=== PATIENT | female | born 1960 | race Caucasian/White ===

== ENCOUNTER 2017-01-10 14:33 | Inpatient (IN) | payer MEDICARE, MEDICAID ==
[~2017-01-10] VITALS: Ht 162.6 cm; Wt 60.3 kg
[~2017-01-10 14:33] MED LIST: ALBU18HF2 INH; DICL100G3 TOP; DIPH25CA84 PO; DOCU-132 PO; GABA-354 PO; IPRA4AER PO; OXYC10TA PO; OXYC15TA50 PO; PANT40TA27 PO; SERT-77 PO; SUCR1TAB PO; TRAM50TA4 PO; TRAZ300T2 PO; [UNRECOGNIZED DRUG - CODE] PO
--- OUTSIDE RECORDS SUMMARY | 2017-01-10 14:36 | XMS REPORT | Continuity of Care Document ---
Author Author [facility] Organization [facility] Address Unknown Phone Unavailable Support Name Relationship Address Phone TRIXIE ROMERO Next Of Kin [address] [address] Unavailable Insurance Providers Payer Name Policy Number Subscriber Name Relationship Medicaid [id number] Dulce Maria Romero 16 Self Medicare [id number] Dulce Maria Romero 16 Self Problems No Known Problems or Medical conditions. Family History History Response Recorded Date/Time HX of Orthopedic Surgeries Y RT BOBBI 2009; RT CTR 12/12/12 7:55am Hx Abdominal Surgery Y LAP APPY 12/12/12 7:55am HX Cerebrovascular Accident N 12/12/12 7:55am Hx Seizures N 12/12/12 7:55am Hx Angina N 12/12/12 7:55am Hx Congestive Heart Failure N 12/12/12 7:55am Hx Heart Attack N 12/12/12 7:55am Hx Hypertension Y 12/12/12 7:55am Hx Rheumatic Fever N 08/12/12 3:15pm Hx Chronic Obstructive Pulmonary Disease (COPD) N 12/12/12 7:55am Hx Diabetes N 12/12/12 7:55am Hx Clotting Problems N 12/12/12 7:55am Hx Cancer N 12/12/12 7:55am Hx MRSA N 12/12/12 7:55am HX of Cardiac Surgeries N 12/12/12 7:55am HX of Reproductive Surgeries Y tubal ligation 12/12/12 7:55am HX of Endocrine Surgeries N 12/12/12 7:55am HX of Throat Surgery N 12/12/12 7:55am HX of Neurological Surgeries N 12/12/12 7:55am HX of Genitourinary Surgeries N 12/12/12 7:55am Social History History Response Recorded Date/Time Smoking Status Current every day smoker 05/08/13 6:43am Chewing Tobacco Status N 12/12/12 7:55am Hx Substance Use N 12/12/12 7:55am Hx Alcohol Use Y 2 GLASSES 4X WK 12/12/12 7:55am Has the pt used tobacco in the last 12 months Y 05/08/13 6:43am Allergies, Adverse Reactions, Alerts Allergen Type Severity Reaction Last Updated NSAIDS (Non-Steroidal Anti-Inflamma Adverse Reaction Mild NAUSEA 09/09/12 LACTOSE INTOLERANT Allergy Unknown 03/08/10 Medications Medication Dose Units Route Sig Qty Days Diclofenac Sodium (Voltaren 1% Gel) 50 Applic TOP PRN Ropinirole Hcl 0.5 Mg PO HS Cyclobenzaprine Hcl 10 Mg PO PC Lansoprazole 30 Mg PO DAILY Folic Acid 0.4 Mg PO DAILY Diphenhydramine Hcl (Benadryl) 25 Mg PO PRN Trazodone Hcl 25 Mg PO HS Tramadol Hcl 1 Tab PO BID Oxycodone Hcl 5 Mg PO BID Propylene Glycol/Peg 400 (Systane Ultra 0.4-0.3% Eye Drp) 1 Drop BOTH EYES DAILY Metoprolol Succinate 50 Mg PO DAILY Lisinopril 20 Mg PO DAILY Ascorbic Acid (Vitamin C) 500 Mg PO DAILY Oxycodone Hcl/Acetaminophen (Oxycodone-Apap 10-325 Mg Tab) 1 Tab PO PRN Cholecalciferol (Vitamin D) 1000 Unit PO DAILY Sertraline Hcl (Zoloft) 100 Mg PO DAILY Lisinopril 20 Mg PO DAILY Docusate Sodium (Colace) 100 Mg PO PRN Cyclobenzaprine Hcl (Flexeril) 10 Mg PO PRN Immunizations Name Given Type Hx Influenza Vaccination N H Hx Pneumococcal Vaccination N H Hx Tetanus, Diptheria, Pertussis N UNK LAST H Response Recorded Date/Time Status not known Unknown Results Test Date Result Interp. Ref. Range Acid Fast Bacilli Culture (LAB) April 03, 2011 2:05pm Ref lab rpt scanned - Alanine Aminotransferase (ALT/SGPT) May 05, 2013 11:33am 53 U/L H 9-52 Albumin May 05, 2013 11:33am 4.3 G/DL N 3.5-5.0 Albumin/Globulin Ratio May 05, 2013 11:33am 1.3 RATIO N 1.1-2.2 Alkaline Phosphatase May 05, 2013 11:33am 113 U/L N 38-126 Mczji-3-Basshxxhsty December 04, 2011 11:40am Ref lab rpt scanned - Amylase Level February 11, 2013 8:05am 36 U/L N 30-110 Angiotensin Converting Enzyme June 15, 2011 10:25am Ref lab rpt scanned - Anion Gap May 08, 2013 8:15am 15 MEQ/L N 5-15 Anisocytosis September 02, 2010 12:04pm 1+ - Anti-Cardiolipin Antibodies (T) January 17, 2011 10:53am Ref lab rpt scanned - Anti-Double Strand DNA Antibody January 17, 2011 10:53am Ref lab rpt scanned - Anti-Mitochondrial Antibody December 04, 2011 11:40am Ref lab rpt scanned - Anti-Smooth Muscle Antibody December 04, 2011 11:40am Ref lab rpt scanned - Aspartate Amino Transf (AST/SGOT) May 05, 2013 11:33am 75 U/L H 14-36 B-Type Natriuretic Peptide January 09, 2009 1:30am 21 PG/ML N 15-100 BUN/Creatinine Ratio May 08, 2013 8:15am 6 RATIO N 6-26 Band Neutrophils # February 14, 2011 12:44pm 0.1 T/MM3 - Band Neutrophils % February 14, 2011 12:44pm 1.0 % N 0-6 Basophils # (Auto) May 08, 2013 8:15am 0.0 T/MM3 N 0-0.2 Basophils # (Manual) September 02, 2010 12:04pm 0.1 T/MM3 N 0-0.2 Basophils % (Manual) September 02, 2010 12:04pm 1.0 % N 0-2 Basophils (%) (Auto) May 08, 2013 8:15am 0.7 % N 0-2 Blood Smear Pathologist Review September 06, 2010 11:01am Sent for review - Blood Urea Nitrogen May 08, 2013 8:15am 3.0 MG/DL L 7-17 C-Reactive Protein February 11, 2013 8:05am 8.9 MG/L N 0-9 Calcium Level May 08, 2013 8:15am 8.7 MG/DL N 8.4-10.2 Calculated Osmolality May 08, 2013 8:15am 268 MOSM/KG N 261-280 Carbon Dioxide Level May 08, 2013 8:15am 23 MEQ/L N 22-30 Ceruloplasmin December 04, 2011 11:40am Ref lab rpt scanned - Chloride Level May 08, 2013 8:15am 103 MEQ/L N 98-107 Cholesterol Level September 27, 2010 11:50am 434 MG/DL 132-199 Cholesterol/HDL Ratio September 27, 2010 11:50am 5.9 RATIO H 0-4.0 Conjugated Bilirubin May 07, 2012 2:12pm 0.00 MG/DL N 0.00-0.30 Creatine Kinase MB August 13, 2012 4:00am 0.6 NG/ML N 0-3.4 Creatinine May 08, 2013 8:15am 0.5 MG/DL L 0.7-1.2 Differential Total Cells Counted February 14, 2011 12:44pm 100 % - Eosinophils # (Auto) May 08, 2013 8:15am 0.7 T/MM3 H 0-0.5 Eosinophils # (Manual) February 14, 2011 12:44pm 0.2 T/MM3 N 0-0.5 Eosinophils % (Manual) February 14, 2011 12:44pm 2.0 % N 0-4 Eosinophils (%) (Auto) May 08, 2013 8:15am 16.3 % H 0-4 Erythrocyte Sedimentation Rate February 11, 2013 8:05am 1 MM/HR N 0-20 Ferritin December 04, 2011 11:40am 247 NG/ML N 11-264 Folate September 06, 2010 11:01am 13.1 NG/ML N 2.76-20 Free Thyroxine February 11, 2013 8:05am 0.72 NG/DL L 0.78-2.19 Globulin May 05, 2013 11:33am 3.2 G/DL N 2.4-3.6 Glucose Level May 08, 2013 8:15am 93 MG/DL N 65-110 Hematocrit May 08, 2013 8:15am 38.0 % N 36-46 Hemoglobin May 08, 2013 8:15am 13.3 GM/DL N 12-16 Hepatitis A IgM Antibody December 04, 2011 11:40am Negative - Hepatitis B Core IgM Antibody December 04, 2011 11:40am Negative - Hepatitis B Surface Antigen December 04, 2011 11:40am Negative - Hepatitis C Antibody December 04, 2011 11:40am Negative - Homocysteine September 27, 2010 11:50am Ref lab rpt scanned - Immunoglobulin A December 04, 2011 11:40am 400.60 MG/DL H 70-400 Immunoglobulin G December 04, 2011 11:40am 1049.91 MG/DL N 700-1600 Immunoglobulin M December 04, 2011 11:40am 86.15 MG/DL N 40-230 Influenza Virus Types A,B Antigen January 09, 2009 2:20am Negative - Iron Level December 04, 2011 11:40am 143 UG/DL N 37-170 LDL Cholesterol, Calculated September 27, 2010 11:50am 280.2 H 66-159 Lactate Dehydrogenase September 02, 2010 12:04pm 492 U/L N 313-618 Lipase February 11, 2013 8:05am 108 U/L N 23-300 Lymphocytes # (Auto) May 08, 2013 8:15am 1.9 T/MM3 N 1-4.8 Lymphocytes # (Manual) February 14, 2011 12:44pm 3.1 T/MM3 N 1-4.8 Lymphocytes % (Manual) February 14, 2011 12:44pm 37.0 % N 23-45 Lymphocytes (%) (Auto) May 08, 2013 8:15am 41.5 % N 23-45 Macrocytosis September 02, 2010 12:04pm 1+ - Mean Corpuscular Hemoglobin May 08, 2013 8:15am 36.7 UUG H 26-34 Mean Corpuscular Hemoglobin Concent May 08, 2013 8:15am 35.0 GM/DL N 31- 37 Mean Corpuscular Volume May 08, 2013 8:15am 105.0 UM3 H 80-100 Mean Platelet Volume May 08, 2013 8:15am 10.7 UM3 N 9.4-12.4 Methylmalonic Acid September 27, 2010 11:50am Ref lab rpt scanned - Miscellaneous Cytology April 03, 2011 2:05pm Send out - Monocytes # (Auto) May 08, 2013 8:15am 0.4 T/MM3 N 0-0.8 Monocytes # (Manual) February 14, 2011 12:44pm 0.2 T/MM3 N 0-0.8 Monocytes % (Manual) February 14, 2011 12:44pm 3.0 % N 0-9.0 Monocytes (%) (Auto) May 08, 2013 8:15am 8.6 % N 0-9.0 Neutrophils # (Auto) May 08, 2013 8:15am 1.5 T/MM3 L 1.8-7.7 Neutrophils # (Manual) February 14, 2011 12:44pm 4.7 T/MM3 N 1.8-7.7 Neutrophils % (Manual) February 14, 2011 12:44pm 57.0 % N 33-66 Neutrophils (%) (Auto) May 08, 2013 8:15am 32.9 % L 33-66 Nucleated Red Blood Cells February 14, 2011 12:44pm 1 - Parathyroid Hormone (Intact) January 03, 2010 10:55am 15.0 PG/ML N 8.2-83.5 Percent Iron Saturation December 04, 2011 11:40am 46 % N 9-55 Platelet Count May 08, 2013 8:15am 132 T/MM3 N 130-400 Potassium Level May 08, 2013 8:15am 3.3 MEQ/L L 3.6-5 RDW Standard Deviation May 08, 2013 8:15am 53.5 FL H 36.9-50.2 BUTTER WRAPPER Antibody January 17, 2011 10:53am Ref lab rpt scanned - Red Blood Cell Folate February 28, 2013 2:38pm 114 ng/mL L - Red Blood Cell Folate Hematocrit February 28, 2013 2:38pm 48.4 % H - Red Blood Count May 08, 2013 8:15am 3.62 M/MM3 L 4.00-5.20 Rheumatoid Factor January 17, 2011 10:53am < 9 IU/ML 0-11 SS-A/Ro Antibody January 17, 2011 10:53am Ref lab rpt scanned - Serum Immunofixation March 24, 2011 12:34pm Ref lab rpt scanned - Sm (Martinez) IgG Antibody, Quant January 17, 2011 10:53am Ref lab rpt scanned - Sodium Level May 08, 2013 8:15am 141 MEQ/L N 134-144 Thyroid Stimulating Hormone (TSH) February 11, 2013 8:05am 1.68 MIU/L N 0.47- 4.68 Thyroxine (T4) February 11, 2013 8:05am 3.0 UG/DL L 5.5-11 Total Bilirubin May 05, 2013 11:33am 0.70 MG/DL N 0.20-1.30 Total Creatine Kinase August 13, 2012 4:00am 34 U/L N 30-135 Total Iron Binding Capacity December 04, 2011 11:40am 309 UG/DL N 261-497 Total Protein May 05, 2013 11:33am 7.5 G/DL N 6.3-8.2 Triglycerides Level September 27, 2010 11:50am 404 MG/DL H 35-135 Troponin I August 13, 2012 4:00am < 0.012 ng/ml 0-0.12 Unconjugated Bilirubin May 07, 2012 2:12pm 0.00 MG/DL N 0.00-1.10 Urine Bacteria February 11, 2013 8:05am 3+ H - Urine Bilirubin May 05, 2013 11:33am Negative - Urine Blood May 05, 2013 11:33am Negative - Urine Collection Type May 05, 2013 11:33am Voided-not cc-midstr - Urine Color May 05, 2013 11:33am Yellow - Urine Culture Indicated February 11, 2013 8:05am Cult reflexed &setup - Urine Drug Screen (T) May 03, 2009 3:10pm Sent out - Urine Glucose (UA) May 05, 2013 11:33am Negative - Urine Immunofixation 24 Hour September 06, 2010 12:00pm Ref lab rpt scanned - Urine Ketones May 05, 2013 11:33am Negative - Urine Leukocyte Esterase May 05, 2013 11:33am Negative - Urine Nitrite May 05, 2013 11:33am Negative - Urine Protein May 05, 2013 11:33am Negative - Urine RBC February 11, 2013 8:05am None seen /HPF - Urine Specific Lynn May 05, 2013 11:33am 1.010 L - Urine Squamous Epithelial Cells February 11, 2013 8:05am Moderate - Urine Turbidity May 05, 2013 11:33am Clear - Urine Urobilinogen May 05, 2013 11:33am Normal EU/DL - Urine WBC February 11, 2013 8:05am 10-20 /HPF H - Urine pH May 05, 2013 11:33am 7.0 - VLDL Cholesterol September 27, 2010 11:50am 80.8 MG/DL H 0-28 Vitamin B12 Level February 28, 2013 2:38pm 604 PG/ML N 239-931 Vitamin D 25-Hydroxy May 20, 2012 2:06pm Ref lab rpt scanned - White Blood Count May 08, 2013 8:15am 4.6 T/MM3 N 4.5-11.0 Cyclic Citrullinated Peptide August 02, 2010 11:57am Ref lab rpt scanned - Urinalysis Comment May 05, 2013 11:33am Microscopic not ind. - RBC Folate Hemolysate February 28, 2013 2:38pm 55.3 ng/mL - EKG January 09, 2009 1:35am Complete - HDL Cholesterol Direct September 27, 2010 11:50am 73 MG/DL H 40-60 Methicillin-Resist S.aureus DNA PCR February 21, 2010 9:40am Negative - HIV (1&2) Antibody Rapid January 20, 2010 10:51am Negative - Anti-Nuclear Antibody (LAB) December 04, 2011 11:40am Ref lab rpt scanned - Glomerular Filtration Rate Calc May 08, 2013 8:15am 128 - Hemoglobin Electrophoresis Screen June 15, 2011 10:25am Ref lab rpt scanned - Immature Granulocyte # (Auto) May 08, 2013 8:15am 0.00 T/MM3 N 0.00-0.03 Immature Granulocyte % (Auto) May 08, 2013 8:15am 0.0 % N 0.0-0.5 25-Hydroxy Vitamin D Total February 28, 2013 2:38pm 18 ng/mL L - 25-Hydroxy Vitamin D2 February 28, 2013 2:38pm <7 ng/mL - 25-Hydroxy Vitamin D3 February 28, 2013 2:38pm 18 ng/mL - Venous Blood Lactate April 24, 2013 10:49am 1.1 MMOL/L N 0.6-2.2 MRSA Specimen Source February 21, 2010 9:40am Nasal - Urine Microscopic Not Indicated December 27, 2010 11:12am Not indicated - Procedures Procedure Code Date TOTAL HIP REPLACEMENT 81.51 03/08/10 CARPAL TUNNEL SURGERY 91321 07/19/10 DRAIN/INJECT JOINT/BURSA 98211 12/29/10 DX BRONCHOSCOPE/WASH 57028 04/03/11 MEDIASTINOSCOPY INCL BIOPSY 74974 04/17/11 INTMD RPR S/A/T/EXT 12.6-20 43925 09/08/12 KNEE ARTHROSCOPY/SURGERY 10098 12/12/12 PARTIAL REMOVAL OF TIBIA 47856 05/08/13 Blood Culture 12/27/10 Gram Stain 12/29/10 Fungal Culture 04/03/11 Urine Culture 02/11/13 Gram Stain 11/20/11 Gram Stain 03/08/10 Encounters Encounter Location Date/Time Departed Emergency Room [facility] 09/08/12 7:55pm Discharged Inpatient [facility] 08/12/12 3:10pm
--- OUTSIDE RECORDS SUMMARY | 2017-01-10 14:36 | XMS REPORT | Continuity of Care Document ---
Author Author [facility] Organization [facility] Address Unknown Phone Unavailable Care Team Providers Care Information Technology Architect Name Role Phone Parish Ferrari Primary Care Physician [phone] Source Comments Some departments are not documenting in the electronic medical record. If you do not see the information that you expected, contact Release of Information in the Health Information Management department at [phone] for further assistance in locating additional records.[facility] Active Allergies and Adverse Reactions Not on File Current Medications Not on file Active Problems Not on file Social History Tobacco Use Types Packs/Day Years Used Date Never Assessed Plan of Care Health Maintenance Due Date Last Done Comments Physical (Comprehensive) 1965 Exam Pertussis Vaccine 1969 Tetanus Vaccine 1975 Cervical Cancer Screening 1979 Breast Cancer Screening 1998 Colorectal Cancer 2008 Screening Influenza Vaccine 06/29/2016 Results from Last 3 Months Not on file
--- OUTSIDE RECORDS SUMMARY | 2017-01-10 14:36 | XMS REPORT | Continuity of Care Document ---
Author Author [facility] Organization [facility] Address Unknown Phone Unavailable Support Name Relationship Address Phone JACQUELINE LAU MD Caregiver [address] [place] [address] Unavailable JOSEPH GALLOWAY MD Caregiver [address] [place] [address] [address] [place] [address] BURT CRAWFORD MD Caregiver [address] [place] [address] [place] [phone] TRIXIE ROMERO Next Of Kin [address] [place] [address] Insurance Providers Payer Name Policy Number Subscriber Name Relationship Medicare [id number] Dulce Maria Romero 16 Self Advance Directives Directive Response Recorded Date/Time Advanced Directives Type None 07/01/14 4:34am Ordered Resuscitation Status Full Code, unverified 02/16/14 2:48pm Problems Medical Problems Problem Onset Date Status Alcohol intoxication Unknown Active 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 Alcohol intoxication Unknown Active Medications Medication Dose Route Sig Days/Qty Instructions Order Date Discontinued Date Status Buspirone Hcl 10 Mg PO THREE TIMES A DAY 03/08/10 07/01/10 Discontinued Citalopram Hydrobromide 40 Mg PO DAILY 03/08/10 07/01/10 Discontinued Isomethept/Acetaminop/Dichlphn 1 Cap PO NEEDED 01/09/09 03/08/10 Discontinued Hydrocodone Bit/Acetaminophen 1 Tab PO NEEDED 01/09/09 03/07/10 Discontinued Lorazepam 1 Mg PO NEEDED 01/09/09 03/07/10 Discontinued Lorazepam 2 Mg PO TWICE A DAY 03/08/10 07/01/10 Discontinued Hydrocodone Bit/Acetaminophen 1 Tab PO NEEDED 03/08/10 07/01/10 Discontinued Nortriptyline Hcl 50 Mg PO THREE TIMES A DAY 03/08/10 07/01/10 Discontinued Lisinopril 10 Mg PO DAILY 07/19/10 12/28/10 Discontinued Ergocalciferol 50,000 Unit PO DAILY 03/08/10 07/01/10 Discontinued Calcium Carbonate 1 Tab PO DAILY 07/19/10 12/28/10 Discontinued Ferrous Sulfate 1 Tab PO DAILY 07/19/10 12/28/10 Discontinued Citalopram Hydrobromide 20 Mg PO DAILY 2 Qty 03/08/10 07/01/10 Discontinued Losartan Potassium 100 Mg PO DAILY 12/28/10 02/07/12 Discontinued Sertraline Hcl 100 Mg PO DAILY 12/28/10 Active Hydrocodone Bit/Acetaminophen 1 Tab PO NEEDED 12/28/10 03/31/11 Discontinued Hydrocodone Bit/Acetaminophen 2 Udtab PO every 4 hrs 03/31/11 Discontinued Oxycodone Hcl 15 Mg PO BEDTIME 03/31/11 02/07/12 Discontinued Cholecalciferol 1,000 Unit PO DAILY 04/14/11 Active Lisinopril 20 Mg PO DAILY 02/07/12 12/11/12 Discontinued Cyclobenzaprine Hcl 10 Mg PO NEEDED 1 TAB EVERY 8 HOURS 08/12/12 Discontinued Docusate Sodium 100 Mg PO NEEDED 08/12/12 09/09/12 Discontinued Ascorbic Acid 500 Mg PO DAILY 09/09/12 Active Lisinopril 20 Mg PO DAILY 12/09/12 Active Metoprolol Succinate 50 Mg PO DAILY 12/09/12 Active Propylene Glycol/Peg 400 1 Drop BOTH EYES DAILY 12/09/12 Active Oxycodone Hcl 5 Mg PO THREE TIMES A DAY 05/06/13 Active Tramadol Hcl 1 Tab PO THREE TIMES A DAY 05/06/13 Active Trazodone Hcl 75 Mg PO BEDTIME 05/06/13 Active Diphenhydramine Hcl 25 Mg PO NEEDED 05/06/13 Active Folic Acid 0.4 Mg PO DAILY 05/08/13 Active Lansoprazole 30 Mg PO NEEDED 05/08/13 Active Ropinirole Hcl 0.5 Mg PO BEDTIME 05/08/13 Active Diclofenac Sodium 50 Applic TOP NEEDED 05/08/13 Active Sucralfate 1 Gm PO BEFORE MEALS AND AT BEDTIME 40 Qty Take 1 tablet, by mouth, 4 times a day (Before meals and at 07/01/14 Active Lansoprazole 1 Cap PO BEDTIME 30 Qty 07/01/14 Active Social History Social History Problem Response Recorded Date/Time Smoking Status Heavy Smoker 02/17/2014 10:01am Chewing Tobacco Status No 02/16/2014 1:03pm Hx Substance Use No 07/01/2014 6:51am Hx Alcohol Use No 07/01/2014 6:51am Has the pt used tobacco in the last 12 months Yes 02/17/2014 10:01am Query Response Start Date Stop Date Smoking Status Current some day smoker Hospital Discharge Instructions No hospital discharge instructions. Plan of Care No plan of care. Functional Status Query Response Date Recorded Physical Hygiene Self July 01, 2014 6:51am Disabilities None July 01, 2014 6:51am Devices Used None July 01, 2014 6:51am Dressing Self July 01, 2014 6:51am Ambulation Self July 01, 2014 6:51am Diet Self July 01, 2014 6:51am Mental Status Alert Oriented July 01, 2014 7:49am Disabilities None July 01, 2014 6:51am Devices Used None July 01, 2014 6:51am Physical Hygiene Self July 01, 2014 6:51am Dressing Self July 01, 2014 6:51am Ambulation Self July 01, 2014 6:51am Diet Self July 01, 2014 6:51am Allergies, Adverse Reactions, Alerts Allergen Type Severity Reaction Status Last Updated NSAIDS (Non-Steroidal Anti-Inflamma Adverse Reaction Mild NAUSEA Active Acetaminophen Adverse Reaction Unknown PREVIOUS HX OF LIVER FAILURE Active 07/01/14 LACTOSE INTOLERANT Allergy Unknown Active 03/08/10 Immunizations Name Given Type Hx Influenza Vaccination No Historical Hx Pneumococcal Vaccination No Historical Hx Tetanus, Diptheria, Pertussis N UNK LAST Historical Hx Influenza Vaccination No Historical Hx Tetanus Diptheria Y 09/09 Historical Hx Tetanus, Diptheria, Pertussis N UNK LAST Historical Vital Signs Acute Vital Signs Vital Response Date/Time Temperature (Fahrenheit) 96.8 deg F (96.8 - 99.1) Temperature (Calculated Celsius) 36.19311 degrees C (36.0 - 37.3) Pulse Rate (adult) 81 bpm (60 - 100) Respiratory Rate 16 breaths/min (10 - 20) O2 Sat by Pulse Oximetry 91 % (90 - 100) Oxygen Flow Rate 1.00 L/min Blood Pressure 98/58 mm Hg Height 5 ft 4 in Weight 143 lb Body Mass Index 24.0 kg/m^2 Results Test Source Date Result Interp. Ref. Range Comments Acid Fast Bacilli Culture (LAB) April 03, 2011 2:05pm Ref lab rpt scanned - --- 05/23/11 1106 ---CUAFB previously reported as: SENT OUT Activated Partial Thromboplast Time February 17, 2014 9:25am 31.4 SEC N 24- 36 Alanine Aminotransferase (ALT/SGPT) July 01, 2014 5:12am 17 U/L N 9 -52 Albumin July 01, 2014 5:12am 4.4 G/DL N 3.5-5.0 Albumin/Globulin Ratio July 01, 2014 5:12am 1.2 RATIO N 1.1-2.2 Alcohol, Quantitative July 01, 2014 5:12am 209 MG/DL - Alkaline Phosphatase July 01, 2014 5:12am 103 U/L N 38-126 Edczp-4-Usvpznyysam December 04, 2011 11:40am Ref lab rpt scanned - - -- 12/06/11 1525 ---ALPHA previously reported as: SENT OUT Amylase Level July 28, 2013 5:05am < 30 U/L L 30-110 Angiotensin Converting Enzyme June 15, 2011 10:25am Ref lab rpt scanned - --- 06/18/11 1036 ---ANGIO previously reported as: SENT OUT Anion Gap July 01, 2014 5:12am 18 MEQ/L H 5-15 Anisocytosis September 02, 2010 12:04pm 1+ - Anti-Cardiolipin Antibodies (T) January 17, 2011 10:53am Ref lab rpt scanned - --- 01/20/11 1558 ---ANTICA previously reported as: SENT OUT Anti-Double Strand DNA Antibody January 17, 2011 10:53am Ref lab rpt scanned - --- 01/19/11 1103 ---ANTIDS previously reported as: SENT OUT Anti-Mitochondrial Antibody December 04, 2011 11:40am Ref lab rpt scanned - --- 12/07/11 1640 ---ANTIMIT previously reported as: SENT OUT Anti-Smooth Muscle Antibody December 04, 2011 11:40am Ref lab rpt scanned - --- 12/07/11 0811 ---SMAB previously reported as: SEND OUT Aspartate Amino Transf (AST/SGOT) July 01, 2014 5:12am 24 U/L N 14- 36 B-Type Natriuretic Peptide January 09, 2009 1:30am 21 PG/ML N 15-100 BUN/Creatinine Ratio July 01, 2014 5:12am 9 RATIO N 6-26 Band Neutrophils # February 14, 2011 12:44pm 0.1 T/MM3 - Band Neutrophils % February 14, 2011 12:44pm 1.0 % N 0-6 Basophils # (Auto) July 01, 2014 5:12am 0.1 T/MM3 N 0-0.2 Basophils # (Manual) September 02, 2010 12:04pm 0.1 T/MM3 N 0-0.2 Basophils % (Manual) September 02, 2010 12:04pm 1.0 % N 0-2 Basophils (%) (Auto) July 01, 2014 5:12am 0.8 % N 0-2 Blood Smear Pathologist Review September 06, 2010 11:01am Sent for review - Blood Urea Nitrogen July 01, 2014 5:12am 8.0 MG/DL N 7-17 C-Reactive Protein July 26, 2013 4:50am 14.3 MG/L H 0-9 Calcium Level July 01, 2014 5:12am 9.3 MG/DL N 8.4-10.2 Calculated Osmolality July 01, 2014 5:12am 273 MOSM/KG N 261-280 Carbon Dioxide Level July 01, 2014 5:12am 25 MEQ/L N 22-30 Ceruloplasmin December 04, 2011 11:40am Ref lab rpt scanned - --- 1525 ---CERU previously reported as: SENT OUT Chloride Level July 01, 2014 5:12am 100 MEQ/L N 98-107 Cholesterol Level July 24, 2013 4:00am 182 MG/DL N 132-199 COMMENT FASTING Cholesterol/HDL Ratio July 24, 2013 4:00am 3.0 RATIO N 0-4.0 COMMENT FASTING Conjugated Bilirubin May 07, 2012 2:12pm 0.00 MG/DL N 0.00-0.30 Creatine Kinase MB February 19, 2014 11:00pm 1.6 NG/ML N 0-3.4 Creatinine July 01, 2014 5:12am 0.9 MG/DL N 0.7-1.2 Differential Total Cells Counted February 14, 2011 12:44pm 100 % - Eosinophils # (Auto) July 01, 2014 5:12am 0.2 T/MM3 N 0-0.5 Eosinophils # (Manual) February 14, 2011 12:44pm 0.2 T/MM3 N 0-0.5 Eosinophils % (Manual) February 14, 2011 12:44pm 2.0 % N 0-4 Eosinophils (%) (Auto) July 01, 2014 5:12am 2.5 % N 0-4 Erythrocyte Sedimentation Rate July 26, 2013 4:50am 33 MM/HR H 0- 20 Ferritin December 04, 2011 11:40am 247 NG/ML N 11-264 Folate September 06, 2010 11:01am 13.1 NG/ML N 2.76-20 NORMAL ADULT RANGE: 2.76->20 ng/mL Free Thyroxine February 11, 2013 8:05am 0.72 NG/DL L 0.78-2.19 Globulin July 01, 2014 5:12am 3.6 G/DL N 2.4-3.6 Glucose Level July 01, 2014 5:12am 102 MG/DL N 65-110 Hematocrit July 01, 2014 5:12am 45.4 % N 36-46 Hemoglobin July 01, 2014 5:12am 14.8 GM/DL N 12-16 Hepatitis A IgM Antibody December 04, 2011 11:40am Negative - Hepatitis B Core IgM Antibody December 04, 2011 11:40am Negative - Hepatitis B Surface Antigen December 04, 2011 11:40am Negative - Hepatitis C Antibody December 04, 2011 11:40am Negative - Homocysteine September 27, 2010 11:50am Ref lab rpt scanned - --- 04/07 1050 ---HOMOC previously reported as: SENT OUT Immunoglobulin A December 04, 2011 11:40am 400.60 MG/DL H 70-400 Immunoglobulin G December 04, 2011 11:40am 1049.91 MG/DL N 700-1600 Immunoglobulin M December 04, 2011 11:40am 86.15 MG/DL N 40-230 Influenza Virus Types A,B Antigen January 09, 2009 2:20am Negative - Iron Level December 04, 2011 11:40am 143 UG/DL N 37-170 LDL Cholesterol, Calculated July 24, 2013 4:00am 72.6 N 66-159 COMMENT FASTING Lactate Dehydrogenase September 02, 2010 12:04pm 492 U/L N 313-618 Lipase July 01, 2014 5:12am 90 U/L N 23-300 Lymphocytes # (Auto) July 01, 2014 5:12am 4.3 T/MM3 N 1-4.8 Lymphocytes # (Manual) February 14, 2011 12:44pm 3.1 T/MM3 N 1-4.8 Lymphocytes % (Manual) February 14, 2011 12:44pm 37.0 % N 23-45 Lymphocytes (%) (Auto) July 01, 2014 5:12am 48.6 % H 23-45 Macrocytosis September 02, 2010 12:04pm 1+ - Magnesium Level February 20, 2014 4:50am 1.9 MG/DL N 1.6-2.3 Mean Corpuscular Hemoglobin July 01, 2014 5:12am 31.0 UUG N 26-34 Mean Corpuscular Hemoglobin Concent July 01, 2014 5:12am 32.6 GM/DL N 31-37 Mean Corpuscular Volume July 01, 2014 5:12am 95.0 UM3 N 80-100 Mean Platelet Volume July 01, 2014 5:12am 10.8 UM3 N 9.4-12.4 Methylmalonic Acid September 27, 2010 11:50am Ref lab rpt scanned - -- - 10/03/10 1050 ---METHY previously reported as: SEND OUT Miscellaneous Cytology April 03, 2011 2:05pm Send out - Monocytes # (Auto) July 01, 2014 5:12am 0.5 T/MM3 N 0-0.8 Monocytes # (Manual) February 14, 2011 12:44pm 0.2 T/MM3 N 0-0.8 Monocytes % (Manual) February 14, 2011 12:44pm 3.0 % N 0-9.0 Monocytes (%) (Auto) July 01, 2014 5:12am 6.0 % N 0-9.0 Neutrophils # (Auto) July 01, 2014 5:12am 3.7 T/MM3 N 1.8-7.7 Neutrophils # (Manual) February 14, 2011 12:44pm 4.7 T/MM3 N 1.8-7.7 Neutrophils % (Manual) February 14, 2011 12:44pm 57.0 % N 33-66 Neutrophils (%) (Auto) July 01, 2014 5:12am 42.0 % N 33-66 Nucleated Red Blood Cells February 14, 2011 12:44pm 1 - Parathyroid Hormone (Intact) January 03, 2010 10:55am 15.0 PG/ML N 8.2- 83.5 Percent Iron Saturation December 04, 2011 11:40am 46 % N 9-55 Platelet Count July 01, 2014 5:12am 201 T/MM3 N 130-400 Potassium Level July 01, 2014 5:12am 3.9 MEQ/L N 3.6-5 Prothromb Time International Ratio February 17, 2014 9:25am 1.01 N 0.86- 1.10 THERAPUTIC RANGE=2.00-3.00 FOR ANTI-THROMBOSIS THERAPUTIC RANGE=2.50- 3.50 FOR IMPLANTED VALVE RDW Standard Deviation July 01, 2014 5:12am 46.7 FL N 36.9-50.2 DOG WARDEN Antibody January 17, 2011 10:53am Ref lab rpt scanned - --- 1103 ---ANTIRNP previously reported as: SENT OUT Red Blood Cell Folate February 28, 2013 2:38pm 114 ng/mL L - RBC, Folate performed at [facility], [address] [place], [place] [address]Medical Director Mackenzie Trevino MD Red Blood Cell Folate Hematocrit February 28, 2013 2:38pm 48.4 % H - RBC, Folate performed at [facility], [address] [place], [place] [address]Medical Director Mackenzie Trevino MD Red Blood Count July 01, 2014 5:12am 4.78 M/MM3 N 4.00-5.20 Rheumatoid Factor January 17, 2011 10:53am < 9 IU/ML 0-11 SS-A/Ro Antibody January 17, 2011 10:53am Ref lab rpt scanned - --- 1103 ---ANTISSA previously reported as: SENT OUT Serum Immunofixation March 24, 2011 12:34pm Ref lab rpt scanned - --- 03/28/11 1538 ---IMMSWO previously reported as: SEND OUT Sm (Martinez) IgG Antibody, Quant January 17, 2011 10:53am Ref lab rpt scanned - --- 01/20/11 1558 ---ANTISM previously reported as: SENT OUT Sodium Level July 01, 2014 5:12am 143 MEQ/L N 134-144 Thyroid Stimulating Hormone (TSH) February 11, 2013 8:05am 1.68 MIU/L N 0.47-4.68 Thyroxine (T4) February 11, 2013 8:05am 3.0 UG/DL L 5.5-11 Total Bilirubin July 01, 2014 5:12am 0.40 MG/DL N 0.20-1.30 Total Creatine Kinase February 19, 2014 11:00pm 124 U/L N 30-135 Total Iron Binding Capacity December 04, 2011 11:40am 309 UG/DL N 261- 497 Total Protein July 01, 2014 5:12am 8.0 G/DL N 6.3-8.2 Triglycerides Level July 24, 2013 4:00am 247 MG/DL H 35-135 COMMENT FASTING Troponin I July 01, 2014 5:12am < 0.012 ng/ml 0-0.12 Unconjugated Bilirubin May 07, 2012 2:12pm 0.00 MG/DL N 0.00-1.10 Urine Bacteria July 22, 2013 11:47am Trace H - Urine Bilirubin July 01, 2014 4:50am Negative - Has specimen been collected/obtained? Y Urine Blood July 01, 2014 4:50am Negative - Has specimen been collected/obtained? Y Urine Collection Type July 01, 2014 4:50am Cleancatch-midstream - Has specimen been collected/obtained? Y Urine Color July 01, 2014 4:50am Yellow - Has specimen been collected/obtained? Y Urine Culture Indicated July 22, 2013 11:47am Cult reflexed &setup - Urine Drug Screen (T) May 03, 2009 3:10pm Sent out - Urine Glucose (UA) July 01, 2014 4:50am Negative - Has specimen been collected/obtained? Y Urine Immunofixation 24 Hour September 06, 2010 12:00pm Ref lab rpt scanned - --- 09/09/10 1546 ---IMMUR previously reported as: SEND OUT Urine Ketones July 01, 2014 4:50am Negative - Has specimen been collected/obtained? Y Urine Leukocyte Esterase July 01, 2014 4:50am Negative - Has specimen been collected/obtained? Y Urine Nitrite July 01, 2014 4:50am Negative - Has specimen been collected/obtained? Y Urine Protein July 01, 2014 4:50am Negative - Has specimen been collected/obtained? Y Urine RBC July 22, 2013 11:47am 0-1 /HPF - Urine Specific Gray July 01, 2014 4:50am 1.010 L - Has specimen been collected/obtained? Y Urine Squamous Epithelial Cells July 22, 2013 11:47am >50 - Urine Turbidity July 01, 2014 4:50am Clear - Has specimen been collected/obtained? Y Urine Urobilinogen July 01, 2014 4:50am 0.2 EU/DL - Has specimen been collected/obtained? Y Urine WBC July 22, 2013 11:47am 5-10 /HPF H - Urine pH July 01, 2014 4:50am 6.5 - Has specimen been collected/ obtained? Y VLDL Cholesterol July 24, 2013 4:00am 49.4 MG/DL H 0-28 COMMENT FASTING Vitamin B12 Level February 28, 2013 2:38pm 604 PG/ML N 239-931 Vitamin D 25-Hydroxy May 20, 2012 2:06pm Ref lab rpt scanned - --- 05/21/12 1624 ---VIT25 previously reported as: SEND OUT White Blood Count July 01, 2014 5:12am 8.8 T/MM3 N 4.5-11.0 Chemistry Specimen Hemolysis July 01, 2014 5:12am < 15 0-25 0-25 : No Hemolysis.26-70: Slight Hemolysis - can falsely elevate K and Urine Protein. 71-285: Moderate Hemolysis - can falsely elevate K, Troponin I, CA 19-9, PTH, CSF GLucose, and Urine Protein, and can falsely decrease Phenytoin. 286-999: Gross Hemolysis - can falsely elevate K, Troponin I, CA 19-9, PTH, CSF Glucose, and Urine Protine, and can falsely decrease Phenytoin. Recommend specimen recollection. Cyclic Citrullinated Peptide August 02, 2010 11:57am Ref lab rpt scanned - --- 08/05/10 0908 ---CCP previously reported as: SENT OUT Urinalysis Comment July 01, 2014 4:50am Microscopic not ind. - Has specimen been collected/obtained? Y RBC Folate Hemolysate February 28, 2013 2:38pm 55.3 ng/mL - Lab Scanned Report January 19, 2014 6:38pm LAB TEST FORM REQUEST [id number] - EKG January 09, 2009 1:35am Complete - HDL Cholesterol Direct July 24, 2013 4:00am 60 MG/DL N 40-60 COMMENT FASTING Methicillin-Resist S.aureus DNA PCR February 21, 2010 9:40am Negative - HIV (1&2) Antibody Rapid January 20, 2010 10:51am Negative - Anti-Nuclear Antibody (LAB) December 04, 2011 11:40am Ref lab rpt scanned - --- 12/05/11 0856 ---IVAN previously reported as: SENT OUT Turbidity July 01, 2014 5:12am < 20 0-20 Glomerular Filtration Rate Calc July 01, 2014 5:12am 65 - Hemoglobin Electrophoresis Screen June 15, 2011 10:25am Ref lab rpt scanned - --- 06/20/11 0839 ---HBGEL previously reported as: SENT OUT Immature Granulocyte # (Auto) July 01, 2014 5:12am 0.01 T/MM3 N 0.00-0.03 Immature Granulocyte % (Auto) July 01, 2014 5:12am 0.1 % N 0.0-0.5 25-Hydroxy Vitamin D Total February 28, 2013 2:38pm 18 ng/mL L - The desirable level of 25-Hydroxy Vitamin D Total(D2 + D3) is 30-74 ng/mL.A level consistently >200 is potentially toxic. Vitamin D, 25-Hydroxy performed at [facility], [address] [place] [address] Fiberglass Product Tester Mackenzie Trevino MD 25-Hydroxy Vitamin D2 February 28, 2013 2:38pm <7 ng/mL - 25-Hydroxy Vitamin D3 February 28, 2013 2:38pm 18 ng/mL - Venous Blood Lactate April 24, 2013 10:49am 1.1 MMOL/L N 0.6-2.2 Icterus Index July 01, 2014 5:12am < 2 0-7 MRSA Specimen Source February 21, 2010 9:40am Nasal - UW-Fmf-B-Type Natriuretic Peptide February 19, 2014 11:00pm 2590 PG/ML H 0- 175 Rule in cut points: <50 years old=450; 50-75 years old=900; >75 years old=1800; When utilizing ProBNP rule-in cut points, adjustment for impaired renal function is typically not required. Urine Microscopic Not Indicated December 27, 2010 11:12am Not indicated - NO CPCINDICATED Blood Culture Blood December 27, 2010 12:40pm NO GROWTH AFTER 5 DAYS Gram Stain Synovial Fluid-Right Hip December 29, 2010 1:58pm Fungal Culture Respiratory-Bronchial Washings April 03, 2011 2:05pm Urine Culture Urine, Clean Catch-Midstream July 22, 2013 12:45pm Mixed Kathie Prob. Contaminants Gram Stain Leg-Left Lower November 20, 2011 12:00am Gram Stain Hip, Intraoperative Site-Right March 08, 2010 8:22am Name: HEATHERDULCE MARIA Elijah Unit #: [id number] : [id number] Sex: F Loc / Svc: ED DOS: 07/01/14 Signed Report #: [id number] DIAGNOSTIC IMAGING REPORT TYPE OF EXAM: CT ABD/PELVIS W/CONTRAST ONLY Dictated By: LE PRATT MD INDICATION: ITS.REASON: EPIGASTRIC AND UPPER ABD PAIN CT ABD/PELVIS W/CONTRAST ONLY: Comparison: July 23, 2013 Technique: Axial CT images were performed through the abdomen and pelvis after the administration of intravenous contrast. Contrast: Omnipaque 300 89 mL Findings: Emphysema with fibrosis in the lung bases, right greater than left. Liver is unremarkable. Gallbladder appears normal. The spleen, pancreas and adrenal glands are normal. Kidneys are normal. No abdominal or pelvic lymphadenopathy. Metallic artifact from a right hip prosthesis. Visualized bladder is grossly normal. Uterus and ovaries are unremarkable. Small and large bowel show no significant abnormality. Appendix is absent. Impression: No acute disease process seen in the abdomen or pelvis. There is a preliminary report by [employer]. . Procedures No known history of procedures. Encounters Encounter Location Date/Time Departed Emergency Room [facility] 07/01/14 4:34am Recent Diagnosis
[2017-01-10] MEDS ORDERED: OXYC15TA50 PO (15:02)
--- OUTSIDE RECORDS SUMMARY | 2017-01-10 15:06 | XMS REPORT | Continuity of Care Document ---
Author Author [facility] Organization [facility] Address Unknown Phone Unavailable Care Team Providers Care Chief Of Police Name Role Phone Parish Ferrari Primary Care Physician [phone] Source Comments Some departments are not documenting in the electronic medical record. If you do not see the information that you expected, contact Release of Information in the Health Information Management department at [phone] for further assistance in locating additional records.[facility] Active Allergies and Adverse Reactions Not on [...]
--- OUTSIDE RECORDS SUMMARY | 2017-01-10 15:06 | XMS REPORT | Continuity of Care Document ---
Author Author [facility] Organization [facility] Address Unknown Phone Unavailable Support Name Relationship Address Phone JACQUELINE LAU MD Caregiver [address] [place] [address] Unavailable JOSEPH GALLOWAY MD Caregiver [address] [place] [address] [address] [place] [address] BURT CRAWFORD MD Caregiver [address] [place] [address] [place] [phone] TRIXIE ROMERO Next Of Kin [address] [place] [address] Insurance Providers Payer Name Policy Number Subscriber Name Relationship Medicare [id number] Dulce Maria Romero 16 Self Advance Directives [...] F (96.8 - 99.1) Temperature (Calculated Celsius) 36.20881 degrees C (36.0 - 37.3) Pulse Rate [...] 01, 2014 5:12am 103 U/L N 38-126 Jdwum-0-Shxigtzvygg December 04, 2011 11:40am Ref lab rpt [...] 01, 2014 5:12am 46.7 FL N 36.9-50.2 FISHER SWORDFISH Antibody January 17, 2011 10:53am Ref lab rpt scanned - --- 1103 ---ANTIRNP previously reported as: SENT OUT Red Blood Cell Folate February 28, 2013 2:38pm 114 ng/mL L - RBC, Folate performed at [facility], [address] [place], [place] [address]Medical Director Mackenzie Trevino MD Red Blood Cell Folate Hematocrit February 28, 2013 2:38pm 48.4 % H - RBC, Folate performed at [facility], [address] [place], [place] [address]Medical Director Mackenzie Trevino MD Red Blood Count [...] 2013 11:47am 0-1 /HPF - Urine Specific Maxwell July 01, 2014 4:50am 1.010 L - [...] 19, 2014 6:38pm LAB TEST FORM REQUEST [id number] - EKG January 09, 2009 1:35am Complete [...] potentially toxic. Vitamin D, 25-Hydroxy performed at [facility], [address] [place] [address] Sports Commentator Mackenzie Trevino MD 25-Hydroxy Vitamin D2 February 28, 2013 2:38pm <7 ng/mL - 25-Hydroxy Vitamin D3 February 28, 2013 2:38pm 18 ng/mL - Venous Blood Lactate April 24, 2013 10:49am 1.1 MMOL/L N 0.6-2.2 Icterus Index July 01, 2014 5:12am < 2 0-7 MRSA Specimen Source February 21, 2010 9:40am Nasal - JD-Kkm-X-Type Natriuretic Peptide February 19, 2014 11:00pm 2590 [...] 8:22am Name: HEATHERDULCE MARIA Elijah Unit #: [id number] : 1960 Sex: F Loc / Svc: ED DOS: 07/01/14 Signed Report #: [id number] DIAGNOSTIC IMAGING REPORT TYPE OF EXAM: CT [...] pelvis. There is a preliminary report by [employer]. . Procedures No known history of procedures. Encounters Encounter Location Date/Time Departed Emergency Room [facility] 07/01/14 4:34am Recent Diagnosis
--- OUTSIDE RECORDS SUMMARY | 2017-01-10 15:07 | XMS REPORT | Continuity of Care Document ---
Author Author [facility] Organization [facility] Address Unknown Phone Unavailable Support Name Relationship Address Phone TRIXIE ROMERO Next Of Kin [address] [place] [address] Unavailable Insurance Providers Payer Name Policy Number Subscriber Name Relationship Medicaid [id number] Dulce Maria Romero 16 Self Medicare [id number] Dulce Maria Romero 16 Self Problems No [...] 05, 2013 11:33am 113 U/L N 38-126 [id number] December 04, 2011 11:40am Ref lab rpt [...] 08, 2013 8:15am 53.5 FL H 36.9-50.2 PRODUCT SAFETY CONSULTANT Antibody January 17, 2011 10:53am Ref lab [...] 8:05am None seen /HPF - Urine Specific [place] May 05, 2013 11:33am 1.010 L - [...] HIP REPLACEMENT 81.51 03/08/10 CARPAL TUNNEL SURGERY 62145 07/19/10 DRAIN/INJECT JOINT/BURSA 58148 12/29/10 DX BRONCHOSCOPE/WASH 29706 04/03/11 MEDIASTINOSCOPY INCL BIOPSY 74473 04/17/11 INTMD RPR S/A/T/EXT 12.6-20 56988 09/08/12 KNEE ARTHROSCOPY/SURGERY 49261 12/12/12 PARTIAL REMOVAL OF TIBIA 03506 05/08/13 Blood Culture 12/27/10 Gram Stain 12/29/10 Fungal Culture 04/03/11 Urine Culture 02/11/13 Gram Stain 11/20/11 Gram Stain 03/08/10 Encounters Encounter Location Date/Time Departed Emergency Room [facility] 09/08/12 7:55pm Discharged Inpatient [facility] 08/12/12 3:10pm
[2017-01-10] MEDS ORDERED: NORMAL SALINE 1,000 ML IV ONE (15:15)
[2017-01-10] MEDS ORDERED: ONDANSETRON 4mg/2ml INJECTION IV ONE (15:15)
[2017-01-10] MEDS ORDERED: FENTANYL 100mcg/2ml INJECTION IV ONE (15:15)
[2017-01-10 15:22] LABS: ALBUMIN 4.2 G/DL (3.5-5.0); ALBUMIN/GLOBULIN RATIO 0.9 RATIO (1.1-2.2); ALKALINE PHOSPHATASE 99 U/L (38-126); ALT (SGPT) 15 U/L (9-52); ANION GAP 14 MEQ/L (5-15); AST (SGOT) 19 U/L (14-36); BUN/CREATININE RATIO 20 RATIO (6-26); CALCIUM 9.5 MG/DL (8.4-10.2); CHLORIDE 100 MEQ/L (98-107); CO2 - CARBON DIOXIDE 26 MEQ/L (22-30); CREATININE 0.5 MG/DL (0.7-1.2); GLOMERULAR FILTRATION RATE 127; GLUCOSE 125 MG/DL (65-110); POTASSIUM 4.3 MEQ/L (3.6-5); SODIUM 140 MEQ/L (134-144); TOTAL PROTEIN 9.1 G/DL (6.3-8.2)
[2017-01-10 15:26] LABS: BLOOD, URINE NEGATIVE (NEGATIVE); COLOR,URINE YELLOW (YELLOW); LEUKOCYTE ESTERASE ,URINE NEGATIVE (NEGATIVE); NITRITE,URINE NEGATIVE (NEGATIVE); UROBILINOGEN,URINE 0.2 EU/DL (NORMAL)
[2017-01-10 15:29] LABS: BASOPHILS % (AUTO) 0.1 % (0-2); EOSINOPHILS # (AUTO) 0.1 T/MM3 (0-0.5); EOSINOPHILS % (AUTO) 0.4 % (0-4); HCT - HEMATOCRIT 45.9 % (36-46); IMMATURE GRANULOCYTE # (AUTO) 0.01 T/MM3 (0.00-0.03); IMMATURE GRANULOCYTE % (AUTO) 0.1 % (0.0-0.5); LYMPHOCYTES # (AUTO) 2.2 T/MM3 (1-4.8); LYMPHOCYTES % (AUTO) 16.1 % (23-45); MEAN CORPUSCULAR HGB 29.6 UUG (26-34); MEAN CORPUSCULAR HGB CONC(MCHC 32.7 GM/DL (31-37); MEAN CORPUSCULAR VOLUME 90.7 UM3 (80-100); MEAN PLATELET VOLUME 10.5 UM3 (9.4-12.4); MONOCYTES # (AUTO) 0.9 T/MM3 (0-0.8); MONOCYTES % (AUTO) 6.2 % (0-9.0); NEUTROPHILS #(AUTO)-ABSOLUTE 10.5 T/MM3 (1.8-7.7); NEUTROPHILS % (AUTO) 77.1 % (33-66); RED BLOOD COUNT 5.06 M/MM3 (4.00-5.20); WBC - WHITE BLOOD COUNT 13.7 T/MM3 (4.5-11.0)
[2017-01-10 15:34] LABS: BACTERIA,URINE TRACE (NEGATIVE); MUCUS,URINE PRESENT; RBC,URINE 0-1 /HPF (0-3); SQUAMOUS EPITHELIAL CELL,UR 20-50
[2017-01-10] MEDS ORDERED: NORMAL SALINE 100 ML ONE (15:39)
[2017-01-10] MEDS ORDERED: IOHEXOL 300 MG/ML 75ml INJECTION ONE (15:39)
[2017-01-10] MEDS ORDERED: SALINE FLUSH 10ml SYRINGE ONE (15:39)
--- NOTE | 2017-01-10 16:14 | DI ---
Indication: Abdominal pain, chills, weakness, nausea, vomiting, diarrhea, history of appendectomy and tubal ligation Procedure: CT ABD/PELVIS W/CONTRAST ONLY: Encounter: Initial Comparison: Abdominal MRI/MRCP 12/12/2016, abdominal CT 12/12/2016, gallbladder ultrasound 12/11/2016, abdominal CT 12/08/2016 Technique: Axial CT images were performed through the abdomen and pelvis after the administration of intravenous contrast. Coronal and sagittal reformatted images were also obtained. Automated Exposure Control and Iterative Reconstruction dose reducing techniques were utilized. Contrast: Omnipaque 300 100 mL Findings: Lower lungs: Right greater than left basilar atelectasis. The visualized heart is normal in size without pericardial effusion. Abdomen: The liver enhances homogeneously without focal mass. The gallbladder is distended and appears normal. No biliary ductal dilatation. Interval increased peripancreatic inflammatory fatty stranding of the central mesentery and mild free fluid extending inferiorly. The pancreatic parenchyma maintains normal enhancement without evidence of necrosis. No discrete pseudocyst. The spleen is normal in size and enhancement. The adrenal glands are within normal limits. The kidneys enhance symmetrically and appear normal. The ureters are normal in course and caliber. The abdominal aorta is normal in course and caliber with aortoiliac atherosclerotic calcifications noted. The mesenteric arterial and venous structures appear patent. The stomach is partially distended and appears normal. Mildly prominent wall thickening and distention of the duodenum. Small bowel loops are otherwise normal in caliber without evidence of obstruction. The colon appears normal. The appendix is surgically absent by report. No intra-abdominal free air, free fluid, focal fluid collections, or lymphadenopathy. Pelvis: The bladder is distended and appears normal. The uterus and ovaries appear grossly normal. Mild pelvic free fluid. No lymphadenopathy. Osseous structures and soft tissues: No acute osseous abnormality. Postoperative changes of right total hip arthroplasty. Impression: 1. Interval increased peripancreatic inflammatory fatty stranding of the central mesentery with mild free fluid extending inferiorly again likely related to acute pancreatitis. The pancreatic parenchyma itself maintains normal enhancement without evidence of significant necrosis. No discrete pseudocyst seen. 2. Mildly thickened and prominent duodenum traversing the pancreas likely due to reactive inflammation from the adjacent pancreatitis. .
--- NOTE | 2017-01-10 16:54 | NUR ---
DR HARRIS IN WITH PT
[2017-01-10] MEDS ORDERED: HYDROMORPHONE 2mg/ml INJECTION IV ONE (17:00)
--- NOTE | 2017-01-10 17:08 | NUR ---
ADMIT CALLED FOR ROOM ASSIGNMENT. STATES THAT NURSE WOULD CALL ER BACK
--- NOTE | 2017-01-10 17:10 | NUR ---
ROOM ASSIGNMENT ROOM 145 ASSIGNED TO PT BY JACOB CABRERA. MARY ELLEN CABRERA NURSE
--- NOTE | 2017-01-10 17:28 | NUR ---
REPORT GIVEN TO MARY ELLEN CABRERA ON MEDICAL
--- NOTE | 2017-01-10 17:32 | NUR ---
ADMIT PT ADMITTED TO ROOM 155 VIA WHEELCHAIR. TRANSFERRED TO BED WITH A STANDBY ASSIST. PT REPORTS PAIN 08/07.
[2017-01-10 17:38] VITALS: RESP 24
[2017-01-10 17:41] VITALS: BP 148/81; PULSE 99; RESP 20; TEMP 97.2; O2SAT 93
--- OUTSIDE RECORDS SUMMARY | 2017-01-10 17:41 | XMS REPORT | Continuity of Care Document ---
Author Author [facility] Organization [facility] Address Unknown Phone Unavailable Care Team Providers Care Qa Specialist Name Role Phone Parish Ferrari Primary Care Physician [phone] Source Comments Some departments are not documenting in the electronic medical record. If you do not see the information that you expected, contact Release of Information in the Health Information Management department at [phone] for further assistance in locating additional records.[facility] Active Allergies and Adverse Reactions Not on [...]
--- OUTSIDE RECORDS SUMMARY | 2017-01-10 17:41 | XMS REPORT | Continuity of Care Document ---
Author Author [facility] Organization [facility] Address Unknown Phone Unavailable Support Name Relationship Address Phone JACQUELINE LAU MD Caregiver [address] [place] [address] Unavailable JOSEPH GALLOWAY MD Caregiver [address] [place] [address] [address] [place] [address] BURT CRAWFORD MD Caregiver [address] [place] [address] [place] [phone] TRIXIE ROMERO Next Of Kin [address] [place] [address] Insurance Providers Payer Name Policy Number Subscriber Name Relationship Medicare [id number] Dulce Maria Romero 16 Self Advance Directives [...] F (96.8 - 99.1) Temperature (Calculated Celsius) 36.32399 degrees C (36.0 - 37.3) Pulse Rate [...] 01, 2014 5:12am 103 U/L N 38-126 [id number] December 04, 2011 11:40am Ref lab rpt [...] 01, 2014 5:12am 46.7 FL N 36.9-50.2 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 January 17, 2011 10:53am Ref lab rpt scanned - --- 1103 ---ANTIRNP previously reported as: SENT OUT Red Blood Cell Folate February 28, 2013 2:38pm 114 ng/mL L - RBC, Folate performed at [facility], [address] [place], [place] [address]Medical Director Mackenzie Trevino MD Red Blood Cell Folate Hematocrit February 28, 2013 2:38pm 48.4 % H - RBC, Folate performed at [facility], [address] [place], [place] [address]Medical Director Mackenzie Trevino MD Red Blood Count [...] 2013 11:47am 0-1 /HPF - Urine Specific [place] July 01, 2014 4:50am 1.010 L - [...] 19, 2014 6:38pm LAB TEST FORM REQUEST [id number] - EKG January 09, 2009 1:35am Complete [...] potentially toxic. Vitamin D, 25-Hydroxy performed at [facility], [address] [place] [address] Varitype Operator Mackenzie Trevino MD 25-Hydroxy Vitamin D2 February 28, 2013 2:38pm <7 ng/mL - 25-Hydroxy Vitamin D3 February 28, 2013 2:38pm 18 ng/mL - Venous Blood Lactate April 24, 2013 10:49am 1.1 MMOL/L N 0.6-2.2 Icterus Index July 01, 2014 5:12am < 2 0-7 MRSA Specimen Source February 21, 2010 9:40am Nasal - CM-Ksd-H-Type Natriuretic Peptide February 19, 2014 11:00pm 2590 [...] 8:22am Name: HEATHERDULCE MARIA Elijah Unit #: [id number] : [id number] Sex: F Loc / Svc: ED DOS: 07/01/14 Signed Report #: [id number] DIAGNOSTIC IMAGING REPORT TYPE OF EXAM: CT ABD/PELVIS W/CONTRAST ONLY Dictated By: EL PRATT MD INDICATION: ITS.REASON: EPIGASTRIC AND UPPER [...] pelvis. There is a preliminary report by [employer]. . Procedures No known history of procedures. Encounters Encounter Location Date/Time Departed Emergency Room [facility] 07/01/14 4:34am Recent Diagnosis
--- OUTSIDE RECORDS SUMMARY | 2017-01-10 17:41 | XMS REPORT | Continuity of Care Document ---
Author Author [facility] Organization [facility] Address Unknown Phone Unavailable Support Name Relationship Address Phone TRIXIE ROMERO Next Of Kin [address] [place] [address] Unavailable Insurance Providers Payer Name Policy Number Subscriber Name Relationship Medicaid [id number] Dulce Maria Romero 16 Self Medicare [id number] Dulce Maria Romero 16 Self Problems No [...] 05, 2013 11:33am 113 U/L N 38-126 [id number] December 04, 2011 11:40am Ref lab rpt [...] 08, 2013 8:15am 53.5 FL H 36.9-50.2 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 January 17, 2011 10:53am Ref lab [...] 8:05am None seen /HPF - Urine Specific [place] May 05, 2013 11:33am 1.010 L - [...] HIP REPLACEMENT 81.51 03/08/10 CARPAL TUNNEL SURGERY 29455 07/19/10 DRAIN/INJECT JOINT/BURSA 66369 12/29/10 DX BRONCHOSCOPE/WASH 20610 04/03/11 MEDIASTINOSCOPY INCL BIOPSY 33442 04/17/11 INTMD RPR S/A/T/EXT 12.6-20 96637 09/08/12 KNEE ARTHROSCOPY/SURGERY 54261 12/12/12 PARTIAL REMOVAL OF TIBIA 97690 05/08/13 Blood Culture 12/27/10 Gram Stain 12/29/10 Fungal Culture 04/03/11 Urine Culture 02/11/13 Gram Stain 11/20/11 Gram Stain 03/08/10 Encounters Encounter Location Date/Time Departed Emergency Room [facility] 09/08/12 7:55pm Discharged Inpatient [facility] 08/12/12 3:10pm
[2017-01-10 17:43] VITALS: Ht 162.6 cm; Wt 60.3 kg
--- NOTE | 2017-01-10 18:37 | NUR ---
PAIN DR. CAMPOS NOTIFIED OF PT'S ADMIT AND PAIN, HE WILL SEE PATIENT SOON.
[2017-01-10] MEDS ORDERED: DiphenhydrAMINE 25 MG CAPSULE PO PRN (19:00)
[2017-01-10] MEDS ORDERED: DOCUSATE SODIUM 100 MG CAPSULE PO PRN (19:00)
[2017-01-10] MEDS ORDERED: G.I. COCKTAIL 30ml PO ONE (19:30)
--- NOTE | 2017-01-10 19:36 | ERPDOC ---
Departure Disposition Decision Date: Jan 10, 2017 Disposition Decision Time: 16:55 Disposition: 02 TO [facility] Impression Impression Impression: Primary Impression: Recurrent pancreatitis Severity: Moderate Condition: Improved Seen By: Physician only Referrals: PENG DE LOS SANTOS (Family) Problems/Meds/Labs Reviewed?: Yes Medications reviewed and manag: Yes Follow up care ordered?: Yes Mental Status: Alert, Oriented HPI - Abdominal Pain General Chief Complaint: Abdominal Pain Stated Complaint: ACUTE PANCREATITIS Time Seen by Provider: 14:53 Source: patient History/Exam Limitations: no limitations HPI - Abdominal Pain Initial Comments 56-year-old female presents to the emergency department with a chief complaint of abdominal discomfort. Patient noted onset of symptoms earlier today. Patient denies any trauma, travel, poorly prepared food, or recent antibiotic use. Patient denies any recent alcohol consumption. Patient states that she has a history of similar symptoms in the past with exacerbation of pancreatitis. Patient describes her pain as generalized in the upper abdomen. Pain is sharp. Pain is severe. There is no radiation of pain. Pain is improved with analgesia which was given from EMS in the form of 100 g of fentanyl intravenously times one. Patient denies any nausea or vomiting. Patient denies any other complaints or associated symptoms. Patient was at home when her symptoms began. Symptoms have been persistent in nature since onset. Patient's symptoms have had a gradual progression. Occurred At: home Onset: Gradual Allergies: Coded Allergies: NSAIDS (Non-Steroidal Anti-Inflamma (Verified Adverse Reaction, Mild, NAUSEA, 01/10/17) IF PT TAKES IBUPROFEN OR NAPROXEN, PT HAS NAUEASE AND "HEARTBURN" FEELINGS. DENIES SOA, HIVES, RASH OR OTHER ALLERGIC TYPE REACTION TO NSAIDS acetaminophen (Unverified Adverse Reaction, Unknown, PREVIOUS HX OF LIVER FAILURE, 01/10/17) Uncoded Allergies: LACTOSE INTOLERANT (Allergy, Unknown, 03/08/10) Past History Past Medical History Metabolic: hypertension Respiratory: COPD GI: GERD, other, pancreatitis Neurological: migraines Musculoskeletal: osteoarthritis, other Psychological: alcohol abuse, anxiety, depression Surgical History General: appendix Joint: hip, knee Family History Family History: Negative Vaccines Hx Influenza Vaccination: Yes (OCT 2016) Hx Pneumococcal Vaccination: No Hx Tetanus Diptheria: Yes (09/09) Hx Tetanus, Diptheria, Pertuss: No (UNK LAST) Social History Smoking Status: Current every day smoker Does patient use chewing tobac: No # of Packs/Tins per Day: 1 # of Years: 30 Second Hand Exposure: No Substance Use Type: does not use Alcohol Intake: none Advance Directives: Yes Full Code, No DPOA for Healthcare Only Review of Systems Constitutional Constitutional: DENIES: chills, fever Eyes General: DENIES: erythema, exudate Lids/Accessories: DENIES: erythema, swelling Vision: DENIES: acuity, blurring ENMT Ears: DENIES: drainage, erythema Hearing: DENIES: hearing loss Balance: DENIES: ataxia, falling to one side Sinuses: DENIES: congestion, pain Nose: DENIES: nosebleeds, pain Mouth/Throat: DENIES: painful swallowing, sore throat Teeth: DENIES: pain Jaw: DENIES: pain Cardiovascular Cardiac: DENIES: chest pain, dyspnea on exertion Rhythm/Rate: DENIES: irregular beat, palpitations Vascular: DENIES: pedal edema, unilateral swelling Pulmonary Respiratory: DENIES: cough, dyspnea, pleuritic chest pain, sputum GI Upper Abdomen: nausea, pain, DENIES: vomiting Lower Abdomen: DENIES: diarrhea, pain General: DENIES: dysuria, pain Musculoskeletal General: DENIES: pain, tenderness Integumentary Skin: DENIES: itching, rash Neurological General: DENIES: headache, numbness, weakness Psychiatric Psychiatric: DENIES: emotional instability, suicidal ideation/attempt Endocrine Endocrine: DENIES: polydipsia, polyphagia Hematologic/Lymphatic Hematologic/Lymphatic: DENIES: frequent nosebleeds, lymphadenopathy Allergic/Immunological Allergic/Immunoligical: DENIES: frequent infections, hives Physical Exam General General Nourishment: well nourished, well developed, appears stated age, no acute distress, adult General Body Habitus: well groomed Vitals and Pain First Documented Vital Signs Date Time Temp Pulse Resp B/P Pulse Ox O2 Delivery O2 Flow Rate FiO2 01/10/17 14:35 98.4 100 20 122/80 91 Room Air Weight: Kilograms: 59.600 Height (feet): 5 Height (inches): 4.00 Triage Pain Scale: RN VS reviewed by Provider: Yes Normal Exams: Head: Normocephalic w/o trauma Eyes: Pupils are PERRLA w/ EOMI, No scleral icterus, irritation, or foreign bodies noted ENMT: No facial trauma, nasal exudates, pharyngeal erythema, or exudates are noted Dental: No fractured, loose, or missing teeth noted Neck: Full range of motion, without adenopathy, JVD, bruits or thyromegaly Chest/Resp: Clear all ambrocio, with good airflow, and symmetry bilaterally CV: Regular rate and rhythm, without murmur or gallop, Pulses 2+ all extremities, capillary refill, <2 seconds all ext., no pedal edema noted Abdomen: Bowel sounds positive, non-distended, no hepatosplenomegaly, masses or bruits noted Lymphatic: No lymphadenopathy, or lymphedema noted Musculoskeletal: No tenderness, or deformity noted, good range of motion, all extremities Integumentary: No rashes, hives, or bruising noted, hair and nails, without abnormality Neurologic: Patient is alert, and oriented, cranial nerves, motor/sensory/ cerebellar, exams w/o gross deficits, to observation Psychiatric: Patient exhibits, appropriate attention, emotion and affect Abdomen (brief) Abdominal Brief: FOUND: soft Comments Tender to palpation diffusely in the upper abdomen. No peritoneal signs. No rebound or guarding. No CVA tenderness. Differential Diagnoses Considering: Bowel Obstruction, Constipation, Hernia, IBS, Ileus, Pancreatitis Progress Results/Orders Orders Procedure Category Date Status Time Cbc W/Auto LAB 01/10/17 Complete Diff-Reflex Manual Cmp - Comprehensive LAB 01/10/17 In Process Metabolic Lipase LAB 01/10/17 In Process Normal Saline (Normal PHA 01/10/17 Complete Saline Iv) 15:15 Fentanyl (Fentanyl) PHA 01/10/17 Complete 15:15 Ondansetron Inj PHA 01/10/17 Complete (Zofran) 15:15 EKG EKG 01/10/[address] Abd/Pelvis CT 01/10/17 Resulted W/Contrast Only 15:25 UA, LAB 01/10/17 Complete Dip&Micro(Complete) & 15:19 Iohexol (Omnipaque) PHA 01/10/17 Complete 15:39 Normal Saline (Ns) PHA 01/10/17 Complete 15:39 Saline Flush (Iv PHA 01/10/17 Complete Flush) 15:39 LAB 01/10/17 In Process Qualitative, Serum 14:50 Hydromorphone PHA 01/10/17 Complete (Dilaudid) 17:00 Ggt - Ams LAB 01/10/[address] In [address] 16:57 [address] In Facility: ED ADM 01/10/17 Transmitted 16:57 Ethanol LAB 01/10/17 Complete Cbc W/Auto LAB 01/11/17 Verified Diff-Reflex Manual 04:00 Lipase LAB 01/11/17 Verified 04:00 LDH LAB 01/11/17 Verified 04:00 Comp & Hepatic LAB 01/11/17 Verified Metabolic 04:00 Ggt - Ams LAB 01/11/17 Verified 04:00 Triglycerides - Batch LAB 01/11/17 Verified 04:00 Fentanyl 25 Mcg Patch PHA 01/10/17 Logged (Duragesic 25 Mcg) 19:00 Npo: Except For DIET 01/11/17 Transmitted Medications Breakfast Npo: Ice Chips Only DIET 01/11/17 Transmitted Breakfast Albuterol (Ventolin PHA 01/11/17 Logged Hfa) 09:00 Diclofenac Top Gel PHA 01/10/17 Logged (Voltaren 1% Gel) 19:00 Diphenhydramine PHA 01/10/17 Logged (Benadryl) 19:00 Docusate Sodium PHA 01/10/17 Logged (Colace) 19:00 Gabapentin (Neurontin) PHA 01/10/17 Logged 21:00 Ipratropium/Albuterol PHA 01/10/17 Logged 20/100 (Combivent 21:00 Pantoprazole PHA 01/11/17 Complete (Protonix) 06:30 Sertraline (Zoloft) PHA 01/11/17 Logged 09:00 Sucralfate (Carafate) PHA 01/10/17 Logged 22:00 Tramadol (Ultram) PHA 01/10/17 Logged 21:00 (Nf) Trazodone Hcl PHA 01/10/17 Pending 22:00 Pantoprazole PHA 01/10/17 Logged (Protonix Iv) 21:00 G.I. Cocktail PHA 01/10/17 Logged (/Maalox/Lidocaine 19:30 Lab Results Laboratory Tests Test 01/10/17 14:50 01/10/17 15:19 01/10/17 15:22 Turbidity < 20 Sodium Level 140MEQ/L Potassium Level 4.3MEQ/L Chloride Level 100MEQ/L Carbon Dioxide Level 26MEQ/L Anion Gap 14MEQ/L Blood Urea Nitrogen 10.0MG/DL Creatinine 0.5MG/DL Glomerular Filtration Rate Calc 127 BUN/Creatinine Ratio 20RATIO Glucose Level 125MG/DL Calculated Osmolality 269MOSM/KG Calcium Level 9.5MG/DL Total Bilirubin 1.10MG/DL Icterus Index < 2 Aspartate Amino Transf (AST/SGOT) 19U/L Alanine Aminotransferase (ALT/SGPT) 15U/L Alkaline Phosphatase 99U/L Total Protein 9.1G/DL Albumin 4.2G/DL Globulin 4.9G/DL Albumin/Globulin Ratio 0.9RATIO Lipase Pending Human Chorionic Gonadotropin, Qual Negative Chemistry Specimen Hemolysis 18 Alcohol, Quantitative <10MG/DL Urine Collection Type Cleancatch-midstream Urine Color Yellow Urine Turbidity Clear Urine pH 7.5 Urine Specific [place] 1.015 Urine Protein 1+ Urine Glucose (UA) Negative Urine Ketones Trace Urine Blood Negative Urine Nitrite Negative Urine Bilirubin 1+ Urine Urobilinogen 0.2EU/DL Urine Leukocyte Esterase Negative Urine RBC 0-1/HPF Urine WBC 1-3/HPF Urine Squamous Epithelial Cells 20-50 Urine Bacteria Trace Urine Mucus Present Urine Culture Indicated Cult not indicated Gamma Glutamyl Transpeptidase Pending White Blood Count 13.7T/MM3 Red Blood Count 5.06M/MM3 Hemoglobin 15.0GM/DL Hematocrit 45.9% Mean Corpuscular Volume 90.7UM3 Mean Corpuscular Hemoglobin 29.6UUG Mean Corpuscular Hemoglobin Concent 32.7GM/DL RDW Standard Deviation 50.8FL Platelet Count 252T/MM3 Mean Platelet Volume 10.5UM3 Immature Granulocyte % (Auto) 0.1% Neutrophils (%) (Auto) 77.1% Lymphocytes (%) (Auto) 16.1% Monocytes (%) (Auto) 6.2% Eosinophils (%) (Auto) 0.4% Basophils (%) (Auto) 0.1% Absolute Immature Granulocyte (auto 0.01T/MM3 Absolute Neutrophils (auto) 10.5T/MM3 Absolute Lymphocytes (auto) 2.2T/MM3 Absolute Monocytes (auto) 0.9T/MM3 Absolute Eosinophils (auto) 0.1T/MM3 Absolute Basophils (auto) 0.0T/MM3 Medications Current ED Medications Sodium Chloride (Normal Saline IV) 1,000 ml @ 999 mls/hr Q1H1M ONCE IV Last administered on 01/10/17t 15:31; Start 01/10/17 at 15:15; Stop 01/10/17 at 16:15 ; Status DC Fentanyl (Fentanyl) 50 mcg O ONCE IV Last administered on 01/10/17 15:33; Start 01/10/17 at 15:15; Stop 01/10/17 at 15:16; Status DC Ondansetron HCl (Zofran) 4 mg O ONCE IV Last administered on 01/10/17 15:30; Start 01/10/17 at 15:15; Stop 01/10/17 at 15:16; Status DC Iohexol 1 bottle 1 bottle STK-MED ONCE .ROUTE ; Start 01/10/17 at 15:39; Stop at 15:40; Status DC Sodium Chloride (NS) 100 ml @ As Directed STK-MED ONCE .ROUTE ; Start 01/10/17 at 15:39; Stop 01/10/17 at 15:40; Status DC Sodium Chloride (Iv Flush) 10 ml STK-MED ONCE .ROUTE ; Start 01/10/17 at 15:39; Stop 01/10/17 at 15:40; Status DC Progress Progress Labs/imaging were discussed in detail with the patient and questions are answered. Patient is given IV hydration. Patient is given parental narcotic and antiemetic medications intravenously during her stay in the emergency department. Patient is demanding and rude during her stay in the emergency department. Patient multiple times loudly and obnoxiously demands narcotic pain medication. Patient's pain is treated appropriately. Patient does have findings of acute pancreatitis on her CT scan and will be admitted to the service of Dr. Frances for further evaluation and treatment of acute pancreatitis. Patient will also be admitted for intractable pain. Patient is in agreement with the current plan of management. Patient is admitted to the hospital in improved condition. No further orders from accepting physician who is in agreement with the current plan of management. EKG EKG : Rate: 60-100 Rhythm: sinus [place]: normal QRS: normal Intervals: normal ST/T: normal Interpreted by: signing physician CT CT : CT: Abd/Pelvis IV contrast Interpretation: Abnormal, Reviewed Written Report (findings consistent with acute pancreatitis otherwise no acute processes.) SHANE HARRIS DO Jan 10, 2017 19:36
--- NOTE | 2017-01-10 19:38 | HPPDOC ---
HPI - Adult Date DATE: 01/10/17 TIME: 19:27 General Chief Complaint: abdominal pain and nausea History of Present Illness M is a 56-year-old white female with recurrent pancreatitis. She states that she has become progressively worse over the last 2 weeks especially the last 3 days. She's not able to take her oral medications without them coming back up. She states she has significant epigastric pain along with abdominal pain most noted on the left and right sides. She's not been able to eat much at a time and is not on pancreatic enzymes with her meals. She was recently hospitalized for pancreatitis with an elevated GGT; she denies alcohol use. 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 Hypertension. GERD. History of duodenal ulcer. Osteoarthritis. Migraine headaches. Tobacco dependency. Glaucoma. Anxiety/depression. History of pancreatitis. History of vitamin D deficiency. Lactose intolerance. History of alcoholism. Surgical History Patient's Surgical History: History of right hip replacement. 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 History of right carpal tunnel release. History of appendectomy. EGD Current Medications Home Meds Active Scripts Pantoprazole Sodium (Pantoprazole Sodium) 40 Mg Tablet.dr, 40 MG PO ACBID for 30 Days, #60 TAB 3 Refills Take 1 tablet, by mouth, 2 times a day, before breakfast and dinner. Prov:JACQUELINE CAMPOS DO 12/15/16 Reported Medications Oxycodone HCl (Oxycodone HCl) 15 Mg Tablet, 15 MG PO HS, TAB 01/10/17 Trazodone HCl (Trazodone HCl) 300 Mg Tablet, 300 MG PO HS 12/08/16 Oxycodone HCl (Oxycodone HCl) 15 Mg Tablet, 7.5 MG PO DAILY Take 1/2 tab q am 12/08/16 Aspirin/Sod Bicarb/Citric Acid ([place] Es Tab Eff) 1 Each Tablet.eff, 2 TAB PO PRN 06/10/16 Gabapentin (Gabapentin) 400 Mg Capsule, 400 MG PO QID 06/10/16 Docusate Sodium (Dulcolax Stool Softener) 100 Mg Capsule, 1 CAP PO DAILY Y for CONSTIPATION 06/10/16 Sucralfate (Sucralfate) 1 Gm Tablet, 1 GM PO ACHS 06/10/16 Albuterol Sulfate (Ventolin HFA 90 mcg/actuation) 18 Gm Hfa.aer.ad, 2 PUFF INH DAILY 02/16/15 Ipratropium/Albuterol Sulfate (Combivent Respimat Inhal [place]) 120 Puff/4 Gm Inha, 2 PUFF PO QID, INHALER 02/16/15 Diclofenac Sodium (Voltaren 1% Gel) 50 Applic/100 G Gel, 50 APPLIC TOP PRN 05/08/13 Diphenhydramine Hcl (Benadryl) 25 Mg Capsule, 25 MG PO PRN 05/06/13 Tramadol Hcl (Tramadol Hcl) 50 Mg Tablet, 50 MG PO TID 05/06/13 Sertraline Hcl (Zoloft) 100 Mg Tablet, 100 MG PO DAILY 12/28/10 Allergies: Coded Allergies: NSAIDS (Non-Steroidal Anti-Inflamma (Verified Adverse Reaction, Mild, NAUSEA, 01/10/17) IF PT TAKES IBUPROFEN OR NAPROXEN, PT HAS NAUEASE AND "HEARTBURN" FEELINGS. DENIES SOA, HIVES, RASH OR OTHER ALLERGIC TYPE REACTION TO NSAIDS acetaminophen (Unverified Adverse Reaction, Unknown, PREVIOUS HX OF LIVER FAILURE, 01/10/17) Uncoded Allergies: LACTOSE INTOLERANT (Allergy, Unknown, 03/08/10) Family History Family History: Significant for brothers having developed coronary arteries in their 40s. Mother has diabetes and hyperlipidemia. Social History Smoking Status: Current every day smoker Does patient use chewing tobac: No # of Packs/Tins per Day: 1 # of Years: 30 Second Hand Exposure: No Substance Use Type: does not use Alcohol Intake: none Marital Status: Single Advance Directives: Yes Full Code, No DPOA for Healthcare Only Review of Systems Constitutional: REPORTS: appetite decrease, fatigue, weakness, DENIES: chills, fever, weight gain, weight loss Cardiovascular DENIES: chest pain, dyspnea on exertion, orthopnea, paroxysmal nocturnal dysp Pulmonary Respiratory: cough, DENIES: dyspnea, pleuritic chest pain, sputum, tachypnea GI Upper Abdomen: food intolerances, heartburn/indigestion, nausea, pain, vomiting Lower Abdomen: DENIES: blood in stool, constipation, diarrhea, melena General: DENIES: burning, dysuria, frequency, urgency Musculoskeletal General: weakness, DENIES: cramps, pain Integumentary Skin: DENIES: color change, itching, rash Neurological General: weakness, DENIES: ataxia, fainting, tremor Psychiatric Psychiatric: DENIES: depression, emotional instability, nervousness Endocrine DENIES: heat/cold intolerance, polydipsia, polyphagia Hematologic/Lymphatic DENIES: anemia, bleeding gums, easy bruising, frequent nosebleeds Allergic/Immunological DENIES: frequent infections, hives, sneezing All Other Systems All Other Systems: Reviewed (remainder of 10-point ROS Neg.) Physical Exam General General Nourishment: cachectic, adult General Body Habitus: disheveled Vital Signs Vital Signs Date Time Temp Pulse Resp B/P Pulse Ox O2 Delivery O2 Flow Rate FiO2 01/10/17 17:41 97.2 99 20 148/81 93 Room Air Height (Feet): 5 Height (Inches): 4.00 Eyes Brief: FOUND: EOMI, PERRL, NOT FOUND: scleral icterus Neck Brief: NOT FOUND: JVD, adenopathy, carotid bruits, thyromegaly Respiratory Brief: FOUND: clear all ambrocio, equal bilaterally, NOT FOUND: rales , wheezes Cardiovascular (brief) Cardiac Brief: FOUND: regular rate, regular rhythm, NOT FOUND: gallop, murmur, pedal edema Abdomen (brief) Abdominal Brief: FOUND: BS normo active x4, soft, tender, NOT FOUND: distended , hepatosplenomegaly Lymphatic (brief) Lymphatic Brief: NOT FOUND: adenopathy, lymphedema Musculoskeletal (brief) Musculoskeletal Brief: NOT FOUND: deformity, loss of motion, spasm, tenderness Integumentary (brief) Integumentary Brief: FOUND: dry, pink, warm, NOT FOUND: rash Neurologic (brief) Neurological Brief: FOUND: cranial 2-12 intact, motor, sensory, NOT FOUND: facial droop, ptosis Neurologic RN Documented GCS Eye Opening: Verbal: Motor: Total: Psychiatric (brief) FOUND: alert, attentive, oriented, NOT FOUND: normal affect Laboratory Laboratory Tests Test 01/10/17 14:50 01/10/17 15:19 01/10/17 15:22 Turbidity < 20 Sodium Level 140MEQ/L Potassium Level 4.3MEQ/L Chloride Level 100MEQ/L Carbon Dioxide Level 26MEQ/L Anion Gap 14MEQ/L Blood Urea Nitrogen 10.0MG/DL Creatinine 0.5MG/DL Glomerular Filtration Rate Calc 127 BUN/Creatinine Ratio 20RATIO Glucose Level 125MG/DL Calculated Osmolality 269MOSM/KG Calcium Level 9.5MG/DL Total Bilirubin 1.10MG/DL Icterus Index < 2 Aspartate Amino Transf (AST/SGOT) 19U/L Alanine Aminotransferase (ALT/SGPT) 15U/L Alkaline Phosphatase 99U/L Total Protein 9.1G/DL Albumin 4.2G/DL Globulin 4.9G/DL Albumin/Globulin Ratio 0.9RATIO Human Chorionic Gonadotropin, Qual Negative Chemistry Specimen Hemolysis 18 Alcohol, Quantitative <10MG/DL Urine Collection Type Cleancatch-midstream Urine Color Yellow Urine Turbidity Clear Urine pH 7.5 Urine Specific [place] 1.015 Urine Protein 1+ Urine Glucose (UA) Negative Urine Ketones Trace Urine Blood Negative Urine Nitrite Negative Urine Bilirubin 1+ Urine Urobilinogen 0.2EU/DL Urine Leukocyte Esterase Negative Urine RBC 0-1/HPF Urine WBC 1-3/HPF Urine Squamous Epithelial Cells 20-50 Urine Bacteria Trace Urine Mucus Present Urine Culture Indicated Cult not indicated White Blood Count 13.7T/MM3 Red Blood Count 5.06M/MM3 Hemoglobin 15.0GM/DL Hematocrit 45.9% Mean Corpuscular Volume 90.7UM3 Mean Corpuscular Hemoglobin 29.6UUG Mean Corpuscular Hemoglobin Concent 32.7GM/DL RDW Standard Deviation 50.8FL Platelet Count 252T/MM3 Mean Platelet Volume 10.5UM3 Immature Granulocyte % (Auto) 0.1% Neutrophils (%) (Auto) 77.1% Lymphocytes (%) (Auto) 16.1% Monocytes (%) (Auto) 6.2% Eosinophils (%) (Auto) 0.4% Basophils (%) (Auto) 0.1% Absolute Immature Granulocyte (auto 0.01T/MM3 Absolute Neutrophils (auto) 10.5T/MM3 Absolute Lymphocytes (auto) 2.2T/MM3 Absolute Monocytes (auto) 0.9T/MM3 Absolute Eosinophils (auto) 0.1T/MM3 Absolute Basophils (auto) 0.0T/MM3 Assessment & Plan Problems: (1) Epigastric pain Status: Acute (2) Recurrent pancreatitis Status: Acute (3) History of alcohol abuse Status: Chronic Code Status Full Code Hospital Course Summary Disclaimer The hospital course summary below is not to be considered part of the above Progress Note. Hospital Course Summary Patient was admitted for acute abdominal pain. She describes this as epigastric as well as left and right sides. She has nausea and vomits her pills as well as any food that she eats. This is been worse over the last 3 days. She has a history of recurrent pancreatitis. She states she no longer drinks alcohol. Alcohol level is pending. At this time will provide IV fluids nausea medications proton pump inhibitors pain medication and follow her lab. JACQUELINE CAMPOS DO Jan 10, 2017 19:31
[2017-01-10] MEDS ORDERED: PRN ORDERS MC (19:45)
[2017-01-10] MEDS ORDERED: ONDANSETRON 4mg/2ml INJECTION IM PRN (19:45)
[2017-01-10] MEDS: FENTANYL 25MCG/HR PATCH TOP SCH (19:45)
--- NOTE | 2017-01-10 19:45 | NUR ---
comfort Duragesic patch applied per order, pt. requests Ultram also
[2017-01-10] MEDS: PANTOPRAZOLE 40mg INJECTION IV SCH (19:54)
[2017-01-10] MEDS: TRAMADOL 50 MG TABLET PO SCH (19:54)
[2017-01-10 20:02] LABS: LIPASE 1932 U/L (23-300)
--- NOTE | 2017-01-10 21:55 | NUR ---
[facility] Vee called, advised that Trazodone 300mg can be changed to smaller doses equal to 300. Order changed to 3 100mg pills. Combivent inhaler not available louie pollock. denies need for med. Will follow up in a.m. to provide med
[2017-01-10] MEDS ORDERED: TRAZODONE HCL 300 MG PO SCH (22:00)
[2017-01-10] MEDS: GABAPENTIN 400 MG CAPSULE PO SCH (22:20)
[2017-01-10] MEDS: TRAZODONE 100 MG TABLET PO SCH (22:20)
--- NOTE | 2017-01-10 22:30 | NUR ---
comfort dozes off and on. Able to take PO meds without emesis. States nausea persists. Zofran given
[2017-01-11] MEDS: SUCRALFATE 1 G TABLET PO SCH ×5 (00:19→23:33)
[2017-01-11 00:20] VITALS: BP 124/85; PULSE 110; RESP 20; TEMP 98.5; O2SAT 92
[2017-01-11 05:25] LABS: BASOPHILS % (AUTO) 0.2 % (0-2); EOSINOPHILS # (AUTO) 0.2 T/MM3 (0-0.5); HCT - HEMATOCRIT 41.4 % (36-46); HGB - HEMOGLOBIN 13.2 GM/DL (12-16); IMMATURE GRANULOCYTE # (AUTO) 0.01 T/MM3 (0.00-0.03); IMMATURE GRANULOCYTE % (AUTO) 0.1 % (0.0-0.5); LYMPHOCYTES # (AUTO) 2.6 T/MM3 (1-4.8); LYMPHOCYTES % (AUTO) 28.7 % (23-45); MEAN CORPUSCULAR HGB 29.3 UUG (26-34); MEAN CORPUSCULAR HGB CONC(MCHC 31.9 GM/DL (31-37); MEAN PLATELET VOLUME 10.8 UM3 (9.4-12.4); MONOCYTES # (AUTO) 0.7 T/MM3 (0-0.8); MONOCYTES % (AUTO) 7.9 % (0-9.0); NEUTROPHILS #(AUTO)-ABSOLUTE 5.5 T/MM3 (1.8-7.7); NEUTROPHILS % (AUTO) 61.1 % (33-66); WBC - WHITE BLOOD COUNT 9.1 T/MM3 (4.5-11.0)
--- NOTE | 2017-01-11 05:37 | NUR ---
rest sleeps off and on, resp. unlabored
[2017-01-11 05:38] LABS: ALBUMIN 3.6 G/DL (3.5-5.0); ALBUMIN/GLOBULIN RATIO 0.9 RATIO (1.1-2.2); ALKALINE PHOSPHATASE 77 U/L (38-126); ALT (SGPT) 20 U/L (9-52); ANION GAP 13 MEQ/L (5-15); AST (SGOT) 15 U/L (14-36); BUN/CREATININE RATIO 18 RATIO (6-26); CALCIUM 8.7 MG/DL (8.4-10.2); CHLORIDE 102 MEQ/L (98-107); CO2 - CARBON DIOXIDE 26 MEQ/L (22-30); CREATININE 0.6 MG/DL (0.7-1.2); GLOMERULAR FILTRATION RATE 103; GLUCOSE 92 MG/DL (65-110); LDH 446 U/L (313-618); LIPASE 666 U/L (23-300); POTASSIUM 3.7 MEQ/L (3.6-5); SODIUM 141 MEQ/L (134-144); TOTAL PROTEIN 7.6 G/DL (6.3-8.2)
[2017-01-11] MEDS ORDERED: PANTOPRAZOLE 40 MG TABLET PO SCH (06:30)
[2017-01-11 07:35] VITALS: BP 93/65; PULSE 98; RESP 16; TEMP 97.5; O2SAT 91
[2017-01-11] MEDS: TRAMADOL 50 MG TABLET PO SCH ×3 (08:22→21:22)
[2017-01-11] MEDS: SERTRALINE 100 MG TABLET PO SCH (08:22)
[2017-01-11] MEDS: GABAPENTIN 400 MG CAPSULE PO SCH ×4 (08:22→21:22)
[2017-01-11] MEDS: PANTOPRAZOLE 40mg INJECTION IV SCH ×2 (08:23→21:23)
[2017-01-11] MEDS: ALBUTEROL/IPRATROPIUM INHAL. 2.5mg-0.5mg/3ml Neb. AEROSOL SCH ×3 (08:27→21:11)
[2017-01-11] MEDS: ALBUTEROL INH.SOLN. 2.5mg/3ml (0.083%) Neb. AEROSOL SCH (09:00)
--- NOTE | 2017-01-11 10:01 | NUR ---
CM CM IN TO VISIT PATIENT, SHE IS A&O. NO FAMILY IS PRESENT IN ROOM. PATIENT PLANS TO DISCHARGE HOME WHERE SHE DOES LIVE WITH SOMEONE SHE INDICATED COULD BE OF ASSISTANCE. PATIENT DENIES ANY DISCHARGE NEEDS AT THIS TIME. CM CONTACT INFORMATION PROVIDED. Addendum: 01/11/17 at 1002 by MERRICK JOHNSON RN Amended: Links added.
[2017-01-11 10:05] VITALS: O2SAT 92
[2017-01-11 15:49] VITALS: O2SAT 93
[2017-01-11 16:00] VITALS: BP 90/66; PULSE 88; RESP 18; TEMP 96.9; O2SAT 90
--- NOTE | 2017-01-11 18:42 | NUR ---
status Pt A/O x3, V/S stable on RA with SBP 90-100. Pt ambulating well in room, denies dizziness or SOA while up. Pt stating passing gas has been painful. Pt rating pain 7/10, PRN and sched pain meds given, states headache has not gone away all day, stated she had it before she came to [facility] [place]. Keeping room dark and quiet to help with headache. Pt NPO with ice chips and sips to take meds. No N/V this shift.
--- NOTE | 2017-01-11 19:00 | PNPDOC ---
Subjective Date DATE: 01/11/17 TIME: 18:50 Subjective Patient was seen and examined in her room. She is still unable to stand up straight secondary to the abdominal pain. I have only R have sips and chips and her nausea is better controlled. Her lipase level has come down her alcohol level was 0. Triglycerides were also normal and she has no gallbladder. This is her third admission for pancreatitis in the past year. Her first admission was [address] Shen in [place] secondary to alcohol abuse. She states she's not had any alcohol since then. Her alcohol level again on this admission is 0. At this point I'm not sure what the etiology is for her recurrent pancreatitis. I will check for autoimmune pancreatitis. Additionally I'm going to start her on enzymes as we begin to feed her. She is also suffering nicotine withdrawal and has severe headache. Location: abdomen Severity: severe Duration: several days Associated Symptoms: nausea/vomiting, abdominal pain, headache Objective Vital Signs Vital signs Vital Signs 01/11/17 01/11/17 01/11/17 01/11/17 07:35 10:05 10:05 10:16 Temp 97.5 Pulse 98 98 96 Resp 16 15 B/P 93/65 Pulse Ox 91 92 O2 Delivery Room Air 01/11/17 01/11/17 15:49 16:00 Temp 96.9 Pulse 88 Resp 14 18 B/P 90/66 Pulse Ox 93 90 O2 Delivery Room Air Telemetry Rhythm: Sinus Rhythm Height (Feet): 5 Height (Inches): 4.00 Weight (Kilograms): 58.500 General General Appearance: Orientated x 3, Malnourished, Cooperative, Mild Distress Eyes (Brief) Eyes: FOUND: EOMI, PERRL, NOT FOUND: scleral icterus Neck (Brief) Neck Brief: NOT FOUND: JVD, adenopathy, carotid bruits, thyromegaly Respiratory (Brief) Respiratory Brief: FOUND: clear all ambrocio, equal bilaterally, NOT FOUND: rales , wheezes Comments Diminished bilaterally Cardiovascular (Brief) Cardiac: FOUND: regular rate, regular rhythm, NOT FOUND: gallop, murmur, pedal edema Abdomen (Brief) Abdominal: FOUND: BS normo active x4, soft, tender (epigastric, left side, right side), NOT FOUND: distended, hepatosplenomegaly Extremities (Brief) Extremity : Extremity Finding: NOT FOUND: edema Lymphatic (Brief) Lymphatic Brief: NOT FOUND: adenopathy, lymphedema Musculoskeletal (Brief) Musculoskeletal Brief: NOT FOUND: deformity, loss of motion, spasm, tenderness Integumentary (Brief) Integumentary: FOUND: dry, pink, warm, NOT FOUND: rash Neurologic (Brief) Neurologic: FOUND: cerebellar, cranial 2-12 intact, motor, sensory, NOT FOUND: facial droop, ptosis Psychiatric (Brief) Psychiatric: FOUND: attentive (she appears very tired and lethargic), oriented Laboratory Laboratory Laboratory Tests 01/11/17 04:54 Laboratory Tests 01/11/17 04:54 Assessment & Plan Problems: (1) Recurrent pancreatitis Status: Acute (2) Epigastric pain Status: Acute (3) History of alcohol abuse Status: Chronic (4) Abdominal pain Qualifiers: Abdominal location: generalized Qualified Codes: R10.84 - Generalized abdominal pain (5) Nausea and vomiting Status: Acute Qualifiers: Vomiting type: bilious vomiting Qualified Codes: R11.14 - Bilious vomiting Code Status Full Code Hospital Course Summary Disclaimer The hospital course summary below is not to be considered part of the above Progress Note. Hospital Course Summary Patient was admitted for acute abdominal pain. She describes this as epigastric as well as left and right sides. She has nausea and vomits her pills as well as any food that she eats. This is been worse over the last 3 days. She has a history of recurrent pancreatitis. She states she no longer drinks alcohol. Alcohol level is pending. At this time will provide IV fluids nausea medications proton pump inhibitors pain medication and follow her lab. 01/11/17: She continues to have significant abdominal pain even to the point of not being able to stand erect. Her serum alcohol level is 0, triglycerides are within normal limits, she has no gallbladder. She has recurrent pancreatitis of unknown etiology. I will check for autoimmune pancreatitis. Additionally, I will start her on clear liquids in the morning and start pancreatic enzymes with meals when she advances that far JACQUELINE CAMPOS DO Jan 11, 2017 18:54
[2017-01-11] MEDS: ONDANSETRON 4mg/2ml INJECTION IV PRN (19:57)
--- NOTE | 2017-01-11 20:00 | NUR ---
nausea states slight nausea persists. Zofran given prior to evening meds
[2017-01-11 21:11] VITALS: O2SAT 91
[2017-01-11] MEDS: TRAZODONE 100 MG TABLET PO SCH (21:22)
[2017-01-12] VITALS (7 sets, daily range): BP systolic 78–103; BP diastolic 52–65; PULSE 70–85; RESP 16; TEMP 96.6–98.3; O2SAT 90–91
--- NOTE | 2017-01-12 04:51 | NUR ---
shift status Rests quietly during noc. States h.a. and abdominal discomfort continue. Takes ice chips without emesis
[2017-01-12] MEDS: SUCRALFATE 1 G TABLET PO SCH ×4 (06:29→22:41)
[2017-01-12] MEDS: ALBUTEROL/IPRATROPIUM INHAL. 2.5mg-0.5mg/3ml Neb. AEROSOL SCH ×4 (07:00→19:00)
[2017-01-12] MEDS: TRAMADOL 50 MG TABLET PO SCH ×3 (09:06→22:41)
[2017-01-12] MEDS: PANTOPRAZOLE 40mg INJECTION IV SCH ×2 (09:06→22:41)
[2017-01-12] MEDS: GABAPENTIN 400 MG CAPSULE PO SCH ×4 (09:07→22:42)
[2017-01-12] MEDS: SERTRALINE 100 MG TABLET PO SCH (09:07)
[2017-01-12] MEDS: ALBUTEROL INH.SOLN. 2.5mg/3ml (0.083%) Neb. AEROSOL SCH (09:17)
[2017-01-12] MEDS: ONDANSETRON 4mg/2ml INJECTION IV PRN ×2 (09:32→15:56)
[2017-01-12] MEDS ORDERED: SODIUM CHLORIDE 5% BOTH EYES PRN (09:45)
[2017-01-12] MEDS ORDERED: EYE BOTH EYES PRN (09:45)
[2017-01-12] MEDS: REFRESH CLASSIC Eye Drops 0.4ml Dropperette BOTH EYES PRN ×2 (09:50→15:56)
[2017-01-12] MEDS: NICOTINE 14 MG PATCH TD SCH (09:50)
[2017-01-12] MEDS: DICLOFENAC 1% TOPICAL GEL 100 G TUBE TOP PRN ×2 (10:35→14:32)
--- NOTE | 2017-01-12 10:48 | NUR ---
DAVID CM VISITED PT. CM EXPLAINED ROLE AND PROVIDED CONTACT INFORMATION. PT PLANS TO RETURN HOME POST HOSPITAL STAY. PT DENIES NEEDS. PT IS AWARE TO CONTACT CM IF NEEDS ARISE.
--- NOTE | 2017-01-12 10:58 | NUR ---
BP/ meds Called dr Frances with SBP, pain and nicotine patch need. Change diet to cl. liq, N.O. for nicotine patch and applied.
--- NOTE | 2017-01-12 11:00 | NUR ---
pain Pt still have increased pain. Have given warm towel to apply, PRN voltern gel applied. Pt resting at this time.
--- NOTE | 2017-01-12 18:25 | PNPDOC ---
Subjective Date DATE: 01/12/17 TIME: 18:12 Subjective Patient seen and examined in her room. We discussed how well she tolerated a clear liquid diet today. She states that the warm T has been the best thing while the Kramer caused abdominal pain and made her feel sick. I did review her history with her again. She denies alcohol use and indeed her serum alcohol level is 0. Her triglyceride level is within normal limits. There are no gallstones noted on her CT scan however she does have a distended gallbladder. The ducts are not dilated. She has right upper quadrant and epigastric pain that extends down her right lower abdomen as well as into the right scapula. At this point highest on my differential is gallstone pancreatitis or some disease process affecting the gallbladder as well as the pancreas. Some form of malignancy has to be part of our differential diagnosis including gallbladder and pancreas. She is sitting in bed with the heating pad over her right abdomen. Location: abdomen Severity: severe Duration: several days Associated Symptoms: nausea/vomiting, abdominal pain, headache Objective Vital Signs Vital signs Vital Signs 01/12/17 01/12/17 01/12/17 01/12/17 07:30 07:33 09:00 09:20 Temp 98.3 Pulse 71 70 77 74 Resp 16 16 B/P 78/56 83/52 97/63 Pulse Ox 91 O2 Delivery Room Air Room Air 01/12/17 01/12/17 01/12/17 09:20 09:26 15:49 Temp 96.9 Pulse 78 83 Resp 16 16 B/P 103/65 Pulse Ox 91 90 O2 Delivery Room Air Telemetry Rhythm: Sinus Rhythm Height (Feet): 5 Height (Inches): 4.00 Weight (Kilograms): 59.700 Eyes (Brief) Eyes: FOUND: EOMI, PERRL, NOT FOUND: scleral icterus Neck (Brief) Neck Brief: NOT FOUND: JVD, adenopathy, carotid bruits, thyromegaly Respiratory (Brief) Comments Diminished bilaterally Cardiovascular (Brief) Cardiac: FOUND: regular rate, regular rhythm, NOT FOUND: gallop, murmur, pedal edema Abdomen (Brief) Abdominal: FOUND: BS normo active x4, distended, soft, tender, NOT FOUND: hepatosplenomegaly Extremities (Brief) Extremity : Extremity Finding: NOT FOUND: edema Lymphatic (Brief) Lymphatic Brief: NOT FOUND: adenopathy, lymphedema Musculoskeletal (Brief) Musculoskeletal Brief: NOT FOUND: deformity, loss of motion, spasm, tenderness Integumentary (Brief) Integumentary: FOUND: dry, warm, NOT FOUND: rash Neurologic (Brief) Neurologic: FOUND: cranial 2-12 intact, motor, sensory Psychiatric (Brief) Psychiatric: FOUND: alert, attentive, oriented Laboratory Laboratory Laboratory Tests Test 01/12/17 04:48 Lipase 340U/L Immunoglobulin G Total Pending Immunoglobulin G1 Pending Immunoglobulin G2 Pending Immunoglobulin G3 Pending Immunoglobulin G4 Pending Assessment & Plan Problems: (1) Recurrent pancreatitis Status: Acute (2) Epigastric pain Status: Acute (3) History of alcohol abuse Status: Chronic (4) Abdominal pain Qualifiers: Abdominal location: generalized Qualified Codes: R10.84 - Generalized abdominal pain (5) Nausea and vomiting Status: Acute Qualifiers: Vomiting type: bilious vomiting Qualified Codes: R11.14 - Bilious vomiting Code Status Full Code Hospital Course Summary Disclaimer The hospital course summary below is not to be considered part of the above Progress Note. Hospital Course Summary Patient was admitted for acute abdominal pain. She describes this as epigastric as well as left and right sides. She has nausea and vomits her pills as well as any food that she eats. This is been worse over the last 3 days. She has a history of recurrent pancreatitis. She states she no longer drinks alcohol. Alcohol level is pending. At this time will provide IV fluids nausea medications proton pump inhibitors pain medication and follow her lab. 01/11/17: She continues to have significant abdominal pain even to the point of not being able to stand erect. Her serum alcohol level is 0, triglycerides are within normal limits, she has no gallbladder stones. She has recurrent pancreatitis of unknown etiology. I will check for autoimmune pancreatitis. Additionally, I will start her on clear liquids in the morning and start pancreatic enzymes with meals when she advances that far 01/12/17: I reviewed her history with her again today. As well as reviewing labs. Tests for autoimmune pancreatitis is pending but not high on my differential diagnosis. She still has a gallbladder although there were no stones or dilated ducts. She is complaining of right upper quadrant pain radiating down her right side as well as into her back by herself right scapula. I will have Dr. Urena reassess her and see if he will consider cholecystectomy. JACQUELINE CAMPOS DO Jan 12, 2017 18:20
--- NOTE | 2017-01-12 18:27 | NUR ---
status Pt A/O x3, V/S stable on RA. Pt ambulating well up at [place]ana in room, denies any dizziness or SOA while ambulating. Pain still bothering her all day, have been keeping up with hot towel/ packs to back and Rt flank. Helping some between sched pain meds. Diet changed to cl liq and tolerating well, did use PRN zofran but was requested when pain elevated not after food. Using PRN voltern gel and eye drops, pt stated helps some.
[2017-01-12] MEDS ORDERED: G.I. COCKTAIL 30ml PO ONE (18:30)
--- NOTE | 2017-01-12 19:01 | NUR ---
consult Was alerted by that dr Urena not on and dr Donnelly on and will get consult.
[2017-01-12] MEDS: TRAZODONE 100 MG TABLET PO SCH (22:40)
[2017-01-13] VITALS: BP 108/62; PULSE 86; RESP 18; TEMP 97; O2SAT 92
[2017-01-13] MEDS: ONDANSETRON 4mg/2ml INJECTION IV PRN ×2 (03:47→13:25)
--- NOTE | 2017-01-13 03:56 | NUR ---
STATUS PT ASKED FOR HER PACKS TO BE WARMED UP. SKIN WAS ASSESS AT 0300, NOTED THE SKIN WAS DARK RED AND AREAS ARE RAISED. PT DENIES PAIN AT THE AREAS. CHARGE NURSE GÓMEZ ASKED TO LOOK AT THE AREAS. PLAN OF CARE REVIEWED TO WAIT ONE HOUR AND RE-ASSESS THE AREAS. PT STATES I DIDN'T THINK YOU COULD BURN YOUR SKIN THAT WAY. PT ASKED FOR A SEA BREEZE PAD.
[2017-01-13 06:20] LABS: BASOPHILS % (AUTO) 0.3 % (0-2); EOSINOPHILS # (AUTO) 0.3 T/MM3 (0-0.5); EOSINOPHILS % (AUTO) 4.2 % (0-4); HCT - HEMATOCRIT 37.2 % (36-46); HGB - HEMOGLOBIN 12.1 GM/DL (12-16); IMMATURE GRANULOCYTE # (AUTO) 0.01 T/MM3 (0.00-0.03); IMMATURE GRANULOCYTE % (AUTO) 0.1 % (0.0-0.5); LYMPHOCYTES # (AUTO) 2.4 T/MM3 (1-4.8); LYMPHOCYTES % (AUTO) 33.1 % (23-45); MEAN CORPUSCULAR HGB 29.9 UUG (26-34); MEAN CORPUSCULAR HGB CONC(MCHC 32.5 GM/DL (31-37); MEAN CORPUSCULAR VOLUME 91.9 UM3 (80-100); MEAN PLATELET VOLUME 10.6 UM3 (9.4-12.4); MONOCYTES # (AUTO) 0.8 T/MM3 (0-0.8); MONOCYTES % (AUTO) 10.7 % (0-9.0); NEUTROPHILS #(AUTO)-ABSOLUTE 3.7 T/MM3 (1.8-7.7); NEUTROPHILS % (AUTO) 51.6 % (33-66); RED BLOOD COUNT 4.05 M/MM3 (4.00-5.20); WBC - WHITE BLOOD COUNT 7.1 T/MM3 (4.5-11.0)
[2017-01-13] MEDS: GABAPENTIN 400 MG CAPSULE PO SCH ×4 (06:20→21:00)
[2017-01-13] MEDS: TRAMADOL 50 MG TABLET PO SCH ×3 (06:20→21:00)
[2017-01-13] MEDS: SUCRALFATE 1 G TABLET PO SCH ×4 (06:22→22:00)
--- NOTE | 2017-01-13 06:23 | NUR ---
STATUS PT CONTINUE TO HAVE PAIN. DR SMITH OK TO GIVE SCHEDULE TRAMADOL 50 MG NOW.
[2017-01-13 06:33] LABS: ALBUMIN 3.6 G/DL (3.5-5.0); ALBUMIN/GLOBULIN RATIO 0.9 RATIO (1.1-2.2); ALKALINE PHOSPHATASE 73 U/L (38-126); ALT (SGPT) 21 U/L (9-52); ANION GAP 9 MEQ/L (5-15); AST (SGOT) 13 U/L (14-36); BUN/CREATININE RATIO 16 RATIO (6-26); CALCIUM 8.7 MG/DL (8.4-10.2); CHLORIDE 96 MEQ/L (98-107); CO2 - CARBON DIOXIDE 27 MEQ/L (22-30); CREATININE 0.7 MG/DL (0.7-1.2); GLOMERULAR FILTRATION RATE 86; GLUCOSE 108 MG/DL (65-110); POTASSIUM 3.6 MEQ/L (3.6-5); SODIUM 132 MEQ/L (134-144); TOTAL PROTEIN 7.6 G/DL (6.3-8.2)
[2017-01-13 07:00] VITALS: BP 115/75; PULSE 85; RESP 20; TEMP 98.2; O2SAT 91
[2017-01-13 07:59] LABS: INR 1.19 (0.76-1.04)
[2017-01-13 08:00] VITALS: PULSE 85; RESP 20
--- NOTE | 2017-01-13 08:46 | NUR ---
SHIFT SUMMARY PT A/O X 3. UP AT [facility], CALLS WITH NEEDS. PT STATES SHE WAS HAVING ABD, BACK AND RIGHT SIDE PAIN. SHE RATES IT 7-8, AND STATES IT IS THE SAME BEFORE. PT WAS USING WARM PACKS, SHE WAS ASKING FOR THEM TO BE WARMED UP EVERY HOUR. SHE WOULD REQUEST THEM TO BE HOT. NOTED PT'S SKIN HAD INCREASED REDNESS WITH RAISED AREAS. ORDER RECEIVED TO USE HEATING PAD. PT WOULD FALL TO SLEEP AND NOTED SHE DIDN'T AWAKEN WHEN SAYING HER NAME AT [facility]. PT ASKED FOR PAIN MEDICATION, REVIEWED WITH HER THERE WAS A LIMIT TO WHAT PRN MED'S SHE COULD HAVE. DR SMITH OK TO GIVE HER 0900 SCHEDULE TRAMADOL 50 MG AND NEURONTIN 400 MG EARLY. CALL LIGHT WITHIN REACH. PT IS UP AT [facility].
[2017-01-13] MEDS: PANTOPRAZOLE 40mg INJECTION IV SCH ×2 (08:58→21:00)
[2017-01-13] MEDS: NICOTINE 14 MG PATCH TD SCH (08:59)
[2017-01-13] MEDS: SERTRALINE 100 MG TABLET PO SCH (09:00)
[2017-01-13] MEDS: NICOTINE PATCH REMOVAL TD SCH (09:02)
[2017-01-13] MEDS: ALBUTEROL INH.SOLN. 2.5mg/3ml (0.083%) Neb. AEROSOL SCH (09:30)
[2017-01-13] MEDS: ALBUTEROL/IPRATROPIUM INHAL. 2.5mg-0.5mg/3ml Neb. AEROSOL SCH ×4 (09:30→19:00)
[2017-01-13 09:59] VITALS: PULSE 85; RESP 20
[2017-01-13] MEDS: MORPHINE SULFATE 4 MG SYRINGE IV PRN ×2 (15:33→23:46)
[2017-01-13] MEDS: LR 1,000 ML IV SCH (15:33)
--- NOTE | 2017-01-13 15:51 | PNPDOC ---
Subjective Date DATE: 01/13/17 TIME: 15:34 Subjective Mrs. Moore complains of headache and generalized abdominal pain. Pain is moderately severe and accompanied by abdominal distention. Patient reports her abdomen is "hard as a rock". Nothing is working to control the pain and patient reports that she usually takes oxycodone at home twice a day for pain but hasn' t received it since she was in the hospital. She's had nausea but no vomiting and reports ongoing heartburn and constipation. She reports urinary frequency but no dysuria and that she's tolerated nothing beyond ice chips this morning. Pain is causing her to feel short of breath but she has not been hypoxic. She denied fevers or chills. Objective Vital Signs Vital signs Vital Signs Date Time Temp Pulse Resp B/P Pulse Ox O2 Delivery O2 Flow Rate FiO2 01/13/17 15:33 20 01/13/17 09:59 85 01/13/17 07:00 98.2 115/75 91 Room Air I/O 935 mL oral intake yesterday, 970 mL oral intake reported today EXAM General-uncomfortable, drowsy female; speech fluent HEENT-oral membranes dry, eyes closed throughout interview Lungs-respirations nonlabored, decreased airflow, anterior lung ambrocio clear Cardiac-regular rhythm, S1-S2 Abd-abdomen firm and diffusely tender with mild rebound tenderness throughout the abdomen. Breath sounds are diminished. Ext-without edema Skin-without rash Neuro-moves all 4 extremities spontaneously Psych-flat affect Telemetry Rhythm: Sinus Rhythm Height (Feet): 5 Height (Inches): 4.00 Weight (Kilograms): 61.300 Laboratory Laboratory Laboratory Tests 01/13/17 05:40 Laboratory Tests 01/13/17 05:40 Liver enzymes within normal limits, lipase 340, GGT [address] abdomen/pelvis reviewed demonstrating artifact related to right hip prosthesis, pancreatic edema/inflammation without pseudocyst formation. No clear gallbladder wall thickening or ductal dilatation. Recent MRCP report reviewed-no ductal abnormalities reported Assessment & Plan Problems: (1) Recurrent pancreatitis Status: Acute (2) Epigastric pain Status: Acute (3) History of alcohol abuse Status: Chronic (4) Abdominal pain Qualifiers: Abdominal location: generalized Qualified Codes: R10.84 - Generalized abdominal pain (5) Nausea and vomiting Status: Acute Qualifiers: Vomiting type: bilious vomiting Qualified Codes: R11.14 - Bilious vomiting (6) Hyponatremia Status: Acute (7) COPD (chronic obstructive pulmonary disease) Status: Chronic (8) Hypertension Status: Chronic Assessment Recurrent pancreatitis, uncontrolled with oral pain medications and low dose fentanyl patch. Tramadol dose increased to 50-100 mg 4 times a day when necessary. Morphine added 2-4 mg every 4 hours when necessary for uncontrolled pain. IV fluids resumed in light of limited oral intake and dropping sodium. Lactated Ringer at 100 mL per hour. Discussed with Dr. Clark, no indication of acute biliary disease and with recent MRCP surgical intervention was not recommended currently but patient may benefit from ERCP. Zofran as needed for nausea-required this morning. Continue breathing treatments for COPD, no acute respiratory symptoms/signs present. Blood pressure stable. Plan/Intensity of Service CT abdomen/pelvis reviewed by myself, discussed with Dr. Clark, laboratory data reviewed, discussed with nursing. High-risk medications in use. DVT Prophylaxis: SCD'S Code Status Full Code Hospital Course Summary Disclaimer The hospital course summary below is not to be considered part of the above Progress Note. Hospital Course Summary Patient was admitted for acute abdominal pain. She describes this as epigastric as well as left and right sides. She has nausea and vomits her pills as well as any food that she eats. This is been worse over the last 3 days. She has a history of recurrent pancreatitis. She states she no longer drinks alcohol. Alcohol level is pending. At this time will provide IV fluids nausea medications proton pump inhibitors pain medication and follow her lab. 01/11/17: She continues to have significant abdominal pain even to the point of not being able to stand erect. Her serum alcohol level is 0, triglycerides are within normal limits, she has no gallbladder stones. She has recurrent pancreatitis of unknown etiology. I will check for autoimmune pancreatitis. Additionally, I will start her on clear liquids in the morning and start pancreatic enzymes with meals when she advances that far 01/12/17: I reviewed her history with her again today. As well as reviewing labs. Tests for autoimmune pancreatitis is pending but not high on my differential diagnosis. She still has a gallbladder although there were no stones or dilated ducts. She is complaining of right upper quadrant pain radiating down her right side as well as into her back by herself right scapula. I will have Dr. Bogner reassess her and see if he will consider cholecystectomy. 01/13/17 Recurrent pancreatitis, uncontrolled with oral pain medications and low dose fentanyl patch. Tramadol dose increased and IV morphine added for uncontrolled pain. Resume IV fluids due to poor oral intake and low sodium. Seen by Dr. Clark, no indication of acute biliary disease and with recent MRCP surgical intervention was not recommended currently but patient may benefit from ERCP. NELL BRYANT MD Jan 13, 2017 15:41
[2017-01-13 16:00] VITALS: BP 89/67; PULSE 90; RESP 20; TEMP 98.6; O2SAT 96
--- NOTE | 2017-01-13 17:36 | NUR ---
SHIFT SUMMARY PT A&O X3, UP AD [facility], NO ASSISTIVE DEVICES. PT COMPLAINED OF PAIN IN ABDOMEN AND BACK THROUGHOUT THE DAY, REPORTED PAIN LEVEL AT 10. DR BRYANT WAS NOTIFIED AND MORPHINE 4MG PRN/Q4 WAS GIVEN. TRAMADOL ALSO ORDERED AND WAS GIVEN ON SCHEDULE. FENTANYL PATCH DUE TO BE CHANGED TONIGHT AT 1900. PT IS UNABLE TO TAKE NSAIDS (TYLENOL) BECAUSE SHE REPORTED IT MAKES HER STOMACH UPSET AND MAYO. PT HAS IV IN LEFT FOREARM WITH LR RUNNING AT 75MLS/HR. PT STATED THAT SPRITE ALSO HELPS RELIEVE SOME ABDOMEN PAIN. HAS ROCHELLE HEATING PAD ON ABD/BACK. CALL LIGHT WITHIN REACH.
--- NOTE | 2017-01-13 17:59 | NUR ---
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
[2017-01-13] MEDS: FENTANYL 25MCG/HR PATCH TOP SCH (19:46)
[2017-01-13] MEDS: FENTANYL PATCH REMOVAL TD SCH (19:48)
[2017-01-13 20:00] VITALS: PULSE 72; RESP 16
[2017-01-13] MEDS: TRAZODONE 100 MG TABLET PO SCH (22:00)
[2017-01-14 00:50] VITALS: BP 92/58; PULSE 88; RESP 12; TEMP 96.6; O2SAT 90
[2017-01-14] MEDS: LR 1,000 ML IV SCH ×2 (05:00→20:40)
[2017-01-14] MEDS: SUCRALFATE 1 G TABLET PO SCH ×4 (05:37→20:38)
[2017-01-14 06:24] LABS: BASOPHILS % (AUTO) 0.4 % (0-2); EOSINOPHILS # (AUTO) 0.3 T/MM3 (0-0.5); EOSINOPHILS % (AUTO) 5.5 % (0-4); HCT - HEMATOCRIT 33.4 % (36-46); HGB - HEMOGLOBIN 10.7 GM/DL (12-16); LYMPHOCYTES # (AUTO) 2.6 T/MM3 (1-4.8); LYMPHOCYTES % (AUTO) 48.2 % (23-45); MEAN CORPUSCULAR HGB 29.7 UUG (26-34); MEAN CORPUSCULAR VOLUME 92.8 UM3 (80-100); MEAN PLATELET VOLUME 11.3 UM3 (9.4-12.4); MONOCYTES # (AUTO) 0.7 T/MM3 (0-0.8); MONOCYTES % (AUTO) 13.4 % (0-9.0); NEUTROPHILS #(AUTO)-ABSOLUTE 1.7 T/MM3 (1.8-7.7); NEUTROPHILS % (AUTO) 32.5 % (33-66); WBC - WHITE BLOOD COUNT 5.3 T/MM3 (4.5-11.0)
[2017-01-14 06:33] LABS: ANION GAP 8 MEQ/L (5-15); BUN/CREATININE RATIO 7 RATIO (6-26); CALCIUM 8.4 MG/DL (8.4-10.2); CHLORIDE 103 MEQ/L (98-107); CO2 - CARBON DIOXIDE 27 MEQ/L (22-30); CREATININE 0.6 MG/DL (0.7-1.2); GLOMERULAR FILTRATION RATE 103; GLUCOSE 95 MG/DL (65-110); MAGNESIUM 2.4 MG/DL (1.6-2.3); POTASSIUM 3.6 MEQ/L (3.6-5); SODIUM 138 MEQ/L (134-144)
[2017-01-14] MEDS: ALBUTEROL/IPRATROPIUM INHAL. 2.5mg-0.5mg/3ml Neb. AEROSOL SCH ×4 (07:00→19:00)
[2017-01-14 07:50] VITALS: BP 92/61; PULSE 74; RESP 18; TEMP 97.2; O2SAT 91
[2017-01-14 08:00] VITALS: PULSE 78; RESP 18
[2017-01-14] MEDS: ALBUTEROL INH.SOLN. 2.5mg/3ml (0.083%) Neb. AEROSOL SCH (08:07)
[2017-01-14 08:09] LABS: PHOSPHORUS 3.9 MG/DL (2.5-4.5)
[2017-01-14] MEDS: SERTRALINE 100 MG TABLET PO SCH (08:34)
[2017-01-14] MEDS: GABAPENTIN 400 MG CAPSULE PO SCH ×4 (08:34→20:38)
[2017-01-14] MEDS: NICOTINE PATCH REMOVAL TD SCH (08:34)
[2017-01-14] MEDS: TRAMADOL 50 MG TABLET PO SCH ×4 (08:34→20:38)
[2017-01-14] MEDS: NICOTINE 14 MG PATCH TD SCH (08:34)
[2017-01-14] MEDS: PANTOPRAZOLE 40mg INJECTION IV SCH ×2 (08:34→20:38)
--- NOTE | 2017-01-14 08:37 | NUR ---
STATUS PT A/O X 3. UP AT [facility], ENCOURAGED TO WALK IN THE [facility]. PT STATES I WILL AFTER I TAKE MY PAIN MEDICATION. IV IN LEFT FOREARM INFUSING WITHOUT DIFFICULT. PT CONTINUES TO USE THE ja[facility] HEATING PAD. PAIN IS TO HER BACK AND ABD. PT CONTINUES TO ASK WHEN SHE WAS GOING TO [facility]. REVIEWED WITH PT PLAN OF CARE. AT THIS TIME THE PLAN WAS FOR HER TO GO HOME FIRST. ENCOURAGED PT TO ASK HER DR WHAT HIS PLAN IS. CALL LIGHT WITHIN REACH.
--- NOTE | 2017-01-14 12:55 | PNPDOC ---
ROSY REED V MAIL CARRIER 01/14/17 1249: Subjective Date DATE: 01/14/17 TIME: 12:42 Subjective Amanda is seen this morning while resting in bed. She does arouse during examination. She reports she continues to have mild pain in the upper abdomen. Denies nausea/vomiting and is tolerating liquid diet. Denies feeling short of breath. BP is noted to be borderline low however this has been somewhat normal for her since admission. Objective Vital Signs Vital signs Vital Signs Date Time Temp Pulse Resp B/P Pulse Ox O2 Delivery O2 Flow Rate FiO2 01/14/17 08:00 78 18 01/14/17 07:50 97.2 92/61 91 Room Air Telemetry Rhythm: Sinus Rhythm Height (Feet): 5 Height (Inches): 4.00 Weight (Kilograms): 59.100 General General Appearance: Alert, Orientated x 3, Cooperative, No Acute Distress Eyes (Brief) Eyes: FOUND: EOMI ENMT (Brief) ENMT: FOUND: mucosa moist, normal dentition, NOT FOUND: pharnyx erythema Neck (Brief) Neck: FOUND: midline, NOT FOUND: adenopathy, carotid bruits, tracheal deviation Respiratory (Brief) Respiratory: FOUND: clear all ambrocio, equal bilaterally, NOT FOUND: wheezes Cardiovascular (Brief) Cardiac: FOUND: regular rate, regular rhythm, NOT FOUND: murmur, pedal edema Capillary Refill: <2 sec Abdomen (Brief) Abdominal: FOUND: soft, tender (upper abdomen), NOT FOUND: BS normo active x4 ( hypotensive), distended Lymphatic (Brief) Lymphatic: NOT FOUND: adenopathy Musculoskeletal (Brief) Musculoskeletal: NOT FOUND: tenderness Integumentary (Brief) Integumentary: FOUND: dry, pink, warm Neurologic (Brief) Neurological: FOUND: cranial 2-12 intact Psychiatric (Brief) Psychiatric: FOUND: alert, attentive, normal affect, oriented Laboratory Laboratory Laboratory Tests 01/13/17 05:40 01/14/17 05:11 Laboratory Tests 01/13/17 05:40 01/14/17 05:11 Assessment & Plan Problems: (1) Recurrent pancreatitis Status: Acute (2) Epigastric pain Status: Acute (3) History of alcohol abuse Status: Chronic (4) Abdominal pain Qualifiers: Abdominal location: generalized Qualified Codes: R10.84 - Generalized abdominal pain (5) Nausea and vomiting Status: Acute Qualifiers: Vomiting type: bilious vomiting Qualified Codes: R11.14 - Bilious vomiting (6) Hyponatremia Status: Acute (7) COPD (chronic obstructive pulmonary disease) Status: Chronic (8) Hypertension Status: Chronic Plan/Intensity of Service 01/14/17 Continue with current pain regimen as she is having good pain control. Ultram, Fenanyl Patch and MS as needed. Is tolerating clear liquids well without nausea. Scheduled Duoneb and albuterol due to chronic COPD. Nicotine patch and encourage smoking cessation Hyponatremia normalized. CBC unremarkable. Appreciate consultation by Dr Kelsey Will turn care back to Dr Frances tomorrow morning 01/15 Code Status Full Code Hospital Course Summary Disclaimer The hospital course summary below is not to be considered part of the above Progress Note. Hospital Course Summary Patient was admitted for acute abdominal pain. She describes this as epigastric as well as left and right sides. She has nausea and vomits her pills as well as any food that she eats. This is been worse over the last 3 days. She has a history of recurrent pancreatitis. She states she no longer drinks alcohol. Alcohol level is pending. At this time will provide IV fluids nausea medications proton pump inhibitors pain medication and follow her lab. 01/11/17: She continues to have significant abdominal pain even to the point of not being able to stand erect. Her serum alcohol level is 0, triglycerides are within normal limits, she has no gallbladder stones. She has recurrent pancreatitis of unknown etiology. I will check for autoimmune pancreatitis. Additionally, I will start her on clear liquids in the morning and start pancreatic enzymes with meals when she advances that far 01/12/17: I reviewed her history with her again today. As well as reviewing labs. Tests for autoimmune pancreatitis is pending but not high on my differential diagnosis. She still has a gallbladder although there were no stones or dilated ducts. She is complaining of right upper quadrant pain radiating down her right side as well as into her back by herself right scapula. I will have Dr. Urena reassess her and see if he will consider cholecystectomy. 01/13/17 Recurrent pancreatitis, uncontrolled with oral pain medications and low dose fentanyl patch. Tramadol dose increased and IV morphine added for uncontrolled pain. Resume IV fluids due to poor oral intake and low sodium. Seen by Dr. McConeghey, no indication of acute biliary disease and with recent MRCP surgical intervention was not recommended currently but patient may benefit from ERCP. 01/14/17 Continue with current pain regimen as she is having good pain control. Ultram, Fenanyl Patch and MS as needed. Is tolerating clear liquids well without nausea. Scheduled Duoneb and albuterol due to chronic COPD. Nicotine patch and encourage smoking cessation Hyponatremia normalized. CBC unremarkable. Appreciate consultation by Dr Kelsey Will turn care back to Dr Frances tomorrow morning 01/15 NELL BRYANT MD 01/14/17 1615: Assessment & Plan Assessment I have independently evaluated and examined this patient. I reviewed the chart, the patient's history, and the MAIL CARRIER's documented findings as above. We discussed and formulated the assessment and plan as above with additions as below: Dulce Maria complains of headache which comes and goes in addition to ongoing epigastric and right upper quadrant pain. She's having small amounts of stool and passing gas. She is interested in trying some toast or other bland foods. She complains of some discomfort in her eyes and reports she generally uses a prescription eyedrop for dryness/itching at home but doesn't know what it is. There is tenderness to palpation across the right trapezius muscle and generalized abdominal tenderness with minimal distention. Bowel sounds are active. Conjunctiva are clear. Hemoglobin down slightly with hydration. Chemistry stable. Reassess liver enzymes and lipase tomorrow. Patient asked about timing of transfer to [place] for ERCP which I will defer to Dr. Frances as I don't believe it's urgent at this time. Continue present management, advance to soft/bland diet. Patient seen in cross coverage for Dr. Frances. ROSY REED APRN Jan 14, 2017 12:49 NELL BRYANT MD Jan 14, 2017 16:15
--- NOTE | 2017-01-14 13:08 | CONSF ---
DATE OF CONSULTATION 01/13/2017 CONSULTING PHYSICIAN Tk Clark M.D. (covering for Dr. Urena) REQUESTING PHYSICIAN Dr. Frances. REASON FOR CONSULTATION Consider cholecystectomy. IMPRESSION 1. Acute on chronic pancreatitis which is likely from her heavy alcohol use that triggered her first episode in approximately May 2016. 2. Normal gallbladder - all imaging including MRCP last month and gallbladder sonogram last month has failed to reveal any gallstones or abnormalities of the gallbladder. 3. History of severe alcohol abuse - no current alcohol use. 4. Chronic pain issues related to orthopedic disease. RECOMMENDATIONS 1. I do not feel that cholecystectomy is indicated given the lack of any abnormality of the gallbladder. There has not been any evidence of gallstones leading to gallstone pancreatitis. I think that her etiology of her pancreatitis was originally alcohol. She was drinking about seven liters of vodka a week when she first developed pancreatitis. I think ongoing difficulties of the pancreas are related to chronic inflammation leading to swelling and obstruction of the pancreatic duct. 2. Further workup of potential sources for obstruction or exclusion of malignancy are needed but I think that ERCP would be a much less invasive route of workup to assess of the bile duct. This will also allow evaluation of the pancreatic duct. Endoscopic ultrasound would also be an option. All of these techniques are available via gastroenterology and she does have an established relationship with Dr. Burgos since 2011. 3. Continue management of pancreatitis episode per the hospitalist over the weekend. 4. Since there does not appear to be any need of surgical intervention I will sign off of Amanda's case. HISTORY OF PRESENT ILLNESS Amanda is a 56-year-old female who is known to my partner, Dr. Urena, from a consultation in November 2016. She has a history of heavy alcoholism and was drinking about 7 liters of vodka a week back in May 2016 as she recollects. She was diagnosed with her first episode of pancreatitis and she did stop drinking after her pancreatitis developed. She has a long history of alcohol abuse with alcoholism off and on for the last 20 to 25 years. She has also seen Dr. Alfonso Burgos of gastroenterology since at least 2011 with original evaluation for abdominal pain and elevated liver function tests. Dr. Burgos is also involved in her care in 2016 and has done an EGD last year. The patient had recurrent episode of pancreatitis in November [address] Urena consulted on the patient on 12/10/2016. This led to an EGD which showed some duodenitis that was deemed to be reactive to the surrounding pancreatitis. This episode of pancreatitis developed about six days ago. The patient was hospitalized three days ago under the care of Dr. Frances. He was following the pancreatitis and completing workup. He consulted surgery late last evening but Dr. Urena was unavailable given the weekend schedule so I was notified of the consultation. The patient had been having epigastric pain that she says radiates down both sides of the abdomen. She describes the pain "like someone is in there scraping the meat off the inside of my stomach." Her pain also radiates to her back between her shoulder blades. She says the pain is constant. She rates it 10 out of 10 in severity. The pain medications that she has been receiving held briefly. PAST MEDICAL HISTORY 1. Alcoholic pancreatitis - 06/17/16. 2. Recurrent pancreatitis - 12/18/16. 3. Prior history of alcohol abuse. 4. COPD. 5. Hypertension. 6. Gastroesophageal reflux disease. 7. Avascular necrosis. 8. Chronic pain. 9. Osteoarthritis. 10. Migraine headaches. 11 Tobaccoism. 12. Glaucoma. 13. Anxiety/depression. 14. Lactose intolerance. PAST SURGICAL HISTORY 1. Laparoscopic bilateral tubal ligation - age 19. 2. Laparoscopic appendectomy - 2006 at [facility]. 3. Esophagogastroduodenoscopy with biopsies - 02/20/[address] Frances at [facility]. The procedure showed reflux esophagitis and antral gastritis but the duodenum was normal. 4. Esophagogastroduodenoscopy - [address] Burgos at . The patient had felt that she had some kind of peptic ulcer disease found at the procedure. 5. Right hip replacement. 6. Knee surgeries x two on the right knee. 7. Esophagogastroduodenoscopy - 12/11/[address] Urena. Endoscopy revealed some duodenitis of the second portion of the duodenum just beyond the duodenal bulb but no ulcerations. The stomach and distal esophagus were normal. It was felt that the duodenitis was related to surrounding pancreatitis of the pancreatic head. ALLERGIES Lactose, Tylenol, NSAIDS. MEDICATIONS The patient's current hospital medications were reviewed. See the hospital MAR. SOCIAL HISTORY The patient is a current smoker and smokes over half a pack a day. She denies illicit drug use. She has a history of alcohol abuse but says that she has not had any alcohol since approximately May 2016. She is single. She is on Social Security/disability. FAMILY HISTORY Father - of unknown cancer. Mother - diabetes, thyroid problems. REVIEW OF SYSTEMS Ten point review od systems was negative except for history of present illness and the following. GENERAL: She reports feeling hot and cold but has not had any definite fever. NEUROLOGIC: She did have a headache prior to hospital admission and continues to complain of headache. RESPIRATORY: She has had cough and trouble breathing due to her pain. MUSCULOSKELETAL: She reports lower back pain, knee pain, right hip pain. She has had numbness of the right leg after her surgeries. LABORATORY DATA Lipase on 01/10/17 was 1932. This decreased to 666 on 01/11/17 and was 340 on 01/12/17. White count is normal. IMAGING 1. MRCP from 12/12/16 was reviewed by report. It showed no stones within the gallbladder and no abnormalities of the gallbladder or common hepatic duct, common bile duct. 2. Gallbladder sonogram from showed a normal gallbladder with no wall thickening, pericholecystic fluid or cholelithiasis. The extrahepatic common duct was mildly dilated at 7 mm. There were no stones seen in the duct. The pancreatic duct was also mildly dilated at 4 mm. Radiology had recommended ERCP. 3. CT scan of the abdomen and pelvis from 01/10/17 was reviewed by report as well as personally reviewed by me. There was inflammation around the pancreas and the central mesentery with some free fluid. There was no evidence of necrosis or pseudocyst. The radiologist saw some mild thickening and prominence of the duodenum traversing the pancreas that was thought to be reactive in nature. PHYSICAL EXAMINATION VITAL SIGNS: Temperature 98.2, pulse 85, blood pressure 115/75, respiratory rate 20, oxygen saturation 91% on room air. GENERAL: The patient is awake and alert in no acute distress. HEENT: Sclerae clear. Extraocular is intact. NECK: Supple with a midline trachea. No lymphadenopathy or thyromegaly are noted. HEART: Regular rate and rhythm. LUNGS: Mild expiratory wheezes bilaterally. ABDOMEN: Soft, diffusely tender but more so in the upper abdomen. No masses, fluid or organomegaly are noted. The abdomen is thin. EXTREMITIES: No clubbing, cyanosis or edema. NEURO: Cranial nerves II-XII are grossly intact. PSYCHIATRIC: normal mood and affect. PATIENT EDUCATION I did explain to the patient that I did not feel that the gallbladder was abnormal and warranted surgical removal. I did explain that further workup would best be performed with the resources that Dr. Burgos has at his disposal. [facility] CAMPUSBrinana
[2017-01-14] MEDS: ONDANSETRON 4mg/2ml INJECTION IV PRN ×2 (13:13→22:56)
[2017-01-14] MEDS: DICLOFENAC 1% TOPICAL GEL 100 G TUBE TOP PRN (14:21)
[2017-01-14] MEDS: MORPHINE SULFATE 4 MG SYRINGE IV PRN (14:22)
[2017-01-14 15:12] VITALS: BP 91/63; PULSE 73; RESP 16; TEMP 97.1; O2SAT 95
[2017-01-14] MEDS ORDERED: CYCLOBENZAPRINE 5 MG TABLET PO PRN (16:15)
--- NOTE | 2017-01-14 18:24 | NUR ---
Status Patient has been in bed all day. Gets up to use bathroom. Patient states pain in abdomen most of shift. PRN medications given. Patient reports pain is better than yesterday. Patient also complains of nausea off and on. PRN zofran given this afternoon. Diet advanced to soft foods this evening. Patient ate 100% of supper ordered and reported to staff she threw up but there was no evidence of that. Currently resting quietly in bed. Call light within reach.
--- NOTE | 2017-01-14 19:30 | NUR ---
Report received pt care assumed. Pt is alert and oriented x3, c/o mild pain in the abdomen, pain meds are scheduled. Pt is here with pancreatitis. Fluids are infusing continuously through a PIV. Care plan reviewed. Fall precautions are in place. Call light is in reach. Continuing to monitor.
[2017-01-14 20:00] VITALS: PULSE 70; RESP 16
[2017-01-14] MEDS: TRAZODONE 100 MG TABLET PO SCH (20:37)
[2017-01-15 00:05] VITALS: BP 83/59; PULSE 63; RESP 18; TEMP 97.6; O2SAT 95
--- NOTE | 2017-01-15 02:40 | NUR ---
Pt is resting with eyes closed. Chest rise is visualized. Fluids are infusing continuously. Continuing to monitor.
[2017-01-15] MEDS: SUCRALFATE 1 G TABLET PO SCH ×3 (05:38→17:05)
[2017-01-15 05:55] LABS: BASOPHILS % (AUTO) 0.7 % (0-2); EOSINOPHILS # (AUTO) 0.3 T/MM3 (0-0.5); EOSINOPHILS % (AUTO) 6.7 % (0-4); HCT - HEMATOCRIT 32.9 % (36-46); HGB - HEMOGLOBIN 10.4 GM/DL (12-16); LYMPHOCYTES # (AUTO) 2.6 T/MM3 (1-4.8); LYMPHOCYTES % (AUTO) 55.7 % (23-45); MEAN CORPUSCULAR HGB 29.6 UUG (26-34); MEAN CORPUSCULAR HGB CONC(MCHC 31.6 GM/DL (31-37); MEAN CORPUSCULAR VOLUME 93.7 UM3 (80-100); MEAN PLATELET VOLUME 10.9 UM3 (9.4-12.4); MONOCYTES # (AUTO) 0.4 T/MM3 (0-0.8); MONOCYTES % (AUTO) 9.5 % (0-9.0); NEUTROPHILS #(AUTO)-ABSOLUTE 1.3 T/MM3 (1.8-7.7); NEUTROPHILS % (AUTO) 27.4 % (33-66); RED BLOOD COUNT 3.51 M/MM3 (4.00-5.20); WBC - WHITE BLOOD COUNT 4.6 T/MM3 (4.5-11.0)
[2017-01-15 06:06] LABS: ALBUMIN 2.7 G/DL (3.5-5.0); ALBUMIN/GLOBULIN RATIO 0.8 RATIO (1.1-2.2); ALKALINE PHOSPHATASE 61 U/L (38-126); ALT (SGPT) 18 U/L (9-52); ANION GAP 10 MEQ/L (5-15); AST (SGOT) 11 U/L (14-36); BLOOD UREA NITROGEN < 2.0 MG/DL (7-17); CALCIUM 8.4 MG/DL (8.4-10.2); CHLORIDE 105 MEQ/L (98-107); CO2 - CARBON DIOXIDE 27 MEQ/L (22-30); CREATININE 0.5 MG/DL (0.7-1.2); GLOMERULAR FILTRATION RATE 127; GLUCOSE 106 MG/DL (65-110); LIPASE 193 U/L (23-300); POTASSIUM 3.8 MEQ/L (3.6-5); SODIUM 142 MEQ/L (134-144); TOTAL PROTEIN 6.3 G/DL (6.3-8.2)
--- NOTE | 2017-01-15 07:14 | NUR ---
Report given to oncoming RN, Care surrendered.
[2017-01-15 07:20] VITALS: BP 101/64; PULSE 78; RESP 16; TEMP 97.1; O2SAT 92
[2017-01-15 07:22] VITALS: PULSE 78; RESP 16
[2017-01-15] MEDS: ALBUTEROL/IPRATROPIUM INHAL. 2.5mg-0.5mg/3ml Neb. AEROSOL SCH ×3 (08:00→15:00)
[2017-01-15] MEDS: NICOTINE PATCH REMOVAL TD SCH (08:20)
[2017-01-15] MEDS: NICOTINE 14 MG PATCH TD SCH (08:20)
[2017-01-15] MEDS: TRAMADOL 50 MG TABLET PO SCH ×3 (08:21→17:05)
[2017-01-15] MEDS: GABAPENTIN 400 MG CAPSULE PO SCH ×3 (08:21→17:05)
[2017-01-15] MEDS: PANTOPRAZOLE 40mg INJECTION IV SCH (08:21)
[2017-01-15] MEDS: SERTRALINE 100 MG TABLET PO SCH (08:21)
[2017-01-15] MEDS: ALBUTEROL INH.SOLN. 2.5mg/3ml (0.083%) Neb. AEROSOL SCH (09:00)
[2017-01-15] MEDS: LR 1,000 ML IV SCH (10:23)
[2017-01-15] MEDS: ONDANSETRON 4mg/2ml INJECTION IV PRN (12:25)
--- NOTE | 2017-01-15 12:27 | NUR ---
AMBULATION PATIENT AMBULATED IN HALLWAY WITH SBA FROM RM 155 TO SITTING AREA AT END OF "[facility] [address]" AND BACK. PATIENT REPORTING MINIMAL NAUSEA BUT TOLERATED WALK WELL.
[2017-01-15] MEDS ORDERED: MILK OF MAGNESIA 30 ML SUSP PO PRN (13:45)
[2017-01-15] MEDS: MORPHINE SULFATE 4 MG SYRINGE IV PRN ×2 (14:36→16:33)
[2017-01-15 15:11] VITALS: BP 118/77; PULSE 67; RESP 18; TEMP 97.5; O2SAT 96
[2017-01-15 17:44] VITALS: RESP 18
--- NOTE | 2017-01-15 18:01 | NUR ---
SHIFT SUMMARY VSS. RA. PATIENT CONTINUES TO REPORT ABDOMINAL PAIN 8-07/08. SCHEDULED ULTRAM AND PRN MORPHINE GIVEN TODAY, THIS HAS NOT HELPED MUCH ACCORDING TO PATIENT. PATIENT HAS A DECENT APPETITE AND INTAKE. PATIENT REPORTED TO THIS RN THAT SHE VOMITED A SMALL AMOUNT OF BROWN EMESIS INTO SINK THIS EVENING, RN DID NOT VISUALIZE. LR CONTINUES TO INFUSE AT 75CC/HR. PATIENT AMBULATED IN HALLWAY ONCE TODAY, DID VERY WELL. PATIENT REPORTS FEELING SOME DISCOMFORT FROM NOT HAVING A GOOD BM. COLACE AND MOM GIVEN BY THIS RN.
--- NOTE | 2017-01-15 18:06 | DSPDOC ---
Discharge Diagnoses Discharge Diagnoses (1) Recurrent pancreatitis (2) Epigastric pain (3) Abdominal pain (4) Nausea and vomiting (5) History of alcohol abuse (6) Hyponatremia (7) COPD (chronic obstructive pulmonary disease) (8) Hypertension Hospital Course Patient was admitted for acute abdominal pain. She describes this as epigastric as well as left and right sides. She has nausea and vomits her pills as well as any food that she eats. This is been worse over the last 3 days. She has a history of recurrent pancreatitis. She states she no longer drinks alcohol. Alcohol level is pending. At this time will provide IV fluids nausea medications proton pump inhibitors pain medication and follow her lab. 01/11/17: She continues to have significant abdominal pain even to the point of not being able to stand erect. Her serum alcohol level is 0, triglycerides are within normal limits, she has no gallbladder stones. She has recurrent pancreatitis of unknown etiology. I will check for autoimmune pancreatitis. Additionally, I will start her on clear liquids in the morning and start pancreatic enzymes with meals when she advances that far 01/12/17: I reviewed her history with her again today. As well as reviewing labs. Tests for autoimmune pancreatitis is pending but not high on my differential diagnosis. She still has a gallbladder although there were no stones or dilated ducts. She is complaining of right upper quadrant pain radiating down her right side as well as into her back by herself right scapula. I will have Dr. Urena reassess her and see if he will consider cholecystectomy. 01/13/17 Recurrent pancreatitis, uncontrolled with oral pain medications and low dose fentanyl patch. Tramadol dose increased and IV morphine added for uncontrolled pain. Resume IV fluids due to poor oral intake and low sodium. Seen by Dr. Clark, no indication of acute biliary disease and with recent MRCP surgical intervention was not recommended currently but patient may benefit from ERCP. 01/14/17 Continue with current pain regimen as she is having good pain control. Ultram, Fenanyl Patch and MS as needed. Is tolerating clear liquids well without nausea. Scheduled Duoneb and albuterol due to chronic COPD. Nicotine patch and encourage smoking cessation Hyponatremia normalized. CBC unremarkable. Appreciate consultation by Dr Kelsey Will turn care back to Dr Campos tomorrow morning 01/1501/15/17: Lab chart radiographs reviewed consultation also reviewed from surgery. I will discharge her to home with clinic follow-up with Dr. Burgos of gastroenterology tomorrow. She will need outpatient ERCP most likely with brushings of the pancreatic ducts as well as common bile duct. She is stable for discharge at this time Home Meds Active Scripts Pantoprazole Sodium (Pantoprazole Sodium) 40 Mg Tablet.dr, 40 MG PO ACBID for 30 Days, #60 TAB 3 Refills Take 1 tablet, by mouth, 2 times a day, before breakfast and dinner. Prov:ANDRESJACQUELINE Belinda BENITEZ 12/15/16 Reported Medications Oxycodone HCl (Oxycodone HCl) 15 Mg Tablet, 15 MG PO HS, TAB 01/10/17 Trazodone HCl (Trazodone HCl) 300 Mg Tablet, 300 MG PO HS 12/08/16 Oxycodone HCl (Oxycodone HCl) 15 Mg Tablet, 7.5 MG PO DAILY Take 1/2 tab q am 12/08/16 Aspirin/Sod Bicarb/Citric Acid ([place] Es Tab Eff) 1 Each Tablet.eff, 2 TAB PO PRN 06/10/16 Gabapentin (Gabapentin) 400 Mg Capsule, 400 MG PO QID 06/10/16 Docusate Sodium (Dulcolax Stool Softener) 100 Mg Capsule, 1 CAP PO DAILY Y for CONSTIPATION 06/10/16 Sucralfate (Sucralfate) 1 Gm Tablet, 1 GM PO ACHS 06/10/16 Albuterol Sulfate (Ventolin HFA 90 mcg/actuation) 18 Gm Hfa.aer.ad, 2 PUFF INH DAILY 02/16/15 Ipratropium/Albuterol Sulfate (Combivent Respimat Inhal [place]) 120 Puff/4 Gm Inha, 2 PUFF PO QID, INHALER 02/16/15 Diclofenac Sodium (Voltaren 1% Gel) 50 Applic/100 G Gel, 50 APPLIC TOP PRN 05/08/13 Diphenhydramine Hcl (Benadryl) 25 Mg Capsule, 25 MG PO PRN 05/06/13 Tramadol Hcl (Tramadol Hcl) 50 Mg Tablet, 50 MG PO TID 05/06/13 Sertraline Hcl (Zoloft) 100 Mg Tablet, 100 MG PO DAILY 12/28/10 Discharge Disposition Discharge to home with GI appointment tomorrow with Dr. Burgos Copies To 1: JACQUELINE CAMPOS DO Follow up Condition at time of discharge: Fair Follow up She has a appointment with Dr. Burgos in [place] tomorrow at 2 PM. Follow-up appointment with Andres at [facility] in 2 weeks JACQUELINE CAMPOS DO Jan 15, 2017 18:04
[2017-01-15] MEDS: FENTANYL PATCH REMOVAL TD SCH (18:46)
--- NOTE | 2017-01-15 19:16 | NUR ---
DISMISSAL TO HOME VSS. RA. CONTINUES TO REPORT ABDOMINAL PAIN, DR CAMPOS AWARE. PATIENT CONCERNED ABOUT AVAILABILITY OF OXYCODONE AT [facility] TO REFILL PRESCRIPTION TONIGHT BECAUSE SHE IS OUT. JUNIE AT [facility] CONFIRMED THAT THEY DO HAVE OXYCODONE IN STOCK. PATIENT TAKEN TO FRONT ENTRANCE VIA WHEELCHAIR. TAKEN HOME BY FAMILY IN PRIVATE VEHICLE. FENTANYL AND NICOTINE PATCHES REMOVED PRIOR TO DISCHARGE.
== END 2017-01-15 19:21 | disposition home or self-care (01) | DRG 439 ==
LOC: ED 14:33 → MED 16:57 → OBSVTOIN 01-11 18:52
PROVIDERS: ADMIT Internal Medicine; ATTEND Internal Medicine
DX: K86.1 Other chronic pancreatitis (principal); E87.1 Hypo-osmolality and hyponatremia; F17.203 Nicotine dependence unspecified, with withdrawal; R11.14 Bilious vomiting; F10.21 Alcohol dependence, in remission; J44.9 Chronic obstructive pulmonary disease, unspecified; I10 Essential (primary) hypertension; G43.909 Migraine, unspecified, not intractable, without status migrainosus; F32.9 Major depressive disorder, single episode, unspecified; F41.9 Anxiety disorder, unspecified; E73.9 Lactose intolerance, unspecified; K21.9 Gastro-esophageal reflux disease without esophagitis; H40.9 Unspecified glaucoma; M19.91 Primary osteoarthritis, unspecified site; G89.29 Other chronic pain
CPT/HCPCS: 36415; 80053; 80069; 80307; 81001; 82248; 82784; 82787; 82977; 83615; 83690; 83735; 84478; 84703; 85025; 85610; 93005; 94640; 96361; 96372; 96374; 96375; 99218

== ENCOUNTER 2017-01-19 15:23 | Emergency (ER) | payer MEDICARE, MEDICAID ==
[~2017-01-19] VITALS: Ht 162.6 cm; Wt 60.0 kg
[~2017-01-19 15:23] MED LIST changes: -OXYC10TA PO
[2017-01-19 15:25] VITALS: Ht 162.6 cm; Wt 60.0 kg
--- OUTSIDE RECORDS SUMMARY | 2017-01-19 15:26 | XMS REPORT | Continuity of Care Document ---
Author Author [facility] Organization [facility] Address Unknown Phone Unavailable Care Team Providers Care Mental Health Clinician Name Role Phone Parish Ferrari Primary Care Physician [phone] Source Comments Some departments are not documenting in the electronic medical record. If you do not see the information that you expected, contact Release of Information in the Health Information Management department at [phone] for further assistance in locating additional records.[facility] Active Allergies and Adverse Reactions Not [...]
--- OUTSIDE RECORDS SUMMARY | 2017-01-19 15:27 | XMS REPORT ---
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 Name Role Phone Alfonso Burgos Unavailable [phone] PROBLEMS Type Condition ICD9-CM Code XNC21-AS Code Onset Dates Condition Status SNOMED Code Problem Nonspecific elevation of levels of transaminase or lactic acid dehydrogenase (LDH) 790.4 Inactive 999883286 Problem Anorexia 783.0 Inactive 09247009 Problem Loss of weight 783.21 Inactive 664500535 Problem Epigastric pain R10.13 Active 35083881 Problem Other specified counseling V65.49 Inactive 891444702 Problem Benign neoplasm of colon 211.3 Inactive 77059016 Problem Abdominal pain, unspecified site 789.00 Inactive 36186987 Problem Special screening for malignant neoplasms, colon V76.51 Inactive 582510258 Problem Other abnormal blood chemistry 790.6 Inactive 503928206 Assessment Epigastric pain R10.13 Dec, Active 05197155 Problem Benign neoplasm of unspecified site 229.9 Inactive 21709544 Problem Blood in stool 578.1 Inactive 414735753 Problem Nausea with vomiting 787.01 Inactive 71832935 Problem Unspecified constipation 564.00 Inactive 26347812 Problem Abdominal pain, epigastric 789.06 Inactive 76000570 Problem Other and unspecified alcohol dependence, unspecified drunkenness 303.90 Inactive 681020387 ALLERGIES Unknown Allergies SOCIAL HISTORY No smoking Hx information available PLAN OF CARE VITAL SIGNS Height 64.5 in 2017-01-16 Weight 138.4 lbs 2017-01-16 Heart Rate 82 /min 2017-01-16 Respiratory Rate 18 /min 2017-01-16 BMI 23.39 kg/m2 2017-01-16 Blood pressure systolic 114 mm Hg 2017-01-16 Blood pressure diastolic 76 mm Hg 2017-01-16 MEDICATIONS Medication Instructions Dosage Frequency Start Date End Date Duration Status Sertraline HCl Active Pantoprazole Sodium Active Trazodone HCl Active Gabapentin Active Oxycodone HCl Active Tramadol HCl Active RESULTS No Results PROCEDURES Procedure Date Ordered Related Diagnosis Body Site Office Visit, New Pt., Level 4 January 16, 2017 IMMUNIZATIONS No Known Immunizations
--- OUTSIDE RECORDS SUMMARY | 2017-01-19 15:27 | XMS REPORT | Continuity of Care Document ---
Author Author [facility] Organization [facility] Address Unknown Phone Unavailable Support Name Relationship Address Phone PENG DE LOS SANTOS Caregiver [address] [place] [address] Unavailable SHANE HARRIS DO Caregiver [address] [place] [address] Unavailable JACQUELINE CAMPOS DO Caregiver [address] [place] [address] Unavailable JACQUELINE CAMPOS DO Caregiver [address] [place] [address] Unavailable CUONG MELISSA Next Of Kin Unknown [phone] Insurance Providers Guarantor Dulce Maria Romero Address [address] [place] [address] CP Email DENIED 12-08-16 Payer Medicaid Policy Number [id number] Subscriber's Name Dulce Maria Romero Relationship 18 Self Effective Date 16 Expiration Date 17 Payer Medicare Policy Number [id number] Subscriber's Name Dulce Maria Romero Relationship 18 Self Advance Directives Directive Response Recorded Date/Time Advanced Directives Type None 01/10/17 2:35pm Ordered Resuscitation Status Full Code, unverified 02/16/14 2:48pm Resuscitation Documents on File No 01/10/17 5:44pm DPOA for Healthcare Only No 01/10/17 7:38pm Living Will No 01/10/17 5:44pm Chief Complaint and Reason for Visit Chief Complaint ACUTE PANCREATITIS Reason for Visit Epigastric pain GERD (gastroesophageal reflux disease) Glaucoma History of alcohol abuse History of vitamin D deficiency Hx of duodenal ulcer Hypertension Problems Active Problems Medical Problem Onset Date Status Abdominal pain Unknown Alcohol intoxication Unknown Acute Alcohol intoxication Unknown Acute Anxiety and depression Unknown Chronic COPD (chronic obstructive pulmonary disease) Unknown Chronic Duodenitis Unknown Acute Elevated liver enzymes Unknown Acute Epigastric pain Unknown Acute GERD (gastroesophageal reflux disease) Unknown Chronic 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 Unknown Acute Glaucoma Unknown Chronic History of alcohol abuse Unknown Chronic History of vitamin D deficiency Unknown Chronic Hx of acute pancreatitis Unknown Chronic Hx of duodenal ulcer Unknown Chronic Hypertension Unknown Chronic Hyponatremia Unknown Acute Lactose intolerance Unknown Chronic Migraine headache Unknown Chronic Nausea and vomiting Unknown Acute OA (osteoarthritis) Unknown Chronic Recurrent pancreatitis Unknown Acute Past Problems Medical Problem Onset Date Acute hemorrhagic pancreatitis Unknown Dehydration Unknown Pancreatitis Unknown Medications Current Home Medications Medication Dose Units Route Directions Days Qty Instructions Start Date Albuterol Sulfate (Ventolin Hfa 90 Mcg/Actuation) 18 Gm Hfa.aer.ad 2 Puff Inhalation Daily 02/16/15 Albuterol/Ipratropium (Combivent Respimat Inhal [place]) 120 Puff/4 Gm Inha 2 Puff Oral Four Times Daily 02/16/15 Aspirin/Sod Bicarb/Citric Acid (Rosangela-[place] Es Tab Eff) 1 Each Tablet.eff 2 Tab Oral As Needed 06/10/16 Diclofenac Sodium (Voltaren 1% Gel) 50 Applic/100 G Gel 50 Applic Topically As Needed 05/08/13 Diphenhydramine Hcl (Benadryl) 25 Mg Capsule 25 Mg Oral As Needed 05/06/13 Docusate Sodium (Dulcolax Stool Softener) 100 Mg Capsule 1 Cap Oral Daily as needed for Constipation 06/10/16 Gabapentin 400 Mg Capsule 400 Mg Oral Four Times Daily 06/10/16 Oxycodone Hcl 15 Mg Tablet 7.5 Mg Oral Daily Take 1/2 tab q am 08/14 Oxycodone Hcl 15 Mg Tablet 15 Mg Oral Bedtime 01/10/17 Pantoprazole Sodium 40 Mg Tablet.dr 40 Mg Oral Before Meals Twice A Day 30 Days 60 Tablet Take 1 tablet, by mouth, 2 times a day, before breakfast and dinner. 12/15/16 Sertraline Hcl (Zoloft) 100 Mg Tablet 100 Mg Oral Daily 12/28/10 Sucralfate 1 Gm Tablet 1 Gm Oral Before Meals And At Bedtime Tramadol Hcl 50 Mg Tablet 50 Mg Oral Three Times A Day 05/06/13 Trazodone Hcl 300 Mg Tablet 300 Mg Oral Bedtime 12/08/16 Past Home Medications Medication Directions Ordered Status Buspirone Hcl (Buspar) 10 Mg Tablet, 10 Mg Oral Three Times A Day 03/08/10 Discontinued Calcium Carbonate (Calcium 500) 1 Tab Tablet, 1 Tab Oral Daily 07/19/10 Discontinued Citalopram Hydrobromide (Celexa) 40 Mg Tablet, 40 Mg Oral Daily 03/08/10 Discontinued Citalopram Hydrobromide (Celexa) 20 Mg Tablet, 20 Mg Oral Daily 03/08/10 Discontinued Cyclobenzaprine Hcl (Flexeril) 10 Mg Tablet, 10 Mg Oral As Needed 08/12/12 Discontinued Docusate Sodium (Colace) 100 Mg Capsule, 100 Mg Oral As Needed 08/12/12 Discontinued Ergocalciferol (Vitamin D) 50,000 Unit Capsule, 51714 Unit Oral Daily Discontinued Ferrous Sulfate (Iron) 1 Tab Tablet, 1 Tab Oral Daily 07/19/10 Discontinued Hydrocodone Bit/Acetaminophen (Lortab 10) 1 Udtab Tablet, 2 Udtab Oral Every 4 Hrs 03/31/11 Discontinued Hydrocodone Bit/Acetaminophen (Lortab 7.5-500 Tablet) 1 Tab Tablet, 1 Tab Oral As Needed 12/28/10 Discontinued Hydrocodone Bit/Acetaminophen (Lortab 10-500 Tablet) 1 Tab Tablet, 1 Tab Oral As Needed 03/08/10 Discontinued Hydrocodone Bit/Acetaminophen (Lortab 5) 1 Tab Tablet, 1 Tab Oral As Needed 01/09/09 Discontinued Isomethept/Acetaminop/Dichlphn (Isometh/D-Chloralphenz/Apap) 1 Cap Capsule, 1 Cap Oral As Needed 01/09/09 Discontinued Lisinopril 10 Mg Tablet, 20 Mg Oral Daily 02/07/12 Discontinued Lisinopril 10 Mg Tablet, 10 Mg Oral Daily 07/19/10 Discontinued Lorazepam 2 Mg Tablet, 2 Mg Oral Twice A Day 03/08/10 Discontinued Lorazepam (Ativan) 1 Mg Tablet, 1 Mg Oral As Needed 01/09/09 Discontinued Losartan Potassium (Cozaar) 100 Mg Tablet, 100 Mg Oral Daily 12/28/10 Discontinued Nortriptyline Hcl 50 Mg Capsule, 50 Mg Oral Three Times A Day 03/08/10 Discontinued Omeprazole 20 Mg Capsule.dr, 20 Mg Oral Daily 06/10/16 Discontinued Oxycodone Hcl 15 Mg Tablet, 15 Mg Oral Bedtime 03/31/11 Discontinued Social History Social History Problem Response Recorded Date/Time Onset Date Status Tobacco dependency 01/15/2017 12:33pm Unknown Active Reason for Hospitalization PANCREATITIS 01/15/2017 6:37pm Not Applicable Not Applicable Chewing Tobacco Status No 02/16/2014 1:03pm Not Applicable Not Applicable Hx Substance Use No 01/10/2017 2:44pm Not Applicable Not Applicable Hx Alcohol Use Yes 01/10/2017 2:44pm Not Applicable Not Applicable Has the pt used tobacco in the last 12 months Yes 01/10/2017 5:46pm Not Applicable Not Applicable Tobacco Usage smoke 07/01/2014 5:37am Not Applicable Not Applicable Query Response Start Date Stop Date Smoking Status Heavy Smoker Hospital Discharge Instructions Instructions: Care Instructions: Reason for Hospitalization: PANCREATITIS Discharge Diet: TOLERATED Discharge Activity: TOLERATED Follow Up Appointments: FOLLOW UP WITH DR. VELÁZQUEZ ON 01/16/17 AT 2:20 PM. Pending Lab / Results: No Pending Lab Wound/Incision Care: NA Pain Management/Treatment: PREVIOUSLY TAKEN AT HOME Expected Signs/Symptoms: NA Notify Physician If: NA During Business Hours:: Please call the physician's office. After Business Hours:: Please call [phone] and have the grit removal operator page the physician. Condition at time of discharge: Good Plan of Care Discharge Date 01/15/17 7:21pm Disposition 01 DISCHARGED HOME, SELF-CARE Instructions/Education Provided Pancreatitis (GEN) Prescriptions See Medication Section Care Plan and Goals See Discharge Instructions Section Functional Status Query Response Date Recorded Mobility Status Ambulatory January 15, 2017 6:37pm Assistive Devices None January 15, 2017 6:37pm Activity Limitations Pain January 15, 2017 6:37pm Feeding Ability Independent January 15, 2017 6:37pm Toileting Ability Independent January 15, 2017 6:37pm Grooming Ability Independent January 15, 2017 6:37pm Dressing Ability Independent January 15, 2017 6:37pm Driving Ability Independent January 15, 2017 6:37pm Housework Ability Independent January 15, 2017 6:37pm Meal Preparation Ability Independent January 15, 2017 6:37pm Stair Climbing Ability Independent January 15, 2017 6:37pm Ability to complete ADL's impeded by No change January 15, 2017 6:37pm Cognitive/Perceptual Impairments None January 15, 2017 6:37pm Allergies, Adverse Reactions, Alerts Allergen Type Severity Reaction Status Last Updated NSAIDS (Non-Steroidal Anti-Inflamma Adverse Reaction Mild NAUSEA Active Acetaminophen Adverse Reaction Unknown PREVIOUS HX OF LIVER FAILURE Active 01/10/17 LACTOSE INTOLERANT Allergy Unknown Active 03/08/10 Immunizations Immunization Event Date Type Not Given Reason Dose Number Lot Number Green Coffee Blender VIS Given Influenza, seasonal, injectable 12/09/16 Administered 1 [id number] [employer] 06/04/15 Query Response on File Recorded Date/Time Hx Influenza Vaccination Y OCT 2016 01/10/17 5:46pm Hx Pneumococcal Vaccination No 01/10/17 5:46pm Hx Tetanus, Diptheria, Pertussis N UNK LAST 07/01/14 6:51am Hx Influenza Vaccination Y OCT 2016 01/10/17 5:46pm Hx Tetanus Diptheria Y 09/0907/01/14 6:51am Hx Tetanus, Diptheria, Pertussis N UNK LAST 07/01/14 6:51am Influenza Vaccine Hx 01/12/17 01/12/17 3:44pm Vital Signs Acute Vital Signs Vital Response Date/Time Temperature (Fahrenheit) 97.5 deg F (96.8 - 99.1) 01/15/2017 3:11pm Temperature (Calculated Celsius) 36.02639 degrees C (36.0 - 37.3) 01/15/2017 3:11pm Temperature Source Oral 12/12/2016 7:59am Pulse Rate (adult) 67 bpm (60 - 100) 01/15/2017 3:11pm Respiratory Rate 18 breaths/min (10 - 20) 01/15/2017 5:44pm O2 Sat by Pulse Oximetry 96 % (90 - 100) 01/15/2017 3:11pm Oxygen Delivery Method Room Air 12/12/2016 7:59am Oxygen Delivery Method Room Air 01/15/2017 3:11pm Oxygen Flow Rate 6.00 L/min 12/11/2016 4:15pm Blood Pressure 118/77 mm Hg 01/15/2017 3:11pm Blood Pressure Source Automatic Cuff 01/15/2017 3:11pm Height (Feet) 5 feet 01/14/2017 12:55pm Height (Inches) 4.00 inches 01/14/2017 12:55pm Weight (Kilograms) 60.300 kg 01/15/2017 7:25am Body Mass Index (BMI) 22.6 01/10/2017 5:43pm Results Laboratory Results Test Name Result Units Flags Reference Collection Date/Time Result Date/ Time Comments Neutrophils % (Manual) 26.0 % L 33-66 12/13/2016 5:16am 12/13/2016 7: 02am Band Neutrophils % 2.0 % 0-6 12/13/2016 5:1612/13/2016 7:02am Lymphocytes % (Manual) 63.0 % H 23-45 12/13/2016 5:1612/13/2016 7: 02am Monocytes % (Manual) 5.0 % 0-9.0 12/13/2016 5:1612/13/2016 7:02am Eosinophils % (Manual) 4.0 % 0-4 12/13/2016 5:1612/13/2016 7:02am Band Neutrophils # 0.1 T/MM3 12/13/2016 5:12/13/2016 7:02am Absolute Neutrophils (Manual) 1.5 T/MM3 L 1.8-7.7 12/13/2016 5: 7:02am Lymphocytes # (Manual) 3.5 T/MM3 1-4.8 12/13/2016 5:12/13/2016 7: 02am Monocytes # (Manual) 0.3 T/MM3 0-0.8 12/13/2016 5:12/13/2016 7: 02am Eosinophils # (Manual) 0.2 T/MM3 0-0.5 12/13/2016 5:12/13/2016 7: 02am Red Cell Morphology Comment NORMAL 12/13/2016 5:12/13/2016 7: 02am Cholesterol Level 203 MG/DL H 132-199 12/12/2016 5:3612/12/2016 6: 10am HDL Cholesterol Direct 25 MG/DL L 40-60 12/12/2016 5:3612/12/2016 6: 10am LDL Cholesterol, Calculated 127.2 66-159 12/12/2016 5:362016 6:10am VLDL Cholesterol 50.8 MG/DL H 0-28 12/12/2016 5:3612/12/2016 6:10am Cholesterol/HDL Ratio 8.1 RATIO H 0-4.0 12/12/2016 5:3612/12/2016 6: 10am Urinalysis Comment MICROSCOPIC NOT IND. 12/08/2016 4:38pm 2016 4:42pm White Blood Count 4.6 T/MM3 4.5-11.0 01/15/2017 5:1401/15/2017 5: 55am Red Blood Count 3.51 M/MM3 L 4.00-5.20 01/15/2017 5:14am 01/15/2017 5: 55am Hemoglobin 10.4 GM/DL L 12-16 01/15/2017 5:14am 01/15/2017 5:55am Hematocrit 32.9 % L 36-46 01/15/2017 5:14am 01/15/2017 5:55am Mean Corpuscular Volume 93.7 UM3 80-100 01/15/2017 5:14am 01/15/2017 5: 55am Mean Corpuscular Hemoglobin 29.6 UUG 26-34 01/15/2017 5:142016 5:55am Mean Corpuscular Hemoglobin Concent 31.6 GM/DL 31-37 01/15/2017 5:1401/15/2017 5:55am RDW Standard Deviation 49.7 FL 36.9-50.2 01/15/2017 5:01/15/2017 5 :55am Platelet Count 177 T/MM3 130-400 01/15/2017 5:1401/15/2017 5:55am Mean Platelet Volume 10.9 UM3 9.4-12.4 01/15/2017 5:01/15/2017 5: 55am Neutrophils (%) (Auto) 27.4 % L 33-66 01/15/2017 5:01/15/2017 5: 55am Lymphocytes (%) (Auto) 55.7 % H 23-45 01/15/2017 5:01/15/2017 5: 55am Monocytes (%) (Auto) 9.5 % H 0-9.0 01/15/2017 5:1401/15/2017 5:55am Eosinophils (%) (Auto) 6.7 % H 0-4 01/15/2017 5:1401/15/2017 5:55am Basophils (%) (Auto) 0.7 % 0-2 01/15/2017 5:1401/15/2017 5:55am Immature Granulocyte % (Auto) 0.0 % 0.0-0.5 01/15/2017 5:2016 5:55am Absolute Neutrophils (auto) 1.3 T/MM3 L 1.8-7.7 01/15/2017 5:14am 2016 5:55am Absolute Lymphocytes (auto) 2.6 T/MM3 1-4.8 01/15/2017 5:14am 2016 5:55am Absolute Monocytes (auto) 0.4 T/MM3 0-0.8 01/15/2017 5:14am 01/15/2017 5:55am Absolute Eosinophils (auto) 0.3 T/MM3 0-0.5 01/15/2017 5:142016 5:55am Absolute Basophils (auto) 0.0 T/MM3 0-0.2 01/15/2017 5:14am 01/15/2017 5:55am Absolute Immature Granulocyte (auto 0.00 T/MM3 0.00-0.03 01/15/2017 5: 14am 01/15/2017 5:55am Prothromb Time International Ratio 1.19 H 0.76-1.04 01/13/2017 5:40am 01/13/2017 7:59am THERAPUTIC RANGE=2.00-3.00 FOR ANTI-THROMBOSIS THERAPUTIC RANGE=2.50-3.50 FOR IMPLANTED VALVE Icterus Index < 2 0-7 01/15/2017 5:1401/15/2017 6:06am Chemistry Specimen Hemolysis < 15 0-25 01/15/2017 5:1401/15/2017 6 :06am 0-25: Specimen Exhibited No Hemolysis. Turbidity < 20 0-20 01/15/2017 5:1401/15/2017 6:06am Sodium Level 142 MEQ/L 134-144 01/15/2017 5:1401/15/2017 6:06am Potassium Level 3.8 MEQ/L 3.6-5 01/15/2017 5:1401/15/2017 6:06am Chloride Level 105 MEQ/L 98-107 01/15/2017 5:1401/15/2017 6:06am Carbon Dioxide Level 27 MEQ/L 22-30 01/15/2017 5:1401/15/2017 6: 06am Anion Gap 10 MEQ/L 5-15 01/15/2017 5:1401/15/2017 6:06am Blood Urea Nitrogen < 2.0 MG/DL D L 7-17 01/15/2017 5:1401/15/2017 6: 19am Creatinine 0.5 MG/DL L 0.7-1.2 01/15/2017 5:1401/15/2017 6:06am BUN/Creatinine Ratio 7 RATIO 6-26 01/14/2017 5:11a01/14/2017 6:33am Glomerular Filtration Rate Calc 127 01/15/2017 5:1401/15/2017 6: 06am Glucose Level 106 MG/DL 65-110 01/15/2017 5:1401/15/2017 6:06am Calculated Osmolality 263 MOSM/KG 261-280 01/14/2017 5:11a01/14/2017 6:33am Calcium Level 8.4 MG/DL 8.4-10.2 01/15/2017 5:1401/15/2017 6:06am Phosphorus Level 3.9 MG/DL 2.5-4.5 01/14/2017 5:11a01/14/2017 8:09am Total Bilirubin 0.30 MG/DL 0.20-1.30 01/15/2017 5:1401/15/2017 6: 06am Unconjugated Bilirubin 0.00 MG/DL 0.00-1.10 01/13/2017 5:40am 2016 6:33am Conjugated Bilirubin 0.00 MG/DL 0.00-0.30 01/13/2017 5:40am 01/13/2017 6:33am Alkaline Phosphatase 61 U/L 38-126 01/15/2017 5:01/15/2017 6:06am Total Protein 6.3 G/DL 6.3-8.2 01/15/2017 5:1401/15/2017 6:06am Albumin 2.7 G/DL L 3.5-5.0 01/15/2017 5:01/15/2017 6:06am Globulin 3.6 G/DL 2.4-3.6 01/15/2017 5:1401/15/2017 6:06am Albumin/Globulin Ratio 0.8 RATIO L 1.1-2.2 01/15/2017 5:1401/15/2017 6:06am Aspartate Amino Transf (AST/SGOT) 11 U/L L 14-36 01/15/2017 5:14am 01/15 6:06am Alanine Aminotransferase (ALT/SGPT) 18 U/L 9-52 01/15/2017 5:14am 01/15 6:06am Triglycerides Level 114 MG/DL 35-135 01/11/2017 4:54am 01/11/2017 5: 41am Lactate Dehydrogenase 446 U/L 313-618 01/11/2017 4:54am 01/11/2017 5: 38am Lipase 193 U/L 23-300 01/15/2017 5:14am 01/15/2017 6:06am Magnesium Level 2.4 MG/DL H 1.6-2.3 01/14/2017 5:11am 01/14/2017 6:33am Alcohol, Quantitative <10 MG/DL <10 01/10/2017 2:50pm 01/10/2017 7: 20pm Urine Collection Type CLEANCATCH-MIDSTREAM 01/10/2017 3:pm 2016 3:26pm Urine Color YELLOW YELLOW 01/10/2017 3:pm 01/10/2017 3:26pm Urine Turbidity CLEAR CLEAR 01/10/2017 3:pm 01/10/2017 3:26pm Urine Specific [place] 1.015 1.015-1.025 01/10/2017 3:2016 3:26pm Urine pH 7.5 5.0-8.0 01/10/2017 3:pm 01/10/2017 3:26pm Urine Leukocyte Esterase NEGATIVE NEGATIVE 01/10/2017 3:2016 3:26pm Urine Nitrite NEGATIVE NEGATIVE 01/10/2017 3:01/10/2017 3:26pm Urine Protein 1+ A NEGATIVE 01/10/2017 3:01/10/2017 3:26pm Urine Glucose (UA) NEGATIVE NEGATIVE 01/10/2017 3:pm 01/10/2017 3: 26pm Urine Ketones TRACE A NEGATIVE 01/10/2017 3:pm 01/10/2017 3:26pm Urine Urobilinogen 0.2 EU/DL NORMAL 01/10/2017 3:pm 01/10/2017 3: 26pm Urine Bilirubin 1+ A NEGATIVE 01/10/2017 3:01/10/2017 3:26pm Urine Blood NEGATIVE NEGATIVE 01/10/2017 3:19pm 01/10/2017 3:26pm Urine WBC 1-3 /HPF 0-5 01/10/2017 3:19pm 01/10/2017 3:34pm Urine RBC 0-1 /HPF 0-3 01/10/2017 3:19pm 01/10/2017 3:34pm Urine Squamous Epithelial Cells 20-50 01/10/2017 3:19pm 01/10/2017 3:34pm Urine Bacteria TRACE H NEGATIVE 01/10/2017 3:19pm 01/10/2017 3:34pm Urine Mucus PRESENT 01/10/2017 3:19pm 01/10/2017 3:34pm Urine Culture Indicated CULT NOT INDICATED 01/10/2017 3:19pm 2016 3:34pm Gamma Glutamyl Transpeptidase 12 U/L 3-36 01/13/2017 5:40am 01/13/2017 3:17pm GGT performed at [facility] Reference Lab, [address] [place] [id number] [employer] Adelaida Carter DO Immunoglobulin G Total 1530 mg/dL () 01/12/2017 4:48am 01/13/2017 4: 14pm Reference Range: 767 - 1590 Test Performed by: [address] [address] IgG Subclasses performed at [facility], [address] [place] [id number] [employer] Terrie Henriquez MD Reference Range: 767 - 1590 --- 01/13/17 1614 --- IGGTOT previously reported as: 1530 mg/dL Reference Range: 767 - 1590 Test Performed by: [facility] [address] [place] [address] IgG Subclasses performed at [facility], [address] [place] [address] [employer] Trim Terrie Henriquez MD Immunoglobulin G1 898 mg/dL H 01/12/2017 4:48am 01/13/2017 4:14pm Reference Range: 341 - 894 Immunoglobulin G2 193 mg/dL 01/12/2017 4:48am 01/13/2017 4:14pm Reference Range: 171 - 632 Immunoglobulin G3 104.0 mg/dL 01/12/2017 4:48am 01/13/2017 4:14pm Reference Range: 18.4 - 106.0 Immunoglobulin G4 51.0 mg/dL 01/12/2017 4:48am 01/13/2017 4:14pm Reference Range: 2.4 - 121.0 Test Performed by: [facility] [address] [place] [address] IgG Subclasses performed at [facility], [address] [place] [address] 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 She describes this as epigastric as well as left and right sides. She has nausea and vomits her pills as well as any food that she eats. This is been worse over the last 3 days. She has a history of recurrent pancreatitis. She states she no longer drinks alcohol. Alcohol level is pending. At this time will provide IV fluids nausea medications proton pump inhibitors pain medication and follow her lab. 01/11/17: She continues to have significant abdominal pain even to the point of not being able to stand erect. Her serum alcohol level is 0, triglycerides are within normal limits, she has no gallbladder stones. She has recurrent pancreatitis of unknown etiology. I will check for autoimmune pancreatitis. Additionally, I will start her on clear liquids in the morning and start pancreatic enzymes with meals when she advances that far 01/12/17: I reviewed her history with her again today. As well as reviewing labs. Tests for autoimmune pancreatitis is pending but not high on my differential diagnosis. She still has a gallbladder although there were no stones or dilated ducts. She is complaining of right upper quadrant pain radiating down her right side as well as into her back by herself right scapula. I will have Dr. Barrett reassess her and see if he will consider cholecystectomy. 01/13/17 Recurrent pancreatitis, uncontrolled with oral pain medications and low dose fentanyl patch. Tramadol dose increased and IV morphine added for uncontrolled pain. Resume IV fluids due to poor oral intake and low sodium. Seen by Dr. Clark, no indication of acute biliary disease and with recent MRCP surgical intervention was not recommended currently but patient may benefit from ERCP. 01/14/17 Continue with current pain regimen as she is having good pain control. Ultram, Fenanyl Patch and MS as needed. Is tolerating clear liquids well without nausea. Scheduled Duoneb and albuterol due to chronic COPD. Nicotine patch and encourage smoking cessation Hyponatremia normalized. CBC unremarkable. Appreciate consultation by Dr Kelsey Will turn care back to Dr Campos tomorrow morning 01/1501/15/17: Lab chart radiographs reviewed consultation also reviewed from surgery. I will discharge her to home with clinic follow-up with Dr. Velázquez of gastroenterology tomorrow. She will need outpatient ERCP most likely with brushings of the pancreatic ducts as well as common bile duct. She is stable for discharge at this time Home Meds Active Scripts Pantoprazole Sodium (Pantoprazole Sodium) 40 Mg Tablet.dr, 40 MG PO ACBID for 30 Days, #60 TAB 3 Refills Take 1 tablet, by mouth, 2 times a day, before breakfast and dinner. Prov:JACQUELINE CAMPOS DO 12/15/16 Reported Medications Oxycodone HCl (Oxycodone HCl) 15 Mg Tablet, 15 MG PO HS, TAB 01/10/17 Trazodone HCl (Trazodone HCl) 300 Mg Tablet, 300 MG PO HS 12/08/16 Oxycodone HCl (Oxycodone HCl) 15 Mg Tablet, 7.5 MG PO DAILY Take 1/2 tab q am 12/08/16 Aspirin/Sod Bicarb/Citric Acid (Rosangela-[place] Es Tab Eff) 1 Each Tablet.eff, 2 TAB PO PRN 06/10/16 Gabapentin (Gabapentin) 400 Mg Capsule, 400 MG PO QID 06/10/16 Docusate Sodium (Dulcolax Stool Softener) 100 Mg Capsule, 1 CAP PO DAILY Y for CONSTIPATION 06/10/16 Sucralfate (Sucralfate) 1 Gm Tablet, 1 GM PO ACHS 06/10/16 Albuterol Sulfate (Ventolin HFA 90 mcg/actuation) 18 Gm Hfa.aer.ad, 2 PUFF INH DAILY 02/16/15 Ipratropium/Albuterol Sulfate (Combivent Respimat Inhal [place]) 120 Puff/4 Gm Inha, 2 PUFF PO QID, INHALER 02/16/15 Diclofenac Sodium (Voltaren 1% Gel) 50 Applic/100 G Gel, 50 APPLIC TOP PRN 05/08/13 Diphenhydramine Hcl (Benadryl) 25 Mg Capsule, 25 MG PO PRN 05/06/13 Tramadol Hcl (Tramadol Hcl) 50 Mg Tablet, 50 MG PO TID 05/06/13 Sertraline Hcl (Zoloft) 100 Mg Tablet, 100 MG PO DAILY 12/28/10 Discharge Disposition Discharge to home with GI appointment tomorrow with Dr. Velázquez Copies To 1: JACQUELINE CAMPOS DO Follow up Condition at time of discharge: Fair Follow up She has a appointment with Dr. Velázquez in [place] tomorrow at 2 PM. Follow-up appointment with Juan Daniel at [facility] in 2 weeks JACQUELINE CAMPOS DO Jan 15, 2017 18:04 Procedures Procedure Status Date Provider(s) Egd biopsy single/multiple Completed 12/08/16 KELLY BARRETT MD EXCISION OF STOMACH, ENDO, DIAGN Completed 12/11/16 KELLY BARRETT MD Encounters Encounter Location Arrival/Admit Date Discharge/Depart Date Attending Provider Discharged Inpatient [facility] 01/11/17 6:52pm 01/15/17 7:21pm JACQUELINE CAMPOS DO Discharged Inpatient [facility] 12/08/16 6:45pm 12/15/16 4:19pm JACQUELINE CAMPOS DO Recent Diagnosis Epigastric pain GERD (gastroesophageal reflux disease) Glaucoma History of alcohol abuse History of vitamin D deficiency Hx of duodenal ulcer Hypertension
--- OUTSIDE RECORDS SUMMARY | 2017-01-19 15:27 | XMS REPORT | Continuity of Care Document ---
Author Author [facility] Organization [facility] Address Unknown Phone Unavailable Support Name Relationship Address Phone JACQUELINE LAU MD Caregiver [address] [place] [address] Unavailable JOSEPH GALLOWAY MD Caregiver [address] [place] [address] [address] [place] [address] BURT CRAWFORD MD Caregiver [address] [place] [address] [place] [phone] TRIXIE ROMERO Next Of Kin [address] [place] [address] Insurance Providers Payer Name Policy Number Subscriber Name Relationship Medicare [id number] Dulce Maria Romero 16 Self Advance Directives [...] F (96.8 - 99.1) Temperature (Calculated Celsius) 36.57816 degrees C (36.0 - 37.3) Pulse Rate [...] 01, 2014 5:12am 103 U/L N 38-126 [id number] December 04, 2011 11:40am Ref lab rpt [...] 01, 2014 5:12am 46.7 FL N 36.9-50.2 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 January 17, 2011 10:53am Ref lab rpt scanned - --- 1103 ---ANTIRNP previously reported as: SENT OUT Red Blood Cell Folate February 28, 2013 2:38pm 114 ng/mL L - RBC, Folate performed at [facility] Reference Lab, [address] [place], [place] [address]Medical Director Mackenzie Trevino MD Red Blood Cell Folate Hematocrit February 28, 2013 2:38pm 48.4 % H - RBC, Folate performed at [facility] Reference Lab, [address] [place], [place] [address]Medical Director Mackenzie Trevino MD Red Blood Count [...] 2013 11:47am 0-1 /HPF - Urine Specific [place] July 01, 2014 4:50am 1.010 L - [...] 19, 2014 6:38pm LAB TEST FORM REQUEST [id number] - EKG January 09, 2009 1:35am Complete [...] potentially toxic. Vitamin D, 25-Hydroxy performed at [facility] Reference Lab, [address] [place] [address] Client Advocate Mackenzie Trevino MD 25-Hydroxy Vitamin D2 February 28, 2013 2:38pm <7 ng/mL - 25-Hydroxy Vitamin D3 February 28, 2013 2:38pm 18 ng/mL - Venous Blood Lactate April 24, 2013 10:49am 1.1 MMOL/L N 0.6-2.2 Icterus Index July 01, 2014 5:12am < 2 0-7 MRSA Specimen Source February 21, 2010 9:40am Nasal - FG-Pcq-Z-Type Natriuretic Peptide February 19, 2014 11:00pm 2590 [...] 8:22am Name: HEATHERDULCE MARIA Elijah Unit #: [id number] : 1960 Sex: F Loc / Svc: ED DOS: 07/01/14 Signed Report #: [id number] DIAGNOSTIC IMAGING REPORT TYPE OF EXAM: CT [...] pelvis. There is a preliminary report by [employer]. . Procedures No known history of procedures. Encounters Encounter Location Date/Time Departed Emergency Room [facility] 07/01/14 4:34am Recent Diagnosis
--- OUTSIDE RECORDS SUMMARY | 2017-01-19 15:28 | XMS REPORT | Continuity of Care Document ---
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 January 17, 2011 10:53am Ref lab [...] 8:05am None seen /HPF - Urine Specific [place] May 05, 2013 11:33am 1.010 L - [...] HIP REPLACEMENT 81.51 03/08/10 CARPAL TUNNEL SURGERY 29353 07/19/10 DRAIN/INJECT JOINT/BURSA 65719 12/29/10 DX BRONCHOSCOPE/WASH 84542 04/03/11 MEDIASTINOSCOPY INCL BIOPSY 26558 04/17/11 INTMD RPR S/A/T/EXT 12.6-20 63772 09/08/12 KNEE ARTHROSCOPY/SURGERY 91400 12/12/12 PARTIAL REMOVAL OF TIBIA 12880 05/08/13 Blood Culture 12/27/10 Gram Stain 12/29/10 Fungal Culture 04/03/11 Urine Culture 02/11/13 Gram Stain 11/20/11 Gram Stain 03/08/10 Encounters Encounter Location Date/Time Departed Emergency Room [facility] 09/08/12 7:55pm Discharged Inpatient [facility] 08/12/12 3:10pm
--- NOTE | 2017-01-19 15:35 | NUR ---
STATUS CALLED DR HOANG'S OFFICE. THEY REPORT SHE WAS SEEN 01/16/17 FOR A CONSULT ONLY AND NO PROCEDURE WAS SCHEDULED
--- OUTSIDE RECORDS SUMMARY | 2017-01-19 15:42 | XMS REPORT | Continuity of Care Document ---
Author Author [facility] Organization [facility] Address Unknown Phone Unavailable Support Name Relationship Address Phone JACQUELINE LAU MD Caregiver [address] [place] [address] Unavailable JOSEPH GALLOWAY MD Caregiver [address] [place] [address] [address] [place] [address] BURT CRAWFORD MD Caregiver [address] [place] [address] [place] [phone] TRIXIE ROMERO Next Of Kin [address] [place] [address] Insurance Providers Payer Name Policy Number Subscriber Name Relationship Medicare [id number] Dulce Maria Romero 16 Self Advance Directives [...] F (96.8 - 99.1) Temperature (Calculated Celsius) 36.70689 degrees C (36.0 - 37.3) Pulse Rate [...] 01, 2014 5:12am 103 U/L N 38-126 [id number] December 04, 2011 11:40am Ref lab rpt [...] 01, 2014 5:12am 46.7 FL N 36.9-50.2 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 January 17, 2011 10:53am Ref lab rpt scanned - --- 1103 ---ANTIRNP previously reported as: SENT OUT Red Blood Cell Folate February 28, 2013 2:38pm 114 ng/mL L - RBC, Folate performed at [facility] Reference Lab, [address] [place], [place] [address]Medical Director Mackenzie Trevino MD Red Blood Cell Folate Hematocrit February 28, 2013 2:38pm 48.4 % H - RBC, Folate performed at [facility] Reference Lab, [address] [place], [place] [address]Medical Director Mackenzie Trevino MD Red Blood Count [...] 2013 11:47am 0-1 /HPF - Urine Specific [place] July 01, 2014 4:50am 1.010 L - [...] 19, 2014 6:38pm LAB TEST FORM REQUEST [id number] - EKG January 09, 2009 1:35am Complete [...] potentially toxic. Vitamin D, 25-Hydroxy performed at [facility] Reference Lab, [address] [place] [address] Research Laboratory Manager Mackenzie Trevino MD 25-Hydroxy Vitamin D2 February 28, 2013 2:38pm <7 ng/mL - 25-Hydroxy Vitamin D3 February 28, 2013 2:38pm 18 ng/mL - Venous Blood Lactate April 24, 2013 10:49am 1.1 MMOL/L N 0.6-2.2 Icterus Index July 01, 2014 5:12am < 2 0-7 MRSA Specimen Source February 21, 2010 9:40am Nasal - DA-Zxc-C-Type Natriuretic Peptide February 19, 2014 11:00pm 2590 [...] 8:22am Name: HEATHERDULCE MARIA Elijah Unit #: [id number] : 1960 Sex: F Loc / Svc: ED DOS: 07/01/14 Signed Report #: [id number] DIAGNOSTIC IMAGING REPORT TYPE OF EXAM: CT [...] pelvis. There is a preliminary report by [employer]. . Procedures No known history of procedures. Encounters Encounter Location Date/Time Departed Emergency Room [facility] 07/01/14 4:34am Recent Diagnosis
--- OUTSIDE RECORDS SUMMARY | 2017-01-19 15:42 | XMS REPORT | Continuity of Care Document ---
Author Author [facility] Organization [facility] Address Unknown Phone Unavailable Care Team Providers Care Donor Services Manager Name Role Phone Parish Ferrari Primary Care Physician [phone] Source Comments Some departments are not documenting in the electronic medical record. If you do not see the information that you expected, contact Release of Information in the Health Information Management department at [phone] for further assistance in locating additional records.[facility] Active Allergies and Adverse Reactions Not [...]
--- OUTSIDE RECORDS SUMMARY | 2017-01-19 15:43 | XMS REPORT | Continuity of Care Document ---
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 January 17, 2011 10:53am Ref lab [...] 8:05am None seen /HPF - Urine Specific [place] May 05, 2013 11:33am 1.010 L - [...] HIP REPLACEMENT 81.51 03/08/10 CARPAL TUNNEL SURGERY 44460 07/19/10 DRAIN/INJECT JOINT/BURSA 88035 12/29/10 DX BRONCHOSCOPE/WASH 38483 04/03/11 MEDIASTINOSCOPY INCL BIOPSY 08457 04/17/11 INTMD RPR S/A/T/EXT 12.6-20 78021 09/08/12 KNEE ARTHROSCOPY/SURGERY 80517 12/12/12 PARTIAL REMOVAL OF TIBIA 56675 05/08/13 Blood Culture 12/27/10 Gram Stain 12/29/10 Fungal Culture 04/03/11 Urine Culture 02/11/13 Gram Stain 11/20/11 Gram Stain 03/08/10 Encounters Encounter Location Date/Time Departed Emergency Room [facility] 09/08/12 7:55pm Discharged Inpatient [facility] 08/12/12 3:10pm
[2017-01-19] MEDS ORDERED: NORMAL SALINE 1,000 ML IV ONE (15:45)
[2017-01-19] MEDS ORDERED: HYDROMORPHONE 2mg/ml INJECTION IV ONE (15:45)
[2017-01-19] MEDS ORDERED: PROCHLORPERAZINE 10mg/2ml INJECTION IV ONE (15:45)
--- NOTE | 2017-01-19 15:55 | ERPDOC ---
Departure Disposition Decision Date: Jan 19, 2017 Disposition Decision Time: 16:28 Disposition: 01 DISCHARGED HOME, SELF-CARE Impression Impression Impression: Primary Impression: Abdominal pain Abdominal location: generalized Qualified Codes: R10.84 - Generalized abdominal pain Additional Impression: Nausea and vomiting Vomiting type: unspecified Vomiting Intractability: non-intractable Qualified Codes: R11.2 - Nausea with vomiting, unspecified Severity: Moderate Condition: Stable Seen By: Mid-level only Referrals: PENG DE LOS SANTOS (Family) Patient Instructions: Abdominal Pain (ED) Problems/Meds/Labs Reviewed?: Yes Medications reviewed and manag: Yes Additional Instructions: It is important that you follow up with Dr Burgos for the procedure that he is going to do. I did speak with Dr Frances and he would like for you to follow up with Dr Burgos as soon as possible. Your labs today are normal. Use the promethazine as needed for nausea and the Oxycodone and Tramadol that you have for pain. Return to ER with any new or worsening symptoms. Follow up care ordered?: Yes Mental Status: Alert Scripts Promethazine HCl (Promethazine HCl) 12.5 Mg Tablet 1 TAB PO Q6H, #20 TAB 0 Refills Prov: JOSIE PANTOJA MEAT TRIMMER 01/19/17 HPI - Abdominal Pain General Chief Complaint: Abdominal Pain Stated Complaint: ABD PAIN Time Seen by Provider: 15:32 Source: patient History/Exam Limitations: no limitations HPI - Abdominal Pain Initial Comments She arrives to ER per EMS for c/o abdominal pain. Has a history of recurrent pancreatitis and had been admitted on 01/11/17 for this. Was set up for evaluation the day after discharge with GI. She did go to that appointment but before they could do the procedure she c/o right arm numbness and so was sent to [place] [facility] for evaluation. She states that she has had continued pain in the abdomen since her dismissal. Is vomiting and has not been able to keep fluids down. She denies any fever or diarrhea. Has not follow up with Dr Frances since her admission. Occurred At: home Onset: Gradual Duration: 1 week Quality: sharpness Location: RUQ, LUQ, epigastric Activities at Onset: none Associated Symptoms: nausea/vomiting, DENIES: back pain, chest pain, diaphoresis, fatigue, fever/chills, headache, heartburn, rash, shortness of breath, swelling/mass in abdomen, syncope, weakness Hx of Similar Symptoms: No Allergies: Coded Allergies: NSAIDS (Non-Steroidal Anti-Inflamma (Verified Adverse Reaction, Mild, NAUSEA, 01/19/17) IF PT TAKES IBUPROFEN OR NAPROXEN, PT HAS NAUEASE AND "HEARTBURN" FEELINGS. DENIES SOA, HIVES, RASH OR OTHER ALLERGIC TYPE REACTION TO NSAIDS acetaminophen (Verified Adverse Reaction, Unknown, PREVIOUS HX OF LIVER FAILURE, 01/19/17) Uncoded Allergies: LACTOSE INTOLERANT (Allergy, Unknown, 03/08/10) Past History Patient Surgical History History of right hip replacement. 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 History of right carpal tunnel release. History of appendectomy. EGD Past Medical History Metabolic: hypertension Respiratory: COPD GI: GERD, other, pancreatitis Neurological: migraines Musculoskeletal: osteoarthritis, other Psychological: alcohol abuse, anxiety, depression Surgical History General: appendix Joint: hip, knee Vaccines Hx Influenza Vaccination: Yes (OCT 2016) Hx Pneumococcal Vaccination: No Hx Tetanus Diptheria: Yes (09/09) Hx Tetanus, Diptheria, Pertuss: No (UNK LAST) Social History Does patient use chewing tobac: No # of Packs/Tins per Day: 1 # of Years: 30 Second Hand Exposure: No Substance Use Type: does not use Alcohol Intake: none Marital Status: Single Advance Directives: Yes Full Code Review of Systems Constitutional Constitutional: DENIES: chills, dizziness, fatigue, fever, weakness Cardiovascular Cardiac: DENIES: chest pain, orthopnea Rhythm/Rate: DENIES: irregular beat, palpitations Vascular: DENIES: pedal edema, unilateral swelling Pulmonary Respiratory: DENIES: cough, dyspnea, sputum, tachypnea GI Upper Abdomen: nausea, pain, vomiting Lower Abdomen: DENIES: constipation, diarrhea, pain General: DENIES: dysuria, frequency, urgency Integumentary Skin: DENIES: rash Neurological General: DENIES: headache, numbness, tingling, weakness Physical Exam General General Nourishment: well nourished, well developed, appears stated age, no acute distress, adult General Body Habitus: well groomed Vitals and Pain First Documented Vital Signs Date Time Temp Pulse Resp B/P Pulse Ox O2 Delivery O2 Flow Rate FiO2 01/19/17 15:25 97.7 92 28 146/86 94 Room Air 01/19/17 16:03 4.00 Weight: Kilograms: 60.000 Height (feet): 5 Height (inches): 4.00 Triage Pain Scale: RN VS reviewed by Provider: Yes Normal Exams: ENMT: No facial trauma, nasal exudates, pharyngeal erythema, or exudates are noted Neck: Full range of motion, without adenopathy, JVD, bruits or thyromegaly Chest/Resp: Clear all ambrocio, with good airflow, and symmetry bilaterally CV: Regular rate and rhythm, without murmur or gallop, Pulses 2+ all extremities, capillary refill, <2 seconds all ext., no pedal edema noted Abdomen: Bowel sounds positive, soft, non-tender, non-distended, no hepatosplenomegaly, masses or bruits noted Lymphatic: No lymphadenopathy, or lymphedema noted Integumentary: No rashes, hives, or bruising noted Neurologic: Patient is alert, and oriented Psychiatric: Patient exhibits, appropriate attention, emotion and affect Differential Diagnoses Considering: Gastroenteritis, GERD, Hepatitis, Pancreatitis, UTI, Other ( dehydration) Progress Results/Orders Orders Procedure Category Date Status Time Cbc W/Auto LAB 01/19/17 Complete Diff-Reflex Manual Cmp - Comprehensive LAB 01/19/17 Complete Metabolic Lipase LAB 01/19/17 Complete Iv Lock (Ed Only) EDM 01/19/17 Transmitted 15:45 Normal Saline (Normal PHA 01/19/17 Complete Saline Iv) 15:45 Hydromorphone PHA 01/19/17 Complete (Dilaudid) 15:45 Prochlorperazine PHA 01/19/17 Complete (Compazine) 15:45 Lab Results Laboratory Tests Test 01/19/17 15:52 White Blood Count 14.1T/MM3 Red Blood Count 5.38M/MM3 Hemoglobin 15.8GM/DL Hematocrit 47.2% Mean Corpuscular Volume 87.7UM3 Mean Corpuscular Hemoglobin 29.4UUG Mean Corpuscular Hemoglobin Concent 33.5GM/DL RDW Standard Deviation 49.3FL Platelet Count 508T/MM3 Mean Platelet Volume 10.7UM3 Immature Granulocyte % (Auto) 0.4% Neutrophils (%) (Auto) 62.1% Lymphocytes (%) (Auto) 27.4% Monocytes (%) (Auto) 9.5% Eosinophils (%) (Auto) 0.4% Basophils (%) (Auto) 0.2% Absolute Immature Granulocyte (auto 0.06T/MM3 Absolute Neutrophils (auto) 8.8T/MM3 Absolute Lymphocytes (auto) 3.9T/MM3 Absolute Monocytes (auto) 1.4T/MM3 Absolute Eosinophils (auto) 0.1T/MM3 Absolute Basophils (auto) 0.0T/MM3 Turbidity < 20 Sodium Level 138MEQ/L Potassium Level 3.5MEQ/L Chloride Level 92MEQ/L Carbon Dioxide Level 29MEQ/L Anion Gap 17MEQ/L Blood Urea Nitrogen 17.0MG/DL Creatinine 0.8MG/DL Glomerular Filtration Rate Calc 74 BUN/Creatinine Ratio 21RATIO Glucose Level 109MG/DL Calculated Osmolality 269MOSM/KG Calcium Level 9.2MG/DL Total Bilirubin 1.30MG/DL Icterus Index < 2 Aspartate Amino Transf (AST/SGOT) 25U/L Alanine Aminotransferase (ALT/SGPT) 17U/L Alkaline Phosphatase 102U/L Total Protein 8.5G/DL Albumin 4.1G/DL Globulin 4.4G/DL Albumin/Globulin Ratio 0.9RATIO Lipase 256U/L Chemistry Specimen Hemolysis 64 Medications Current ED Medications Sodium Chloride (Normal Saline IV) 1,000 ml @ 1,000 mls/hr Q1H ONCE IV Last administered on 01/19/17 15:56; Start 01/19/17 at 15:45; Stop 01/19/17 at 16:44 ; Status DC Hydromorphone HCl (Dilaudid) 1 mg O ONCE IV Last administered on 01/19/17 16: 09; Start 01/19/17 at 15:45; Stop 01/19/17 at 15:47; Status DC Prochlorperazine Edisylate (Compazine) 10 mg O ONCE IV Last administered on 15:59; Start 01/19/17 at 15:45; Stop 01/19/17 at 15:47; Status DC Progress Progress WBC is 14.1 with 62.1 neutrophils. CMP is essentially normal, lipase is 256. Vitals have been stable. IVF infused. Did discuss findings with Dr Frances. He recommends that Dulce Maria follow up with her GI specialist Dr Burgos as soon as she can to have the ERCP done. Will go ahead and send her home with Rx for Promethazine for nausea. Discussed instructions with patient and she does verbalize understanding of these instructions. JOSIE PANTOJA APRN Jan 19, 2017 15:55
[2017-01-19 15:56] LABS: BASOPHILS % (AUTO) 0.2 % (0-2); EOSINOPHILS # (AUTO) 0.1 T/MM3 (0-0.5); EOSINOPHILS % (AUTO) 0.4 % (0-4); HCT - HEMATOCRIT 47.2 % (36-46); HGB - HEMOGLOBIN 15.8 GM/DL (12-16); IMMATURE GRANULOCYTE # (AUTO) 0.06 T/MM3 (0.00-0.03); IMMATURE GRANULOCYTE % (AUTO) 0.4 % (0.0-0.5); LYMPHOCYTES # (AUTO) 3.9 T/MM3 (1-4.8); LYMPHOCYTES % (AUTO) 27.4 % (23-45); MEAN CORPUSCULAR HGB 29.4 UUG (26-34); MEAN CORPUSCULAR HGB CONC(MCHC 33.5 GM/DL (31-37); MEAN CORPUSCULAR VOLUME 87.7 UM3 (80-100); MEAN PLATELET VOLUME 10.7 UM3 (9.4-12.4); MONOCYTES # (AUTO) 1.4 T/MM3 (0-0.8); MONOCYTES % (AUTO) 9.5 % (0-9.0); NEUTROPHILS #(AUTO)-ABSOLUTE 8.8 T/MM3 (1.8-7.7); NEUTROPHILS % (AUTO) 62.1 % (33-66); RED BLOOD COUNT 5.38 M/MM3 (4.00-5.20); WBC - WHITE BLOOD COUNT 14.1 T/MM3 (4.5-11.0)
--- NOTE | 2017-01-19 15:56 | NUR ---
IVF/MEDS INSTRUCTED PT REGARDING NS, COMPAZINE AND DILUADID. UNDERSTANDING VERBALIZED.
[2017-01-19 16:12] LABS: ALBUMIN 4.1 G/DL (3.5-5.0); ALBUMIN/GLOBULIN RATIO 0.9 RATIO (1.1-2.2); ALKALINE PHOSPHATASE 102 U/L (38-126); ALT (SGPT) 17 U/L (9-52); ANION GAP 17 MEQ/L (5-15); AST (SGOT) 25 U/L (14-36); BUN/CREATININE RATIO 21 RATIO (6-26); CALCIUM 9.2 MG/DL (8.4-10.2); CHLORIDE 92 MEQ/L (98-107); CO2 - CARBON DIOXIDE 29 MEQ/L (22-30); CREATININE 0.8 MG/DL (0.7-1.2); GLOMERULAR FILTRATION RATE 74; GLUCOSE 109 MG/DL (65-110); LIPASE 256 U/L (23-300); POTASSIUM 3.5 MEQ/L (3.6-5); SODIUM 138 MEQ/L (134-144); TOTAL PROTEIN 8.5 G/DL (6.3-8.2)
--- NOTE | 2017-01-19 16:20 | NUR ---
STATUS PT APPEARS TO BE RESTING COMFORTABLY IN CART. REPORTS DECREASE IN PAIN TO 8.5/10 AFTER MEDICATION ADM. DENIES FURTHER NEEDS AT THIS TIME. CALL LIGHT WITHIN REACH. VS STABLE, WILL CONTINUE TO MONITOR.
[2017-01-19] MEDS ORDERED: PROM12.510 PO (16:30)
--- NOTE | 2017-01-19 17:42 | NUR ---
COMMUNICATION PT ABLE TO CONTACT BROTHER VIA TELEPHONE WHO REQUESTS TO SPEAK WITH STAFF. BROTHER IS VERBALLY AGGRESSIVE WITH THIS RN MAKING STATEMENTS SUCH "SHE CAN'T KEEP SHIT DOWN, AND YOU'RE GOING TO SEND HER HOME?" OR "WHAT THE HELL DID YOU DO FOR HER?" PROVIDER NOTIFIED AND WILL SPEAK WITH BROTHER.
[2017-01-19 17:50] VITALS: BP 146/81; PULSE 82; RESP 28; TEMP 97.7; O2SAT 96
--- NOTE | 2017-01-19 17:50 | NUR ---
DISCHARGE WRITTEN INSTRUCTIONS WITH [facility] REVIEWED AND SENT WITH PT. PT VERBALIZES UNDERSTANDING OF DI AND MEDICATION, DENIES QUESTIONS. PT EXITS ER BY W/C TO LOBBY AT THIS TIME.
== END 2017-01-19 17:50 | disposition home or self-care (01) ==
LOC: ED 15:23
DX: R10.11 Right upper quadrant pain (principal); R10.12 Left upper quadrant pain; R10.13 Epigastric pain; R11.2 Nausea with vomiting, unspecified
CPT/HCPCS: 80053; 83690; 85025; 96361; 96374; 96375; 99284; J0780; J1170; J7030

== ENCOUNTER 2017-12-06 12:24 | Inpatient (IN) ==
[2017-12-06] MEDS ORDERED: ONDANSETRON 4 MG/2 ML INJECTION IVP ONE (12:55)
[2017-12-06] MEDS ORDERED: NS 1,000 ML IV ONE ×2 (12:55→15:41)
[2017-12-06] MEDS ORDERED: KETOROLAC 30 MG/ML INJECTION IVP ONE (12:55)
--- NOTE | 2017-12-06 13:04 | Emergency Department Report ---
Abdominal Pain HPI - General Chief Complaint: Abdominal Pain Stated Complaint: abd/back pain Time Seen by Provider: 12/06/17 12:47 - History of Present Illness HPI narrative: 57-year-old female presents from outpatient clinic with abdominal pain. Pain is radiating to her back. She rates it as 7 out of 10. This going on for several days now it is increasing in intensity. No vomiting but has had some nausea. No diarrhea. Her stomach feels bloated and is tender if she presses. No fever or chills. Abdominal trauma. - Related Data Home Medications Medication Instructions Recorded Confirmed Albuterol HFA Inhaler [Ventolin 2 puff ORAL INH Q4H PRN 12/06/17 12/06/17 Hfa 90 mcg/actuation] Diclofenac [Voltaren] 1 applicatio TOP TID PRN 12/06/17 12/06/17 Gabapentin [Neurontin] 600 mg PO QID 12/06/17 12/06/17 Ipatropium/Albuterol [Combivent 2 puff INH QID 12/06/17 12/06/17 Respimat Inhaler] Oxycodone HCl 10 mg PO TID 12/06/17 12/06/17 Sennosides/Docusate Sodium [Stool 3 tab PO DAILY PRN 12/06/17 12/06/17 Softener Tablet] Trazodone HCl 300 mg PO HS 12/06/17 12/06/17 Previous Rx's Medication Instructions Recorded Famotidine [Pepcid] 1 tab PO BID #60 tab 12/08/17 Nicotine Patch [Nicoderm] 14 mg TD DAILY 30 Days #30 patch 12/08/17 Allergies Allergy/AdvReac Type Severity Reaction Status Date / Time morphine AdvReac Intermediate Verified 12/06/17 15:58 NSAIDS (Non-Steroidal AdvReac Mild NAUSEA Verified 12/06/17 11:20 Anti-Inflamma acetaminophen AdvReac Unknown PREVIOUS Verified 12/06/17 11:20 HX OF LIVER FAILURE LACTOSE INTOLERANT Allergy Unknown Uncoded 12/06/17 11:20 Review of Systems All systems: reviewed and negative except as stated PFSH Patient Stated Medical History Post Menopausal Yes Clinic Medical History (Last Updated 12/06/17 @ 11:22 by WENDIE Templeton) Avascular necrosis (Acute Medical) Surgical History: *Rt. Hip replacement -2007. * Rt. Kneed Surgery - 2x -Dr. Martinez. * Colonoscopy - Social History Smoking status: Current every day smoker Physical Exam - Limitations Limitations: no limitations - General General appearance: alert - Normal Exams: Head:: Normocephalic without trauma Chest/Respirations:: Clear all ambrocio, with good airflow, and symmetry bilaterally Cardiovascular:: Regular rate and rhythm, without murmur or gallop, Pulses 2+ all extremities, capillary refill, <2 seconds all extremities Abdomen:: Bowel sounds positive Musculoskeletal:: No tenderness, or deformity noted, good range of motion, all extremities Integumentary:: No rashes, hives, or bruising noted, hair and nails, without abnormality - Abdominal Exam Abdominal exam: Present: distention, tenderness (diffuse), hypoactive bowel sounds. Absent: guarding, rebound, rigidity Course Vital Signs Temperature 97.6 F 12/06/17 12:30 Pulse Rate 88 12/06/17 12:30 Respiratory Rate 20 12/06/17 12:30 Blood Pressure 101/68 12/06/17 12:30 Pulse Oximetry 95 12/06/17 12:30 Temperature 97.6 F 12/06/17 12:30 Pulse Rate 88 12/06/17 12:30 Respiratory Rate 20 12/06/17 12:30 Blood Pressure 101/68 12/06/17 12:30 Pulse Oximetry 95 12/06/17 12:30 Abdominal Pain - MDM Narrative Medical decision making narrative: IV fluids started through peripheral IV. Toradol 30 mg given IV. Patient had some relief of pain. Zofran 4 mg for nausea. Labs and CT abdomen ordered. CBC appropriate, CMP appropriate with lipase greater than 1300. CT does not show any active pancreatitis or process. Ultrasound of gallbladder is negative. Patient was given a total of 1 L normal saline bolus and fentanyl 50 g. She was admitted observation to the floor with abdominal pain versus pancreatitis. - Differential Diagnosis Differential diagnosis: Likely: abdominal pain, acute appendicitis, calculus of kidney, constipation, diverticulitis, gastroenteritis, pancreatitis, small bowel obstruction - Medical Records Attestation: I reviewed the patient's medical records. - Lab Data Attestation: I reviewed the patient's lab results. Result diagrams: 12/08/17 08:08 12/08/17 08:08 - Radiology Data Attestation: I reviewed the patient's radiology results. Disposition Clinical Impression: Abdominal pain Disposition: 02 To [facility] Acute Care Condition: Stable Time of Disposition: 15:46 - Seen By: physician
--- OUTSIDE RECORDS SUMMARY | 2017-12-06 13:12 | External Medical Summary | Clinical Summary ---
:1960 Author Organization [facility] Address [address] [place] [address] Phone Care Team Providers Name Role Phone Lisa Ferrari MD Primary Care Provider Source Comments Some departments are not documenting in the electronic medical record. If you do not see the information that you expected, contact Release of Information in the Health Information Management department at [phone] for further assistance in locating additional records.[facility] Social History Tobacco Use Types Packs/Day Years Used Date Never Assessed Sex Assigned at Date Recorded Not on file Plan of Treatment Health Maintenance Due Date Last Done Comments HEPATITIS C SCREENING 1960 PHYSICAL (COMPREHENSIVE) EXAM 1965 PERTUSSIS VACCINE 1969 TETANUS VACCINE 1975 CERVICAL CANCER SCREENING 1988 BREAST CANCER SCREENING 1998 COLORECTAL CANCER SCREENING 2008 INFLUENZA VACCINE 05/29/2017
--- OUTSIDE RECORDS SUMMARY | 2017-12-06 13:13 | External Medical Summary ---
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 Problem Abdominal pain, 789.00 Inactive 34564636 unspecified site Problem Special screening V76.51 Inactive 377672809 for malignant neoplasms, colon Problem Other abnormal 790.6 Inactive 239630822 blood chemistry Problem Benign neoplasm of 229.9 Inactive 17718670 unspecified site Problem Blood in stool 578.1 Inactive 261437486 Problem Nausea with 787.01 Inactive 94761551 vomiting Problem Unspecified 564.00 Inactive 25371342 constipation Problem Abdominal pain, 789.06 Inactive 48478035 epigastric Problem Other and 303.90 Inactive 417871744 unspecified alcohol dependence, unspecified drunkenness ALLERGIES Unknown Allergies SOCIAL HISTORY No smoking Hx information available PLAN OF CARE VITAL SIGNS MEDICATIONS Unknown Medications RESULTS No Results PROCEDURES No Known procedures IMMUNIZATIONS No Known Immunizations
--- OUTSIDE RECORDS SUMMARY | 2017-12-06 13:13 | External Medical Summary | Continuity of Care Document ---
:1960 Author Organization [facility] Allergies Active Description Code Type Severity Reaction Onset Reported/ Identified Relationship Clinical to Patient Status Yes aspirin aspir Drug Mild upset 02/29/2012 in [facility] stomach gy Yes aspirin aspir Drug Mild upset 02/29/2012 in [facility] stomach gy Yes NSAIDS NSAID Drug Mild UPSET 06/10/2016 (Non-Steroid S [facility] STOMACH al (Non- gy Anti-Inflamm Stero a idal Anti- Infla mma Yes NSAIDS NSAID Drug Mild UPSET 06/10/2016 (Non-Steroid S [facility] STOMACH al (Non- gy Anti-Inflamm Stero a idal Anti- Infla mma Yes lactose lacto Drug Moderate UNKNOWN 01/16/2017 se [facility] gy Medications There is no data. Problems Date Dx Attending Type Code Diagnosis Diagnosed By Coded 06/10/2016 Danisha Estevez MD D75.89 OTHER SPECIFIED A DISEASES OF BLOOD AND BLOOD-FORMIN 06/10/2016 Danisha Estevez MD E87.6 HYPOKALEMIA A 06/10/2016 Danisha Estevez MD F17.200 NICOTINE DEPENDENCE, A UNSPECIFIED, UNCOMPLICATED 06/10/2016 Danisha Esteevz MD F32.9 MAJOR DEPRESSIVE A DISORDER, SINGLE EPISODE, UNSPECI 06/10/2016 Danisha Estevez MD G43.909 MIGRAINE, UNSP, NOT A INTRACTABLE, WITHOUT STATUS [place] 06/10/2016 Danisha Estevez MD G62.9 POLYNEUROPATHY, A UNSPECIFIED 06/10/2016 Danisha Estevez MD I10 ESSENTIAL (PRIMARY) A HYPERTENSION 06/10/2016 Danisha Estevez MD J44.9 CHRONIC OBSTRUCTIVE A PULMONARY DISEASE, UNSPECIFIED 06/10/2016 Danisha Estevez MD K21.9 GASTRO-ESOPHAGEAL A REFLUX DISEASE WITHOUT ESOPHAGIT 06/10/2016 Danisha Estevez MD K59.00 CONSTIPATION, A UNSPECIFIED 06/10/2016 Danisha Estevez MD K85.9 ACUTE PANCREATITIS, A UNSPECIFIED 06/10/2016 Mortada MD, Rami A R10.9 UNSPECIFIED A ABDOMINAL PAIN 06/10/2016 Herb CASTANO, Danisha F R19.7 DIARRHEA, A UNSPECIFIED Procedures There is no data.<section xmlns="urn:hl7-org:v3" xmlns:xsi=" http://www.[employer].org/2001/XMLSchema-instance"> <templateId root=" [email or web address]" /> <templateId root=" [id number]" /> <code codeSystemName=" LOINC" codeSystem="[email or web address]" code="01739-2&quot ; displayName="Results" /> <title>Results</title> &lt ;text> <table> <thead> <tr> <th& gt;Test</th> <th>Result</th> <th>Range </th> </tr> </thead> <tbody> &lt ;tr> <th colspan="10">HEMOGLOBIN - 06/10/16 21:19&lt ;/th> </tr> <tr> <td>MEAN CELL VOLUME</td> <td>98.5 fl</td> <td>80.0- 100.0</td> </tr> <tr> <td> HEMOGLOBIN</td> <td>15.8 gm/dL</td> <td& gt;12.0-16.0</td> </tr> <tr> <th colspan="10">GLUCOSE (POC) - 06/10/16 21:22</th> </ tr> <tr> <td>GLUCOSE (POC)</td> & lt;td>112 mg/dL</td> <td>70-99</td> </tr > <tr> <th colspan="10">GLUCOSE (POC) - 03:05</th> </tr> <tr> <td> GLUCOSE (POC)</td> <td>100 mg/dL</td> <td >70-99</td> </tr> <tr> <th colspan="10">CBC W/DIFF - 06/11/16 03:05</th> </tr& gt; <tr> <td>EOSINOPHIL #</td> <td >0.2 k/cumm</td> <td>0.1-0.5</td> </tr& gt; <tr> <td>EOSINOPHIL %</td> & lt;td>3 %</td> <td>2-4</td> </tr > <tr> <td>GRANULOCYTE #</td> < td>3.3 k/cumm</td> <td>2.0-9.0</td> </tr> <tr> <td>GRANULOCYTE %</td> & lt;td>52 %</td> <td>50-75</td> </tr > <tr> <td>LYMPHOCYTE #</td> < td>2.2k/cumm</td> <td>1.0-4.0</td> </tr& gt; <tr> <td>LYMPHOCYTE %</td> <td& gt;34 %</td> <td>20-30</td> </tr&gt ; <tr> <td>MEAN CELL HGB</td> <td& gt;33.9 pg</td> <td>27.0-33.0</td> </tr&gt ; <tr> <td>MEAN CELL HGB CONCENTRATION</td> <td>34.2 g/dL</td> <td>32.0-37.0</td> </tr> <tr> <td>MEAN CELL VOLUME</td> <td>98.9 fl</td> <td>80.0-100.0</td> </tr> <tr> <td>MONOCYTE #</td> <td>0.7 k/cumm</td> <td>0.1-1.0</td> </tr> <tr> <td>MONOCYTE %</ td> <td>11 %</td> <td>4-6</td> </tr> <tr> <td>RED BLOOD CELL</td&gt ; <td>4.46 m/cumm</td> <td>4.00-6.00</td& gt; </tr> <tr> <td>RED CELL DISTRIBUTION WIDTH</td> <td>14.9 %</td> <td>11.0-15.6</td> </tr> <tr> <td>WHITE BLOOD CELL</td> <td>6.3 k/cumm</td&gt ; <td>5.0-10.0</td> </tr> <tr> <td>HEMOGLOBIN</td> <td>15.1 gm/dL</td> <td>12.0-16.0</td> </tr> <tr> <td>HEMATOCRIT</td> <td>44.1 %</td> <td>37.0-47.0</td> </tr> <tr> <td>PLATELET COUNT</td> <td>135 k/cumm</td&gt ; <td>150-400</td> </tr> <tr> <th colspan="10">METABOLIC PANEL, [facility] - 06/11/16 03: 05</th> </tr> <tr> <td>POTASSIUM& lt;/td> <td>3.5 mmol/L</td> <td>3.5-5.3& lt;/td> </tr> <tr> <td>EST GFR (MDRD)&lt ;/td> <td>> 60 mL/min</td> <td>& amp;gt; 59</td> </tr> <tr> <td> ANION GAP</td> <td>10 mmol/L</td> <td> 5-15</td> </tr> <tr> <td>EST CrCl (CG)</td> <td>> 60 mL/min</td> &lt ;td>> 59</td> </tr> <tr> < td>GLUCOSE</td> <td>96 mg/dL</td> <td& gt;70-99</td> </tr> <tr> <td> CALCIUM</td> <td>8.1 mg/dL</td> <td> 8.5-10.1</td> </tr> <tr> <td> BLOOD UREA NITROGEN</td> <td>8 mg/dL</td> & lt;td>7-20</td> </tr> <tr> <td&gt ;CREATININE</td> <td>0.5 mg/dL</td> <td& gt;0.6-1.0</td> </tr> <tr> <td> SODIUM</td> <td>136 mmol/L</td> <td> 135-148</td> </tr> <tr><td>CHLORIDE</td > <td>102 mmol/L</td> <td>98-110</td& gt; </tr> <tr> <td>AST/SGOT</td> <td>81 Units/L</td> <td>10-37</td> </tr> <tr> <td>ALT/SGPT</td> & lt;td>48 Units/L</td> <td>< 66</td> </tr> <tr> <td>CARBON DIOXIDE</td> <td>24 mmol/L</td> <td>21-32</td> </ tr> <tr> <td>TOTAL PROTEIN</td> & lt;td>7.4 gm/dL</td> <td>6.4-8.2</td> </tr> <tr> <td>ALBUMIN</td> <td>3.2 gm /dL</td> <td>3.4-5.0</td> </tr> & lt;tr> <td>BILI TOTAL</td> <td>2.1 mg/dL& lt;/td> <td>0.0-1.0</td> </tr> <tr& gt; <td>ALKALINEPHOSPHATASE TOTAL</td> <td> 215 IU/L</td> <td>45-117</td> </tr> <tr> <th colspan="10">LIPID PANEL - 06/11/16 03:05</th> </tr> <tr> <td> CHOLESTEROL/HDL RATIO</td> <td>5.3 </td> &lt ;td> < 5.0</td> </tr> <tr> & lt;td>LDL CHOLESTEROL</td> <td>133 mg/dL</td> <td>< 100</td> </tr> <tr> <td>VLDL CHOLESTEROL</td> <td>49 mg/dL</td& gt; <td>< 30</td> </tr> <tr& gt; <td>TRIGLYCERIDES</td> <td>246 mg/dL</td& gt; <td>< 150</td> </tr> <tr> <td>CHOLESTEROL</td> <td>224 mg/dL</td& gt; <td>< 200</td> </tr> <tr> <td>HDL CHOLESTEROL</td> <td>42 mg/dL</td > <td>> 39</td> </tr> <tr& gt; <th colspan="10">PHOSPHORUS - 06/11/16 03:05</th > </tr> <tr> <td>PHOSPHORUS</td& gt; <td>3.6 mg/dL</td> <td>2.5-4.9</td> </tr> <tr> <th colspan="10"> MAGNESIUM - 06/11/16 03:05</th> </tr> <tr> <td>MAGNESIUM</td> <td>1.8 mg/dL</td> <td>1.8-2.4</td> </tr> <tr> <th colspan="10">GLUCOSE (POC) - 06/11/16 05:59</th> </tr> <tr> <td>GLUCOSE (POC)</td> <td>83 mg/dL</td> <td>70-99</td> & lt;/tr> <tr> <th colspan="10"> HEMOGLOBIN - 06/11/16 09:07</th> </tr> <tr> <td>MEAN CELL VOLUME</td> <td>100.0 fl</td& gt; <td>80.0-100.0</td> </tr> <tr> <td>HEMOGLOBIN</td> <td>13.7 gm/dL</td> <td>12.0-16.0</td> </tr> <tr> <th colspan="10">AMYLASE - 06/11/16 13:54</th> </tr> <tr> <td>AMYLASE</td> <td>136 Units/L</td> <td>25-115</td> & lt;/tr> <tr> <th colspan="10">LIPASE - 06/11/16 13:54</th> </tr> <tr> <td& gt;LIPASE</td> <td>1153 Units/L</td> <td& gt;73-393</td> </tr> <tr> <th colspan="10">HEMOGLOBIN - 06/11/16 13:56</th> </tr& gt; <tr> <td>MEAN CELL VOLUME</td> & lt;td>101.3 fl</td> <td>80.0-100.0</td> &lt ;/tr> <tr> <td>HEMOGLOBIN</td> < td>12.8 gm/dL</td> <td>12.0-16.0</td> </ tr> <tr> <th colspan="10">HGB HCT - 06/11/16 22:48</th> </tr> <tr> <td& gt;MEAN CELL VOLUME</td> <td>99.7 fl</td> & lt;td>80.0-100.0</td> </tr> <tr> <td >HEMOGLOBIN</td> <td>12.8 gm/dL</td> < td>12.0-16.0</td> </tr> <tr> <td> HEMATOCRIT</td> <td>38.2 %</td> < td>37.0-47.0</td> </tr> <tr> <th colspan="10">CBC W/DIFF - 06/12/16 04:44</th> </tr& gt; <tr> <td>EOSINOPHIL#</td> <td& gt;0.2 k/cumm</td> <td>0.1-0.5</td> </tr&gt ; <tr> <td>EOSINOPHIL %</td> <td>6 %</td> <td>2-4</td> </ tr> <tr> <td>GRANULOCYTE #</td> & lt;td>1.6 k/cumm</td> <td>2.0-9.0</td> < /tr> <tr> <td>GRANULOCYTE %</td> <td>38 %</td> <td>50-75</td> </tr> <tr> <td>LYMPHOCYTE #</td> <td>2.0 k/cumm</td> <td>1.0-4.0</td> & lt;/tr> <tr> <td>LYMPHOCYTE %</td> <td>47 %</td> <td>20-30</td> </tr> <tr> <td>MEAN CELL HGB</td&gt ; <td>33.7 pg</td> <td>27.0-33.0</td> </tr> <tr> <td>MEAN CELL HGB CONCENTRATION& lt;/td> <td>33.8 g/dL</td> <td>32.0-37.0</td&gt ; </tr> <tr> <td>MEAN CELL VOLUME</ td> <td>99.5 fl</td> <td>80.0-100.0</ td></tr> <tr> <td>MONOCYTE #</td> <td>0.4 k/cumm</td> <td>0.1-1.0</td> </tr> <tr> <td>MONOCYTE %</td& gt; <td>9 %</td> <td>4-6</td> </tr> <tr> <td>RED BLOOD CELL</td& gt; <td>3.92 m/cumm</td> <td>4.00-6.00</ td> </tr> <tr> <td>RED CELL DISTRIBUTION WIDTH</td> <td>15.0 %</td> <td>11.0-15.6</td> </tr> <tr> <td>WHITE BLOOD CELL</td> <td>4.2 k/cumm</td&gt ; <td>5.0-10.0</td> </tr> <tr> <td>HEMOGLOBIN</td> <td>13.2 gm/dL</td&gt ; <td>12.0-16.0</td> </tr> <tr> <td>HEMATOCRIT</td> <td>39.0 %</ td><td>37.0-47.0</td> </tr> <tr> <td>PLATELET COUNT</td> <td>125 k/cumm</td&gt ; <td>150-400</td> </tr> <tr> <th colspan="10">METABOLIC PANEL, [facility] - 06/12/16 04: 44</th> </tr> <tr> <td>POTASSIUM& lt;/td> <td>3.6 mmol/L</td> <td>3.5-5.3</ td> </tr> <tr> <td>EST GFR (MDRD)</td& gt; <td>> 60 mL/min</td> <td>&gt ; 59</td> </tr> <tr> <td>ANION GAP</td> <td>10 mmol/L</td> <td>5-15& lt;/td> </tr> <tr> <td>EST CrCl (CG)&lt ;/td> <td>> 60 mL/min</td> <td>& amp;gt; 59</td> </tr> <tr> <td> GLUCOSE</td> <td>66 mg/dL</td> <td>70- 99</td> </tr> <tr> <td>CALCIUM&lt ;/td><td>8.4 mg/dL</td> <td>8.5-10.1</td> </tr> <tr> <td>BLOOD UREA NITROGEN</ td> <td>5 mg/dL</td> <td>7-20</td> & lt;/tr> <tr> <td>CREATININE</td> & lt;td>0.6 mg/dL</td> <td>0.6-1.0</td> </ tr> <tr> <td>SODIUM</td> <td&gt ;140 mmol/L</td> <td>135-148</td> </tr> <tr> <td>CHLORIDE</td> <td>104 mmol /L</td> <td>98-110</td> </tr> &lt ;tr> <td>AST/SGOT</td> <td>61 Units/L< /td> <td>10-37</td> </tr> <tr&gt ; <td>ALT/SGPT</td> <td>54 Units/L</td&gt ; <td>< 66</td> </tr> <tr> <td>CARBON DIOXIDE</td> <td>26 mmol/L</td&gt ; <td>21-32</td> </tr> <tr> <td>TOTAL PROTEIN</td> <td>6.7 gm/dL</td> <td>6.4-8.2</td> </tr> <tr> <td>ALBUMIN</td> <td>2.8 gm/dL</td> <td>3.4-5.0</td> </tr> <tr> < td>BILI TOTAL</td> <td>0.8 mg/dL</td> &lt ;td>0.0-1.0</td> </tr> <tr> <td& gt;ALKALINE PHOSPHATASE TOTAL</td> <td>206 IU/L</td> <td>45-117</td> </tr> <tr> <th colspan="10">PHOSPHORUS - 06/12/16 04:44</th> </tr> <tr> <td>PHOSPHORUS</td> <td>3.9mg/dL</td> <td>2.5-4.9</td> </tr> <tr><th colspan="10">MAGNESIUM - 04:44</th> </tr> <tr> <td> MAGNESIUM</td> <td>1.5 mg/dL</td> <td> 1.8-2.4</td> </tr> <tr> <th colspan= "10">HGB HCT - 06/12/16 09:55</th> </tr> <tr> <td>MEANCELL VOLUME</td> <td> 100.3 fl</td> <td>80.0-100.0</td> </tr> <tr> <td>HEMOGLOBIN</td> <td> 12.8 gm/dL</td> <td>12.0-16.0</td> </tr&gt ; <tr> <td>HEMATOCRIT</td> <td>38.2 %</td> <td>37.0-47.0</td> </tr> <tr> <th colspan="10">HGB HCT - 08:34</th> </tr> <tr> <td> MEAN CELL VOLUME</td> <td>100.5 fl</td> < td>80.0-100.0</td> </tr> <tr> <td& gt;HEMOGLOBIN</td> <td>13.4gm/dL</td> <td >12.0-16.0</td> </tr> <tr> <td> HEMATOCRIT</td> <td>40.9 %</td> < td>37.0-47.0</td> </tr> <tr> <th colspan="10">CBCW/DIFF - 06/13/16 08:34</th> </tr& gt; <tr> <td>BASOPHIL #</td> <td& gt;0.0 k/cumm</td> <td>0.0-0.2</td> </tr&gt ; <tr> <td>BASOPHIL %</td> & lt;td>1 %</td> <td>0-1</td> </tr > <tr> <td>EOSINOPHIL #</td> < td>0.3 k/cumm</td> <td>0.1-0.5</td> </tr > <tr> <td>EOSINOPHIL %</td> &lt ;td>6 %</td> <td>2-4</td> </tr& gt; <tr> <td>GRANULOCYTE #</td> < td>1.1 k/cumm</td><td>2.0-9.0</td> </tr> <tr> <td>GRANULOCYTE %</td> < td>27 %</td> <td>50-75</td> </tr> <tr> <td>LYMPHOCYTE #</td> <td> 2.3 k/cumm</td> <td>1.0-4.0</td> </tr> <tr> <td>LYMPHOCYTE %</td> & lt;td>54 %</td> <td>20-30</td> < /tr> <tr> <td>MEAN CELL HGB</td> < td>33.4 pg</td> <td>27.0-33.0</td> </tr& gt; <tr> <td>MEAN CELL HGB CONCENTRATION</td> <td>34.3 g/dL</td> <td>32.0-37.0</td> </tr> <tr> <td>MEAN CELL VOLUME</td> <td>97.3 fl</td> <td>80.0-100.0</td> </tr> <tr> <td>MONOCYTE #</td> <td>0.5 k/cumm</td> <td>0.1-1.0</td> </tr> <tr> <td>MONOCYTE %</td > <td>12 %</td> <td>4-6</td> </tr> <tr> <td>RED BLOOD CELL</td> <td>4.07 m/cumm</td> <td>4.00-6.00</td> </tr> <tr> <td>RED CELL DISTRIBUTION WIDTH</td> <td>14.7 %</td> <td&gt ;11.0-15.6</td> </tr> <tr> <td> WHITE BLOOD CELL</td> <td>4.2 k/cumm</td><td> 5.0-10.0</td> </tr> <tr> <td> HEMOGLOBIN</td> <td>13.6 gm/dL</td> <td& gt;12.0-16.0</td> </tr> <tr> <td> HEMATOCRIT</td> <td>39.6 %</td> < td>37.0-47.0</td> </tr> <tr> <td& gt;PLATELET COUNT</td> <td>115 k/cumm</td> & lt;td>150-400</td> </tr> <tr> < th colspan="10">RENAL FUNCTION PANEL - 06/13/16 08:34</th> </tr> <tr> <td>POTASSIUM</td> <td>3.3 mmol/L</td> <td>3.5-5.3</td> </tr> <tr> <td>EST GFR (MDRD)</td> <td>> 60 mL/min</td> <td>> 59& lt;/td> </tr> <tr> <td>ANION GAP</td& gt; <td>8 mmol/L</td> <td>5-15</td> </tr> <tr> <td>EST CrCl (CG)</td> <td>> 60 mL/min</td> <td>> 59 </td> </tr> <tr> <td>GLUCOSE</td > <td>86 mg/dL</td> <td>70-99</td> & lt;/tr> <tr> <td>CALCIUM</td> < td>8.8 mg/dL</td> <td>8.5-10.1</td> </tr > <tr> <td>BLOOD UREA NITROGEN</td> <td>3 mg/dL</td> <td>7-20</td> </tr > <tr> <td>CREATININE</td> <td& gt;0.5 mg/dL</td> <td>0.6-1.0</td> </tr> <tr> <td>SODIUM</td> <td>140 mmol/L& lt;/td> <td>135-148</td> </tr> < tr> <td>CHLORIDE</td> <td>103 mmol/L</ td> <td>98-110</td> </tr> <tr> <td>CARBON DIOXIDE</td> <td>29 mmol/L</td& gt; <td>21-32</td> </tr> <tr>< td>ALBUMIN</td> <td>3.0 gm/dL</td> <td >3.4-5.0</td> </tr> <tr> <td> PHOSPHORUS</td> <td>3.4 mg/dL</td> <td&gt ;2.5-4.9</td> </tr> <tr> <th colspan=& quot;10">MAGNESIUM - 06/13/16 08:34</th> </tr> < tr> <td>MAGNESIUM</td> <td>2.4 mg/dL</ td> <td>1.8-2.4</td> </tr> <tr> <th colspan="10">VITAMIN B12 - 06/14/16 04:44</th> </tr> <tr> <td>VITAMIN B12</td> <td>488 pg/mL</td> <td>211-911</td> </tr> <tr> <th colspan="10"> METHYLMALONIC ACID, SERUM - 06/14/16 04:44</th> </tr> <tr> <td>METHYLMALONIC ACID, SERUM</td> < td>374 nmol/L</td> <td>0-378</td> </tr& gt; <tr> <th colspan="10">CBC - 06/14/16 04:45</th> </tr> <tr> <td>MEAN CELL HGB</td> <td>32.7 pg</td> <td>27.0-33.0& lt;/td> </tr> <tr> <td>MEAN CELL HGB CONCENTRATION</td> <td>32.1 g/dL</td> & lt;td>32.0-37.0</td> </tr> <tr> < td>MEAN CELL VOLUME</td> <td>101.9 fl</td> <td>80.0-100.0</td> </tr> <tr> <td>RED BLOOD CELL</td> <td>4.13 m/cumm</td> <td>4.00-6.00</td> </tr> <tr> <td>RED CELL DISTRIBUTION WIDTH</td> <td> 14.8 %</td> <td>11.0-15.6</td> </tr > <tr> <td>WHITE BLOOD CELL</td> & lt;td>3.6 k/cumm</td> <td>5.0-10.0</td> &lt ;/tr> <tr> <td>HEMOGLOBIN</td> &lt ;td>13.5 gm/dL</td> <td>12.0-16.0</td> < /tr> <tr> <td>HEMATOCRIT</td> < td>42.1 %</td> <td>37.0-47.0</td> & lt;/tr> <tr> <td>PLATELET COUNT</td> <td>148 k/cumm</td> <td>150-400</td> </tr> <tr> <th colspan="10"> METABOLIC PANEL, [facility] - 06/14/16 04:45</th> </tr> <tr> <td>POTASSIUM</td> <td>3.2 mmol/L</ td> <td>3.5-5.3</td> </tr> <tr&gt ; <td>EST GFR (MDRD)</td> <td>> 60 mL /min</td> <td>> 59</td> </tr> <tr> <td>ANION GAP</td> <td>7 mmol/L</td> <td>5-15</td> </tr> <tr& gt; <td>EST CrCl (CG)</td> <td>> 60 mL/min</td> <td>> 59</td> </tr> <tr> <td>GLUCOSE</td> <td>98 mg /dL</td> <td>70-99</td> </tr> &lt ;tr> <td>CALCIUM</td> <td>8.9 mg/dL</ td> <td>8.5-10.1</td> </tr> <tr& gt; <td>BLOOD UREA NITROGEN</td> <td>2 mg/dL </td> <td>7-20</td> </tr> <tr& gt; <td>CREATININE</td> <td>0.6 mg/dL</td > <td>0.6-1.0</td> </tr> <tr> <td>SODIUM</td> <td>142 mmol/L</td> < td>135-148</td> </tr> <tr> <td&gt ;CHLORIDE</td> <td>104 mmol/L</td> <td&gt ;98-110</td> </tr> <tr> <td>AST/ SGOT</td> <td>24 Units/L</td> <td>10-37& lt;/td> </tr> <tr> <td>ALT/SGPT</ td> <td>34 Units/L</td> <td>< 66& lt;/td> </tr> <tr> <td>CARBON DIOXIDE</td> <td>31 mmol/L</td> <td>21 -32</td> </tr> <tr> <td>TOTAL PROTEIN</td> <td>7.5 gm/dL</td> <td> 6.4-8.2</td> </tr> <tr> <td> ALBUMIN</td> <td>3.2 gm/dL</td> <td> 3.4-5.0</td> </tr> <tr> <td>BILI TOTAL&lt ;/td> <td>0.5 mg/dL</td> <td>0.0-1.0</ td> </tr> <tr> <td>ALKALINE PHOSPHATASE TOTAL</td> <td>172 IU/L</td> &lt ;td>45-117</td> </tr> <tr> <th colspan="10">FOLIC ACID,SERUM - 06/14/16 04:45</th> & lt;/tr> <tr> <td>FOLIC ACID,SERUM</td> <td>5.4 ng/mL</td> <td>> 3.4</td> </tr> <tr> <th colspan="10"> FECAL OCCULT BLOOD - 06/14/16 16:00</th> </tr> <tr& gt; <td>Microbiology</td> <td> </td> <td /> </tr> <tr> <th colspan="10">RENAL FUNCTION PANEL - 06/15/16 06:51</th> </tr> <tr> <td>POTASSIUM</td> <td>3.4 mmol/L</td> <td>3.5-5.3</td> </tr> <tr> <td>EST GFR (MDRD)</td> <td>> 60 mL/min</td> <td>> 59</ td> </tr> <tr> <td>ANION GAP</td> <td>6 mmol/L</td> <td>5-15</td> </tr& gt; <tr> <td>EST CrCl (CG)</td> < td>> 60 mL/min</td> <td>> 59</td> </tr> <tr> <td>GLUCOSE</td> & lt;td>112 mg/dL</td> <td>70-99</td> </tr > <tr> <td>CALCIUM</td> <td> 9.1 mg/dL</td> <td>8.5-10.1</td> </tr> <tr> <td>BLOOD UREA NITROGEN</td> < td>4 mg/dL</td> <td>7-20</td> </tr> <tr> <td>CREATININE</td> <td>0.6 mg/dL </td> <td>0.6-1.0</td> </tr> < tr> <td>SODIUM</td> <td>139 mmol/L</td > <td>135-148</td> </tr> <tr> <td>CHLORIDE</td> <td>103 mmol/L</td> <td>98-110</td> </tr> <tr> <td>CARBON DIOXIDE</td> <td>30 mmol/L</td> <td>21-32</td> </tr> <tr> <td>ALBUMIN</td> <td>3.1 gm/dL</td> & lt;td>3.4-5.0</td> </tr> <tr> <td >PHOSPHORUS</td> <td>2.8 mg/dL</td> < td>2.5-4.9</td> </tr> <tr> <th colspan="10">MAGNESIUM - 06/15/16 06:51</th> </tr> <tr> <td>MAGNESIUM</td> <td>1.7 mg /dL</td> <td>1.8-2.4</td> </tr> & lt;tr> <thcolspan="10">HGB HCT - 06/15/16 11:42&lt ;/th> </tr> <tr> <td>MEAN CELL VOLUME </td> <td>100.0 fl</td> <td>80.0-100.0 </td> </tr> <tr> <td>HEMOGLOBIN& lt;/td> <td>14.2 gm/dL</td> <td>12.0-16.0 </td> </tr> <tr> <td>HEMATOCRIT& lt;/td> <td>42.3 %</td> <td>37.0- 47.0</td> </tr> <tr> <th colspan=& quot;10">HGB HCT - 06/15/16 23:34</th> </tr> <tr> <td>MEAN CELL VOLUME</td> <td>99.5 fl</td> <td>80.0-100.0</td> </tr> <tr> <td>HEMOGLOBIN</td> <td>13.8 gm/ dL</td> <td>12.0-16.0</td> </tr> &lt ;tr> <td>HEMATOCRIT</td> <td>41.0 &# 37;</td> <td>37.0-47.0</td> </tr> <tr> <th colspan="10">RENAL FUNCTION PANEL - 06:13</th> </tr> <tr> <td> POTASSIUM</td> <td>3.3 mmol/L</td> <td&gt ;3.5-5.3</td> </tr> <tr> <td>EST GFR (MDRD)</td> <td>> 60 mL/min</td> <td>> 59</td></tr> <tr> <td&gt ;ANION GAP</td> <td>11 mmol/L</td> <td&gt ;5-15</td> </tr> <tr> <td>EST CrCl (CG)</td> <td>> 60 mL/min</td> & lt;td>>59</td> </tr> <tr> &lt ;td>GLUCOSE</td> <td>94 mg/dL</td> <td >70-99</td> </tr> <tr> <td> CALCIUM</td> <td>9.0 mg/dL</td> <td> 8.5-10.1</td> </tr> <tr> <td> BLOOD UREA NITROGEN</td> <td>3 mg/dL</td> & lt;td>7-20</td> </tr> <tr> <td&gt ;CREATININE</td> <td>0.6 mg/dL</td> <td& gt;0.6-1.0</td> </tr> <tr> <td> SODIUM</td> <td>143 mmol/L</td> <td> 135-148</td> </tr> <tr> <td>CHLORIDE </td> <td>107 mmol/L</td> <td>98-110</td& gt; </tr> <tr> <td>CARBON DIOXIDE</ td> <td>25 mmol/L</td> <td>21-32</td& gt; </tr> <tr> <td>ALBUMIN</td> <td>3.2 gm/dL</td> <td>3.4-5.0</td> </tr> <tr> <td>PHOSPHORUS</td> <td>3.4 mg/dL</td> <td>2.5-4.9</td> < /tr> <tr> <th colspan="10">MAGNESIUM - 06/16/16 06:13</th> </tr> <tr> <td& gt;MAGNESIUM</td> <td>2.4 mg/dL</td> <td& gt;1.8-2.4</td> </tr> <tr> <th colspan="10">CBC W/DIFF - 06/16/16 06:14</th> </tr& gt; <tr> <td>BASOPHIL #</td> <td> 0.0 k/cumm</td> <td>0.0-0.2</td> </tr> <tr> <td>BASOPHIL%</td> <td& gt;1 %</td> <td>0-1</td> </tr> <tr> <td>EOSINOPHIL #</td> <td>0.2 k /cumm</td> <td>0.1-0.5</td> </tr> <tr> <td>EOSINOPHIL %</td> <td& gt;5 %</td> <td>2-4</td> </tr> <tr> <td>GRANULOCYTE #</td> <td>1.1 k/cumm</td> <td>2.0-9.0</td> </tr><tr > <td>GRANULOCYTE %</td> <td>25 & amp;#37;</td> <td>50-75</td> </tr> <tr> <td>LYMPHOCYTE #</td> <td>2.5 k/cumm</td> <td>1.0-4.0</td> </tr> & lt;tr> <td>LYMPHOCYTE %</td> <td> 57 %</td> <td>20-30</td> </tr> <tr> <td>MEAN CELL HGB</td> <td> 33.3 pg</td> <td>27.0-33.0</td> </tr> <tr> <td>MEAN CELL HGB CONCENTRATION</td> <td>33.5 g/dL</td> <td>32.0-37.0</td> < /tr> <tr> <td>MEAN CELL VOLUME</td> <td>99.5 fl</td> <td>80.0-100.0</td> </tr> <tr> <td>MONOCYTE #</td> <td&gt ;0.5 k/cumm</td> <td>0.1-1.0</td> </tr> <tr> <td>MONOCYTE %</td> <td& gt;12 %</td> <td>4-6</td> </tr> <tr> <td>RED BLOOD CELL</td> <td& gt;4.32 m/cumm</td> <td>4.00-6.00</td> </tr> <tr> <td>RED CELL DISTRIBUTION WIDTH</td> <td>14.6 %</td> <td>11.0-15.6</td&gt ; </tr> <tr> <td>WHITE BLOOD CELL</ td> <td>4.3 k/cumm</td> <td>5.0-10.0</td&gt ; </tr> <tr> <td>HEMOGLOBIN</td> <td>14.4 gm/dL</td> <td>12.0-16.0</td> </ tr> <tr> <td>HEMATOCRIT</td> < td>43.0 %</td> <td>37.0-47.0</td> </tr& gt; <tr> <td>PLATELET COUNT</td> < td>170 k/cumm</td> <td>150-400</td> </tr > <tr> <th colspan="10">URINALYSIS, ROUTINE - 01/16/17 17:00</th> </tr> <tr> & lt;td>UA LEUKOCYTE ESTERASE DIPSTICK</td> <td>1+ </td > <td>NEGATIVE</td> </tr> <tr&gt ; <td>UA NITRITE DIPSTICK</td> <td>NEGATIVE </td> <td>NEGATIVE</td> </tr> &lt ;tr> <td>UA PROTEIN DIPSTICK</td> <td> TRACE </td> <td>NEGATIVE</td> </tr>< tr> <td>UA GLUCOSE DIPSTICK</td> <td> NEGATIVE </td> <td>NEGATIVE</td> </tr> <tr> <td>UA KETONE DIPSTICK</td> < td>NEGATIVE </td> <td>NEGATIVE</td> </tr > <tr> <td>UA UROBILINOGEN DIPSTICK</td> & lt;td>NORMAL </td> <td>NORMAL</td> </tr& gt; <tr> <td>UA BILIRUBIN DIPSTICK</td> <td>NEGATIVE </td> <td>NEGATIVE</td> </ tr> <tr> <td>UA BLOOD DIPSTICK</td> <td>NEGATIVE </td> <td>NEGATIVE</td> </ tr> <tr> <td>UA SPECIFIC GRAVITY</td> <td>1.010 </td> <td>1.015-1.025</td> </tr> <tr> <td>UR PH</td> <td >7.0 </td> <td>5.0-7.0</td> </tr> <tr> <th colspan="10">UA MICROSCOPIC -03 17:00</th> </tr> <tr> <td>UA BACTERIA</td> <td>2+ </td> <td> NEGATIVE</td> </tr> <tr> <td>UA EPITHELIAL CELLS</td> <td>3+ epi/hpf</td> & lt;td>0 - 1+</td> </tr> <tr> <td& gt;UA MUCUS</td> <td>2+ </td> <td>NEG TO 1+</td> </tr> <tr> <td>UA RBC& lt;/td> <td>0-3 rbc/hpf</td> <td>0 - 3&lt ;/td> </tr> <tr> <td>UA VOLUME FOR EXAM</td> <td>12.0 mL</td> <td>(12mL STD)</td> </tr> <tr> <td>UA WBC& lt;/td> <td>2-5 wbc/hpf</td> <td>0 - 5&lt ;/td> </tr> <tr> <th colspan="10& quot;>UR DRUGS OF ABUSE SCREEN - 01/16/17 17:00</th> </tr&gt ; <tr> <td>UR AMPHETAMINES SCREEN</td> <td>NEG (<1000 ng/mL) </td> <td>NEGATIVE& lt;/td> </tr> <tr> <td>UR BARBITURATE SCREEN</td> <td>POS (> 200 ng/mL)</ td> <td>NEGATIVE</td> </tr> <tr& gt; <td>DRUGS OF ABUSE SCREEN COMMENT</td> <td& gt; </td> <td /> </tr> <tr> <td>UR OPIATES SCREEN</td> <td>POS (& gt; 300 ng/mL) </td> <td>NEGATIVE</td> </tr > <tr> <td>UR PHENCYCLIDINE (PCP) SCREEN</td& gt; <td>NEG (< 25 ng/mL) </td> <td> NEGATIVE</td> </tr> <tr> <td>UR CANNABINOIDS (THC) SCREEN</td> <td>NEG (< 50 ng/mL ) </td> <td>NEGATIVE</td> </tr> & lt;tr> <td>UR COCAINE METABOLITE SCREEN</td> & lt;td>NEG (< 300 ng/mL) </td> <td>NEGATIVE</ td> </tr> <tr> <td>UR METHADONE SCREEN</td > <td>NEG (< 300 ng/mL) </td> <td> NEGATIVE</td> </tr> <tr> <td>UR BENZODIAZEPINE SCREEN</td> <td>NEG (< 200 ng/mL) & lt;/td> <td>NEGATIVE</td> </tr> < tr> <th colspan="10">CBC - 01/16/17 17:15</th&gt ; </tr> <tr> <td>MEAN CELL HGB</td& gt; <td>29.7 pg</td> <td>27.0-33.0</td&gt ; </tr> <tr> <td>MEAN CELL HGB CONCENTRATION</td> <td>31.8 g/dL</td> <td >32.0-37.0</td> </tr> <tr> <td> MEAN CELL VOLUME</td> <td>93.6 fl</td> < td>80.0-100.0</td> </tr> <tr> <td >RED BLOOD CELL</td> <td>3.90 m/cumm</td> <td>4.00-6.00</td> </tr> <tr> & lt;td>RED CELL DISTRIBUTION WIDTH</td> <td>15.3 &#37 ;</td> <td>11.0-15.6</td> </tr> & lt;tr> <td>WHITE BLOOD CELL</td> <td>7.9 k/cumm</td> <td>5.0-10.0</td> </tr> <tr> <td>HEMOGLOBIN</td> <td>11.6 gm/dL</td> <td>12.0-16.0</td> </tr> <tr> <td>HEMATOCRIT</td> <td>36.5 %</td> <td>37.0-47.0</td> </tr> <tr> <td>PLATELET COUNT</td> <td& gt;227 k/cumm</td> <td>150-450</td> </tr&gt ; <tr> <th colspan="10">METABOLIC PANEL, BASIC - 01/16/17 17:15</th> </tr> <tr> <td>POTASSIUM</td> <td>3.5 mmol/L</td> <td>3.5-5.3</td> </tr> <tr> &lt ;td>EST GFR (MDRD)</td> <td>> 60 mL/min</td&gt ; <td>> 59</td> </tr> <tr&gt ; <td>ANION GAP</td> <td>7 mmol/L</td> <td>5-15</td> </tr> <tr> & lt;td>EST CrCl (CG)</td> <td>> 60 mL/min</td& gt; <td>> 59</td> </tr> <tr&gt ; <td>GLUCOSE</td> <td>83 mg/dL</td> <td>70-99</td> </tr> <tr> <td& gt;CALCIUM</td> <td>8.6 mg/dL</td> <td&gt ;8.5-10.1</td> </tr> <tr> <td> BLOOD UREA NITROGEN</td> <td>3 mg/dL</td> & lt;td>7-20</td> </tr> <tr> <td&gt ;CREATININE</td> <td>0.8 mg/dL</td> <td& gt;0.6-1.0</td> </tr> <tr> <td>SODIUM&lt ;/td> <td>135 mmol/L</td> <td>135-148< /td> </tr> <tr> <td>CHLORIDE</td& gt; <td>100 mmol/L</td> <td>98-110</td&gt ; </tr> <tr> <td>CARBON DIOXIDE</td&gt ; <td>28 mmol/L</td> <td>21-32</td> </tr> <tr><th colspan="10">PROTHROMBIN TIME WITH INR - 01/16/17 17:15</th> </tr> <tr> <td>INTERNATIONAL NORMAL RATIO</td> <td>1.1 </td> <td>0.9-1.1</td> </tr> < tr> <td>PROTHROMBIN TIME</td> <td>13.1 sec</td> <td>10.0-12.9</td> </tr> <tr> <th colspan="10">CHEM/HEMPROFILE-BEDSIDE - 01/16/17 18:12</th> </tr> <tr> <td >POTASSIUM</td> <td>3.7 mmol/L</td> < td>3.5-5.3</td> </tr> <tr> <td> METHOD</td> <td>Bedside </td> <td /> </tr> <tr> <td>ANION GAP</td> <td>17 mmol/L</td> <td>10-20</td> </tr> <tr> <td>METHOD</td> & lt;td>Bedside </td> <td /> </tr> <tr&gt ; <td>GLUCOSE</td><td>77 mg/dL</td> & lt;td>70-99</td> </tr> <tr> <td& gt;BLOOD UREA NITROGEN</td> <td>< 3 mg/dL</td&gt ; <td>7-20</td> </tr> <tr> <td>CREATININE</td> <td>0.7 mg/dL</td> <td>0.6-1.0</td> </tr> <tr> &lt ;td>HEMOGLOBIN</td> <td>12.9 gm/dL</td> & lt;td>12.0-16.0</td> </tr> <tr> < td>HEMATOCRIT</td> <td>38.0 %</td> <td>37.0-47.0</td> </tr> <tr> <td>SODIUM</td> <td>138 mmol/L</td> & lt;td>135-148</td> </tr> <tr> <td> CHLORIDE</td> <td>98 mmol/L</td> <td> 98-110</td> </tr> <tr> <td> CARBON DIOXIDE</td> <td>27 mmol/L</td> < td>21-32</td> </tr> <tr> <td> CALCIUM IONIZED</td> <td>4.4 mg/dL</td> < td>4.5-5.3</td> </tr> </tbody> </table&gt ; </text> <entry> <organizer moodCode="EVN" classCode="BATTERY"> <templateId root=" 2.16.840.1.527457.10.20.22.4.1" /> <id nullFlavor="NA&quot ; /> <code codeSystem="local" code="HGB" displayName="HEMOGLOBIN" /> <statusCode code=" completed" /> <component> <observation moodCode=& quot;EVN" classCode="OBS"> <templateId root=" 2.16.840.1.676441.10.20.22.4.2" /> <id nullFlavor="NA& quot; /> <code codeSystem="local" code="MCV" displayName="MEAN CELL VOLUME" /> <statusCode code=" completed" /> <effectiveTime value="521465130887" /> <value unit="fl" xsi:type="PQ" value=&quot ;98.5" /> <referenceRange> < observationRange> <text>80.0-100.0</text> </observationRange> </referenceRange> </observation&gt ; </component> <component> <observation moodCode ="EVN" classCode="OBS"> <templateId root=& quot;2.16.840.1.337268.10.20.22.4.2" /> <id nullFlavor=&quot ;NA" /> <code codeSystem="local" code="HGBT& quot; displayName="HEMOGLOBIN" /> <statusCode code=& quot;completed" /> <effectiveTime value="901496026333& quot; /> <value unit="gm/dL" xsi:type="PQ" value="15.8" /> <referenceRange> < observationRange> <text>12.0-16.0</text> </observationRange> </referenceRange> </ observation> </component> </organizer> </entry> & lt;entry> <organizer moodCode="EVN" classCode="BATTERY& quot;> <templateId root="2.16.840.1.933004.10.20.22.4.1" /& gt; <id nullFlavor="NA" /> <code codeSystem=" local" code="GLUMON" displayName="GLUCOSE (POC)" /> <statusCode code="completed" /> <component> <observation moodCode="EVN" classCode="OBS"> <templateId root="2.16.840.1.580748.10.20.22.4.2" /> <id nullFlavor="NA" /> <code codeSystem=" local" code="GLUMON" displayName="GLUCOSE (POC)" /> <statusCode code="completed" /> < effectiveTime value="509681951425" /> <value unit="mg/dL& quot; xsi:type="PQ" value="112" /> < interpretationCode codeSystem="local" code="*" /> <referenceRange> <observationRange> < text>70-99</text> </observationRange> </ referenceRange> </observation> </component> </ organizer> </entry> <entry> <organizer moodCode="EVN " classCode="BATTERY"> <templateId root=" 2.16.840.1.565764.10.20.22.4.1" /> <id nullFlavor="NA&quot ; /> <code codeSystem="local" code="GLUMON" displayName="GLUCOSE (POC)" /> <statusCode code=" completed" /> <component> <observation moodCode=& quot;EVN" classCode="OBS"> <templateId root=" 2.16.840.1.510278.10.20.22.4.2" /> <id nullFlavor="NA& quot; /> <code codeSystem="local" code="GLUMON& quot; displayName="GLUCOSE (POC)" /> <statusCode code=& quot;completed"/> <effectiveTime value="079950489542& quot; /> <value unit="mg/dL" xsi:type="PQ" value="100" /> <interpretationCode codeSystem=" local" code="*" /> <referenceRange> <observationRange> <text>70-99</text> </observationRange> </referenceRange> </observation&gt ; </component> </organizer> </entry> <entry> <organizer moodCode="EVN" classCode="BATTERY"> <templateId root="2.16.840.1.380417.10.20.22.4.1" /> < id nullFlavor="NA" /> <code codeSystem="local" code="CBCD" displayName="CBC W/DIFF" /> < statusCode code="completed" /> <component> < observation moodCode="EVN" classCode="OBS"> < templateId root="2.16.840.1.751996.10..22.4.2" /> < id nullFlavor="NA"/> <code codeSystem="local&quot ; code="EO#" displayName="EOSINOPHIL #" /> < statusCode code="completed" /> <effectiveTime value=& quot;942040619186" /> <value unit="k/cumm" xsi: type="PQ" value="0.2" /> <referenceRange> <observationRange> <text>0.1-0.5</text> </observationRange> </referenceRange> &lt ;/observation> </component> <component> < observation moodCode="EVN" classCode="OBS"> < templateId root="2.16.840.1.770309.10..22.4.2" /> < id nullFlavor="NA" /> <code codeSystem="local&quot ; code="EO%" displayName="EOSINOPHIL %" /&gt ; <statusCode code="completed" /> < effectiveTime value="748430705298" /> <value unit=&quot ;%" xsi:type="PQ" value="3" /> < referenceRange> <observationRange> <text>2-4& lt;/text> </observationRange> </referenceRange& gt; </observation> </component> <component> <observation moodCode="EVN" classCode="OBS"> <templateId root="2.16.840.1.492666.10.20.22.4.2" /> <id nullFlavor="NA" /> <code codeSystem=&quot ;local" code="GR#" displayName="GRANULOCYTE #" /> <statusCode code="completed" /> <effectiveTime value ="117750606741" /> <value unit="k/cumm" xsi: type="PQ" value="3.3" /> <referenceRange> <observationRange> <text>2.0-9.0</text& gt; </observationRange> </referenceRange> </observation> </component> <component> &lt ;observation moodCode="EVN" classCode="OBS"> &lt ;templateId root="2.16.840.1.729907.10.20.22.4.2" /> < id nullFlavor="NA" /> <code codeSystem="local&quot ; code="GR%" displayName="GRANULOCYTE %" /& gt; <statusCode code="completed" /> <effectiveTime value="983566250127" /> <value unit="%& quot; xsi:type="PQ" value="52" /> < referenceRange> <observationRange> <text> 50-75</text> </observationRange> </ referenceRange> </observation> </component> < component> <observation moodCode="EVN" classCode=" OBS"> <templateId root="2.16.840.1.183635.10.20.22.4.2& quot; /> <id nullFlavor="NA" /> <code codeSystem="local" code="LY#" displayName="LYMPHOCYTE # " /> <statusCode code="completed" /> & lt;effectiveTime value="081153171321" /> <value unit="k/ cumm" xsi:type="PQ" value="2.2" /> < referenceRange> <observationRange> <text> 1.0-4.0</text> </observationRange> </ referenceRange> </observation> </component> < component> <observation moodCode="EVN" classCode=" OBS"> <templateId root="2.16.840.1.560427.10.20.22.4.2& quot; /> <id nullFlavor="NA" /> <code codeSystem="local" code="LY%" displayName=" LYMPHOCYTE %" /> <statusCode code="completed& quot; /> <effectiveTime value="991390081741" /> &lt ;value unit="%" xsi:type="PQ" value="34" / > <interpretationCode codeSystem="local" code="*& quot; /> <referenceRange> <observationRange> <text>20-30</text> </observationRange&gt ; </referenceRange> </observation> </ component> <component> <observation moodCode="EVN& quot; classCode="OBS"> <templateId root=" 2.16.840.1.401911.10.20.22.4.2" /> <id nullFlavor="NA& quot; /> <code codeSystem="local" code="MCH" displayName="MEAN CELL HGB" /> <statusCode code=" completed" /> <effectiveTime value="182260744478" /& gt; <value unit="pg"xsi:type="PQ" value=" 33.9" /> <interpretationCode codeSystem="local" code="*" /> <referenceRange> < observationRange> <text>27.0-33.0</text> </observationRange> </referenceRange> </ observation> </component> <component> < observation moodCode="EVN" classCode="OBS"> < templateId root="2.16.840.1.465171.10.20.22.4.2" /> < id nullFlavor="NA" /> <code codeSystem="local" code="MCHC" displayName="MEAN CELL HGB CONCENTRATION" /> <statusCode code="completed" /> < effectiveTime value="432189336373" /> <value unit=&quot ;g/dL" xsi:type="PQ" value="34.2" /> < referenceRange> <observationRange> <text> 32.0-37.0</text> </observationRange> </ referenceRange> </observation> </component> < component> <observation moodCode="EVN" classCode="OBS&quot ;> <templateId root="2.16.840.1.411259.10.20.22.4.2" /& gt; <id nullFlavor="NA" /> <code codeSystem=& quot;local" code="MCV" displayName="MEAN CELL VOLUME" / > <statusCode code="completed" /> < effectiveTime value="761459817097" /> <value unit=&quot ;fl" xsi:type="PQ" value="98.9" /> < referenceRange> <observationRange> <text>80.0-100.0& lt;/text> </observationRange> </referenceRange& gt; </observation> </component> <component> <observation moodCode="EVN" classCode="OBS"> <templateId root="2.16.840.1.445619.10.20.22.4.2" /> <id nullFlavor="NA" /> <code codeSystem=&quot ;local" code="MO#" displayName="MONOCYTE #" />< statusCode code="completed" /> <effectiveTime value=& quot;942219293236" /> <value unit="k/cumm" xsi: type="PQ" value="0.7" /> <referenceRange> <observationRange> <text>0.1-1.0</text& gt; </observationRange> </referenceRange> </observation> </component> <component> &lt ;observation moodCode="EVN" classCode="OBS"> &lt ;templateId root="2.16.840.1.942205.10.20.22.4.2" /> < id nullFlavor="NA" /> <code codeSystem="local&quot ; code="MO%" displayName="MONOCYTE %" /> <statusCode code="completed" /> < effectiveTime value="203277945610" /> <value unit=&quot ;%" xsi:type="PQ" value="11" /> &lt ;interpretationCode codeSystem="local" code="*" /> <referenceRange> <observationRange> < text>4-6</text> </observationRange> </ referenceRange> </observation> </component> < component> <observation moodCode="EVN" classCode=" OBS"> <templateId root="12.14.840.1.350646.10.20.22.4.2& quot; /> <id nullFlavor="NA" /> <code codeSystem="local" code="RBC" displayName="RED BLOOD CELL" /> <statusCode code="completed" /> <effectiveTime value="227147071194" /> <value unit="m/cumm" xsi:type="PQ" value="4.46" /> <referenceRange> <observationRange> & lt;text>4.00-6.00</text> </observationRange> </referenceRange> </observation> </component> <component> <observation moodCode="EVN" classCode=& quot;OBS"> <templateId root=" 2.840.1.989898.10.20.22.4.2" /> <id nullFlavor="NA& quot; /> <code codeSystem="local" code="RDW" displayName="RED CELL DISTRIBUTION WIDTH" /> < statusCode code="completed" /> <effectiveTime value=& quot;832900937713" /> <value unit="%" xsi: type="PQ" value="14.9" /> <referenceRange&gt ; <observationRange> <text>11.0-15.6</ text> </observationRange> </referenceRange> </observation> </component> <component> <observation moodCode="EVN" classCode="OBS"> <templateId root="2.16.840.1.916848.10.20.22.4.2" /> <id nullFlavor="NA" /> <code codeSystem=" local" code="WBC"displayName="WHITE BLOOD CELL" /> <statusCode code="completed" /> < effectiveTime value="163877613658" /> <value unit=&quot ;k/cumm" xsi:type="PQ" value="6.3" /> < referenceRange> <observationRange> <text>5.0-10.0& lt;/text> </observationRange> </referenceRange& gt; </observation> </component><component> <observation moodCode="EVN" classCode="OBS"> < templateId root="2.16.840.1.717257.10.20.22.4.2" /> < id nullFlavor="NA" /> <code codeSystem="local&quot ; code="HGBT" displayName="HEMOGLOBIN" /> < statusCode code="completed" /> <effectiveTime value=& quot;905504073717" /> <value unit="gm/dL" xsi:type ="PQ" value="15.1" /> <referenceRange> <observationRange> <text>12.0-16.0</text&gt ; </observationRange> </referenceRange> </ observation> </component> <component> < observation moodCode="EVN" classCode="OBS"> < templateId root="2.16.840.1.994162.10.20.22.4.2" /> < id nullFlavor="NA" /> <code codeSystem="local&quot ; code="HCTT" displayName="HEMATOCRIT" /> < statusCode code="completed" /> <effectiveTime value=& quot;908951438087" /> <value unit="%" xsi: type="PQ" value="44.1" /> <referenceRange&gt ; <observationRange> <text>37.0-47.0</text&gt ; </observationRange> </referenceRange> & lt;/observation> </component> <component> < observation moodCode="EVN" classCode="OBS"> < templateId root="2.16.840.1.832281.10.20.22.4.2" /> < id nullFlavor="NA" /> <code codeSystem="local&quot ; code="PLT" displayName="PLATELET COUNT" /> &lt ;statusCode code="completed" /> <effectiveTime value=& quot;369801251277" /> <value unit="k/cumm" xsi: type="PQ" value="135" /> <interpretationCode codeSystem="local" code="*" /> < referenceRange> <observationRange> <text> 150-400</text> </observationRange> </ referenceRange> </observation> </component> </ organizer> </entry> <entry> <organizer moodCode="EVN " classCode="BATTERY"> <templateId root=" 2.16.840.1.275299.10.20.22.4.1" /> <id nullFlavor="NA&quot ; /> <code codeSystem="local" code="METABC" displayName="METABOLIC PANEL, COMPREHN" /> <statusCode code ="completed" /> <component> <observation moodCode="EVN" classCode="OBS"> <templateId root="2.16.840.1.571850.10.20.22.4.2" /> <id nullFlavor ="NA" /> <code codeSystem="local" code=" K" displayName="POTASSIUM" /> <statusCode code=& quot;completed" /> <effectiveTime value="009809402382& quot; /> <value unit="mmol/L" xsi:type="PQ" value="3.5" /> <referenceRange> < observationRange> <text>3.5-5.3</text> & lt;/observationRange> </referenceRange> </ observation> </component> <component> < observation moodCode="EVN" classCode="OBS"> < templateId root="2.16.840.1.349322.10.20.22.4.2" /> < id nullFlavor="NA" /> <code codeSystem="local&quot ; code="eGFR" displayName="EST GFR (MDRD)" /> & lt;statusCode code="completed" /> <effectiveTime value= "250654595286" /> <value unit="mL/min" xsi: type="PQ" value="> 60" /> < referenceRange> <observationRange> <text> > 59</text> </observationRange> </ referenceRange> </observation> </component> < component> <observation moodCode="EVN" classCode=" OBS"> <templateId root="2.16.840.1.734241.10.20.22.4.2& quot; /> <id nullFlavor="NA" /> <code codeSystem="local" code="GAP" displayName="ANION GAP& quot; /> <statusCode code="completed" /> & lt;effectiveTime value="643724203434" /> <value unit=& quot;mmol/L" xsi:type="PQ" value="10" /> & lt;referenceRange> <observationRange> <text& gt;5-15</text> </observationRange> </ referenceRange> </observation> </component> < component> <observation moodCode="EVN" classCode=" OBS"> <templateId root="2.16.840.1.439205.10.20.22.4.2& quot; /> <id nullFlavor="NA" /> <code codeSystem="local" code="eCrCl" displayName="EST CrCl ( CG)" /> <statusCode code="completed" /> & lt;effectiveTime value="544744959001" /> <value unit=& quot;mL/min" xsi:type="PQ" value="> 60" /> <referenceRange> <observationRange> < text>> 59</text> </observationRange> & lt;/referenceRange> </observation> </component> & lt;component> <observation moodCode="EVN" classCode=&quot ;OBS"> <templateId root="2.16.840.1.763069.10.20.22.4.2& quot; /> <id nullFlavor="NA" /> <code codeSystem="local" code="GLU" displayName="GLUCOSE&quot ; /> <statusCode code="completed" /> < effectiveTime value="842892495397" /> <value unit=&quot ;mg/dL" xsi:type="PQ" value="96" /> < referenceRange> <observationRange> <text> 70-99</text> </observationRange> </ referenceRange> </observation> </component> < component> <observation moodCode="EVN" classCode="OBS& quot;> <templateId root="2.16.840.1.629878.10.20.22.4.2&quot ; /> <id nullFlavor="NA" /> <code codeSystem="local" code="CA" displayName="CALCIUM&quot ; /> <statusCode code="completed" /> < effectiveTime value="728296116409" /> <value unit=&quot ;mg/dL" xsi:type="PQ" value="8.1" /> < interpretationCode codeSystem="local" code="*" /> <referenceRange> <observationRange> < text>8.5-10.1</text> </observationRange> < /referenceRange> </observation> </component> &lt ;component> <observation moodCode="EVN" classCode=" OBS"> <templateId root="2.16.840.1.552620.10.20.22.4.2& quot; /> <id nullFlavor="NA" /> <code codeSystem="local" code="BUN" displayName="BLOOD UREA NITROGEN" /> <statusCodecode="completed" /> <effectiveTime value="001114267459" /> <value unit ="mg/dL" xsi:type="PQ" value="8" /> & lt;referenceRange> <observationRange> <text& gt;7-20</text> </observationRange> </ referenceRange> </observation> </component> < component> <observation moodCode="EVN" classCode=" OBS"> <templateId root="2.16.840.1.672296.10..22.4.2& quot; /> <id nullFlavor="NA" /> <code codeSystem="local" code="CREAT" displayName="CREATININE " /> <statusCode code="completed" /> & lt;effectiveTime value="339877863625" /> <value unit=& quot;mg/dL" xsi:type="PQ" value="0.5" /> & lt;interpretationCode codeSystem="local" code="*" /> <referenceRange> <observationRange> & lt;text>0.6-1.0</text> </observationRange> &lt ;/referenceRange> </observation> </component> & lt;component> <observation moodCode="EVN" classCode=&quot ;OBS"> <templateId root="2.16.840.1.790303.10.20.22.4.2 " /> <id nullFlavor="NA" /> <code codeSystem="local" code="NA" displayName="SODIUM" /> <statusCode code="completed" /> < effectiveTime value="484400746064" /> <value unit=&quot ;mmol/L" xsi:type="PQ" value="136" /> < referenceRange> <observationRange> <text>135-148& lt;/text> </observationRange> </referenceRange& gt; </observation> </component> <component> <observation moodCode="EVN" classCode="OBS"> <templateId root="2.16.840.1.531051.10.20.22.4.2" /> <id nullFlavor="NA" /> <code codeSystem=&quot ;local" code="CL" displayName="CHLORIDE" /> <statusCode code="completed" /> <effectiveTime value="456006144060" /> <value unit="mmol/L" xsi:type="PQ" value="102" /> <referenceRange& gt; <observationRange> <text>98-110</text > </observationRange> </referenceRange> </observation> </component> <component> & lt;observation moodCode="EVN" classCode="OBS"> & lt;templateId root="2.16.840.1.471627.10.20.22.4.2" /> &lt ;id nullFlavor="NA" /> <code codeSystem="local& quot; code="AST" displayName="AST/SGOT" /> < statusCode code="completed" /> <effectiveTime value=& quot;855036085671" /> <value unit="Units/L" xsi: type="PQ" value="81" /> <interpretationCode codeSystem="local" code="*" /> < referenceRange> <observationRange> <text>10- 37</text> </observationRange> </ referenceRange> </observation> </component> < component> <observation moodCode="EVN" classCode=" OBS"> <templateId root="2.16.840.1.573110.10.20.22.4.2&quot ; /> <id nullFlavor="NA" /> <code codeSystem="local" code="ALT" displayName="ALT/SGPT& quot; /> <statusCode code="completed" /> & lt;effectiveTime value="362022335692" /> <value unit=& quot;Units/L" xsi:type="PQ" value="48" /> & lt;referenceRange> <observationRange> <text& gt;< 66</text> </observationRange> </ referenceRange> </observation> </component> < component> <observation moodCode="EVN" classCode=" OBS"> <templateId root="2.16.840.1.306779.10.20.22.4.2& quot; /> <id nullFlavor="NA" /> <code codeSystem="local" code="CO2" displayName="CARBON DIOXIDE" /> <statusCode code="completed" /> <effectiveTime value="558466441653" /> < value unit="mmol/L" xsi:type="PQ" value="24" /&gt ; <referenceRange> <observationRange> & lt;text>21-32</text> </observationRange> < /referenceRange> </observation> </component> &lt ;component> <observation moodCode="EVN" classCode=" OBS"> <templateId root="2.16.840.1.954748.10.20.22.4.2& quot; /> <id nullFlavor="NA" /> <code codeSystem="local" code="TP" displayName="TOTAL PROTEIN " /> <statusCode code="completed" /> < effectiveTime value="501541079735" /> <value unit=&quot ;gm/dL" xsi:type="PQ" value="7.4" /> < referenceRange> <observationRange> <text> 6.4-8.2</text> </observationRange> </ referenceRange> </observation> </component> < component> <observation moodCode="EVN" classCode=" OBS"> <templateId root="2.16.840.1.137882.10.20.22.4.2& quot; /> <id nullFlavor="NA" /> <code codeSystem="local" code="ALB" displayName="ALBUMIN&quot ; /> <statusCode code="completed" /> < effectiveTime value="116117446597" /><value unit="gm/dL& quot; xsi:type="PQ" value="3.2" /> < interpretationCode codeSystem="local" code="*" /> <referenceRange> <observationRange> < text>3.4-5.0</text> </observationRange> </ referenceRange> </observation> </component> < component> <observation moodCode="EVN" classCode=" OBS"> <templateId root="2.16.840.1.247043.10.20.22.4.2& quot; /> <id nullFlavor="NA" /> <code codeSystem="local" code="BILTOT" displayName="BILI TOTAL" /> <statusCode code="completed" /> & lt;effectiveTime value="670659732427" /> <value unit=& quot;mg/dL"xsi:type="PQ" value="2.1" /> &lt ;interpretationCode codeSystem="local" code="*" /> <referenceRange> <observationRange> < text>0.0-1.0</text> </observationRange> </ referenceRange> </observation> </component> < component><observation moodCode="EVN" classCode="OBS"& gt; <templateId root="2.16.840.1.389905.10.20.22.4.2" /&gt ; <id nullFlavor="NA" /> <code codeSystem=" local" code="ALKP" displayName="ALKALINE PHOSPHATASE TOTAL& quot; /> <statusCode code="completed" /> & lt;effectiveTime value="700630092001" /> <value unit=& quot;IU/L" xsi:type="PQ" value="215" /> &lt ;interpretationCode codeSystem="local" code="*" /> <referenceRange> <observationRange> < text>45-117</text> </observationRange> </ referenceRange> </observation> </component> </ organizer> </entry> <entry> <organizer moodCode="EVN " classCode="BATTERY"> <templateId root=" 2.16.840.1.865080.10.20.22.4.1" /> <id nullFlavor="NA&quot ; /> <code codeSystem="local" code="HDLPRO" displayName="LIPID PANEL" /> <statusCode code=" completed" /> <component> <observationmoodCode=& quot;EVN" classCode="OBS"> <templateId root=" 2.16.840.1.996968.10..22.4.2" /> <id nullFlavor="NA& quot; /> <code codeSystem="local" code="CHOL/HDL& quot; displayName="CHOLESTEROL/HDL RATIO" /> < statusCode code="completed" /> <effectiveTime value=& quot;811120457981" /> <value unit="" xsi:type=& quot;PQ" value="5.3" /> <interpretationCode codeSystem="local" code="*" /> <referenceRange&gt ; <observationRange> <text> < 5.0< /text> </observationRange> </referenceRange> </observation> </component> <component> <observation moodCode="EVN" classCode="OBS"> <templateId root="2.16.840.1.295833.10.20.22.4.2" /> <id nullFlavor="NA" /> <code codeSystem=" local" code="LDLX" displayName="LDL CHOLESTEROL" /> <statusCode code="completed" /> < effectiveTime value="544665515349" /> <value unit="mg/dL& quot; xsi:type="PQ" value="133" /> < interpretationCode codeSystem="local" code="*" /> <referenceRange> <observationRange> < text>< 100</text> </observationRange> </ referenceRange> </observation> </component> < component> <observation moodCode="EVN" classCode=" OBS"> <templateId root="2.16.840.1.257348.10.20.22.4.2& quot; /> <id nullFlavor="NA" /> <code codeSystem="local" code="VLDL" displayName="VLDL CHOLESTEROL" /> <statusCode code="completed" /&gt ; <effectiveTime value="526639341396" /> < value unit="mg/dL" xsi:type="PQ" value="49" /> <interpretationCode codeSystem="local" code="*&quot ; /> <referenceRange> <observationRange> <text>< 30</text> </observationRange& gt; </referenceRange> </observation> </ component> <component> <observation moodCode="EVN& quot; classCode="OBS"> <templateId root=" [id number]" /> <id nullFlavor="NA& quot; /> <code codeSystem="local" code="TRIG&quot ; displayName="TRIGLYCERIDES" /> <statusCode code=&quot ;completed" /> <effectiveTime value="[id number]&quot ; /> <value unit="mg/dL" xsi:type="PQ" value= "246" /> <interpretationCode codeSystem="local& quot; code="*" /> <referenceRange> < observationRange><text>< 150</text> </ observationRange> </referenceRange> </observation&gt ; </component> <component> <observation moodCode ="EVN" classCode="OBS"> <templateId root=& quot;[id number]" /> <id nullFlavor=&quot ;NA" /> <code codeSystem="local" code="CHOL& quot; displayName="CHOLESTEROL" /> <statusCode code=" completed" /> <effectiveTime value="[id number]" /> <value unit="mg/dL" xsi:type="PQ" value=& quot;224"/> <interpretationCode codeSystem="local&quot ; code="*" /><referenceRange> <observationRange > <text>< 200</text> </ observationRange> </referenceRange> </observation&gt ; </component> <component> <observation moodCode ="EVN"classCode="OBS"> <templateId root=&quot ;[id number]" /> <id nullFlavor="NA& quot; /> <code codeSystem="local" code="HDL" displayName="HDL CHOLESTEROL" /> <statusCode code=&quot ;completed" /> <effectiveTime value="[id number]&quot ; /> <value unit="mg/dL" xsi:type="PQ" value= "42" /> <referenceRange> < observationRange> <text>> 39</text> &lt ;/observationRange> </referenceRange> </observation& gt; </component> </organizer> </entry> <entry&gt ; <organizer moodCode="EVN" classCode="BATTERY"> <templateId root="2.16.840.1.958097.10.20.22.4.1" /> & lt;id nullFlavor="NA" /> <code codeSystem="local&quot ; code="PHOS" displayName="PHOSPHORUS" /> < statusCode code="completed" /> <component> < observation moodCode="EVN" classCode="OBS"> < templateId root="2.16.840.1.712773.10.20.22.4.2" /> <id nullFlavor="NA" /> <code codeSystem="local" code="PHOS" displayName="PHOSPHORUS" /> < statusCode code="completed" /> <effectiveTime value=& quot;060445060154" /> <value unit="mg/dL" xsi:type ="PQ" value="3.6" /> <referenceRange> <observationRange> <text>2.5-4.9</text> </observationRange> </referenceRange> </ observation> </component> </organizer> </entry> &lt ;entry> <organizer moodCode="EVN" classCode="BATTERY& quot;> <templateId root="2.16.840.1.979743.10.20.22.4.1" /& gt; <id nullFlavor="NA" /> <code codeSystem=" local" code="MAG" displayName="MAGNESIUM" /> & lt;statusCode code="completed" /> <component> < observation moodCode="EVN" classCode="OBS"> < templateId root="2.16.840.1.054818.10.20.22.4.2" /> < id nullFlavor="NA" /> <code codeSystem="local&quot ; code="MAG" displayName="MAGNESIUM" /> < statusCode code="completed" /> <effectiveTime value=& quot;582320375699" /> <value unit="mg/dL" xsi:type ="PQ" value="1.8" /> <referenceRange> <observationRange> <text>1.8-2.4</text> </observationRange> </referenceRange> </ observation> </component> </organizer></entry> &lt ;entry> <organizer moodCode="EVN" classCode="BATTERY& quot;> <templateId root="2.16.840.1.881308.10.20.22.4.1" /& gt; <id nullFlavor="NA" /> <code codeSystem=" local" code="GLUMON" displayName="GLUCOSE (POC)" /> <statusCode code="completed" /> <component> <observation moodCode="EVN" classCode="OBS"> <templateId root="2.16.840.1.381349.10.20.22.4.2" /> <id nullFlavor="NA" /> <code codeSystem=" local" code="GLUMON" displayName="GLUCOSE (POC)" /> <statusCode code="completed" /> < effectiveTime value="882042260058" /> <value unit=&quot ;mg/dL" xsi:type="PQ" value="83" /> < referenceRange> <observationRange> <text> 70-99</text> </observationRange> </ referenceRange> </observation> </component> </ organizer> </entry> <entry> <organizer moodCode="EVN " classCode="BATTERY"> <templateId root=" 2.16.840.1.392116.10.20.22.4.1" /> <id nullFlavor="NA&quot ; /> <code codeSystem="local" code="HGB" displayName="HEMOGLOBIN" /> <statusCode code=" completed" /> <component> <observation moodCode=& quot;EVN" classCode="OBS"> <templateId root=" 2.16.840.1.955864.10.20.22.4.2" /> <id nullFlavor="NA& quot; /> <code codeSystem="local" code="MCV" displayName="MEAN CELL VOLUME"/> <statusCode code=&quot ;completed" /> <effectiveTime value="668222321323&quot ; /> <value unit="fl" xsi:type="PQ" value=& quot;100.0" /> <referenceRange> < observationRange> <text>80.0-100.0</text> </observationRange> </referenceRange> </ observation> </component> <component> < observationmoodCode="EVN" classCode="OBS"> < templateId root="2.16.840.1.216168.10.20.22.4.2" /> < id nullFlavor="NA" /> <code codeSystem="local&quot ; code="HGBT" displayName="HEMOGLOBIN" /> < statusCode code="completed" /> <effectiveTime value=& quot;949578102379" /> <value unit="gm/dL" xsi:type ="PQ" value="13.7" /> <referenceRange> <observationRange> <text>12.0-16.0</text&gt ; </observationRange> </referenceRange> & lt;/observation> </component> </organizer> </entry&gt ; <entry> <organizer moodCode="EVN" classCode=" BATTERY"> <templateId root="2.16.840.1.098180.10.20.22.4.1& quot; /> <id nullFlavor="NA" /> <code codeSystem ="local" code="NAVNEET" displayName="AMYLASE" /> <statusCode code="completed" /> <component> <observation moodCode="EVN" classCode="OBS"> <templateId root="2.16.840.1.542613.10..22.4.2" /> <id nullFlavor="NA" /> <code codeSystem=" local" code="NAVNEET" displayName="AMYLASE" /> <statusCode code="completed" /> <effectiveTime value ="462281062521" /> <value unit="Units/L" xsi: type="PQ" value="136" /> <interpretationCode codeSystem="local" code="*" /> < referenceRange> <observationRange> <text>25- 115</text> </observationRange> </ referenceRange> </observation> </component> </ organizer> </entry> <entry> <organizer moodCode="EVN " classCode="BATTERY"> <templateId root=" 2.16.840.1.677913...22.4.1" /> <id nullFlavor="NA" / > <code codeSystem="local" code="LIP" displayName ="LIPASE" /> <statusCode code="completed" />& lt;component> <observation moodCode="EVN" classCode=&quot ;OBS"> <templateId root="2.16.840.1.731994.10.20.22.4.2&quot ; /> <id nullFlavor="NA" /> <code codeSystem="local" code="LIP" displayName="LIPASE&quot ; /> <statusCode code="completed" /> < effectiveTime value="411771739263" /> <value unit=&quot ;Units/L" xsi:type="PQ" value="1153" /> &lt ;interpretationCode codeSystem="local"code="*" /> <referenceRange> <observationRange> <text>73 -393</text> </observationRange> </ referenceRange> </observation> </component> </ organizer> </entry> <entry> <organizer moodCode="EVN " classCode="BATTERY"> <templateId root=" 2.16.840.1.846875.10.20.22.4.1" /> <id nullFlavor="NA&quot ; /> <code codeSystem="local" code="HGB" displayName="HEMOGLOBIN"/> <statusCode code="completed " /> <component> <observation moodCode="EVN& quot; classCode="OBS"> <templateId root=" 2.16.840.1.732779.10.20.22.4.2" /> <id nullFlavor="NA& quot; /> <code codeSystem="local" code="MCV" displayName="MEAN CELL VOLUME" /> <statusCode code=" completed" /> <effectiveTime value="539397023950" /> <value unit="fl" xsi:type="PQ" value=&quot ;101.3" /> <interpretationCode codeSystem="local" code="*" /> <referenceRange> < observationRange> <text>80.0-100.0</text> </observationRange> </referenceRange> </ observation> </component> <component> < observation moodCode="EVN" classCode="OBS"> < templateId root="2.16.840.1.773170.10.20.22.4.2" /> < id nullFlavor="NA" /> <code codeSystem="local&quot ; code="HGBT" displayName="HEMOGLOBIN" /> < statusCode code="completed" /> <effectiveTime value=& quot;255143318067" /> <value unit="gm/dL" xsi:type ="PQ" value="12.8" /> <referenceRange> <observationRange> <text>12.0-16.0</text&gt ; </observationRange> </referenceRange> </ observation> </component> </organizer> </entry> & lt;entry> <organizer moodCode="EVN" classCode="BATTERY& quot;> <templateId root="2.16.840.1.545846.10.20.22.4.1" /& gt; <id nullFlavor="NA" /> <code codeSystem=" local" code="HH" displayName="HGB HCT" /> &lt ;statusCode code="completed" /> <component> < observation moodCode="EVN" classCode="OBS"> < templateId root="2.16.840.1.141272.10.20.22.4.2" /> < id nullFlavor="NA" /> <code codeSystem="local&quot ; code="MCV" displayName="MEAN CELL VOLUME" /> & lt;statusCode code="completed" /> <effectiveTime value= "216831415111" /> <value unit="fl" xsi:type=& quot;PQ" value="99.7" /> <referenceRange> & lt;observationRange> <text>80.0-100.0</text> </observationRange> </referenceRange> </ observation> </component> <component> < observation moodCode="EVN" classCode="OBS"> < templateId root="2.16.840.1.649397.10.20.22.4.2" /> < id nullFlavor="NA" /> <code codeSystem="local&quot ; code="HGBT" displayName="HEMOGLOBIN" /> < statusCode code="completed" /> <effectiveTime value=& quot;972575014360" /> <value unit="gm/dL" xsi:type ="PQ" value="12.8" /> <referenceRange> <observationRange> <text>12.0-16.0</text&gt ; </observationRange> </referenceRange> < /observation> </component> <component> < observation moodCode="EVN" classCode="OBS"> < templateId root="2.16.840.1.850015.10.20.22.4.2" /> < id nullFlavor="NA" /> <code codeSystem="local&quot ; code="HCTT" displayName="HEMATOCRIT" /> < statusCode code="completed" /> <effectiveTime value=& quot;110304754718" /> <value unit="%" xsi: type="PQ" value="38.2" /> <referenceRange&gt ; <observationRange> <text>37.0-47.0</ text> </observationRange> </referenceRange> </observation> </component> </organizer> </ entry> <entry> <organizer moodCode="EVN" classCode=& quot;BATTERY"> <templateId root="2.16.840.1.116812.10.20.22.4.1 " /> <id nullFlavor="NA" /> <code codeSystem="local" code="CBCD" displayName="CBCW/DIFF& quot; /> <statusCode code="completed" /> < component> <observation moodCode="EVN" classCode="OBS" > <templateId root="2.16.840.1.718363.10.20.22.4.2" /& gt; <id nullFlavor="NA" /> <code codeSystem=& quot;local" code="EO#" displayName="EOSINOPHIL #"/> <statusCode code="completed" /> < effectiveTime value="135398084926" /> <value unit=&quot ;k/cumm" xsi:type="PQ" value="0.2" /> < referenceRange> <observationRange><text>0.1-0.5</ text> </observationRange> </referenceRange> </observation> </component> <component> <observation moodCode="EVN" classCode="OBS"> <templateId root="2.16.840.1.065380.10.20.22.4.2" /> <id nullFlavor="NA" /> <code codeSystem=" local" code="EO%" displayName="EOSINOPHIL %& quot; /> <statusCode code="completed" /> & lt;effectiveTime value="592474929933" /> <value unit=& quot;%" xsi:type="PQ" value="6" /> <interpretationCode codeSystem="local" code="*" /> <referenceRange> <observationRange> & lt;text>2-4</text> </observationRange> </ referenceRange> </observation> </component> < component> <observation moodCode="EVN" classCode=" OBS"> <templateId root="2.16.840.1.104780.10.20.22.4.2& quot; /> <id nullFlavor="NA" /> <code codeSystem="local" code="GR#" displayName="GRANULOCYTE #" /> <statusCode code="completed" /> <effectiveTime value="928625844968" /> <value unit=& quot;k/cumm" xsi:type="PQ" value="1.6" /> & lt;interpretationCode codeSystem="local" code="*" /> <referenceRange> <observationRange> &lt ;text>2.0-9.0</text> </observationRange> < /referenceRange> </observation> </component> &lt ;component> <observation moodCode="EVN" classCode=" OBS"> <templateId root="2.16.840.1.731406.10.20.22.4.2& quot; /> <id nullFlavor="NA" /> <code codeSystem="local" code="GR%" displayName=" GRANULOCYTE %" /> <statusCode code="completed& quot; /> <effectiveTime value="969599500108" /> <value unit="%" xsi:type="PQ" value=" 38" /> <interpretationCode codeSystem="local" code ="*" /> <referenceRange> < observationRange> <text>50-75</text> < /observationRange> </referenceRange> </observation& gt; </component> <component> <observation moodCode="EVN" classCode="OBS"> <templateId root="2.16.840.1.184802.10.20.22.4.2" /> <id nullFlavor ="NA" /> <code codeSystem="local" code=" LY#" displayName="LYMPHOCYTE #" /> <statusCode code="completed" /> <effectiveTime value=" 411620699455" /> <value unit="k/cumm" xsi:type=& quot;PQ" value="2.0" /> <referenceRange> <observationRange> <text>1.0-4.0</text> </observationRange> </referenceRange> </ observation> </component> <component> < observation moodCode="EVN" classCode="OBS"> < templateId root="2.16.840.1.638014.10.20.22.4.2" /> < id nullFlavor="NA" /> <code codeSystem="local" code=& quot;LY%" displayName="LYMPHOCYTE %" /> <statusCode code="completed" /> <effectiveTime value="891647135417" /> <value unit="%& quot; xsi:type="PQ" value="47" /> < interpretationCode codeSystem="local" code="*" /> <referenceRange> <observationRange><text>20-30& lt;/text> </observationRange> </referenceRange& gt; </observation> </component> <component> <observation moodCode="EVN" classCode="OBS"> <templateId root="2.16.840.1.824953.10.20.22.4.2" /> <id nullFlavor="NA" /> <code codeSystem=" local" code="MCH" displayName="MEAN CELL HGB" /> <statusCode code="completed" /> < effectiveTime value="810778930545" /> <value unit=&quot ;pg" xsi:type="PQ" value="33.7" /> < interpretationCode codeSystem="local" code="*" /> <referenceRange> <observationRange> < text>27.0-33.0</text> </observationRange> </ referenceRange> </observation></component> < component> <observation moodCode="EVN" classCode=" OBS"> <templateId root="2.16.840.1.592992.10.20.22.4.2& quot; /> <id nullFlavor="NA" /> <code codeSystem="local" code="MCHC" displayName="MEAN CELL HGB CONCENTRATION" /> <statusCode code="completed&quot ; /> <effectiveTime value="127036864220" /> <value unit="g/dL" xsi:type="PQ" value="33.8&quot ; /> <referenceRange> <observationRange> <text>32.0-37.0</text> </observationRange> </referenceRange> </observation> </component& gt; <component> <observation moodCode="EVN" classCode="OBS"> <templateId root=" 2.16.840.1.845455.10.20.22.4.2" /> <id nullFlavor="NA" / > <code codeSystem="local" code="MCV" displayName="MEAN CELL VOLUME" /> <statusCode code=& quot;completed" /> <effectiveTime value="375573095660& quot; /> <value unit="fl" xsi:type="PQ" value ="99.5" /> <referenceRange> < observationRange> <text>80.0-100.0</text> </observationRange> </referenceRange> </ observation> </component> <component> < observation moodCode="EVN" classCode="OBS"> < templateId root="2.16.840.1.582240.10.20.22.4.2" /> < id nullFlavor="NA" /> <code codeSystem="local&quot ; code="MO#" displayName="MONOCYTE #" /> < statusCode code="completed" /> <effectiveTime value=" 054654907128" /> <value unit="k/cumm" xsi:type=& quot;PQ" value="0.4" /> <referenceRange> <observationRange> <text>0.1-1.0</text> </observationRange> </referenceRange> </ observation> </component> <component> < observation moodCode="EVN" classCode="OBS"> < templateId root="2.16.840.1.993529.10.20.22.4.2" /> < id nullFlavor="NA" /> <code codeSystem="local&quot ; code="MO%" displayName="MONOCYTE %" /> <statusCode code="completed" /> < effectiveTime value="535458460769" /> <value unit=&quot ;%" xsi:type="PQ" value="9" /> < interpretationCode codeSystem="local" code="*" /> <referenceRange> <observationRange> < text>4-6</text> </observationRange> </ referenceRange> </observation> </component> < component> <observation moodCode="EVN" classCode=" OBS"> <templateId root="2.16.840.1.809910.10.20.22.4.2& quot; /> <id nullFlavor="NA" /> <code codeSystem="local" code="RBC" displayName="RED BLOOD CELL" /> <statusCode code="completed" /> <effectiveTime value="626664181439" /> <value unit ="m/cumm" xsi:type="PQ" value="3.92" /> <interpretationCode codeSystem="local" code="*" /> <referenceRange> <observationRange> <text>4.00-6.00</text> </observationRange> </referenceRange> </observation> </component> <component> <observation moodCode="EVN" classCode= "OBS"> <templateId root=" 2.16.840.1.184039.10.20.22.4.2" /> <id nullFlavor="NA& quot; /> <code codeSystem="local" code="RDW" displayName="RED CELL DISTRIBUTION WIDTH" /> < statusCode code="completed" /> <effectiveTime value=& quot;172058191742" /> <value unit="%" xsi: type="PQ" value="15.0" /> <referenceRange&gt ; <observationRange> <text>11.0-15.6</ text> </observationRange> </referenceRange> </observation> </component> <component> <observation moodCode="EVN" classCode="OBS"> <templateId root="2.16.840.1.080476.10.20.22.4.2" /> <id nullFlavor="NA" /> <code codeSystem=" local" code="WBC" displayName="WHITE BLOOD CELL" /> <statusCodecode="completed" /> < effectiveTime value="924624392162" /> <value unit="k/ cumm" xsi:type="PQ" value="4.2" /> < interpretationCode codeSystem="local" code="*" /> <referenceRange> <observationRange> < text>5.0-10.0</text></observationRange> </ referenceRange> </observation> </component> < component> <observation moodCode="EVN" classCode=" OBS"> <templateId root="2.16.840.1.260457.10.20.22.4.2& quot; /> <id nullFlavor="NA" /> <code codeSystem="local" code="HGBT" displayName="HEMOGLOBIN& quot; /> <statusCode code="completed" /> &lt ;effectiveTime value="035385937971" /> <value unit=& quot;gm/dL" xsi:type="PQ" value="13.2" /> & lt;referenceRange><observationRange> <text>12.0-16.0 </text> </observationRange> </referenceRange& gt; </observation> </component> <component> <observation moodCode="EVN" classCode="OBS"> & lt;templateId root="2.16.840.1.399130.10.20.22.4.2" /> &lt ;id nullFlavor="NA" /> <code codeSystem="local& quot; code="HCTT" displayName="HEMATOCRIT" /> & lt;statusCode code="completed" /> <effectiveTime value= "216560057339" /> <value unit="%" xsi :type="PQ" value="39.0" /> <referenceRange&gt ; <observationRange> <text>37.0-47.0</ text> </observationRange> </referenceRange> </observation> </component> <component> &lt ;observation moodCode="EVN" classCode="OBS"> &lt ;templateId root="2.16.840.1.240901.10.20.22.4.2" /> < id nullFlavor="NA" /> <code codeSystem="local&quot ; code="PLT" displayName="PLATELET COUNT" /> &lt ;statusCode code="completed" /> <effectiveTimevalue=& quot;827238038202" /> <value unit="k/cumm" xsi: type="PQ" value="125" /> <interpretationCode codeSystem="local" code="*" /> < referenceRange> <observationRange> <text> 150-400</text> </observationRange> </ referenceRange> </observation> </component> </ organizer> </entry> <entry> <organizer moodCode="EVN " classCode="BATTERY"> <templateId root=" 2.16.840.1.034139.10.20.22.4.1" /> <id nullFlavor="NA&quot ; /> <code codeSystem="local" code="METABC" displayName="METABOLIC PANEL, COMPREHN" /> <statusCode code ="completed" /> <component> <observation moodCode="EVN" classCode="OBS"> <templateId root="2.16.840.1.790578.10..22.4.2" /> <id nullFlavor ="NA" /> <code codeSystem="local" code="K" displayName="POTASSIUM" /> <statusCode code=" completed" /> <effectiveTime value="200467839782" /> <value unit="mmol/L" xsi:type="PQ" value=& quot;3.6" /> <referenceRange> < observationRange> <text>3.5-5.3</text> & lt;/observationRange> </referenceRange> </observation> </component> <component> <observation moodCode=& quot;EVN" classCode="OBS"> <templateId root=" 2.16.840.1.142196.10.20.22.4.2" /> <id nullFlavor="NA& quot; /> <code codeSystem="local" code="eGFR&quot ; displayName="EST GFR (MDRD)" /> <statusCode code=& quot;completed" /> <effectiveTime value="322191449926& quot; /> <value unit="mL/min" xsi:type="PQ" value="> 60" /> <referenceRange> & lt;observationRange> <text>> 59</text> </observationRange> </referenceRange> </ observation> </component> <component> < observation moodCode="EVN" classCode="OBS"> < templateId root="2.16.840.1.795696.10.20.22.4.2" /> < id nullFlavor="NA" /> <code codeSystem="local&quot ; code="GAP" displayName="ANION GAP" /> < statusCode code="completed" /> <effectiveTime value=& quot;001219849277" /> <value unit="mmol/L" xsi:type=&quot ;PQ" value="10" /> <referenceRange> <observationRange> <text>5-15</text> </ observationRange> </referenceRange> </observation&gt ; </component> <component> <observation moodCode ="EVN" classCode="OBS"> <templateId root=& quot;2.16.840.1.549157.10..22.4.2" /> <id nullFlavor="NA& quot; /> <code codeSystem="local" code="eCrCl&quot ; displayName="EST CrCl (CG)" /> <statusCode code=&quot ;completed" /> <effectiveTime value="871716465239&quot ; /> <value unit="mL/min" xsi:type="PQ" value ="> 60" /> <referenceRange> < observationRange> <text>> 59</text> </ observationRange> </referenceRange> </observation&gt ; </component> <component> <observation moodCode ="EVN" classCode="OBS"> <templateId root=& quot;2.16.840.1.038610.10..22.4.2" /> <id nullFlavor="NA&quot ; /> <code codeSystem="local" code="GLU" displayName="GLUCOSE" /> <statusCode code=" completed" /> <effectiveTime value="618382585752" /> <value unit="mg/dL" xsi:type="PQ" value=& quot;66" /> <interpretationCode codeSystem="local&quot ; code="*" /> <referenceRange> < observationRange> <text>70-99</text> < /observationRange> </referenceRange> </observation& gt; </component> <component> <observation moodCode=& quot;EVN" classCode="OBS"> <templateId root=" 2.16.840.1.484408.10.20.22.4.2" /> <id nullFlavor="NA& quot; /> <code codeSystem="local" code="CA" displayName="CALCIUM" /> <statusCode code=" completed" /> <effectiveTime value="035455575220" /> <value unit="mg/dL" xsi:type="PQ" value=& quot;8.4" /> <interpretationCode codeSystem="local&quot ; code="*" /> <referenceRange> < observationRange> <text>8.5-10.1</text> & lt;/observationRange> </referenceRange> </ observation> </component> <component> < observation moodCode="EVN" classCode="OBS"> < templateId root="2.16.840.1.473791.10..22.4.2" /> < id nullFlavor="NA" /> <code codeSystem="local&quot ; code="BUN" displayName="BLOOD UREA NITROGEN" /> <statusCodecode="completed" /> <effectiveTime value="917756470604" /> <value unit="mg/dL" xsi: type="PQ" value="5" /> <interpretationCode codeSystem="local" code="*" /> < referenceRange> <observationRange> <text> 7-20</text> </observationRange> </ referenceRange> </observation> </component> < component> <observation moodCode="EVN" classCode=" OBS"> <templateId root="2.16.840.1.207455.10..22.4.2& quot; /> <id nullFlavor="NA" /> <code codeSystem="local" code="CREAT" displayName="CREATININE " /> <statusCode code="completed" /> < effectiveTime value="405455806850" /> <value unit=&quot ;mg/dL" xsi:type="PQ" value="0.6" /> < referenceRange> <observationRange> <text> 0.6-1.0</text> </observationRange> </ referenceRange> </observation> </component> < component> <observation moodCode="EVN" classCode=" OBS"> <templateId root="2.16.840.1.789285.10.20.22.4.2& quot; /> <id nullFlavor="NA" /> <code codeSystem="local" code="NA" displayName="SODIUM" /> <statusCode code="completed" /> < effectiveTime value="671055894651" /> <value unit=&quot ;mmol/L" xsi:type="PQ" value="140" /> < referenceRange> <observationRange> <text>135-148& lt;/text> </observationRange> </referenceRange& gt; </observation> </component> <component> <observation moodCode="EVN" classCode="OBS"> <templateId root="2.16.840.1.714626.10..22.4.2" /> <id nullFlavor="NA" /> <code codeSystem=&quot ;local" code="CL" displayName="CHLORIDE" /> <statusCode code="completed" /> <effectiveTime value="739280783921" /> <value unit="mmol/L" xsi:type="PQ" value="104" /> <referenceRange& gt; <observationRange> <text>98-110</text > </observationRange> </referenceRange> </observation> </component> <component> & lt;observation moodCode="EVN" classCode="OBS"> & lt;templateId root="2.16.840.1.474459.10..22.4.2" /> &lt ;id nullFlavor="NA" /> <code codeSystem="local& quot; code="AST" displayName="AST/SGOT" /> < statusCode code="completed" /> <effectiveTime value=& quot;978448978777" /> <value unit="Units/L" xsi: type="PQ" value="61" /> <interpretationCode codeSystem="local" code="*" /> < referenceRange> <observationRange> <text>10- 37</text> </observationRange> </ referenceRange> </observation> </component> < component> <observation moodCode="EVN" classCode=" OBS"> <templateId root="2.16.840.1.868959.10.20.22.4.2&quot ; /> <id nullFlavor="NA" /> <code codeSystem="local" code="ALT" displayName="ALT/SGPT& quot; /> <statusCode code="completed" /> & lt;effectiveTime value="059180294747" /> <value unit=& quot;Units/L" xsi:type="PQ" value="54" /> & lt;referenceRange> <observationRange> <text& gt;< 66</text> </observationRange> </ referenceRange> </observation> </component> < component> <observation moodCode="EVN" classCode=" OBS"> <templateId root="2.16.840.1.553542.10.20.22.4.2& quot; /> <id nullFlavor="NA" /> <code codeSystem="local" code="CO2" displayName="CARBON DIOXIDE" /> <statusCode code="completed" /> <effectiveTime value="375886445960" /> < value unit="mmol/L" xsi:type="PQ" value="26" /&gt ; <referenceRange> <observationRange> & lt;text>21-32</text> </observationRange> < /referenceRange> </observation> </component> &lt ;component> <observation moodCode="EVN" classCode=" OBS"> <templateId root="2.16.840.1.259935.10.20.22.4.2& quot; /> <id nullFlavor="NA" /> <code codeSystem="local" code="TP" displayName="TOTAL PROTEIN " /> <statusCode code="completed" /> < effectiveTime value="128873848259" /> <value unit=&quot ;gm/dL" xsi:type="PQ" value="6.7" /> < referenceRange> <observationRange> <text> 6.4-8.2</text> </observationRange> </ referenceRange> </observation> </component> < component> <observation moodCode="EVN" classCode=" OBS"> <templateId root="[id number]& quot; /> <id nullFlavor="NA" /> <code codeSystem="local" code="ALB" displayName="ALBUMIN&quot ; /> <statusCode code="completed" /> < effectiveTime value="[id number]" /><value unit="gm/dL& quot; xsi:type="PQ" value="2.8" /> < interpretationCode codeSystem="local" code="*" /> <referenceRange> <observationRange> < text>3.4-5.0</text> </observationRange> </ referenceRange> </observation> </component> < component> <observation moodCode="EVN" classCode=" OBS"> <templateId root="2.16.840.1.634719.10.20.22.4.2& quot; /> <id nullFlavor="NA" /> <code codeSystem="local" code="BILTOT" displayName="BILI TOTAL" /> <statusCode code="completed" /> & lt;effectiveTime value="229255006710" /> <value unit=& quot;mg/dL"xsi:type="PQ" value="0.8" /> &lt ;referenceRange> <observationRange> <text&gt ;0.0-1.0</text> </observationRange> </ referenceRange> </observation> </component> < component> <observation moodCode="EVN" classCode=" OBS"> <templateId root="2.16.840.1.318767.10.20.22.4.2& quot; /> <id nullFlavor="NA" /> <code codeSystem="local" code="ALKP" displayName="ALKALINE PHOSPHATASE TOTAL" /> <statusCode code="completed&quot ; /><effectiveTime value="530880500963" /> < value unit="IU/L" xsi:type="PQ" value="206" /> <interpretationCode codeSystem="local" code="*&quot ; /> <referenceRange> <observationRange> <text>45-117</text> </observationRange> </referenceRange> </observation> </component& gt; </organizer> </entry> <entry> <organizer moodCode="EVN" classCode="BATTERY"> <templateId root="2.16.840.1.815517.10.20.22.4.1" /> <id nullFlavor=& quot;NA" /> <code codeSystem="local" code="PHOS& quot; displayName="PHOSPHORUS" /> <statusCode code=" completed" /> <component> <observation moodCode=& quot;EVN" classCode="OBS"> <templateId root=" 2.16.840.1.051483.10.20.22.4.2" /> <id nullFlavor="NA& quot; /><code codeSystem="local" code="PHOS" displayName="PHOSPHORUS" /> <statusCode code=" completed" /> <effectiveTime value="821855409216" /> <value unit="mg/dL" xsi:type="PQ" value=& quot;3.9" /> <referenceRange> < observationRange> <text>2.5-4.9</text> & lt;/observationRange> </referenceRange> </observation> </component> </organizer> </entry> <entry> & lt;organizer moodCode="EVN" classCode="BATTERY"> &lt ;templateId root="2.16.840.1.045246.10.20.22.4.1" /> <id nullFlavor="NA" /> <code codeSystem="local" code= "MAG" displayName="MAGNESIUM" /> <statusCode code ="completed" /> <component> <observation moodCode="EVN" classCode="OBS"> <templateId root="2.16.840.1.812030.10.20.22.4.2" /> <id nullFlavor ="NA" /> <code codeSystem="local" code=" MAG" displayName="MAGNESIUM" /> <statusCode code=& quot;completed" /> <effectiveTime value="325516766008& quot; /> <value unit="mg/dL" xsi:type="PQ" value ="1.5" /><interpretationCode codeSystem="local" code=& quot;*" /> <referenceRange> < observationRange> <text>1.8-2.4</text></ observationRange> </referenceRange> </observation&gt ; </component> </organizer> </entry> <entry> <organizer moodCode="EVN" classCode="BATTERY"> <templateId root="2.16.840.1.080099.10.20.22.4.1" /> < id nullFlavor="NA" /> <code codeSystem="local" code="HH" displayName="HGB HCT" /> <statusCode code="completed" /> <component> <observation moodCode="EVN" classCode="OBS"> <templateId root="2.16.840.1.019952.10.20.22.4.2" /> <id nullFlavor ="NA" /> <code codeSystem="local" code=" MCV" displayName="MEAN CELL VOLUME" /> < statusCode code="completed" /> <effectiveTime value=& quot;201712144809" /> <value unit="fl" xsi:type=& quot;PQ" value="100.3" /> <interpretationCode codeSystem="local" code="*" /> < referenceRange> <observationRange> <text> 80.0-100.0</text> </observationRange> </ referenceRange> </observation> </component> < component> <observation moodCode="EVN" classCode=" OBS"> <templateId root="2.16.840.1.033814.10.20.22.4.2& quot; /> <id nullFlavor="NA"/> <code codeSystem="local" code="HGBT" displayName="HEMOGLOBIN& quot; /> <statusCode code="completed" /> & lt;effectiveTime value="259911478783" /> <value unit=& quot;gm/dL" xsi:type="PQ"value="12.8" /> & lt;referenceRange> <observationRange> <text> 12.0-16.0</text> </observationRange> </ referenceRange> </observation> </component> < component> <observation moodCode="EVN" classCode=" OBS"> <templateId root="2.16.840.1.093707.10.20.22.4.2& quot; /> <id nullFlavor="NA" /> <code codeSystem="local" code="HCTT" displayName="HEMATOCRIT& quot; /> <statusCode code="completed" /> < effectiveTime value="515696602592" /> <value unit=&quot ;%" xsi:type="PQ" value="38.2" /> & lt;referenceRange> <observationRange> <text& gt;37.0-47.0</text> </observationRange> </ referenceRange> </observation> </component> </ organizer> </entry> <entry> <organizer moodCode="EVN " classCode="BATTERY"> <templateId root=" 2.16.840.1.221998.10.20.22.4.1" /> <id nullFlavor="NA&quot ; /> <code codeSystem="local" code="HH" displayName=& quot;HGB HCT" /> <statusCode code="completed" /> <component> <observation moodCode="EVN" classCode=& quot;OBS"> <templateId root=" 2.16.840.1.697275.10.20.22.4.2" /> <id nullFlavor="NA& quot; /> <code codeSystem="local" code="MCV" displayName="MEAN CELL VOLUME" /> <statusCode code=& quot;completed" /> <effectiveTime value="982562614001& quot; /> <value unit="fl" xsi:type="PQ" value ="100.5" /> <interpretationCode codeSystem="local& quot; code="*" /> <referenceRange> < observationRange> <text>80.0-100.0</text> </observationRange> </referenceRange> </ observation> </component> <component> < observation moodCode="EVN" classCode="OBS"> < templateId root="2.16.840.1.415742.10.20.22.4.2" /> <id nullFlavor="NA" /> <code codeSystem="local" code="HGBT" displayName="HEMOGLOBIN" /> < statusCode code="completed" /> <effectiveTime value=& quot;030107135356" /> <value unit="gm/dL" xsi:type ="PQ" value="13.4" /> <referenceRange> <observationRange> <text>12.0-16.0</text&gt ; </observationRange> </referenceRange> & lt;/observation> </component> <component> < observation moodCode="EVN" classCode="OBS"> < templateId root="2.16.840.1.556335.10.20.22.4.2" /> < id nullFlavor="NA" /> <code codeSystem="local&quot ; code="HCTT" displayName="HEMATOCRIT" /> < statusCode code="completed" /> <effectiveTime value=" 086104949771" /> <value unit="%" xsi:type= "PQ" value="40.9" /> <referenceRange>< observationRange> <text>37.0-47.0</text> </observationRange> </referenceRange> </ observation> </component> </organizer> </entry> & lt;entry> <organizer moodCode="EVN" classCode="BATTERY& quot;> <templateId root="2.16.840.1.561784.10.20.22.4.1" /& gt; <id nullFlavor="NA" /> <code codeSystem=" local" code="CBCD" displayName="CBC W/DIFF" /> <statusCode code="completed" /><component> < observation moodCode="EVN" classCode="OBS"> < templateId root="2.16.840.1.431327.10.20.22.4.2" /> < id nullFlavor="NA" /> <code codeSystem="local&quot ; code="BA#" displayName="BASOPHIL #" /> < statusCode code="completed" /> <effectiveTime value=& quot;038105806454" /> <value unit="k/cumm" xsi: type="PQ" value="0.0" /> <referenceRange> <observationRange> <text>0.0-0.2</text& gt; </observationRange></referenceRange> </ observation> </component> <component> < observation moodCode="EVN" classCode="OBS"> < templateId root="2.16.840.1.057620.10..22.4.2" /> < id nullFlavor="NA" /> <code codeSystem="local&quot ; code="BA%" displayName="BASOPHIL %" /> <statusCode code="completed" /> < effectiveTime value="724247196470" /> <value unit=&quot ;%" xsi:type="PQ" value="1" /> < referenceRange> <observationRange> <text> 0-1</text> </observationRange> </ referenceRange> </observation> </component> < component> <observation moodCode="EVN" classCode=" OBS"> <templateId root="2.16.840.1.062271.10.20.22.4.2& quot; /> <id nullFlavor="NA" /> <code codeSystem ="local" code="EO#" displayName="EOSINOPHIL #" /& gt; <statusCode code="completed" /> < effectiveTime value="368252082989" /> <value unit=&quot ;k/cumm" xsi:type="PQ" value="0.3" /> < referenceRange> <observationRange> <text> 0.1-0.5</text> </observationRange> </ referenceRange> </observation> </component> < component> <observation moodCode="EVN" classCode=" OBS"> <templateId root="2.16.840.1.560913.10.20.22.4.2& quot; /> <id nullFlavor="NA" /> <code codeSystem="local" code="EO%" displayName=" EOSINOPHIL %" /> <statusCode code="completed& quot; /> <effectiveTime value="100482736505" /> <value unit="%" xsi:type="PQ" value="6 " /> <interpretationCode codeSystem="local" code=& quot;*" /> <referenceRange> < observationRange> <text>2-4</text> </ observationRange> </referenceRange> </observation&gt ; </component> <component> <observation moodCode ="EVN" classCode="OBS"> <templateId root=& quot;2.16.840.1.972606.10.20.22.4.2" /> <id nullFlavor=&quot ;NA" /> <code codeSystem="local" code="GR#& quot; displayName="GRANULOCYTE #" /> <statusCode code=& quot;completed" /> <effectiveTime value="574843559233& quot; /> <value unit="k/cumm" xsi:type="PQ" value="1.1" /> <interpretationCode codeSystem=" local" code="*" /> <referenceRange> < observationRange> <text>2.0-9.0</text> & lt;/observationRange> </referenceRange> </ observation> </component> <component> < observation moodCode="EVN" classCode="OBS"> < templateId root="2.16.840.1.031116.10.20.22.4.2" /> < id nullFlavor="NA" /> <code codeSystem="local&quot ; code="GR%" displayName="GRANULOCYTE %" /& gt; <statusCode code="completed" /> < effectiveTime value="452145867122" /> <value unit=&quot ;%" xsi:type="PQ" value="27" /> &lt ;interpretationCode codeSystem="local" code="*" /> <referenceRange> <observationRange> < text>50-75</text> </observationRange> </ referenceRange> </observation> </component> < component> <observation moodCode="EVN" classCode=" OBS"> <templateId root="2.16.840.1.495250.10.20.22.4.2& quot; /> <id nullFlavor="NA" /> <code codeSystem="local" code="LY#" displayName="LYMPHOCYTE # " /> <statusCode code="completed" /> & lt;effectiveTime value="970929920379" /> <value unit=& quot;k/cumm" xsi:type="PQ" value="2.3" /> & lt;referenceRange> <observationRange> <text&gt ;1.0-4.0</text> </observationRange> </ referenceRange> </observation> </component> < component> <observation moodCode="EVN" classCode=" OBS"> <templateId root="2.16.840.1.795754.10..22.4.2& quot; /> <id nullFlavor="NA" /> <code codeSystem="local" code="LY%" displayName=" LYMPHOCYTE %" /> <statusCode code="completed& quot; /> <effectiveTime value="983985667594" /> <value unit="%" xsi:type="PQ" value=" 54" /> <interpretationCode codeSystem="local" code ="*" /> <referenceRange> < observationRange> <text>20-30</text> < /observationRange> </referenceRange> </observation> </component> <component> <observation moodCode=& quot;EVN" classCode="OBS"> <templateId root=" 2.16.840.1.296956.10.20.22.4.2" /> <id nullFlavor="NA& quot; /> <code codeSystem="local" code="MCH" displayName="MEAN CELL HGB" /> <statusCode code=" completed" /> <effectiveTime value="460617437558" /> <value unit="pg" xsi:type="PQ" value=&quot ;33.4" /> <interpretationCode codeSystem="local" code=& quot;*" /> <referenceRange> < observationRange> <text>27.0-33.0</text> </ observationRange> </referenceRange> </observation&gt ; </component> <component> <observation moodCode ="EVN" classCode="OBS"> <templateId root=& quot;2.16.840.1.029891.10.20.22.4.2" /> <id nullFlavor="NA&quot ; /> <code codeSystem="local" code="MCHC" displayName="MEAN CELL HGB CONCENTRATION" /> < statusCode code="completed" /> <effectiveTime value=& quot;531031493932" /> <value unit="g/dL" xsi:type= "PQ" value="34.3" /> <referenceRange> <observationRange> <text>32.0-37.0</text&gt ; </observationRange> </referenceRange> </ observation> </component> <component> < observation moodCode="EVN" classCode="OBS"> < templateId root="2.16.840.1.145617.10.20.22.4.2" /> <id nullFlavor="NA" /> <code codeSystem="local" code="MCV" displayName="MEAN CELL VOLUME" /> &lt ;statusCode code="completed" /> <effectiveTime value=& quot;352665490866" /> <value unit="fl" xsi:type=& quot;PQ" value="97.3" /> <referenceRange> <observationRange> <text>80.0-100.0</text> </observationRange> </referenceRange> </ observation> </component> <component> < observation moodCode="EVN" classCode="OBS"> < templateId root="2.16.840.1.416487.10.20.22.4.2" /> < id nullFlavor="NA" /> <code codeSystem="local&quot ; code="MO#" displayName="MONOCYTE #" /> < statusCode code="completed" /> <effectiveTime value=& quot;437919553593" /> <value unit="k/cumm" xsi: type="PQ" value="0.5" /> <referenceRange> <observationRange> <text>0.1-1.0</text& gt; </observationRange> </referenceRange> &lt ;/observation> </component> <component> < observation moodCode="EVN" classCode="OBS"> < templateId root="2.16.840.1.637723.10.20.22.4.2" /> < id nullFlavor="NA"/> <code codeSystem="local&quot ; code="MO%" displayName="MONOCYTE %" /> <statusCode code="completed" /> < effectiveTime value="198448806969" /> <value unit=&quot ;%" xsi:type="PQ" value="12" /> &lt ;interpretationCode codeSystem="local" code="*" /> <referenceRange> <observationRange> < text>4-6</text> </observationRange> </ referenceRange> </observation> </component> < component> <observation moodCode="EVN" classCode=" OBS"> <templateId root="2.16.840.1.868402.10..22.4.2& quot; /> <id nullFlavor="NA" /> <code codeSystem="local" code="RBC" displayName="RED BLOOD CELL" /> <statusCode code="completed" /> & lt;effectiveTime value="316960171423" /> <value unit=& quot;m/cumm" xsi:type="PQ" value="4.07" /> <referenceRange> <observationRange> <text >4.00-6.00</text> </observationRange> </ referenceRange> </observation> </component> < component> <observation moodCode="EVN" classCode=" OBS"> <templateId root="2.16.840.1.111053.10.20.22.4.2& quot; /> <id nullFlavor="NA" /> <code codeSystem="local" code="RDW" displayName="RED CELL DISTRIBUTION WIDTH" /> <statusCode code="completed" /& gt; <effectiveTime value="163927135046" /> &lt ;value unit="%" xsi:type="PQ" value="14.7&quot ; /> <referenceRange> <observationRange> <text>11.0-15.6</text> </observationRange&gt ; </referenceRange> </observation> </component > <component> <observation moodCode="EVN" classCode="OBS"> <templateId root=" 2.16.840.1.757773.10.20.22.4.2" /> <id nullFlavor="NA& quot; /> <code codeSystem="local" code="WBC" displayName="WHITE BLOOD CELL" /> <statusCode code=& quot;completed" /> <effectiveTime value="658196524037& quot; /> <value unit="k/cumm" xsi:type="PQ" value="4.2" /> <interpretationCode codeSystem=" local" code="*" /> <referenceRange> <observationRange> <text>5.0-10.0</text> </observationRange> </referenceRange> </ observation> </component> <component> < observation moodCode="EVN" classCode="OBS"> < templateId root="2.16.840.1.670331.10.20.22.4.2" /> <id nullFlavor="NA" /> <code codeSystem="local" code="HGBT" displayName="HEMOGLOBIN" /> < statusCode code="completed" /> <effectiveTime value=& quot;241879667368" /> <value unit="gm/dL" xsi:type ="PQ" value="13.6" /> <referenceRange> <observationRange> <text>12.0-16.0</text&gt ; </observationRange> </referenceRange> & lt;/observation> </component> <component> < observation moodCode="EVN" classCode="OBS"> < templateId root="2.16.840.1.025572.10.20.22.4.2" /> < id nullFlavor="NA" /> <code codeSystem="local&quot ; code="HCTT" displayName="HEMATOCRIT" /> < statusCode code="completed" /> <effectiveTime value=" 769974978707" /> <value unit="%" xsi:type= "PQ" value="39.6" /> <referenceRange>< observationRange> <text>37.0-47.0</text> </observationRange> </referenceRange> </ observation> </component> <component> < observation moodCode="EVN" classCode="OBS"> < templateId root="2.16.840.1.056546.10.20.22.4.2" /> < id nullFlavor="NA" /> <code codeSystem="local&quot ; code="PLT" displayName="PLATELET COUNT" /> &lt ;statusCode code="completed" /> <effectiveTime value=& quot;754192833995" /> <value unit="k/cumm" xsi: type="PQ" value="115" /> <interpretationCode codeSystem="local" code="*" /> < referenceRange> <observationRange> <text>150- 400</text> </observationRange> </ referenceRange> </observation> </component> </ organizer> </entry> <entry> <organizer moodCode="EVN& quot; classCode="BATTERY"> <templateId root=" 2.16.840.1.427999.10.20.22.4.1" /> <id nullFlavor="NA&quot ; /> <code codeSystem="local" code="RENAL" displayName="RENAL FUNCTION PANEL" /> <statusCode code=& quot;completed" /> <component> <observation moodCode=& quot;EVN" classCode="OBS"> <templateId root=" 2.16.840.1.814699.10.20.22.4.2" /> <id nullFlavor="NA& quot; /> <code codeSystem="local" code="K" displayName="POTASSIUM" /> <statusCode code=" completed" /> <effectiveTime value="897583676828" /> <value unit="mmol/L" xsi:type="PQ" value=& quot;3.3" /> <interpretationCode codeSystem="local&quot ; code="*" /> <referenceRange> < observationRange> <text>3.5-5.3</text> & lt;/observationRange> </referenceRange> </ observation> </component> <component> < observation moodCode="EVN" classCode="OBS"> < templateId root="2.16.840.1.827292.10..22.4.2" /> < id nullFlavor="NA" /> <code codeSystem="local&quot ; code="eGFR" displayName="EST GFR (MDRD)" /> & lt;statusCode code="completed" /> <effectiveTime value= "995931184297" /> <value unit="mL/min" xsi:type=& quot;PQ" value="> 60" /> <referenceRange> <observationRange> <text>> 59</text > </observationRange> </referenceRange> </observation> </component> <component> & lt;observation moodCode="EVN" classCode="OBS"> & lt;templateId root="2.16.840.1.540529.10.20.22.4.2" /> &lt ;id nullFlavor="NA" /> <code codeSystem="local& quot; code="GAP" displayName="ANION GAP" /> < statusCode code="completed" /> <effectiveTime value=& quot;514483613200" /> <value unit="mmol/L" xsi: type="PQ" value="8" /> <referenceRange> <observationRange> <text>5-15</text> </observationRange> </referenceRange> < /observation> </component> <component> < observation moodCode="EVN" classCode="OBS"> < templateId root="2.16.840.1.281438.10.20.22.4.2" /> < id nullFlavor="NA" /> <code codeSystem="local&quot ; code="eCrCl" displayName="EST CrCl (CG)" /> & lt;statusCode code="completed" /> <effectiveTime value= "962196973739" /> <value unit="mL/min" xsi: type="PQ" value="> 60" /> < referenceRange> <observationRange> <text>& amp;gt; 59</text> </observationRange> </ referenceRange> </observation> </component> < component> <observation moodCode="EVN" classCode=" OBS"> <templateId root="2.16.840.1.454929.10.20.22.4.2& quot; /> <id nullFlavor="NA" /> <code codeSystem="local" code="GLU" displayName="GLUCOSE&quot ; /> <statusCode code="completed" /> < effectiveTime value="762080476358" /> <value unit=&quot ;mg/dL" xsi:type="PQ" value="86" /> < referenceRange> <observationRange> <text> 70-99</text> </observationRange> </referenceRange& gt; </observation> </component> <component> <observation moodCode="EVN" classCode="OBS"> <templateId root="2.16.840.1.291099.10.20.22.4.2" /> <id nullFlavor="NA" /> <code codeSystem=&quot ;local" code="CA" displayName="CALCIUM" /> <statusCode code="completed" /> <effectiveTime value ="098220096096" /> <value unit="mg/dL" xsi: type="PQ" value="8.8" /> <referenceRange> <observationRange> <text>8.5-10.1</text> </observationRange> </referenceRange> </ observation> </component> <component> < observation moodCode="EVN" classCode="OBS"> < templateId root="2.16.840.1.285954.10.20.22.4.2" /> < id nullFlavor="NA" /> <code codeSystem="local&quot ; code="BUN" displayName="BLOOD UREA NITROGEN" /> & lt;statusCode code="completed" /> <effectiveTime value= "006875424759" /> <value unit="mg/dL" xsi: type="PQ" value="3" /> <interpretationCode codeSystem="local" code="*" /> <referenceRange> <observationRange> <text>7-20</text> </observationRange> </referenceRange> < /observation> </component> <component> < observation moodCode="EVN" classCode="OBS"> < templateId root="2.16.840.1.118197.10.20.22.4.2" /> < id nullFlavor="NA" /> <code codeSystem="local&quot ; code="CREAT" displayName="CREATININE" /> < statusCode code="completed" /> <effectiveTime value=& quot;610815540365" /> <value unit="mg/dL" xsi:type ="PQ" value="0.5" /> <interpretationCode codeSystem="local" code="*" /> < referenceRange> <observationRange> <text> 0.6-1.0</text> </observationRange> </ referenceRange> </observation> </component> < component> <observation moodCode="EVN" classCode=" OBS"> <templateId root="2.16.840.1.854523.10.20.22.4.2& quot; /> <id nullFlavor="NA" /> <code codeSystem="local" code="NA" displayName="SODIUM" /> <statusCode code="completed" /> < effectiveTime value="458177951069" /> <value unit=&quot ;mmol/L" xsi:type="PQ" value="140" /> < referenceRange> <observationRange> <text> 135-148</text> </observationRange> </ referenceRange> </observation> </component> < component> <observation moodCode="EVN" classCode=" OBS"> <templateId root="2.16.840.1.660932.10.20.22.4.2& quot; /> <id nullFlavor="NA" /> <code codeSystem="local" code="CL" displayName="CHLORIDE&quot ; /> <statusCode code="completed" /> < effectiveTime value="937242894718" /> <value unit=&quot ;mmol/L" xsi:type="PQ" value="103" /> < referenceRange> <observationRange> <text> 98-110</text> </observationRange> </ referenceRange> </observation> </component> < component> <observation moodCode="EVN" classCode=" OBS"> <templateId root="2.16.840.1.022659.10.20.22.4.2& quot; /> <id nullFlavor="NA" /> <code codeSystem="local" code="CO2" displayName="CARBON DIOXIDE" /> <statusCode code="completed" /> <effectiveTime value="114742775984" /> <value unit="mmol/L" xsi:type="PQ" value="29" />< referenceRange> <observationRange> <text> 21-32</text> </observationRange> </ referenceRange> </observation> </component> < component> <observation moodCode="EVN" classCode=" OBS"> <templateId root="2.16.840.1.038401.10.20.22.4.2& quot; /> <id nullFlavor="NA" /> <code codeSystem="local" code="ALB" displayName="ALBUMIN&quot ; /> <statusCode code="completed" /> < effectiveTime value="116488014833" /> <value unit=&quot ;gm/dL" xsi:type="PQ" value="3.0" /> < interpretationCode codeSystem="local" code="*" /> <referenceRange> <observationRange> < text>3.4-5.0</text> </observationRange> </ referenceRange> </observation> </component> < component> <observation moodCode="EVN" classCode=" OBS"> <templateId root="2.16.840.1.631707.10.20.22.4.2& quot; /> <id nullFlavor="NA" /> <code codeSystem="local" code="PHOS" displayName="PHOSPHORUS& quot; /> <statusCode code="completed" /> & lt;effectiveTime value="089612945012" /> <value unit=& quot;mg/dL" xsi:type="PQ" value="3.4" /> & lt;referenceRange> <observationRange> <text> 2.5-4.9</text> </observationRange> </ referenceRange> </observation> </component> </ organizer> </entry> <entry> <organizer moodCode="EVN " classCode="BATTERY"> <templateId root=" 2.16.840.1.916950.10.20.22.4.1" /> <id nullFlavor="NA&quot ; /> <code codeSystem="local" code="MAG" displayName="MAGNESIUM" /> <statusCode code="completed " /> <component> <observation moodCode="EVN& quot; classCode="OBS"> <templateId root=" 2.16.840.1.141020.10.20.22.4.2" /> <id nullFlavor="NA& quot; /> <code codeSystem="local" code="MAG" displayName="MAGNESIUM" /> <statusCode code="completed& quot; /> <effectiveTime value="823981786286" /> <value unit="mg/dL" xsi:type="PQ" value="2.4& quot; /> <referenceRange> <observationRange> <text>1.8-2.4</text> </observationRange& gt; </referenceRange> </observation> </ component> </organizer> </entry> <entry> < organizer moodCode="EVN" classCode="BATTERY"> < templateId root="2.16.840.1.205027.10.20.22.4.1" /> <id nullFlavor="NA" /> <code codeSystem="local" code= "VITB12" displayName="VITAMIN B12" /><statusCode code= "completed" /> <component> <observation moodCode="EVN" classCode="OBS"> <templateId root="2.16.840.1.413529.10.20.22.4.2" /> <id nullFlavor ="NA" /> <code codeSystem="local" code=" VITB12" displayName="VITAMIN B12" /> <statusCode code="completed" /> <effectiveTime value=" 325125368684" /> <value unit="pg/mL" xsi:type=& quot;PQ" value="488" /> <referenceRange> <observationRange> <text>211-771</text> </observationRange> </referenceRange> </ observation> </component> </organizer> </entry> & lt;entry> <organizermoodCode="EVN" classCode="BATTERY& quot;> <templateId root="[id number]" /& gt; <id nullFlavor="NA" /> <code codeSystem=" local" code="METHM" displayName="METHYLMALONIC ACID, SERUM& quot; /> <statusCode code="completed" /> <component& gt; <observation moodCode="EVN" classCode="OBS"&gt ; <templateId root="[id number]" /> <id nullFlavor="NA" /> <code codeSystem=& quot;local" code="METHM" displayName="METHYLMALONIC ACID, SERUM" /> <statusCode code="completed" /> <effectiveTime value="[id number]" /> <value unit ="nmol/L" xsi:type="PQ" value="374" /> <referenceRange> <observationRange> < text>0-378</text> </observationRange> </ referenceRange> </observation> </component> </ organizer> </entry> <entry> <organizer moodCode="EVN " classCode="BATTERY"> <templateId root=" 2.16.840.1.748648.10.20.22.4.1" /> <id nullFlavor="NA&quot ; /> <code codeSystem="local" code="CBC" displayName="CBC" /> <statusCode code="completed&quot ; /> <component> <observation moodCode="EVN" classCode="OBS"> <templateId root=" 2.840.1.097073.10.20.22.4.2" /> <id nullFlavor="NA& quot; /> <code codeSystem="local" code="MCH" displayName="MEAN CELL HGB" /> <statusCode code=" completed" /> <effectiveTime value="324962925762" /> <value unit="pg" xsi:type="PQ" value="32.7& quot; /> <referenceRange> <observationRange> <text>27.0-33.0</text> </observationRange& gt; </referenceRange> </observation> </component& gt; <component> <observation moodCode="EVN" classCode="OBS"> <templateId root=" 2.840.1.227521.10.20.22.4.2" /> <id nullFlavor="NA&quot ; /> <code codeSystem="local" code="MCHC" displayName="MEAN CELL HGB CONCENTRATION" /> < statusCode code="completed" /> <effectiveTime value=& quot;369082610795" /> <value unit="g/dL" xsi:type= "PQ" value="32.1" /> <referenceRange> <observationRange> <text>32.0-37.0</text&gt ; </observationRange> </referenceRange> < /observation></component> <component> < observation moodCode="EVN" classCode="OBS"> < templateId root="2.16.840.1.501275.10.20.22.4.2" /> <id nullFlavor="NA" /> <code codeSystem="local" code="MCV" displayName="MEAN CELL VOLUME" /> &lt ;statusCode code="completed" /> <effectiveTime value=& quot;907323805404" /> <value unit="fl" xsi:type=& quot;PQ" value="101.9" /> <interpretationCode codeSystem="local" code="*" /> < referenceRange> <observationRange> <text> 80.0-100.0</text> </observationRange> </ referenceRange> </observation> </component> < component> <observation moodCode="EVN" classCode=" OBS"><templateId root="2.16.840.1.595091.10.20.22.4.2" /&gt ; <id nullFlavor="NA" /> <code codeSystem=& quot;local" code="RBC" displayName="RED BLOOD CELL" /& gt; <statusCode code="completed" /> < effectiveTime value="164944402557" /> <value unit=&quot ;m/cumm" xsi:type="PQ" value="4.13" /> < referenceRange> <observationRange> <text> 4.00-6.00</text> </observationRange> </ referenceRange> </observation> </component> < component> <observation moodCode="EVN" classCode=" OBS"> <templateId root="2.16.840.1.665045.10.20.22.4.2& quot; /> <id nullFlavor="NA" /> <code codeSystem="local" code="RDW" displayName="RED CELL DISTRIBUTION WIDTH" /> <statusCode code="completed&quot ; /> <effectiveTime value="145259866713" /> <value unit="%" xsi:type="PQ" value="14.8& quot; /> <referenceRange> <observationRange> <text>11.0-15.6</text> </ observationRange> </referenceRange> </observation> </component> <component> <observation moodCode=& quot;EVN" classCode="OBS"> <templateId root=" 2.16.840.1.171749.10.20.22.4.2" /> <id nullFlavor="NA& quot;/> <code codeSystem="local" code="WBC" displayName="WHITE BLOOD CELL" /> <statusCode code=& quot;completed" /> <effectiveTime value="538106645382& quot; /> <value unit="k/cumm" xsi:type="PQ" value="3.6" /> <interpretationCode codeSystem=" local" code="*" /> <referenceRange> <observationRange> <text>5.0-10.0</text> </observationRange> </referenceRange> </ observation> </component> <component> < observation moodCode="EVN" classCode="OBS"> < templateId root="2.16.840.1.876923.10.20.22.4.2" /> < id nullFlavor="NA" /> <code codeSystem="local&quot ; code="HGBT" displayName="HEMOGLOBIN" /> < statusCode code="completed" /> <effectiveTime value=& quot;273231802554" /> <value unit="gm/dL" xsi:type ="PQ" value="13.5" /> <referenceRange> <observationRange> <text>12.0-16.0</text&gt ; </observationRange> </referenceRange> & lt;/observation> </component> <component> < observation moodCode="EVN" classCode="OBS"> < templateId root="2.16.840.1.127098.10.20.22.4.2" /> < id nullFlavor="NA" /> <code codeSystem="local&quot ; code="HCTT" displayName="HEMATOCRIT" /> < statusCode code="completed" /> <effectiveTime value=& quot;304296992565" /> <value unit="%" xsi: type="PQ" value="42.1" /> <referenceRange&gt ; <observationRange> <text>37.0-47.0</ text> </observationRange> </referenceRange> </observation> </component> <component> <observation moodCode="EVN" classCode="OBS"> <templateId root="2.16.840.1.027489.10.20.22.4.2" /> <id nullFlavor="NA" /> <code codeSystem=" local" code="PLT" displayName="PLATELET COUNT" /> <statusCode code="completed" /> < effectiveTime value="779113784832" /> <value unit=&quot ;k/cumm" xsi:type="PQ" value="148" /> < interpretationCode codeSystem="local" code="*" /> <referenceRange> <observationRange> <text>150 -400</text> </observationRange> </ referenceRange> </observation> </component> </ organizer> </entry> <entry> <organizer moodCode="EVN " classCode="BATTERY"> <templateId root=" 2.16.840.1.496271.10.20.22.4.1" /> <id nullFlavor="NA&quot ; /> <code codeSystem="local" code="METABC" displayName="METABOLIC PANEL, COMPREHN" /> <statusCode code ="completed" /> <component> <observation moodCode="EVN" classCode="OBS"> <templateId root="2.16.840.1.075736.10.20.22.4.2" /> <id nullFlavor ="NA" /> <code codeSystem="local" code=" K" displayName="POTASSIUM" /> <statusCode code=& quot;completed" /> <effectiveTime value="507950419215&quot ; /> <value unit="mmol/L" xsi:type="PQ" value ="3.2" /> <interpretationCode codeSystem="local& quot; code="*" /> <referenceRange> < observationRange> <text>3.5-5.3</text> & lt;/observationRange> </referenceRange> </ observation> </component> <component> < observation moodCode="EVN" classCode="OBS"> < templateId root="2.16.840.1.439389.10.20.22.4.2" /> < id nullFlavor="NA" /> <code codeSystem="local" code="eGFR" displayName="EST GFR (MDRD)" /> < statusCode code="completed" /> <effectiveTime value=& quot;520174437361" /> <value unit="mL/min" xsi: type="PQ" value="> 60" /> < referenceRange> <observationRange> <text> > 59</text> </observationRange> </ referenceRange> </observation> </component> < component> <observation moodCode="EVN" classCode="OBS" > <templateId root="2..840.1.913596.10.20.22.4.2" /& gt; <id nullFlavor="NA" /> <code codeSystem=& quot;local" code="GAP" displayName="ANION GAP" /> <statusCode code="completed" /> < effectiveTime value="577832394429" /> <value unit=&quot ;mmol/L" xsi:type="PQ" value="7" /> < referenceRange> <observationRange> <text> 5-15</text> </observationRange> </ referenceRange> </observation> </component> < component> <observation moodCode="EVN" classCode=" OBS"> <templateId root="2.16.840.1.704632.10.20.22.4.2& quot; /> <id nullFlavor="NA" /> <code codeSystem="local" code="eCrCl" displayName="EST CrCl ( CG)" /> <statusCode code="completed" /> <effectiveTime value="739758838596" /> <value unit="mL/min" xsi:type="PQ" value="> 60" /& gt; <referenceRange> <observationRange> <text>> 59</text> </observationRange> </referenceRange> </observation> </ component> <component> <observation moodCode="EVN& quot; classCode="OBS"> <templateId root=" 2.16.840.1.597695.10.20.22.4.2" /> <id nullFlavor="NA& quot; /> <code codeSystem="local" code="GLU" displayName="GLUCOSE" /> <statusCode code=" completed" /> <effectiveTime value="948670492574" /> <value unit="mg/dL" xsi:type="PQ" value="98& quot; /> <referenceRange> <observationRange> <text>70-99</text> </observationRange> </referenceRange> </observation> </component&gt ; <component> <observation moodCode="EVN" classCode="OBS"> <templateId root=" 2.16.840.1.499191.10.20.22.4.2" /> <id nullFlavor="NA" /& gt; <code codeSystem="local" code="CA" displayName="CALCIUM" /> <statusCode code=" completed" /> <effectiveTime value="045373514248" /> <value unit="mg/dL" xsi:type="PQ" value=& quot;8.9" /> <referenceRange><observationRange> <text>8.5-10.1</text> </observationRange&gt ; </referenceRange> </observation> </ component> <component> <observation moodCode="EVN& quot; classCode="OBS"> <templateId root=" 2.16.840.1.644965.10.20.22.4.2" /> <id nullFlavor="NA& quot; /> <code codeSystem="local" code="BUN" displayName="BLOOD UREA NITROGEN" /> <statusCode code=& quot;completed" /> <effectiveTime value="144483883765& quot; /> <value unit="mg/dL" xsi:type="PQ" value="2" /> <interpretationCode codeSystem="local " code="*" /> <referenceRange> < observationRange> <text>7-20</text> </ observationRange> </referenceRange> </observation&gt ; </component> <component> <observation moodCode ="EVN" classCode="OBS"> <templateId root=& quot;2.16.840.1.531864.10..22.4.2" /> <id nullFlavor=&quot ;NA" /> <code codeSystem="local" code="CREAT& quot; displayName="CREATININE" /> <statusCode code=" completed" /> <effectiveTime value="226386944753" /> <value unit="mg/dL" xsi:type="PQ" value=& quot;0.6" /> <referenceRange> < observationRange> <text>0.6-1.0</text> & lt;/observationRange> </referenceRange> </ observation> </component> <component> < observation moodCode="EVN" classCode="OBS"> < templateId root="2.16.840.1.725960.10.20.22.4.2" /> < id nullFlavor="NA" /> <code codeSystem="local&quot ; code="NA" displayName="SODIUM" /> < statusCode code="completed" /> <effectiveTime value=& quot;693963492988" /> <value unit="mmol/L" xsi: type="PQ" value="142" /> <referenceRange> <observationRange> <text>135-148</text& gt; </observationRange> </referenceRange> < /observation> </component> <component> < observation moodCode="EVN" classCode="OBS"> < templateId root="2.16.840.1.717813.10.20.22.4.2" /> <id nullFlavor="NA" /> <code codeSystem="local" code="CL" displayName="CHLORIDE" /> < statusCode code="completed" /> <effectiveTime value=& quot;944793404692" /> <value unit="mmol/L" xsi: type="PQ" value="104" /> <referenceRange> <observationRange> <text>98-110</text> </observationRange> </referenceRange> </ observation> </component> <component> < observation moodCode="EVN" classCode="OBS"> < templateId root="2.16.840.1.373535.10..22.4.2" /> < id nullFlavor="NA" /> <code codeSystem="local&quot ; code="AST" displayName="AST/SGOT" /> < statusCode code="completed" /> <effectiveTime value=& quot;277696276297" /> <value unit="Units/L" xsi: type="PQ" value="24" /> <referenceRange> <observationRange> <text>10-37</text> </observationRange> </referenceRange> & lt;/observation> </component> <component> < observation moodCode="EVN" classCode="OBS"> < templateId root="2.16.840.1.839027.10..22.4.2" /> < id nullFlavor="NA" /> <code codeSystem="local" code= "ALT" displayName="ALT/SGPT" /> <statusCode code="completed" /> <effectiveTime value=" 272493551004" /> <value unit="Units/L" xsi:type=& quot;PQ" value="34" /> <referenceRange> <observationRange> <text>< 66</text> </observationRange> </referenceRange> &lt ;/observation> </component> <component> < observation moodCode="EVN" classCode="OBS"> < templateId root="2.16.840.1.727042.10.20.22.4.2" /> < id nullFlavor="NA" /> <code codeSystem="local&quot ; code="CO2" displayName="CARBON DIOXIDE" /> &lt ;statusCode code="completed" /> <effectiveTime value=& quot;036570312584" /> <value unit="mmol/L" xsi: type="PQ" value="31" /> <referenceRange> <observationRange> <text>21-32</text> </observationRange> </referenceRange> & lt;/observation> </component> <component> < observation moodCode="EVN" classCode="OBS"> < templateId root="2.16.840.1.775137.10.20.22.4.2" /> < id nullFlavor="NA" /> <code codeSystem="local&quot ; code="TP" displayName="TOTAL PROTEIN" /> < statusCode code="completed" /> <effectiveTime value=& quot;860744863883" /> <value unit="gm/dL" xsi:type ="PQ" value="7.5" /> <referenceRange> <observationRange> <text>6.4-8.2</text> </observationRange> </referenceRange> </ observation> </component> <component> < observation moodCode="EVN" classCode="OBS"> < templateId root="2.16.840.1.117425.10.20.22.4.2" /><id nullFlavor="NA" /> <code codeSystem="local" code="ALB" displayName="ALBUMIN" /> < statusCode code="completed" /> <effectiveTime value=& quot;586956148757" /> <value unit="gm/dL" xsi:type ="PQ" value="3.2" /> <interpretationCode codeSystem="local" code="*" /> < referenceRange> <observationRange> <text> 3.4-5.0</text> </observationRange></referenceRange&gt ; </observation> </component> <component> <observation moodCode="EVN" classCode="OBS"> <templateId root="2.16.840.1.776222.10.20.22.4.2" /> <id nullFlavor="NA" /> <code codeSystem="local " code="BILTOT" displayName="BILI TOTAL" /> <statusCode code="completed" /> <effectiveTime value="464161270184" /> <value unit="mg/dL" xsi:type="PQ" value="0.5" /> <referenceRange& gt; <observationRange> <text>0.0-1.0</text> </observationRange> </referenceRange> </ observation> </component> <component> < observation moodCode="EVN" classCode="OBS"> < templateId root="2.16.840.1.504628.10.20.22.4.2" /> < id nullFlavor="NA" /> <codecodeSystem="local&quot ; code="ALKP" displayName="ALKALINE PHOSPHATASE TOTAL" /&gt ; <statusCode code="completed" /> < effectiveTime value="492052137622" /> <value unit=&quot ;IU/L" xsi:type="PQ" value="172" /> < interpretationCode codeSystem="local" code="*" /> <referenceRange> <observationRange> < text>45-117</text> </observationRange> </ referenceRange> </observation> </component> </ organizer> </entry> <entry> <organizer moodCode="EVN " classCode="BATTERY"> <templateId root=" 2.16.840.1.447889.10.20.22.4.1" /> <id nullFlavor="NA&quot ; /> <code codeSystem="local" code="FOL" displayName="FOLIC ACID,SERUM" /> <statusCode code=" completed" /> <component> <observation moodCode=& quot;EVN" classCode="OBS"> <templateId root=" 2.16.840.1.278058.10.20.22.4.2" /> <id nullFlavor="NA& quot; /> <code codeSystem="local" code="FOL" displayName="FOLIC ACID,SERUM" /> <statusCode code=& quot;completed" /> <effectiveTime value="785037095379& quot; /> <value unit="ng/mL" xsi:type="PQ" value="5.4" /> <referenceRange> < observationRange> <text>> 3.4</text> </observationRange> </referenceRange> </ observation> </component> </organizer> </entry> & lt;entry> <organizer moodCode="EVN" classCode="BATTERY& quot;> <templateId root="2.16.840.1.828500.10.20.22.4.1" /& gt; <id nullFlavor="NA" /> <code codeSystem=" local" code="OCC" displayName="FECAL OCCULT BLOOD" /&gt ; <statusCode code="completed" /> <component> <observation moodCode="EVN" classCode="OBS"> <templateId root="2.16.840.1.305290.10..22.4.2" /> <id nullFlavor="NA" /> <code codeSystem=" local" code="MB" displayName="Microbiology" /> <statusCodecode="completed" /> <effectiveTime value="837473292166" /> <value xsi:type="ST" value ="<pre><b>FECAL OCCULT BLOOD</b> See BelowFECAL OCCULT BLOOD(F) [place] Date/Time: 06/14/2016 16:00 Cole Date/Time: 06/14/2016 17 :08SOURCE: STOOLSPEC DESC: [facility]CCULT [facility]ODNEGATIVES[facility] [place] [address]</pre>" /> <referenceRange&gt ; <observationRange> <text /> &lt ;/observationRange> </referenceRange> </observation& gt; </component> </organizer> </entry> <entry&gt ; <organizer moodCode="EVN" classCode="BATTERY"> <templateId root="2.16.840.1.654330.10.20.22.4.1" /> < id nullFlavor="NA" /> <code codeSystem="local" code="RENAL" displayName="RENAL FUNCTION PANEL" /> & lt;statusCode code="completed" /> <component> &lt ;observation moodCode="EVN" classCode="OBS"> &lt ;templateId root="2.16.840.1.216213.10.20.22.4.2" /> < id nullFlavor="NA" /> <code codeSystem="local&quot ; code="K" displayName="POTASSIUM" /> < statusCode code="completed" /> <effectiveTime value=& quot;808180884997" /> <value unit="mmol/L" xsi: type="PQ"value="3.4" /> <interpretationCode codeSystem="local" code="*" /> < referenceRange> <observationRange> <text> 3.5-5.3</text> </observationRange> </ referenceRange> </observation> </component> < component> <observation moodCode="EVN" classCode=" OBS"> <templateId root="2.16.840.1.883589.10.20.22.4.2& quot; /> <id nullFlavor="NA" /> <code codeSystem="local" code="eGFR" displayName="EST GFR ( MDRD)" /> <statusCode code="completed" /> <effectiveTime value="121871472815" /> <value unit="mL/min" xsi:type="PQ" value="> 60"/& gt; <referenceRange> <observationRange> <text>> 59</text> </observationRange> </referenceRange> </observation> </ component> <component> <observation moodCode="EVN& quot; classCode="OBS"> <templateId root=" 2.16.840.1.177804.10.20.22.4.2" /> <id nullFlavor="NA& quot; /> <code codeSystem="local" code="GAP" displayName="ANION GAP" /> <statusCode code=" completed" /> <effectiveTime value="940722517174" /> <value unit="mmol/L" xsi:type="PQ" value="6 " /> <referenceRange> <observationRange&gt ; <text>5-15</text> </observationRange> </referenceRange> </observation> </component& gt; <component> <observation moodCode="EVN" classCode="OBS"> <templateId root=" 2.16.840.1.109473.10..22.4.2" /> <id nullFlavor="NA" / > <code codeSystem="local" code="eCrCl" displayName="EST CrCl (CG)" /> <statusCode code=" completed" /> <effectiveTime value="501249288763" /> <value unit="mL/min" xsi:type="PQ" value=& quot;> 60" /> <referenceRange> < observationRange> <text>> 59</text> </ observationRange> </referenceRange> </observation&gt ; </component> <component> <observation moodCode ="EVN" classCode="OBS"> <templateId root=& quot;2.16.840.1.022966.10..22.4.2" /> <id nullFlavor="NA&quot ; /> <code codeSystem="local" code="GLU" displayName="GLUCOSE" /> <statusCode code=" completed" /> <effectiveTime value="072799418002" /> <value unit="mg/dL" xsi:type="PQ" value=& quot;112" /> <interpretationCode codeSystem="local&quot ; code="*" /> <referenceRange> < observationRange> <text>70-99</text> < /observationRange> </referenceRange> </observation& gt; </component> <component> <observation moodCode=& quot;EVN" classCode="OBS"> <templateId root=" 2.16.840.1.612990.10.20.22.4.2" /> <id nullFlavor="NA& quot; /> <code codeSystem="local" code="CA" displayName="CALCIUM" /> <statusCode code=" completed" /> <effectiveTime value="776845899000" /> <value unit="mg/dL" xsi:type="PQ" value=& quot;9.1" /> <referenceRange> < observationRange> <text>8.5-10.1</text> & lt;/observationRange> </referenceRange> </observation& gt; </component> <component> <observation moodCode="EVN" classCode="OBS"> <templateId root="2.16.840.1.411804.10..22.4.2" /> <id nullFlavor ="NA" /> <code codeSystem="local" code=" BUN" displayName="BLOOD UREA NITROGEN" /> <statusCode code= "completed" /> <effectiveTime value="808966643344& quot; /> <value unit="mg/dL" xsi:type="PQ" value="4" /> <interpretationCode codeSystem="local " code="*" /> <referenceRange> < observationRange> <text>7-20</text> </ observationRange> </referenceRange> </observation&gt ;</component> <component> <observation moodCode=&quot ;EVN" classCode="OBS"> <templateId root=" 2.16.840.1.689712.10.20.22.4.2" /> <id nullFlavor="NA" /> <code codeSystem="local" code="CREAT" displayName="CREATININE" /> <statusCode code=" completed" /> <effectiveTime value="850905695460" /> <value unit="mg/dL" xsi:type="PQ" value=& quot;0.6" /> <referenceRange> < observationRange> <text>0.6-1.0</text> & lt;/observationRange> </referenceRange> </ observation> </component> <component> < observation moodCode="EVN" classCode="OBS"> < templateId root="2.16.840.1.019904.10.20.22.4.2" /> < id nullFlavor="NA" /> <code codeSystem="local&quot ; code="NA" displayName="SODIUM" /> < statusCode code="completed" /> <effectiveTime value=& quot;425379925839" /> <value unit="mmol/L" xsi: type="PQ" value="139" /> <referenceRange> <observationRange> <text>135-148</text& gt; </observationRange></referenceRange> </ observation> </component> <component> < observation moodCode="EVN" classCode="OBS"> < templateId root="2.16.840.1.512064.10.20.22.4.2" /> < id nullFlavor="NA" /> <code codeSystem="local&quot ; code="CL" displayName="CHLORIDE" /> < statusCode code="completed" /> <effectiveTime value=& quot;239480273425" /> <value unit="mmol/L" xsi: type="PQ" value="103" /> <referenceRange> <observationRange> <text>98-110</text&gt ; </observationRange> </referenceRange> & lt;/observation> </component> <component> < observation moodCode="EVN" classCode="OBS"> < templateId root="2.16.840.1.428351.10.20.22.4.2" /> < id nullFlavor="NA" /> <code codeSystem="local&quot ; code="CO2" displayName="CARBON DIOXIDE" /> &lt ;statusCode code="completed" /> <effectiveTime value=& quot;818650018187" /> <value unit="mmol/L" xsi: type="PQ" value="30" /> <referenceRange> <observationRange> <text>21-32</text> </observationRange> </referenceRange> & lt;/observation> </component> <component> < observation moodCode="EVN" classCode="OBS"> < templateId root="2..840.1.827722.10..22.4.2" /> < id nullFlavor="NA" /> <code codeSystem="local&quot ; code="ALB" displayName="ALBUMIN" /> < statusCode code="completed" /> <effectiveTime value=& quot;740105265940" /> <value unit="gm/dL" xsi:type ="PQ" value="3.1" /> <interpretationCode codeSystem="local" code="*" /> < referenceRange> <observationRange> <text>3.4-5.0& lt;/text> </observationRange> </referenceRange& gt; </observation> </component> <component> <observation moodCode="EVN" classCode="OBS"> <templateId root="2.16.840.1.711979.10.20.22.4.2" /> & lt;id nullFlavor="NA" /> <code codeSystem="local& quot; code="PHOS" displayName="PHOSPHORUS" /> & lt;statusCode code="completed" /> <effectiveTime value= "042719418703" /> <value unit="mg/dL" xsi: type="PQ" value="2.8" /> <referenceRange> <observationRange> <text>2.5-4.9</text& gt; </observationRange> </referenceRange> </observation> </component> </organizer> </entry > <entry> <organizer moodCode="EVN" classCode=" BATTERY"> <templateId root="2.16.840.1.706683.10.20.22.4.1& quot; /> <id nullFlavor="NA" /> <code codeSystem ="local" code="MAG" displayName="MAGNESIUM" /> <statusCode code="completed" /> <component> <observation moodCode="EVN" classCode="OBS"> <templateId root="2.16.840.1.939274.10.20.22.4.2" /> & lt;id nullFlavor="NA" /> <code codeSystem="local& quot; code="MAG" displayName="MAGNESIUM"/> < statusCode code="completed" /> <effectiveTime value=& quot;733908422251" /> <value unit="mg/dL" xsi:type ="PQ" value="1.7" /> <interpretationCode codeSystem="local" code="*" /> < referenceRange> <observationRange> <text> 1.8-2.4</text> </observationRange> </ referenceRange> </observation> </component> </ organizer> </entry> <entry> <organizer moodCode="EVN " classCode="BATTERY"> <templateId root=" 2.16.840.1.322287.10.20.22.4.1" /> <id nullFlavor="NA&quot ; /> <code codeSystem="local" code="HH" displayName="HGB HCT" /> <statusCode code="completed " /> <component> <observation moodCode="EVN& quot; classCode="OBS"> <templateId root=" 2.16.840.1.772060.10.20.22.4.2" /> <id nullFlavor="NA& quot; /> <code codeSystem="local" code="MCV" displayName="MEAN CELL VOLUME" /> <statusCode code=& quot;completed" /> <effectiveTime value="119724561198& quot; /> <value unit="fl" xsi:type="PQ" value=&quot ;100.0" /> <referenceRange> < observationRange> <text>80.0-100.0</text> </observationRange> </referenceRange> </ observation> </component> <component> < observation moodCode="EVN" classCode="OBS"> < templateId root="2.16.840.1.986750.10.20.22.4.2" /> < id nullFlavor="NA" /> <code codeSystem="local&quot ; code="HGBT" displayName="HEMOGLOBIN" /> < statusCode code="completed" /> <effectiveTime value=& quot;984876740227" /> <value unit="gm/dL" xsi:type ="PQ" value="14.2" /> <referenceRange> <observationRange> <text>12.0-16.0</text&gt ; </observationRange> </referenceRange> & lt;/observation> </component> <component> < observation moodCode="EVN" classCode="OBS"> < templateId root="2.16.840.1.019331.10.20.22.4.2" /> < idnullFlavor="NA" /> <code codeSystem="local&quot ; code="HCTT"displayName="HEMATOCRIT" /> < statusCode code="completed" /> <effectiveTime value=" 524524331321" /> <value unit="%" xsi:type= "PQ" value="42.3" /> <referenceRange> < observationRange> <text>37.0-47.0</text> </observationRange> </referenceRange> </ observation> </component> </organizer> </entry> & lt;entry> <organizer moodCode="EVN" classCode="BATTERY& quot;> <templateId root="[id number]" /& gt;<id nullFlavor="NA" /> <code codeSystem="local& quot; code="HH" displayName="HGB HCT" /> < statusCode code="completed" /> <component> < observation moodCode="EVN" classCode="OBS"> < templateId root="[id number]" /> < id nullFlavor="NA" /> <code codeSystem="local&quot ; code="MCV" displayName="MEAN CELL VOLUME" /> & lt;statusCode code="completed" /> <effectiveTime value= "062150170974" /> <value unit="fl" xsi:type=& quot;PQ" value="99.5" /> <referenceRange> <observationRange> <text>80.0-100.0</text&gt ; </observationRange> </referenceRange> </ observation> </component> <component> < observation moodCode="EVN" classCode="OBS"> < templateId root="2.16.840.1.423544.10.20.22.4.2" /> < id nullFlavor="NA" /> <code codeSystem="local&quot ; code="HGBT" displayName="HEMOGLOBIN" /> < statusCode code="completed" /> <effectiveTime value=& quot;991181641771" /> <value unit="gm/dL" xsi:type ="PQ" value="13.8" /> <referenceRange> <observationRange> <text>12.0-16.0</text> </observationRange> </referenceRange> </ observation> </component> <component> < observation moodCode="EVN" classCode="OBS"> < templateId root="2.16.840.1.489065.10.20.22.4.2" /> < id nullFlavor="NA" /> <code codeSystem="local&quot ; code="HCTT" displayName="HEMATOCRIT" /> < statusCode code="completed" /> <effectiveTime value=& quot;029503375430" /> <value unit="%" xsi: type="PQ" value="41.0" /> <referenceRange&gt ; <observationRange> <text>37.0-47.0</ text> </observationRange> </referenceRange> </observation> </component> </organizer> </ entry> <entry> <organizer moodCode="EVN" classCode=& quot;BATTERY"> <templateId root=" 2.16.840.1.395659.10.20.22.4.1" /> <id nullFlavor="NA&quot ; /> <code codeSystem="local" code="RENAL" displayName="RENAL FUNCTION PANEL" /> <statusCode code=& quot;completed" /> <component> <observation moodCode="EVN" classCode="OBS"> <templateId root="2.16.840.1.298054.10.20.22.4.2" /> <id nullFlavor ="NA" /> <code codeSystem="local" code=" K" displayName="POTASSIUM" /> <statusCode code=" completed" /> <effectiveTime value="708110171915" /> <value unit="mmol/L" xsi:type="PQ" value=& quot;3.3"/> <interpretationCode codeSystem="local&quot ; code="*" /><referenceRange> <observationRange > <text>3.5-5.3</text> </ observationRange> </referenceRange> </observation&gt ; </component> <component> <observation moodCode ="EVN" classCode="OBS"> <templateId root=& quot;2.16.840.1.659228.10.20.22.4.2" /> <id nullFlavor=&quot ;NA" /> <code codeSystem="local" code="eGFR& quot; displayName="EST GFR (MDRD)" /> <statusCode code= "completed" /> <effectiveTime value="959404318987& quot; /> <value unit="mL/min" xsi:type="PQ" value="> 60" /> <referenceRange> & lt;observationRange> <text>> 59</text> </observationRange> </referenceRange> </ observation> </component> <component> < observation moodCode="EVN" classCode="OBS"> < templateId root="2.16.840.1.166690.10.20.22.4.2" /> <id nullFlavor="NA" /> <code codeSystem="local" code="GAP" displayName="ANION GAP" /> < statusCode code="completed" /> <effectiveTime value=& quot;406762114453" /> <value unit="mmol/L" xsi: type="PQ" value="11" /> <referenceRange> <observationRange> <text>5-15</text> </observationRange> </referenceRange> </ observation> </component> <component> < observation moodCode="EVN" classCode="OBS"> < templateId root="2.16.840.1.085855.10.20.22.4.2" /> < id nullFlavor="NA" /> <code codeSystem="local&quot ; code="eCrCl" displayName="EST CrCl (CG)" /> & lt;statusCode code="completed" /><effectiveTime value=" 137844797932" /> <value unit="mL/min" xsi:type=& quot;PQ" value="> 60" /> <referenceRange&gt ; <observationRange> <text>> 59</ text> </observationRange> </referenceRange> </observation> </component> <component> <observation moodCode="EVN" classCode="OBS"> < templateId root="2.16.840.1.419813.10.20.22.4.2" /> < id nullFlavor="NA" /> <code codeSystem="local&quot ; code="GLU" displayName="GLUCOSE" /> < statusCode code="completed" /> <effectiveTime value=& quot;967307642150" /> <value unit="mg/dL" xsi:type ="PQ" value="94" /> <referenceRange> <observationRange> <text>70-99</text> </observationRange> </referenceRange> </ observation> </component> <component> < observation moodCode="EVN" classCode="OBS"> < templateId root="2.16.840.1.391935.10.20.22.4.2" /> < id nullFlavor="NA" /> <code codeSystem="local" code=& quot;CA" displayName="CALCIUM" /> <statusCode code=& quot;completed" /> <effectiveTime value="618855345519& quot; /> <value unit="mg/dL" xsi:type="PQ" value="9.0" /> <referenceRange> < observationRange> <text>8.5-10.1</text> & lt;/observationRange> </referenceRange> </ observation> </component> <component> < observation moodCode="EVN" classCode="OBS"> < templateId root="2.16.840.1.955181.10.20.22.4.2" /> < id nullFlavor="NA" /> <code codeSystem="local&quot ; code="BUN" displayName="BLOOD UREA NITROGEN" /> <statusCode code="completed" /> <effectiveTime value="268502069071" /> <value unit="mg/dL" xsi:type="PQ" value="3" /> <interpretationCode codeSystem="local" code="*" /> < referenceRange> <observationRange> <text> 7-20</text> </observationRange> </referenceRange> </observation> </component> <component> <observation moodCode="EVN" classCode="OBS"> <templateId root="2.16.840.1.954330.10.20.22.4.2" /> <id nullFlavor="NA" /> <code codeSystem=" local" code="CREAT" displayName="CREATININE" /> <statusCode code="completed" /> < effectiveTime value="513314986888" /> <value unit=&quot ;mg/dL" xsi:type="PQ" value="0.6" /> < referenceRange> <observationRange> <text>0.6-1.0&lt ;/text> </observationRange> </referenceRange&gt ; </observation> </component> <component> <observation moodCode="EVN" classCode="OBS"> &lt ;templateId root="2.16.840.1.739560.10.20.22.4.2" /> < id nullFlavor="NA" /> <code codeSystem="local&quot ; code="NA" displayName="SODIUM" /> < statusCode code="completed" /> <effectiveTime value=& quot;039531996761" /> <value unit="mmol/L" xsi: type="PQ" value="143" /> <referenceRange> <observationRange> <text>135-148</text& gt; </observationRange> </referenceRange> </observation> </component> <component> &lt ;observation moodCode="EVN" classCode="OBS"> &lt ;templateId root="2.16.840.1.353976.10.20.22.4.2" /> < id nullFlavor="NA" /> <code codeSystem="local" code=& quot;CL" displayName="CHLORIDE" /> <statusCode code=& quot;completed" /> <effectiveTime value="693918794405& quot; /> <value unit="mmol/L" xsi:type="PQ" value="107" /> <referenceRange> < observationRange> <text>98-110</text> &lt ;/observationRange> </referenceRange></observation> </component> <component> <observation moodCode=& quot;EVN" classCode="OBS"> <templateId root=" 2.16.840.1.228083.10.20.22.4.2" /> <id nullFlavor="NA& quot; /> <code codeSystem="local" code="CO2" displayName="CARBON DIOXIDE" /> <statusCode code=" completed" /> <effectiveTime value="538031054326" /> <value unit="mmol/L" xsi:type="PQ" value=& quot;25" /> <referenceRange> <observationRange&gt ; <text>21-32</text> </observationRange& gt; </referenceRange> </observation> </ component> <component> <observation moodCode="EVN& quot; classCode="OBS"> <templateId root=" 2.16.840.1.551084.10.20.22.4.2" /> <id nullFlavor="NA& quot; /> <code codeSystem="local" code="ALB" displayName="ALBUMIN" /> <statusCode code=" completed" /> <effectiveTime value="721106658663" /> <value unit="gm/dL" xsi:type="PQ" value=& quot;3.2" /> <interpretationCodecodeSystem="local&quot ; code="*" /> <referenceRange> < observationRange> <text>3.4-5.0</text> & lt;/observationRange> </referenceRange> </ observation> </component> <component> < observation moodCode="EVN" classCode="OBS"> < templateId root="2.16.840.1.096507.10.20.22.4.2" /> < id nullFlavor="NA" /> <code codeSystem="local&quot ; code="PHOS" displayName="PHOSPHORUS" /> < statusCode code="completed" /> <effectiveTime value=& quot;918656490991" /> <value unit="mg/dL" xsi:type ="PQ" value="3.4" /> <referenceRange> <observationRange> <text>2.5-4.9</text> </observationRange> </referenceRange> &lt ;/observation> </component> </organizer> </entry> <entry> <organizer moodCode="EVN" classCode=" BATTERY"><templateId root="2.16.840.1.236958.10.20.22.4.1" /> <id nullFlavor="NA" /> <code codeSystem=&quot ;local" code="MAG" displayName="MAGNESIUM" /> & lt;statusCode code="completed" /> <component> &lt ;observation moodCode="EVN" classCode="OBS"> &lt ;templateId root="2.16.840.1.392454.10.20.22.4.2" /> < id nullFlavor="NA" /> <code codeSystem="local" code=& quot;MAG" displayName="MAGNESIUM" /> <statusCode code="completed" /> <effectiveTime value=" 066827222787" /> <value unit="mg/dL" xsi:type=& quot;PQ" value="2.4" /> <referenceRange> <observationRange> <text>1.8-2.4</text> </observationRange> </referenceRange> </ observation> </component> </organizer> </entry> & lt;entry> <organizer moodCode="EVN" classCode="BATTERY&quot ;> <templateId root="2.16.840.1.483548.10..22.4.1" /> <id nullFlavor="NA" /> <code codeSystem=" local" code="CBCD" displayName="CBC W/DIFF" />< statusCode code="completed" /> <component> < observation moodCode="EVN" classCode="OBS"> < templateId root="2.16.840.1.382305.10..22.4.2" /> < id nullFlavor="NA" /> <code codeSystem="local&quot ; code="BA#" displayName="BASOPHIL #" /> < statusCode code="completed" /> <effectiveTime value=& quot;807415793538" /> <value unit="k/cumm" xsi:type ="PQ" value="0.0" /> <referenceRange> <observationRange> <text>0.0-0.2</text> </observationRange> </referenceRange> </ observation> </component> <component> < observation moodCode="EVN" classCode="OBS"> < templateId root="2.16.840.1.149256.10.20.22.4.2" /> < id nullFlavor="NA" /> <code codeSystem="local&quot ; code="BA%" displayName="BASOPHIL %" /> <statusCodecode="completed" /> < effectiveTime value="435284506362" /> <value unit="&amp ;#37;" xsi:type="PQ" value="1" /><referenceRange& gt; <observationRange> <text>0-1</text&gt ; </observationRange> </referenceRange> & lt;/observation> </component> <component> < observation moodCode="EVN" classCode="OBS"> < templateId root="2.16.840.1.117136.10.20.22.4.2" /> <id nullFlavor="NA" /> <code codeSystem="local" code="EO#" displayName="EOSINOPHIL #" /> < statusCode code="completed" /> <effectiveTime value=& quot;903687338648" /> <value unit="k/cumm" xsi: type="PQ" value="0.2" /> <referenceRange> <observationRange> <text>0.1-0.5</text& gt; </observationRange> </referenceRange> </observation> </component> <component> &lt ;observation moodCode="EVN" classCode="OBS"> &lt ;templateId root="2.16.840.1.671142.10.20.22.4.2" /> < id nullFlavor="NA" /> <code codeSystem="local&quot ; code="EO%" displayName="EOSINOPHIL %" /&gt ; <statusCode code="completed" /> < effectiveTime value="174522580476" /> <value unit=&quot ;%" xsi:type="PQ" value="5" /> < interpretationCodecodeSystem="local" code="*" /> <referenceRange> <observationRange> < text>2-4</text> </observationRange> </ referenceRange> </observation> </component> < component> <observation moodCode="EVN" classCode=" OBS"> <templateId root="2.16.840.1.195991.10.20.22.4.2& quot; /> <id nullFlavor="NA" /> <code codeSystem="local" code="GR#" displayName="GRANULOCYTE #" /> <statusCode code="completed" /> <effectiveTime value="767499020276" /> <value unit=& quot;k/cumm" xsi:type="PQ" value="1.1" /> & lt;interpretationCode codeSystem="local" code="*" /> <referenceRange> <observationRange> & lt;text>2.0-9.0</text> </observationRange> & lt;/referenceRange> </observation> </component> & lt;component> <observation moodCode="EVN" classCode=&quot ;OBS"> <templateId root="2.16.840.1.102021.10.20.22.4.2 " /> <id nullFlavor="NA" /> <code codeSystem="local" code="GR%" displayName=" GRANULOCYTE %" /> <statusCode code="completed& quot; /> <effectiveTime value="571034445657" /> <value unit="%" xsi:type="PQ" value=" 25" /> <interpretationCode codeSystem="local" code ="*" /> <referenceRange> < observationRange> <text>50-75</text> < /observationRange> </referenceRange> </observation& gt; </component> <component> <observation moodCode="EVN" classCode="OBS"> <templateId root="2.16.840.1.475834.10.20.22.4.2" /> <id nullFlavor ="NA" /> <code codeSystem="local" code=" LY#" displayName="LYMPHOCYTE #" /> <statusCode code="completed" /> <effectiveTime value=" 060259889970" /> <value unit="k/cumm" xsi:type=& quot;PQ" value="2.5" /> <referenceRange> <observationRange> <text>1.0-4.0</text> </observationRange> </referenceRange> </ observation> </component> <component> < observation moodCode="EVN" classCode="OBS"> < templateId root="2.16.840.1.513919.10.20.22.4.2" /> <id nullFlavor="NA" /> <code codeSystem="local" code="LY%" displayName="LYMPHOCYTE %" /> <statusCode code="completed" /> < effectiveTime value="900509235594" /> <value unit=&quot ;%" xsi:type="PQ" value="57" /> &lt ;interpretationCode codeSystem="local" code="*" /> <referenceRange> <observationRange> < text>20-30</text> </observationRange> </ referenceRange> </observation> </component> < component> <observation moodCode="EVN" classCode=" OBS"> <templateId root="2.16.840.1.890170.10.20.22.4.2& quot; /> <id nullFlavor="NA" /> <code codeSystem="local" code="MCH" displayName="MEAN CELL HGB" /> <statusCode code="completed" /> < effectiveTime value="350762930437" /> <value unit=&quot ;pg" xsi:type="PQ" value="33.3" /> < interpretationCode codeSystem="local" code="*" /> <referenceRange> <observationRange> < text>27.0-33.0</text> </observationRange> &lt ;/referenceRange> </observation> </component> & lt;component> <observation moodCode="EVN" classCode=&quot ;OBS"> <templateId root="2.16.840.1.071278.10.20.22.4.2 " /> <id nullFlavor="NA" /> <code codeSystem="local" code="MCHC" displayName="MEAN CELL HGB CONCENTRATION" /> <statusCode code="completed&quot ; /> <effectiveTime value="776114459224" /> <value unit="g/dL" xsi:type="PQ" value="33.5&quot ; /> <referenceRange> <observationRange> <text>32.0-37.0</text> </observationRange> </referenceRange> </observation> </ component> <component> <observation moodCode="EVN& quot; classCode="OBS"> <templateId root=" 2.16.840.1.867504.10..22.4.2" /> <id nullFlavor="NA& quot; /> <code codeSystem="local" code="MCV" displayName="MEAN CELL VOLUME"/> <statusCode code=&quot ;completed" /> <effectiveTime value="981350674488&quot ; /> <value unit="fl" xsi:type="PQ" value=& quot;99.5" /> <referenceRange> < observationRange> <text>80.0-100.0</text> </observationRange> </referenceRange> </ observation> </component> <component> < observation moodCode="EVN" classCode="OBS"> < templateId root="2.16.840.1.824006.10..22.4.2" /> < id nullFlavor="NA" /> <code codeSystem="local&quot ; code="MO#" displayName="MONOCYTE #" /> < statusCode code="completed" /> <effectiveTime value=& quot;421076594977"/> <value unit="k/cumm" xsi:type ="PQ" value="0.5" /> <referenceRange> <observationRange> <text>0.1-1.0</text> </observationRange> </referenceRange> < /observation> </component> <component> < observation moodCode="EVN" classCode="OBS"> < templateId root="2.16.840.1.494705.10.20.22.4.2" /> < id nullFlavor="NA" /> <code codeSystem="local&quot ; code="MO%" displayName="MONOCYTE %" /> <statusCode code="completed" /> < effectiveTime value="490886212655" /> <value unit=&quot ;%" xsi:type="PQ" value="12" /> < interpretationCode codeSystem="local" code="*" /> <referenceRange> <observationRange> < text>4-6</text> </observationRange> </ referenceRange> </observation> </component> < component> <observation moodCode="EVN" classCode=" OBS"> <templateId root="2.16.840.1.938756.10..22.4.2& quot; /> <id nullFlavor="NA" /> <code codeSystem="local" code="RBC" displayName="RED BLOOD CELL" /> <statusCode code="completed"/> <effectiveTime value="602363828076" /> <value unit="m/cumm" xsi:type="PQ" value="4.32" /> <referenceRange> <observationRange> < text>4.00-6.00</text> </observationRange> &lt ;/referenceRange> </observation> </component> &lt ;component> <observation moodCode="EVN" classCode=" OBS"> <templateId root="2.16.840.1.397382.10..22.4.2& quot; /> <id nullFlavor="NA" /> <code codeSystem="local" code="RDW" displayName="RED CELL DISTRIBUTION WIDTH" /> <statusCode code="completed&quot ;/> <effectiveTime value="969956037858" /> <value unit="%" xsi:type="PQ" value="14.6& quot; /> <referenceRange> <observationRange> <text>11.0-15.6</text> </observationRange& gt; </referenceRange> </observation> </ component> <component> <observation moodCode="EVN& quot; classCode="OBS"> <templateId root=" 2.16.840.1.679593.10.20.22.4.2" /> <id nullFlavor="NA& quot; /> <code codeSystem="local" code="WBC" displayName="WHITE BLOOD CELL" /> <statusCode code=& quot;completed" /> <effectiveTime value="077708549352&quot ; /> <value unit="k/cumm" xsi:type="PQ" value ="4.3" /> <interpretationCode codeSystem="local& quot; code="*" /> <referenceRange> < observationRange> <text>5.0-10.0</text> & lt;/observationRange></referenceRange> </observation> </component> <component> <observation moodCode=" EVN" classCode="OBS"> <templateId root=" 2.16.840.1.690627.10.20.22.4.2" /> <id nullFlavor="NA& quot; /> <code codeSystem="local" code="HGBT" displayName="HEMOGLOBIN" /> <statusCode code=" completed" /> <effectiveTime value="042199593901" /> <value unit="gm/dL" xsi:type="PQ" value=& quot;14.4" /> <referenceRange> < observationRange> <text>12.0-16.0</text> </ observationRange> </referenceRange> </observation&gt ; </component> <component> <observation moodCode ="EVN" classCode="OBS"> <templateId root=& quot;2.16.840.1.991065.10.20.22.4.2" /> <id nullFlavor=&quot ;NA" /> <code codeSystem="local" code="HCTT& quot; displayName="HEMATOCRIT" /> <statusCode code=" completed" /> <effectiveTime value="873696711824" /> <value unit="%" xsi:type="PQ" value="43.0" /> <referenceRange> < observationRange> <text>37.0-47.0</text> </observationRange> </referenceRange> </observation> </component> <component> <observation moodCode= "EVN" classCode="OBS"> <templateId root=&quot ;2.16.840.1.318380.10.20.22.4.2" /> <id nullFlavor="NA& quot; /> <code codeSystem="local" code="PLT" displayName="PLATELET COUNT" /> <statusCode code=" completed" /> <effectiveTime value="759461952719" /> <value unit="k/cumm" xsi:type="PQ" value=& quot;170" /> <referenceRange> <observationRange& gt; <text>150-400</text> </ observationRange> </referenceRange> </observation&gt ; </component> </organizer> </entry> <entry> <organizer moodCode="EVN" classCode="BATTERY"> <templateId root="2.16.840.1.104284.10.20.22.4.1" /> < id nullFlavor="NA" /> <code codeSystem="local" code="UA" displayName="URINALYSIS, ROUTINE" /> < statusCode code="completed" /> <component> < observation moodCode="EVN" classCode="OBS"> < templateId root="2.16.840.1.433089.10.20.22.4.2" /> < id nullFlavor="NA" /> <code codeSystem="local&quot ; code="LEUESU" displayName="UA LEUKOCYTE ESTERASE DIPSTICK&quot ; /> <statusCode code="completed" /> < effectiveTime value="838874217859" /> <value unit=&quot ;" xsi:type="PQ" value="1+" /> < interpretationCode codeSystem="local" code="*" /> <referenceRange> <observationRange> < text>NEGATIVE</text> </observationRange> </ referenceRange> </observation> </component> < component> <observation moodCode="EVN" classCode=" OBS"> <templateId root="2.16.840.1.635578.10.20.22.4.2& quot; /> <id nullFlavor="NA" /> <code codeSystem="local" code="NITRIU" displayName="UA NITRITE DIPSTICK" /> <statusCode code="completed" /> <effectiveTime value="286007832116" /> & lt;value unit="" xsi:type="PQ" value="NEGATIVE" /& gt; <referenceRange> <observationRange> <text>NEGATIVE</text> </observationRange> &lt ;/referenceRange> </observation> </component> & lt;component> <observation moodCode="EVN" classCode=&quot ;OBS"> <templateId root="2.16.840.1.887768.10.20.22.4.2 " /> <id nullFlavor="NA" /> <code codeSystem="local" code="PROTEIU" displayName="UA PROTEIN DIPSTICK" /> <statusCode code="completed" /> <effectiveTime value="738277020122" /> & lt;value unit="" xsi:type="PQ" value="TRACE" /&gt ; <referenceRange> <observationRange> <text>NEGATIVE</text> </observationRange> </referenceRange> </observation> </component> <component> <observation moodCode="EVN" classCode="OBS"> <templateId root=" 2.16.840.1.558920.10.20.22.4.2" /> <id nullFlavor="NA& quot; /> <code codeSystem="local" code="DGLUU&quot ; displayName="UA GLUCOSE DIPSTICK" /> <statusCode code ="completed" /> <effectiveTime value="524439568061 " /> <value unit="" xsi:type="PQ" value= "NEGATIVE" /> <referenceRange> <observationRange > <text>NEGATIVE</text> </ observationRange> </referenceRange> </observation&gt ; </component> <component> <observation moodCode ="EVN" classCode="OBS"> <templateId root=" 2.16.840.1.554088.10.20.22.4.2" /> <id nullFlavor="NA& quot; /> <code codeSystem="local" code="KETONU& quot; displayName="UA KETONE DIPSTICK" /> <statusCode code="completed" /> <effectiveTime value="507766163054& quot; /> <value unit="" xsi:type="PQ" value=& quot;NEGATIVE" /> <referenceRange> < observationRange> <text>NEGATIVE</text> & lt;/observationRange> </referenceRange> </ observation> </component> <component> < observation moodCode="EVN" classCode="OBS"> < templateId root="2.16.840.1.856090.10.20.22.4.2" /> < id nullFlavor="NA" /> <code codeSystem="local&quot ; code="UROBILU" displayName="UA UROBILINOGEN DIPSTICK" /&gt ; <statusCode code="completed" /> <effectiveTime value="210267887165" /> <value unit="" xsi: type="PQ" value="NORMAL" /> <referenceRange& gt; <observationRange> <text>NORMAL</text > </observationRange> </referenceRange> < /observation> </component> <component> < observation moodCode="EVN" classCode="OBS"> < templateId root="2.16.840.1.611050.10.20.22.4.2" /> < id nullFlavor="NA" /> <code codeSystem="local&quot ; code="BILU" displayName="UA BILIRUBIN DIPSTICK" /> <statusCode code="completed" /> < effectiveTime value="982737676397" /> <value unit=&quot ;" xsi:type="PQ" value="NEGATIVE" /> < referenceRange> <observationRange> <text> NEGATIVE</text> </observationRange> </ referenceRange> </observation> </component> < component> <observation moodCode="EVN" classCode="OBS" > <templateId root="2.16.840.1.188968.10.20.22.4.2" /& gt; <id nullFlavor="NA" /> <code codeSystem=& quot;local" code="MARISABEL" displayName="UA BLOOD DIPSTICK" /> <statusCode code="completed" /> < effectiveTime value="620740504778" /> <value unit=&quot ;" xsi:type="PQ" value="NEGATIVE" /> < referenceRange> <observationRange> <text>NEGATIVE& lt;/text> </observationRange> </referenceRange& gt; </observation> </component> <component> <observation moodCode="EVN" classCode="OBS"> <templateId root="2.16.840.1.879642.10.20.22.4.2" /> <id nullFlavor="NA" /> <code codeSystem=&quot ;local" code="SPGRU" displayName="UA SPECIFIC GRAVITY" /> <statusCode code="completed" /> < effectiveTime value="775252382214" /> <value unit=&quot ;" xsi:type="PQ" value="1.010" /> < interpretationCode codeSystem="local" code="*" /> & lt;referenceRange> <observationRange> <text& gt;1.015-1.025</text> </observationRange> </ referenceRange> </observation> </component> < component> <observation moodCode="EVN" classCode=" OBS"> <templateId root="2.16.840.1.331628.10.20.22.4.2& quot; /> <id nullFlavor="NA" /> <code codeSystem="local" code="ORTIZ" displayName="UR PH" /> <statusCode code="completed" /> < effectiveTime value="682412685901" /> <value unit=&quot ;" xsi:type="PQ" value="7.0" /> < referenceRange> <observationRange> <text> 5.0-7.0</text> </observationRange> </ referenceRange> </observation> </component> </ organizer> </entry> <entry> <organizer moodCode="EVN " classCode="BATTERY"> <templateId root=" 2.16.840.1.748933.10.20.22.4.1" /> <id nullFlavor="NA&quot ; /> <code codeSystem="local" code="UAMICRO" displayName="UA MICROSCOPIC" /> <statusCode code=" completed" /> <component> <observation moodCode=& quot;EVN" classCode="OBS"> <templateId root=" 2.16.840.1.177221.10.20.22.4.2" /> <id nullFlavor="NA& quot; /> <code codeSystem="local" code="BACU&quot ; displayName="UA BACTERIA" /> <statusCode code=" completed" /> <effectiveTime value="[id number]" /> <value unit="" xsi:type="PQ" value="2 +" /> <interpretationCode codeSystem="local" code= "*" /> <referenceRange> < observationRange> <text>NEGATIVE</text> & lt;/observationRange> </referenceRange> </ observation> </component> <component> < observation moodCode="EVN" classCode="OBS"> < templateId root="[id number]" /> < id nullFlavor="NA" /> <code codeSystem="local" code="EPIU" displayName="UA EPITHELIAL CELLS" /> <statusCode code="completed" /> < effectiveTimevalue="[id number]" /> <value unit=" epi/hpf" xsi:type="PQ" value="3+" /> < interpretationCode codeSystem="local" code="*" /> <referenceRange> <observationRange> < text>0 - 1+</text> </observationRange> </ referenceRange> </observation> </component> < component> <observation moodCode="EVN" classCode=" OBS"> <templateId root="2.16.840.1.183890.10.20.22.4.2& quot; /> <id nullFlavor="NA" /> <code codeSystem="local" code="MUCUSU" displayName="UA MUCUS& quot; /> <statusCode code="completed" /> & lt;effectiveTime value="264388403053" /> <value unit=& quot;" xsi:type="PQ" value="2+" /> < interpretationCode codeSystem="local" code="*" /> <referenceRange> <observationRange> < text>NEG TO 1+</text></observationRange> </ referenceRange> </observation> </component> < component> <observation moodCode="EVN" classCode=" OBS"> <templateId root="2.16.840.1.636397.10.20.22.4.2& quot; /> <id nullFlavor="NA" /> <code codeSystem="local" code="RBCU" displayName="UA RBC&quot ; /> <statusCode code="completed" /> < effectiveTime value="951571361525" /> <value unit=&quot ;rbc/hpf" xsi:type="PQ" value="0-3" /> < referenceRange> <observationRange> <text> 0 - 3</text> </observationRange> </ referenceRange> </observation> </component> < component> <observation moodCode="EVN" classCode=" OBS"> <templateId root="2.16.840.1.964186.10.20.22.4.2& quot; /> <id nullFlavor="NA" /> <code codeSystem="local" code="UAVOL" displayName="UA VOLUME FOR EXAM" /> <statusCode code="completed" /> <effectiveTime value="210339143375" /> < value unit="mL" xsi:type="PQ" value="12.0" /> <referenceRange> <observationRange> <text>(12mL STD)</text> </observationRange> </ referenceRange> </observation> </component> < component> <observation moodCode="EVN" classCode="OBS& quot;> <templateIdroot="2.16.840.1.357245.10.20.22.4.2&quot ; /> <id nullFlavor="NA" /> <code codeSystem="local" code="WBCU" displayName="UA WBC&quot ;/> <statusCode code="completed" /> < effectiveTime value="471387955972" /> <value unit=&quot ;wbc/hpf" xsi:type="PQ" value="2-5" /> < referenceRange> <observationRange> <text>0 - 5</ text> </observationRange> </referenceRange> </observation> </component> </organizer> </ entry> <entry> <organizer moodCode="EVN" classCode=& quot;BATTERY"> <templateIdroot=" 2.16.840.1.351526.10.20.22.4.1" /> <id nullFlavor="NA&quot ; /> <code codeSystem="local" code="DRUGAB" displayName="UR DRUGS OF ABUSE SCREEN" /> <statusCode code= "completed" /> <component><observation moodCode=&quot ;EVN" classCode="OBS"> <templateId root=" 2.16.840.1.178251.10.20.22.4.2" /> <id nullFlavor="NA& quot; /> <code codeSystem="local" code="AMPHU" displayName="UR AMPHETAMINES SCREEN" /> <statusCode code="completed" /> <effectiveTimevalue=" 889869768850" /> <value unit="" xsi:type="PQ& quot; value="NEG (<1000 ng/mL)" /> < referenceRange> <observationRange> <text> NEGATIVE</text> </observationRange> </ referenceRange> </observation> </component> < component> <observation moodCode="EVN" classCode=" OBS"> <templateId root="2.16.840.1.793018.10.20.22.4.2& quot; /> <id nullFlavor="NA"/> <code codeSystem="local" code="BARBU" displayName="UR BARBITURATE SCREEN" /> <statusCode code="completed&quot ; /> <effectiveTime value="022062437187" /> <value unit="" xsi:type="PQ" value="POS (&gt ; 200 ng/mL)" /> <interpretationCode codeSystem="local& quot; code="*" /> <referenceRange> < observationRange> <text>NEGATIVE</text> & lt;/observationRange> </referenceRange> </observation> </component> <component> <observation moodCode=&quot ;EVN" classCode="OBS"> <templateIdroot=" 2.16.840.1.645584.10.20.22.4.2" /> <id nullFlavor="NA& quot; /> <code codeSystem="local" code="DAUCOMMENT " displayName="DRUGS OF ABUSE SCREEN COMMENT" /> < statusCode code="completed" /><effectiveTime value=" 391835213586" /> <value unit="" xsi:type="PQ& quot; value="" /> <referenceRange> & lt;observationRange> <text /> </ observationRange> </referenceRange> </observation&gt ; </component> <component> <observation moodCode ="EVN" classCode="OBS"> <templateId root=& quot;2.16.840.1.052852.10.20.22.4.2" /> <id nullFlavor=&quot ;NA" /> <code codeSystem="local" code="OPIU& quot; displayName="UR OPIATES SCREEN" /> <statusCode code="completed" /> <effectiveTime value=" 126779508325" /> <value unit="" xsi:type="PQ& quot; value="POS (> 300 ng/mL)" /> < interpretationCode codeSystem="local" code="*" /> <referenceRange> <observationRange> < text>NEGATIVE</text> </observationRange> < /referenceRange> </observation> </component> < component> <observation moodCode="EVN" classCode=" OBS"> <templateId root="2.16.840.1.635056.10.20.22.4.2& quot; /> <id nullFlavor="NA" /> <code codeSystem="local" code="PCPU" displayName="UR PHENCYCLIDINE (PCP) SCREEN" /> <statusCode code=" completed" /> <effectiveTime value="992097272664" /> <value unit="" xsi:type="PQ" value=" NEG(< 25 ng/mL)" /> <referenceRange> & lt;observationRange> <text>NEGATIVE</text> </observationRange> </referenceRange> </ observation> </component> <component> < observation moodCode="EVN" classCode="OBS"> < templateId root="2.16.840.1.468943.10.20.22.4.2" /> < id nullFlavor="NA" /> <code codeSystem="local" code=& quot;THCU" displayName="UR CANNABINOIDS (THC)SCREEN" /> <statusCode code="completed" /> <effectiveTime value="714151460885" /> <value unit="" xsi: type="PQ" value="NEG (< 50 ng/mL)" /> & lt;referenceRange> <observationRange> <text& gt;NEGATIVE</text> </observationRange> </ referenceRange> </observation> </component> < component> <observation moodCode="EVN" classCode=" OBS"> <templateId root="2.16.840.1.418606.10.20.22.4.2& quot; /> <id nullFlavor="NA" /> <code codeSystem="local" code="COCAU" displayName="UR COCAINE METABOLITE SCREEN" /> <statusCode code=" completed" /> <effectiveTime value="838686767635" /> <value unit="" xsi:type="PQ" value="NEG (& amp;lt; 300 ng/mL)" /> <referenceRange> < observationRange> <text>NEGATIVE</text> & lt;/observationRange> </referenceRange> </ observation> </component> <component> < observation moodCode="EVN" classCode="OBS"> < templateId root="2.16.840.1.026128.10..22.4.2" /> < id nullFlavor="NA" /> <code codeSystem="local&quot ; code="METHU" displayName="UR METHADONE SCREEN" /> <statusCode code="completed" /> <effectiveTime value="261971333588" /> <value unit=""xsi: type="PQ" value="NEG (< 300 ng/mL)" /> & lt;referenceRange> <observationRange> <text& gt;NEGATIVE</text> </observationRange> </ referenceRange> </observation> </component> < component> <observation moodCode="EVN" classCode=" OBS"> <templateId root="2.16.840.1.882823.10..22.4.2& quot; /> <id nullFlavor="NA" /> <code codeSystem="local" code="BENZU" displayName="UR BENZODIAZEPINE SCREEN" /> <statusCode code="completed& quot; /> <effectiveTime value="937054550309" /> <value unit="" xsi:type="PQ" value="NEG (&amp ;lt; 200 ng/mL)" /> <referenceRange> < observationRange> <text>NEGATIVE</text> & lt;/observationRange> </referenceRange> </ observation> </component> </organizer> </entry> < entry> <organizer moodCode="EVN" classCode="BATTERY&quot ;> <templateId root="2.16.840.1.754688.10.20.22.4.1" /> <id nullFlavor="NA" /> <code codeSystem=" local" code="CBC" displayName="CBC" /> < statusCode code="completed" /> <component> < observation moodCode="EVN" classCode="OBS"> < templateId root="2.16.840.1.310467.10.20.22.4.2" /> <id nullFlavor="NA" /> <code codeSystem="local" code="MCH" displayName="MEAN CELL HGB" /> < statusCode code="completed" /> <effectiveTime value=& quot;441163379359" /> <value unit="pg" xsi:type=& quot;PQ" value="29.7" /> <referenceRange> & lt;observationRange> <text>27.0-33.0</text> </observationRange> </referenceRange> </ observation> </component> <component> < observation moodCode="EVN" classCode="OBS"> < templateId root="2.16.840.1.092697.10.20.22.4.2" /> < id nullFlavor="NA" /> <code codeSystem="local&quot ; code="MCHC" displayName="MEAN CELL HGB CONCENTRATION" /&gt ; <statusCode code="completed" /> < effectiveTime value="537471319631" /> <value unit=&quot ;g/dL" xsi:type="PQ" value="31.8" /> < interpretationCode codeSystem="local" code="*" /> <referenceRange> <observationRange> < text>32.0-37.0</text> </observationRange> </ referenceRange> </observation> </component> < component> <observation moodCode="EVN" classCode=" OBS"> <templateId root="2.16.840.1.106163.10.20.22.4.2& quot; /> <id nullFlavor="NA"/> <code codeSystem="local" code="MCV" displayName="MEAN CELL VOLUME" /> <statusCode code="completed" /> <effectiveTime value="841105601638" /> <value unit="fl" xsi:type="PQ" value="93.6" /> <referenceRange> <observationRange> <text >80.0-100.0</text> </observationRange> </ referenceRange> </observation> </component> < component> <observation moodCode="EVN" classCode=" OBS"> <templateId root="2.16.840.1.293498.10.20.22.4.2& quot; /> <id nullFlavor="NA" /> <code codeSystem= "local" code="RBC" displayName="RED BLOOD CELL" /& gt; <statusCode code="completed" /> < effectiveTime value="244774603890" /> <value unit=&quot ;m/cumm" xsi:type="PQ" value="3.90" /> < interpretationCode codeSystem="local" code="*" /> <referenceRange> <observationRange> < text>4.00-6.00</text> </observationRange> &lt ;/referenceRange> </observation> </component> & lt;component> <observation moodCode="EVN" classCode=&quot ;OBS"> <templateId root="2.16.840.1.973670.10.20.22.4.2 " /> <id nullFlavor="NA" /> <code codeSystem="local" code="RDW" displayName="RED CELL DISTRIBUTION WIDTH" /> <statusCode code="completed&quot ; /> <effectiveTime value="423140397400" /> <value unit="%" xsi:type="PQ" value="15.3& quot; /> <referenceRange> <observationRange> <text>11.0-15.6</text> </ observationRange> </referenceRange> </observation&gt ; </component> <component> <observation moodCode ="EVN" classCode="OBS"> <templateId root=& quot;2.16.840.1.687699.10.20.22.4.2" /> <id nullFlavor=&quot ;NA" /> <code codeSystem="local" code="WBC& quot; displayName="WHITE BLOOD CELL" /> <statusCode code="completed" /> <effectiveTime value=" 596562933206" /> <value unit="k/cumm" xsi:type=& quot;PQ" value="7.9" /> <referenceRange> & lt;observationRange> <text>5.0-10.0</text> </observationRange> </referenceRange> </ observation> </component> <component> < observation moodCode="EVN"classCode="OBS"> < templateId root="2.16.840.1.272652.10.20.22.4.2" /> < id nullFlavor="NA" /> <code codeSystem="local&quot ; code="HGBT" displayName="HEMOGLOBIN" /> < statusCode code="completed" /> <effectiveTime value=& quot;219389537530" /> <value unit="gm/dL" xsi:type ="PQ" value="11.6" /> <interpretationCode codeSystem="local" code="*" /> < referenceRange> <observationRange> <text>12.0- 16.0</text> </observationRange> </ referenceRange> </observation> </component> < component> <observation moodCode="EVN" classCode=" OBS"> <templateId root="2.16.840.1.579277.10.20.22.4.2& quot; /> <id nullFlavor="NA" /> <code codeSystem="local" code="HCTT" displayName="HEMATOCRIT& quot; /> <statusCode code="completed" /> & lt;effectiveTime value="314520480702" /> <value unit=& quot;%" xsi:type="PQ" value="36.5" /> <interpretationCode codeSystem="local" code="*" /&gt ; <referenceRange> <observationRange> <text>37.0-47.0</text> </observationRange> </referenceRange> </observation> </component&gt ; <component><observation moodCode="EVN" classCode=&quot ;OBS"> <templateId root="2.16.840.1.122438.10..22.4.2 " /> <id nullFlavor="NA" /> <code codeSystem="local" code="PLT" displayName="PLATELET COUNT" /> <statusCode code="completed" /> <effectiveTime value="833938996275" /> <value unit="k/cumm" xsi:type="PQ" value="227" /> <referenceRange> <observationRange> <text>150 -450</text> </observationRange> </ referenceRange> </observation> </component> </ organizer> </entry> <entry> <organizer moodCode="EVN " classCode="BATTERY"> <templateId root=" 2.16.840.1.773790.10..22.4.1" /> <id nullFlavor="NA&quot ; /> <code codeSystem="local" code="METAB" displayName="METABOLIC PANEL, BASIC" /> <statusCode code=& quot;completed" /> <component> <observation moodCode="EVN" classCode="OBS"> <templateId root="2.16.840.1.597927.10.20.22.4.2" /> <id nullFlavor ="NA" /> <code codeSystem="local" code="K&quot ; displayName="POTASSIUM" /> <statusCode code=" completed" /> <effectiveTime value="040305435252" /> <value unit="mmol/L" xsi:type="PQ" value=& quot;3.5" /> <referenceRange> < observationRange> <text>3.5-5.3</text> & lt;/observationRange> </referenceRange> </observation> </component> <component> <observation moodCode= "EVN" classCode="OBS"> <templateId root=&quot ;2.16.840.1.349428.10.20.22.4.2" /> <id nullFlavor="NA& quot; /> <code codeSystem="local" code="eGFR&quot ; displayName="EST GFR (MDRD)" /> <statusCode code=& quot;completed" /> <effectiveTime value="170009856245& quot; /> <value unit="mL/min" xsi:type="PQ" value="> 60"/> <referenceRange> & lt;observationRange> <text>> 59</text> </observationRange> </referenceRange> </ observation> </component> <component> < observation moodCode="EVN" classCode="OBS"> < templateId root="2.16.840.1.007643.10..22.4.2" /> < id nullFlavor="NA" /> <code codeSystem="local&quot ; code="GAP" displayName="ANION GAP" /> < statusCode code="completed" /> <effectiveTime value=& quot;211162091627" /> <value unit="mmol/L" xsi:type=& quot;PQ" value="7" /> <referenceRange> <observationRange> <text>5-15</text> & lt;/observationRange> </referenceRange> </ observation> </component> <component> < observation moodCode="EVN" classCode="OBS"> < templateId root="2.16.840.1.904170.10.20.22.4.2" /> <id nullFlavor="NA" /> <code codeSystem="local" code="eCrCl" displayName="EST CrCl (CG)" /> < statusCode code="completed" /> <effectiveTime value=& quot;382422774340" /> <value unit="mL/min" xsi: type="PQ" value="> 60" /> < referenceRange> <observationRange> <text> > 59</text> </observationRange> </ referenceRange> </observation> </component> < component> <observation moodCode="EVN" classCode=" OBS"> <templateId root="2.16.840.1.637614.10.20.22.4.2& quot; /> <id nullFlavor="NA" /> <code codeSystem= "local" code="GLU" displayName="GLUCOSE" /> <statusCode code="completed" /> < effectiveTime value="291031808267" /> <value unit=&quot ;mg/dL" xsi:type="PQ" value="83" /> < referenceRange> <observationRange> <text> 70-99</text> </observationRange> </ referenceRange> </observation> </component> < component> <observation moodCode="EVN" classCode=" OBS"> <templateId root="2.16.840.1.688773.10.20.22.4.2& quot; /> <id nullFlavor="NA" /> <code codeSystem="local" code="CA" displayName="CALCIUM&quot ; /> <statusCode code="completed" /> < effectiveTimevalue="671010891724" /> <value unit=" mg/dL" xsi:type="PQ" value="8.6" /> < referenceRange> <observationRange> <text>8.5- 10.1</text> </observationRange> </ referenceRange> </observation> </component> < component> <observation moodCode="EVN" classCode=" OBS"> <templateId root="2.16.840.1.192425.10.20.22.4.2& quot; /> <id nullFlavor="NA" /> <code codeSystem="local" code="BUN" displayName="BLOOD UREA NITROGEN"/> <statusCode code="completed" /> <effectiveTime value="802177381615" /> < value unit="mg/dL" xsi:type="PQ" value="3" /> <interpretationCode codeSystem="local" code="*" /> <referenceRange> <observationRange> <text>7-20</text> </observationRange> </referenceRange> </observation> </component&gt ; <component> <observation moodCode="EVN" classCode="OBS"> <templateId root=" 2.16.840.1.274752.10.20.22.4.2" /> <id nullFlavor="NA& quot; /> <code codeSystem="local" code="CREAT&quot ; displayName="CREATININE" /> <statusCode code=" completed" /> <effectiveTime value="839623486464" /> <value unit="mg/dL" xsi:type="PQ" value=& quot;0.8" /> <referenceRange> < observationRange> <text>0.6-1.0</text> </ observationRange> </referenceRange> </observation&gt ; </component> <component> <observation moodCode ="EVN" classCode="OBS"> <templateId root=& quot;2.16.840.1.741795.10..22.4.2" /><id nullFlavor="NA" /> <code codeSystem="local" code="NA" displayName="SODIUM" /> <statusCode code=" completed" /> <effectiveTime value="154117853336" /& gt; <value unit="mmol/L" xsi:type="PQ" value=& quot;135" /> <referenceRange> < observationRange> <text>135-148</text> & lt;/observationRange> </referenceRange> </ observation> </component> <component> < observation moodCode="EVN" classCode="OBS"> < templateId root="2.16.840.1.114240.10.20.22.4.2" /> < id nullFlavor="NA" /> <code codeSystem="local&quot ; code="CL" displayName="CHLORIDE" /> < statusCode code="completed" /> <effectiveTime value=& quot;658162543300" /> <value unit="mmol/L" xsi: type="PQ" value="100" /> <referenceRange> <observationRange> <text>98-110</text&gt ; </observationRange> </referenceRange> & lt;/observation> </component> <component> < observation moodCode="EVN" classCode="OBS"> < templateId root="2.16.840.1.187499.10.20.22.4.2" /> < id nullFlavor="NA" /> <code codeSystem="local&quot ; code="CO2" displayName="CARBON DIOXIDE" /> &lt ;statusCode code="completed" /> <effectiveTime value=& quot;758762624833" /> <value unit="mmol/L" xsi: type="PQ" value="28" /> <referenceRange> <observationRange> <text>21-32</text> </observationRange> </referenceRange> </ observation> </component> </organizer> </entry> & lt;entry> <organizer moodCode="EVN" classCode="BATTERY& quot;> <templateId root="2.16.840.1.362682.10.20.22.4.1" /& gt; <id nullFlavor="NA" /> <code codeSystem=" local" code="PT" displayName="PROTHROMBIN TIME WITH INR&quot ; /> <statusCode code="completed" /> <component& gt; <observation moodCode="EVN" classCode="OBS"&gt ; <templateId root="2.16.840.1.967692.10.20.22.4.2" /> <id nullFlavor="NA" /> <code codeSystem=& quot;local" code="INRX" displayName="INTERNATIONAL NORMAL RATIO" /> <statusCode code="completed" /> <effectiveTime value="559263688172" /> <value unit="" xsi:type="PQ" value="1.1" /> & lt;referenceRange> <observationRange> <text& gt;0.9-1.1</text> </observationRange> </ referenceRange> </observation> </component> < component> <observation moodCode="EVN" classCode=" OBS"> <templateId root="2.16.840.1.448715.10.20.22.4.2& quot; /> <id nullFlavor="NA" /> <code codeSystem="local" code="PTPAT" displayName=" PROTHROMBIN TIME" /> <statusCode code="completed" /> <effectiveTime value="007639948250" /> < value unit="sec" xsi:type="PQ" value="13.1" /> <interpretationCode codeSystem="local" code="*&quot ; /> <referenceRange> <observationRange> <text>10.0-12.9</text> </observationRange&gt ; </referenceRange> </observation> </ component> </organizer> </entry> <entry> < organizer moodCode="EVN" classCode="BATTERY"> < templateId root="2.16.840.1.947915.10.20.22.4.1" /> <id nullFlavor="NA" /> <code codeSystem="local" code= "iCHEM8" displayName="CHEM/HEM PROFILE-BEDSIDE" /> & lt;statusCode code="completed" /> <component> &lt ;observation moodCode="EVN" classCode="OBS"> &lt ;templateId root="2.16.840.1.962800.10.20.22.4.2" /> < id nullFlavor="NA" /> <code codeSystem="local&quot ; code="K" displayName="POTASSIUM" /> < statusCode code="completed" /> <effectiveTime value=& quot;147690543565" /> <value unit="mmol/L" xsi:type=" PQ" value="3.7" /> <referenceRange> <observationRange> <text>3.5-5.3</text> </observationRange> </referenceRange> </ observation> </component> <component> < observation moodCode="EVN" classCode="OBS"> < templateId root="2.16.840.1.493344.10.20.22.4.2" /> <id nullFlavor="NA" /> <code codeSystem="local" code="CMETHOD" displayName="METHOD" /> < statusCode code="completed" /> <effectiveTime value=& quot;212241841707" /> <value unit="" xsi:type=& quot;PQ" value="Bedside" /> <referenceRange> <observationRange> <text /> </ observationRange> </referenceRange> </observation> </component> <component> <observation moodCode=& quot;EVN" classCode="OBS"> <templateId root=" 2.16.840.1.792136.10.20.22.4.2" /> <id nullFlavor="NA& quot;/> <code codeSystem="local" code="GAP" displayName="ANION GAP" /> <statusCode code=" completed" /> <effectiveTime value="312039609215" /> <value unit="mmol/L" xsi:type="PQ" value=& quot;17" /> <referenceRange> < observationRange> <text>10-20</text> </ observationRange> </referenceRange> </observation&gt ; </component> <component> <observation moodCode ="EVN" classCode="OBS"> <templateId root=& quot;2.16.840.1.404711.10.20.22.4.2" /> <id nullFlavor=&quot ;NA" /> <codecodeSystem="local" code="HMETHOD " displayName="METHOD" /> <statusCode code=" completed" /> <effectiveTime value="" /> <value unit="" xsi:type="PQ" value=" Bedside" /> <referenceRange> < observationRange> <text /> </observationRange&gt ; </referenceRange> </observation> </ component> <component> <observation moodCode="EVN& quot; classCode="OBS"> <templateId root=" 2.16.840.1.692096.10.20.22.4.2" /> <id nullFlavor="NA" / > <code codeSystem="local" code="GLU" displayName="GLUCOSE" /> <statusCode code=" completed" /> <effectiveTime value="213874431117" /> <value unit="mg/dL" xsi:type="PQ" value=& quot;77" /> <referenceRange> <observationRange> <text>70-99</text> </observationRange> </referenceRange> </observation> </ component> <component> <observation moodCode="EVN& quot; classCode="OBS"><templateId root=" 2.16.840.1.784000.10..22.4.2" /> <id nullFlavor="NA& quot; /> <code codeSystem="local" code="BUN" displayName="BLOOD UREA NITROGEN" /> <statusCode code=& quot;completed" /> <effectiveTime value="199646944937& quot; /> <value unit="mg/dL" xsi:type="PQ" value="< 3" /> <interpretationCode codeSystem=& quot;local" code="*" /> <referenceRange> <observationRange> <text>7-20</text> </observationRange> </referenceRange> </ observation> </component> <component> < observation moodCode="EVN" classCode="OBS"> < templateId root="2.16.840.1.167546.10.20.22.4.2" /> < id nullFlavor="NA" /> <code codeSystem="local" code=& quot;CREAT" displayName="CREATININE" /> < statusCode code="completed" /> <effectiveTime value=& quot;435424370780" /> <value unit="mg/dL" xsi:type ="PQ" value="0.7" /> <referenceRange> <observationRange> <text>0.6-1.0</text> </observationRange> </referenceRange> </ observation> </component> <component> < observation moodCode="EVN" classCode="OBS"> < templateId root="2.16.840.1.368442.10.20.22.4.2" /> < id nullFlavor="NA" /> <code codeSystem="local&quot ; code="HGBT" displayName="HEMOGLOBIN" /> < statusCode code="completed" /> <effectiveTime value=& quot;120822184501" /> <value unit="gm/dL" xsi:type ="PQ" value="12.9" /> <referenceRange> <observationRange> <text>12.0-16.0</text> </observationRange> </referenceRange> < /observation> </component> <component> < observation moodCode="EVN" classCode="OBS"> < templateId root="2.16.840.1.472578.10..22.4.2" /> < id nullFlavor="NA" /> <code codeSystem="local&quot ; code="HCTT" displayName="HEMATOCRIT" /> < statusCode code="completed" /> <effectiveTime value=& quot;906891313157" /> <value unit="%" xsi: type="PQ" value="38.0" /> <referenceRange&gt ; <observationRange> <text>37.0-47.0</ text> </observationRange> </referenceRange> </observation> </component> <component> < observation moodCode="EVN" classCode="OBS"> < templateId root="2.16.840.1.353293.10.20.22.4.2" /> <id nullFlavor="NA" /> <code codeSystem="local" code="NA" displayName="SODIUM" /> < statusCode code="completed" /> <effectiveTime value=& quot;379226449594" /> <value unit="mmol/L" xsi: type="PQ" value="138" /> <referenceRange> <observationRange> <text>135-148</text> </observationRange> </referenceRange> </ observation> </component><component> <observation moodCode="EVN" classCode="OBS"> <templateId root=& quot;2.16.840.1.973515.10.20.22.4.2" /> <id nullFlavor=&quot ;NA" /> <code codeSystem="local" code="CL& quot; displayName="CHLORIDE" /> <statusCode code=" completed" /> <effectiveTime value="440346688437" /> <value unit="mmol/L" xsi:type="PQ" value=& quot;98" /> <referenceRange> < observationRange> <text>98-110</text> &lt ;/observationRange> </referenceRange> </observation& gt; </component> <component><observation moodCode=&quot ;EVN" classCode="OBS"> <templateId root=" 2.16.840.1.739368.10..22.4.2" /> <id nullFlavor="NA& quot; /> <code codeSystem="local" code="CO2" displayName="CARBON DIOXIDE" /> <statusCode code=" completed" /> <effectiveTime value="892493550793" /> <value unit="mmol/L" xsi:type="PQ" value=& quot;27" /> <referenceRange> < observationRange><text>21-32</text> </ observationRange> </referenceRange> </observation&gt ; </component> <component> <observation moodCode ="EVN" classCode="OBS"> <templateId root=& quot;[id number]" /> <id nullFlavor=&quot ;NA" /> <code codeSystem="local" code="CAION& quot; displayName="CALCIUM IONIZED" /><statusCode code=" completed" /> <effectiveTime value="[id number]" /> <value unit="mg/dL" xsi:type="PQ" value=& quot;4.4" /> <interpretationCode codeSystem="local&quot ; code="*" /> <referenceRange> < observationRange> <text>4.5-5.3</text> & lt;/observationRange> </referenceRange> </ observation> </component> </organizer> </entry></ section> Encounters ACCT Visit Discharge Status Pt. Type Provider Facility Loc./Unit Complaint No. Date/Time [id number] 06/10/2016 06/16/2016 DIS Inpatient Herb Pickering8TS [id number] 19:27:00 19:56:00 , [facility] [id number] 04/25/2013 04/25/2013 [facility] Outpatient [facility] [id number] 00:00:00 00:00:00 Alfonso CASTANO [id number] 01/16/2017 01/16/2017 DIS Emergency Qamar AparicioED [id number] 16:50:00 18:54:00 , [facility] L & ER
--- OUTSIDE RECORDS SUMMARY | 2017-12-06 13:13 | External Medical Summary ---
:1960 Author Organization [facility] Address [address] [id number] Care Team Providers Name Role Phone Alfonso Burgos Unavailable Unavailable PROBLEMS Type Condition ICD9-CM [id number] Onset Condition SNOMED Code Code Code Dates Status Problem Nonspecific 790.4 Inactive 019772377 elevation of levels of transaminase or lactic acid dehydrogenase (LDH) Problem Anorexia 783.0 Inactive 00325320 Problem Loss of weight 783.21 Inactive 369510104 Problem Epigastric pain R10.13 Active 98656337 Problem Other specified V65.49 Inactive 882628865 counseling Problem Benign neoplasm 211.3 Inactive 71904069 of colon Problem Abdominal pain, 789.00 Inactive 01930558 unspecified site Problem Special screening V76.51 Inactive 694150943 for malignant neoplasms, colon Problem Other abnormal 790.6 Inactive 120393776 blood chemistry Assessment Epigastric pain R10.13 21 Mar, Active 40516471 2017 Problem Benign neoplasm 229.9 Inactive 78403173 of unspecified site Problem Blood in stool 578.1 Inactive 060491122 Problem Nausea with 787.01 Inactive 77963499 vomiting Problem Unspecified 564.00 Inactive 26868599 constipation Problem Abdominal pain, 789.06 Inactive 16680036 epigastric Problem Other and 303.90 Inactive 762459196 unspecified alcohol dependence, unspecified drunkenness ALLERGIES Unknown [...]
[2017-12-06] MEDS: SALINE FLUSH 10ml SYRINGE IVF PRN (13:35)
[2017-12-06] MEDS ORDERED: IOHEXOL 300mg/ml 100ml INJECTION ONE (13:54)
[2017-12-06] MEDS ORDERED: SALINE FLUSH 10ml SYRINGE ONE (13:55)
[2017-12-06] MEDS ORDERED: FentaNYL 100 MCG/2 ML INJECTION IVP ONE (14:17)
--- NOTE | 2017-12-06 14:36 | CT Scan Report ---
Indication: abdominal pain radiating to back PROCEDURE: CT abdomen pelvis w con: Encounter: Initial Comparison: January 10, 2017 Technique: Axial CT images were performed through the abdomen and pelvis after the administration of intravenous contrast. Coronal and sagittal two-dimensional reformats. Automated Exposure Control and Iterative Reconstruction dose reducing techniques were utilized. Contrast: Omnipaque 300 89 mL Findings: Chronic fibrosis noted in the lung bases. The liver is stable and within normal limits. No bile duct dilatation. The gallbladder is unremarkable. Spleen is at the upper limits of normal in size. The pancreas is normal in appearance with interval resolution of the prior inflammatory change. The adrenal glands and kidneys are normal. No abdominal or pelvic lymphadenopathy. Scattered arterial atherosclerotic plaque. Metallic artifact from a right hip replacement. Bladder is mostly obscured by artifact. No obvious free pelvic fluid. No bowel obstruction. No evidence of diverticulitis or free air. Bone windows show no acute findings. Impression: No acute disease process seen in the abdomen or pelvis. .
[2017-12-06 16:15] VITALS: BMI 27.1
--- NOTE | 2017-12-06 16:39 | History & Physical Report ---
History of Present Illness Date: 12/06/17 Chief complaint: Back pain and abdominal pain HPI: Dulce Maria Moore is a 57 year old woman who presented to [facility] ED on 12/06/17 for back pain and abdominal pain. Her sided back pain is predominantly on her left and radiates into her hip and sometimes into feet (it's also on the right side, just not as intense) - onset was about a month ago. She denies injury/trauma. She describes the pain as tingling and burning, and movement and walking makes this pain worse. She's been taking gabapentin and oxycodone 10 mg TID as Rx by Dr. Costello (pain mgt). She actually takes the pain medicine for hx of avascular necrosis of hip, and her current pain meds don't touch her back pain. She has not She describes the abdominal pain as burning pain to her epigastric region but she actually has diffuse pain through her abdomen. She feels bloated. This has been going on for a week. She's had some nausea but not vomiting. She's been able to drink water, cranberry juice, and iced tea fairly well, though not as much as usual. She hasn't had much of an appetite. She has had off and on diarrhea, and had several episodes on 12/06/17. She denies seeing any blood. No recent antibiotics, travel, or food exposures. She feels a little weak but denies dizziness. No difficulty urinating and no loss of control of bowel or bladder. She denies fevers but has been chilled. She has a mild headache and has sinus congestion with a mild productive cough (yellow-green sputum) that is more frequent compared to usual. No chest pain, dyspnea, leg swelling, palpitations. Labs in the ED were normal except for an elevated lipase level of 1323. UA was negative for UTI. A CT scan of her abdomen/pelvis was done, and this was negative for acute processes. Despite receiving Toradol and fentanyl her pain remained poorly controlled. She was subsequently admitted for further evaluation of her pancreatitis and for symptomatic control. Review of Systems All systems PM: 10-point ROS was reviewed, no additional remarkable complaints except - Constitutional Constitutional: Present: as per HPI - EENMT Eyes: Absent: change in vision Nose: Present: as per HPI Mouth/Throat: Present: as per HPI. Absent: sore throat, changes in swallowing, painful swallowing - Cardiovascular Cardiovascular: Present: as per HPI Vascular: Present: see HPI - Respiratory Respiratory: Present: as per HPI - Gastrointestinal Gastrointestinal: Present: as per HPI - Genitourinary Genitourinary: Present: as per HPI Menstruation: post menopausal - Musculoskeletal Musculoskeletal: Present: as per HPI - Integumentary/Breasts Integumentary: Absent: rash, wounds - Neurological Neurological: Present: as per HPI. Absent: focal weakness, frequent falls - Psychiatric Psychiatric: Absent: anxiety, depression - Endocrine Endocrine: Absent: palpitations - Hematologic/Lymphatic Hematologic/Lymphatic: Present: easy bleeding. Absent: easy bruising - Allergic/Immunologic Allergic/Immunologic: Present: seasonal rhinorrhea Past Medical History Chronic pain and narcotic dependency secondary to avascular necrosis of the hip Overweight with BMI 27.2 Gallbladder disease Surgical History: *Rt. Hip replacement -2008. *Rt. Knee Surgery - 2x -Dr. Martinez. *Colonoscopy. *Appendectomy Family History Updates: Positive for Thyroid, heart disease, HTN, DM. Father of cancer at age 64. Mother is still living, has diabetes and thyroid problems. Older brother & 2 younger brothers have heart disease. Younger brother & sister have thyroid disease. Younger sister with thyroid disease and diabetes. 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 Frances but currently does not have PCP. Medications Home Medications Medication Instructions Recorded Confirmed Type Albuterol HFA Inhaler [Ventolin 2 puff ORAL INH Q4H PRN 12/06/17 12/06/17 History Hfa 90 mcg/actuation] Diclofenac [Voltaren] 1 applicatio TOP TID PRN 12/06/17 12/06/17 History Gabapentin [Neurontin] 600 mg PO QID 12/06/17 12/06/17 History Ipatropium/Albuterol [Combivent 2 puff INH QID 12/06/17 12/06/17 History Respimat Inhaler] Oxycodone HCl 10 mg PO TID 12/06/17 12/06/17 History Sennosides/Docusate Sodium [Stool 3 tab PO DAILY PRN 12/06/17 12/06/17 History Softener Tablet] Trazodone HCl 300 mg PO HS 12/06/17 12/06/17 History Allergies Allergy/AdvReac Type Severity Reaction Status Date / Time morphine AdvReac Intermediate Verified 12/06/17 15:58 NSAIDS (Non-Steroidal AdvReac Mild NAUSEA Verified 12/06/17 11:20 Anti-Inflamma acetaminophen AdvReac Unknown PREVIOUS Verified 12/06/17 11:20 HX OF LIVER FAILURE LACTOSE INTOLERANT Allergy Unknown Uncoded 12/06/17 11:20 Exam Vital Signs: Temperature 96.6 F L 12/06/17 16:09 Pulse Rate 98 12/06/17 16:09 Respiratory Rate 20 12/06/17 16:09 Blood Pressure 111/71 12/06/17 16:09 Pulse Oximetry 92 12/06/17 16:09 Height/Weight/BMI: Height 1.63 m Weight 71.8 kg Body Mass Index 27.1 - Constitutional Present: mild distress, well nourished, well developed - Routine HEENT Exam Head: Present: normocephalic Eye: Present: PERRL. Absent: conjunctival icterus, scleral injection ENT: Present: mucous membranes moist, oropharynx clear. Absent: dentition normal - Routine Neck Exam Present: supple - Routine Respiratory Exam Present: CTA bilaterally - Routine Cardiovascular Exam Present: RRR, S1, S2 - Routine Abdominal Exam Present: tenderness (epigastric, left flank, left lower back), distended (mild) , guarding (mild guarding with palpation of epigastric region). Absent: normoactive bowel sounds (hyperactive) - Routine Extremities Exam Present: no edema - Routine Back/Spine/Pelvis Exam Back/Spine: Present: vertebral tenderness (lumbar) Comments: sensation intact to both legs; strength is equal to both hips, knee ext/flex, and ankle dorsi/flexion, and great toe ext/flex. Ambulated to BR with steady gait. - Routine Skin Exam Present: intact, dry, warm - Routine Neurological Exam Present: alert, oriented X3, CN II-XII intact, normal speech - Routine Psychiatric Exam Present: normal thought process, cooperative. Absent: normal affect (flat) Results - Labs CBC & Chem 7: 12/06/17 13:29 12/06/17 13:29 Assessment and Plan Assessment and Plan: IMPRESSION Pancreatitis Diarrhea Back pain with radicular symptoms History of gallbladder disease Chronic pain and narcotic dependency secondary to avascular necrosis of the hip Tobaccoism She denies lung disease but takes ipratropium/albuterol inhaler PLAN Admit, observation status, under the hospitalist service. Start IVF, NS at 125 mL/hr. Obtain GB sono; check lipid panel in am. Diet: NPO with sips/chips. Pain management: Fentanyl PRN, continue oxycodone. Zofran PRN nausea. Start Protonix IV. Consult RT for tobacco cessation information; Nicotine patch ordered. Consult PT/OT for evaluation given her back pain and radicular symptoms. May need additional outpt follow up. Check CXR d/t reports of increasing productive cough. Will need to be established with PCP. DVT Prophylaxis: SCD's GI Prophylaxis: Protonix Resuscitation Status: Full Code - Physician Narrative Physician: Seble Dow MD Narrative: Date: 12/06/17 Time: 1849 I have independently evaluated and examined this patient. I reviewed the chart, the patient's history, and the PATIENT TRANSPORTER/PA's documented findings as above. We discussed and formulated the assessment and plan as above with additions as below: Ms. Moore has history of recurrent episodes of pancreatitis dating back a number of years and originally attributed to heavy alcohol use for which patient; patient subsequently discontinued drinking due to pancreatitis. She has had multiple studies done previously including MRCP demonstrating no intrapancreatic ductal damage and no filling defects/stones, HIDA demonstrating normal gallbladder ejection fraction, and multiple gallbladder sonograms and CTs of the abdomen. She additionally has had endoscopic studies done revealing duodenitis in November 2016 and and reflux esophagitis and antral gastritis in January 2015. The patient is alert and appears moderately uncomfortable Respirations nonlabored, good airflow, breath sounds clear Regular cardiac rhythm Abdomen is soft him a mildly distended, diffusely tender-greater in the upper abdomen than lower abdomen, there is generalized guarding but no peritoneal signs. Bowel sounds are hyperactive Extremities without edema CT of the abdomen/pelvis reviewed by myself and completely unremarkable including no abnormalities seen in the gallbladder or pancreas. Gallbladder sonogram reviewed by myself-gallbladder salgado normal, no gallstones , common duct normal Chest x-ray reviewed by myself-unremarkable Recurrent pancreatitis-likely due to past damage with prior episodes. Managed conservatively, will consider surgical consultation with Dr. Urena who is seen her previously. PPI initiated-given past findings of peptic disease on endoscopies twice likely needs chronic PPI or H2 toribio therapy. Discussed with Dr. Reveles prior to admission. Hospital Course Summary Disclaimer: The visit summary below is not to be considered part of the above Progress Note. Hospital Course: 12/06/17 Admit, observation status, under the hospitalist service. Start IVF, NS at 125 mL/hr. Diet: NPO with sips/chips. Obtain GB sono; check lipid panel in am. Pain management: Fentanyl PRN, continue oxycodone. Zofran PRN nausea. Start Protonix IV. Consult RT for tobacco cessation information; Nicotine patch ordered. Consult PT/OT for evaluation given her back pain and radicular symptoms. May need additional outpt follow up. Check CXR d/t reports of increasing productive cough.
[2017-12-06] MEDS ORDERED: ALBUTEROL 2.5mg/3ml (0.083%) NEB AEROSOL PRN (17:01)
[2017-12-06] MEDS ORDERED: DICLOFENAC 1% TOP GEL 100gm TP PRN (17:01)
[2017-12-06] MEDS ORDERED: FentaNYL 100 MCG/2 ML INJECTION IVP PRN ×2 (17:01→17:20)
[2017-12-06] MEDS ORDERED: ONDANSETRON 4 MG/2 ML INJECTION IVP PRN (17:05)
[2017-12-06] MEDS: PANTOPRAZOLE 40 MG INJECTION IVP SCH (17:31)
[2017-12-06] MEDS: NS 1,000 ML IV SCH (17:32)
[2017-12-06] MEDS: NICOTINE 14 MG PATCH TD SCH (17:32)
[2017-12-06] MEDS: ALBUTEROL/IPRATROPIUM 2.5mg-0.5mg/3ml NEB AEROSOL SCH (19:26)
[2017-12-06] MEDS: Oxycodone *IR* 5 MG TABLET PO SCH (20:25)
[2017-12-06] MEDS: TRAZODONE 100 MG TABLET PO SCH (20:25)
[2017-12-06] MEDS ORDERED: ALBUTEROL/IPRATROPIUM 2.5mg-0.5mg/3ml NEB AEROSOL SCH (21:00)
[2017-12-06] MEDS: FentaNYL 100 MCG/2 ML INJECTION IVP PRN (21:39)
[2017-12-07] MEDS: FentaNYL 100 MCG/2 ML INJECTION IVP PRN ×5 (01:59→19:22)
[2017-12-07] MEDS: NS 1,000 ML IV SCH ×3 (02:01→17:26)
[2017-12-07] MEDS: ALBUTEROL/IPRATROPIUM 2.5mg-0.5mg/3ml NEB AEROSOL SCH ×4 (07:00→19:33)
[2017-12-07] MEDS: SALINE FLUSH 10ml SYRINGE IVF PRN ×4 (07:31→14:55)
--- NOTE | 2017-12-07 08:02 | XRay Report ---
INDICATION: productive cough PROCEDURE: CHEST 2-VIEWS UPRIGHT (PA & LAT) Encounter: Initial COMPARISON: July 01, 2014 FINDINGS: The lungs are hyperinflated with slightly increased interstitial prominence. No focal consolidation. There is no pleural effusion or pneumothorax. The heart size, mediastinal contours and pulmonary vascularity are within normal limits. There is no significant skeletal abnormality. IMPRESSION: No acute cardiopulmonary disease. Findings of COPD. .
--- NOTE | 2017-12-07 08:06 | Ultrasound Report ---
Indication: pancreatitis PROCEDURE: US gall bladder: Encounter: Initial Comparison: CT abdomen and pelvis dated November 2017 Technique: Grayscale and color Doppler sonographic imaging of the right upper quadrant of the abdomen was performed. Findings: Hepatic parenchyma is homogeneous without evidence for focal mass. The gallbladder is normal. There is no wall thickening, pericholecystic fluid, sonographic Yepez's sign or cholelithiasis. Both the intra and extrahepatic biliary system are of normal caliber with the common duct measuring 4 mm in dimension. Visualized portions of the head and body of the pancreas are unremarkable. The right kidney is present without collecting system dilatation. The right kidney measures 10.6 cm in length. Impression: Normal right upper quadrant sonogram. There is a preliminary report by [employer]. .
[2017-12-07] MEDS: PANTOPRAZOLE 40 MG INJECTION IVP SCH (08:08)
[2017-12-07] MEDS: Oxycodone *IR* 5 MG TABLET PO SCH ×3 (08:11→22:06)
[2017-12-07] MEDS: NICOTINE 14 MG PATCH TD SCH (08:12)
[2017-12-07] MEDS: NICOTINE PATCH REMOVAL TD SCH (08:13)
--- NOTE | 2017-12-07 15:20 | Progress Note ---
- Date 12/07/17 Subjective: Amanad is still in pain, and hasn't seen much improvement. She's a little upset that she's been lying here all day, in pain. She also has a headache, which might be from not eating anything all day. Her back pain persists, especially to the left side of her back. She denies nausea/vomiting. She's been up urinating frequently. Objective Vital signs: Temperature 95.9 F L 12/07/17 07:18 Pulse Rate 95 12/07/17 11:27 Respiratory Rate 20 12/07/17 10:20 Blood Pressure 93/62 12/07/17 11:27 Pulse Oximetry 93 12/07/17 10:20 Height/Weight/BMI: Height 1.63 m Weight 71.4 kg Body Mass Index 27.1 - Constitutional Present: no acute distress, well nourished, well developed - Routine HEENT Exam Head: Present: normocephalic Eye: Absent: conjunctival icterus, scleral injection - Routine Respiratory Exam Present: CTA bilaterally - Routine Cardiovascular Exam Present: RRR, S1, S2 - Routine Abdominal Exam Present: soft, normoactive bowel sounds, tenderness (mild diffuse tenderness), non distended - Routine Extremities Exam Present: no edema - Routine Back/Spine/Pelvis Exam Back image: 1 - tenderness - Routine Musculoskeletal Exam Musculoskeletal: Absent: no clubbing or cyanosis (clubbing to fingertips) - Routine Skin Exam Present: intact, dry, warm - Routine Neurological Exam Present: alert, oriented X3 - Routine Psychiatric Exam Present: normal thought process Results - Labs CBC & Chem 7: 12/07/17 04:49 12/07/17 04:49 Assessment and Plan (1) Pancreatitis Current visit: Yes Status: Acute Assessment and Plan: IMPRESSION Pancreatitis Diarrhea Back pain with radicular symptoms History of gallbladder disease Chronic pain and narcotic dependency secondary to avascular necrosis of the hip Tobaccoism She denies lung disease but takes ipratropium/albuterol inhaler PLAN Lipase increased slightly but abdominal exam improved. Will advance diet to regular. Continue IVF and pain control -- bp has been low and pt reports a hx of low bp with iv narcotics. Discussed with Dr. Urena -- with normal CT and sono, surgery is not typically recommended. He recommends f/u with GI. Lipid panel: Triglycerides 213 (H), cholesterol 187, LDL 110, VLDL 42.6 (H), HLD 34 (L), chol/HDL ratio 5.5 (H) DVT Prophylaxis: SCD's GI Prophylaxis: Protonix - Time spent with patient Time with patient PN: 35 minutes Coordination of Care: >50% of visit spent providing counseling/coordination of care - Physician Narrative Physician: Seble Dow MD Narrative: Date: 12/07/17 Time: 1800 I have independently evaluated and examined this patient. I reviewed the chart, the patient's history, and the INVESTIGATION MANAGER/PA's documented findings as above. We discussed and formulated the assessment and plan as above with additions as below: Amanda reports persistent left low back pain but improvement in abdominal bloating and abdominal pain. She denied dyspnea or symptoms unrelated to her abdominal/ back pain. She's hungry and frustrated that nothing definitive can be done to prevent the episodes of pancreatitis she has experienced. She reports trying to follow a low-fat diet and having discontinued alcohol use. Management of pancreatitis was reviewed with Amanda in addition to studies done previously. NAD, sclera anicteric Abdomen is soft, nontender-significantly improved from yesterday; bowel sounds present Left low back is tender to palpation Flexeril added for what exam suggests is muscular back pain; patient reports a moist heating pad was helping at home before she came to the hospital. OxyIR prn ordered as alternative to IV narcotics; advised patient to resume foods cautiously and advance diet as tolerated. Rate of IV fluids reduced. Patient clearly is making progress and may be able to discharge tomorrow. We again discussed need for her to continue use of either an H2 toribio or PPI due to prior EGD findings. She reported that she was previously having colonoscopies at six-month intervals by Dr. Hdz due to multiple polyps that were found and hasn't had a colonoscopy in a number of years--encouraged to follow-up with Dr. Urena or alternate surgeon for colonoscopy. Lengthy discussion with patient about pancreatitis and prior workup; reviewed medications to avoid in addition to dietary restrictions which she's been well versed on in the past. Inpatient status-IV fluids/IV narcotics in conjunction with pancreatitis. Hospital Course Summary Disclaimer: The visit summary below is not to be considered part of the above Progress Note. Hospital Course: 12/06/17 Admit, observation status, under the hospitalist service. Start IVF, NS at 125 mL/hr. Diet: NPO with sips/chips. GB sono was negative; check lipid panel in am. Pain management: Fentanyl PRN, continue oxycodone. Zofran PRN nausea. Start Protonix IV. Consult RT for tobacco cessation information; Nicotine patch ordered. PT/OT evaluations: no services recommended. Ms. Moore has history of recurrent episodes of pancreatitis dating back a number of years and originally attributed to heavy alcohol use for which patient; patient subsequently discontinued drinking due to pancreatitis. She has had multiple studies done previously including MRCP demonstrating no intrapancreatic ductal damage and no filling defects/stones, HIDA demonstrating normal gallbladder ejection fraction, and multiple gallbladder sonograms and CTs of the abdomen. She additionally has had endoscopic studies done revealing duodenitis in November 2016 and and reflux esophagitis and antral gastritis in January 2015. PPI initiated-given past findings of peptic disease on endoscopies twice likely needs chronic PPI or H2 toribio therapy. 12/07/17 Lipase increased slightly but abdominal exam improved. Will advance diet to regular. Continue IVF and pain control -- bp has been low and pt reports a hx of low bp with iv narcotics. Discussed with Dr. Urena -- with normal CT and sono, surgery is not typically recommended. He recommends f/u with GI. Lipid panel: Triglycerides 213 (H), cholesterol 187, LDL 110, VLDL 42.6 (H), HLD 34 (L), chol/HDL ratio 5.5 (H)
[2017-12-07] MEDS ORDERED: Oxycodone *IR* 15 MG TABLET PO PRN (15:57)
[2017-12-07] MEDS: GABAPENTIN 600 MG TABLET PO SCH ×2 (16:54→22:06)
[2017-12-07] MEDS: CYCLOBENZAPRINE 5 MG TABLET PO PRN (16:55)
[2017-12-07] MEDS: TRAZODONE 100 MG TABLET PO SCH (22:07)
[2017-12-08 00:24] VITALS: RESP 16
[2017-12-08] MEDS: FentaNYL 100 MCG/2 ML INJECTION IVP PRN ×2 (03:10→12:14)
[2017-12-08] MEDS: CYCLOBENZAPRINE 5 MG TABLET PO PRN (06:35)
[2017-12-08] MEDS: ALBUTEROL/IPRATROPIUM 2.5mg-0.5mg/3ml NEB AEROSOL SCH ×2 (07:36→11:47)
[2017-12-08 08:33] VITALS: BP 124/82; PULSE 86; TEMP 96.3
[2017-12-08] MEDS: NICOTINE 14 MG PATCH TD SCH (09:39)
[2017-12-08] MEDS: GABAPENTIN 600 MG TABLET PO SCH ×2 (09:39→12:14)
[2017-12-08] MEDS: Oxycodone *IR* 5 MG TABLET PO SCH (09:39)
[2017-12-08] MEDS: NICOTINE PATCH REMOVAL TD SCH (09:40)
[2017-12-08] MEDS: PANTOPRAZOLE 40 MG INJECTION IVP SCH (09:40)
[2017-12-08 11:58] VITALS: O2SAT 97
--- NOTE | 2017-12-08 13:00 | Discharge Summary ---
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 Tobaccoism She denies lung disease but takes ipratropium/albuterol inhaler - Laboratory Labs: 12/08/17 08:08 12/08/17 08:08 Laboratory Tests 12/06/17 12/07/17 12/08/17 13:29 04:49 08:08 Total Bilirubin < 0.10 L Conjugated Bilirubin 0.00 Icterus Index < 2 AST 16 ALT 15 Alkaline Phosphatase 78 Total Protein 7.7 Albumin 4.1 Globulin 3.6 Albumin/Globulin Ratio 1.1 Triglycerides 213 H Cholesterol 187 LDL Cholesterol, Calc 110.4 VLDL Cholesterol 42.6 H HDL Cholesterol 34 L Cholesterol/HDL Ratio 5.5 H Lipase 1323 H 1502 H Plasma Lactate 1.4 - Radiology Radiology: Chest x-ray IMPRESSION: No acute cardiopulmonary disease. Findings of COPD. Ultrasound gallbladder mpression: Normal right upper quadrant sonogram. 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 The liver is stable and within normal limits. No bile duct dilatation. The gallbladder is unremarkable. Spleen is at the upper limits of normal in size. The pancreas is normal in appearance with interval resolution of the prior inflammatory change. The adrenal glands and kidneys are normal. No abdominal or pelvic lymphadenopathy. Scattered arterial atherosclerotic plaque. Metallic artifact from a right hip replacement. Bladder is mostly obscured by artifact. No obvious free pelvic fluid. No bowel obstruction. No evidence of diverticulitis or free air. Bone windows show no acute findings. Impression: No acute disease process seen in the abdomen or pelvis. History of Present Illness HPI: Dulce Maria Moore is a 57 year old woman who presented to [facility] ED on 12/06/17 for back pain and abdominal pain. Her sided back pain is predominantly on her left and radiates into her hip and sometimes into feet (it's also on the right side, just not as intense) - onset was about a month ago. She denies injury/trauma. She describes the pain as tingling and burning, and movement and walking makes this pain worse. She's been taking gabapentin and oxycodone 10 mg TID as Rx by Dr. Costello (pain mgt). She actually takes the pain medicine for hx of avascular necrosis of hip, and her current pain meds don't touch her back pain. She has not She describes the abdominal pain as burning pain to her epigastric region but she actually has diffuse pain through her abdomen. She feels bloated. This has been going on for a week. She's had some nausea but not vomiting. She's been able to drink water, cranberry juice, and iced tea fairly well, though not as much as usual. She hasn't had much of an appetite. She has had off and on diarrhea, and had several episodes on 12/06/17. She denies seeing any blood. No recent antibiotics, travel, or food exposures. She feels a little weak but denies dizziness. No difficulty urinating and no loss of control of bowel or bladder. She denies fevers but has been chilled. She has a mild headache and has sinus congestion with a mild productive cough (yellow-green sputum) that is more frequent compared to usual. No chest pain, dyspnea, leg swelling, palpitations. Labs in the ED were normal except for an elevated lipase level of 1323. UA was negative for UTI. A CT scan of her abdomen/pelvis was done, and this was negative for acute processes. Despite receiving Toradol and fentanyl her pain remained poorly controlled. She was subsequently admitted for further evaluation of her pancreatitis and for symptomatic control. Objective Vital signs: Temperature 96.3 F L 12/08/17 08:00 Pulse Rate 86 12/08/17 08:00 Respiratory Rate 16 12/08/17 11:47 Blood Pressure 124/82 12/08/17 08:00 Pulse Oximetry 97 12/08/17 11:47 Height/Weight/BMI: Weight 71.3 kg Comments: On exam today the patient is alert and oriented 3. HEENT reveals sclerae to be anicteric and oropharynx is moist. Neck is supple. Chest is clear to auscultation. Cardiovascular reveals a regular rate and rhythm. Abdomen is soft , nontender with positive bowel sounds. Extremities are free of edema. Hospital Course This is a general summary of the patient's hospital course. For more details refer to the complete medical record. Hospital course: 12/06/17 Admit, observation status, under the hospitalist service. Start IVF, NS at 125 mL/hr. Diet: NPO with sips/chips. GB sono was negative; check lipid panel in am. Pain management: Fentanyl PRN, continue oxycodone. Zofran PRN nausea. Start Protonix IV. Consult RT for tobacco cessation information; Nicotine patch ordered. PT/OT evaluations: no services recommended. Ms. Moore has history of recurrent episodes of pancreatitis dating back a number of years and originally attributed to heavy alcohol use for which patient; patient subsequently discontinued drinking due to pancreatitis. She has had multiple studies done previously including MRCP demonstrating no intrapancreatic ductal damage and no filling defects/stones, HIDA demonstrating normal gallbladder ejection fraction, and multiple gallbladder sonograms and CTs of the abdomen. She additionally has had endoscopic studies done revealing duodenitis in November 2016 and and reflux esophagitis and antral gastritis in January 2015. PPI initiated-given past findings of peptic disease on endoscopies twice likely needs chronic PPI or H2 toribio therapy. 12/07/17 Lipase increased slightly but abdominal exam improved. Will advance diet to regular. Continue IVF and pain control -- bp has been low and pt reports a hx of low bp with iv narcotics. Discussed with Dr. Urena -- with normal CT and sono, surgery is not typically recommended. He recommends f/u with GI. Lipid panel: Triglycerides 213 (H), cholesterol 187, LDL 110, VLDL 42.6 (H), HLD 34 (L), chol/HDL ratio 5.5 (H) 12/08/2017 The patient was admitted on 12/06/2017 with abdominal pain and elevated lipase, likely secondary to pancreatitis. She has history of pancreatitis in the past thought to be secondary to alcohol use. She no longer drinks alcohol. She's had extensive workup for her pancreatitis in the past. She has no gallstones. Ultrasound of the gallbladder and CT abdomen did not show any abnormalities. She restarted a diet yesterday and states that she is eating and drinking well today. Her abdominal pain is not completely gone but is better. She had abdominal bloating that has resolved. She does feel stable for dismissal to home. She does not have a primary care provider but does have a list of physicians that we'll take new patients. I did recommend she call on Sunday morning and try to get an appointment this week for follow-up of her pancreatitis. She also has history of colon polyps and may need follow-up colonoscopy. She has also been dealing with low back pain for about a month and may need to have this evaluated as well. I will start her on Pepcid once daily for history of esophagitis and antral gastritis. The patient also request to continue on nicotine patch to help her quit smoking. I discussed with her that if her abdominal pain should worsen or if she is not able to keep down food and fluids well, she should either see her new physician if symptoms are not severe, or return to emergency room if she has severe symptoms. Time spent with patient: greater than 35 minutes Resuscitation Status: Full Code Discharge Plan - Discharge Disposition Discharge Date: 12/08/17 Disposition: 01 Discharged Home, Self-Care *Condition: Stable Reason For Visit (Visit label in EMR): Pancreatitis - Discharge Medications *Discharge Medications: New Famotidine [Pepcid] 1 tab PO BID #60 tab Nicotine Patch [Nicoderm] 14 mg TD DAILY 30 Days #30 patch Continue Oxycodone HCl 10 mg PO TID Ipatropium/Albuterol [Combivent Respimat Inhaler] 2 puff INH QID Gabapentin [Neurontin] 600 mg PO QID Albuterol HFA Inhaler [Ventolin Hfa 90 mcg/actuation] 2 puff ORAL INH Q4H PRN PRN Reason: Shortness Of Air/Wheezing Diclofenac [Voltaren] 1 applicatio TOP TID PRN PRN Reason: Pain Sennosides/Docusate Sodium [Stool Softener Tablet] 3 tab PO DAILY PRN PRN Reason: Constipation Trazodone HCl 300 mg PO HS - Discharge Packet/Instructions *Diet: Low-fat diet *Activity: Light activity as tolerated *Pain Management/Treatment: Continue your pain management as per Dr COSTELLO recommendations *Wound Care: Not applicable Additional Instructions: Please call Sunday morning to schedule an appointment later this week with your new primary care physician. *Notify Physician if: Worsening abdominal pain, recurrence of vomiting or inability to keep down food or fluid. *During Business Hours Contact: Notify your new primary care physician *After Business Hours Contact: Call the hospital at [phone] and have your physician paged *Pending Lab/Results: No Pending Lab - Referrals/Follow Up - Patient Handouts - Dismissal Complete Discharge Instructions are:: Complete Physician Narrative - Narrative Attestation Narrative: Date: 12/08/17 Time: 1257
[2017-12-08] MEDS: NS 1,000 ML IV SCH (13:39)
== END 2017-12-08 14:10 | disposition home or self-care (01) | DRG 439 ==
LOC: ED 12:24 → MED 12:24 → SUATTDRO 12-07 16:03
PROVIDERS: ADMIT Internal Medicine; ATTEND Internal Medicine